=== PATIENT | female | born 1960 | race Caucasian/White ===

== ENCOUNTER → 2021-03-28 09:36 | Outpatient (BNVA) | payer OTHER, SELFPAY | PROVIDERS: PCP Internal Medicine; Visit Provider Hospitalist ==

== ENCOUNTER 2021-05-03 08:56 | Outpatient (REF) | payer OTHER, SELFPAY ==
--- NOTE | 2021-05-03 11:36 | PFT_ITS ---
FLOWS: FEV1 93% of predicted at 3.13 L. FVC 91% of predicted at 3.95 L. FEV1 to FVC ratio of 0.79. No bronchodilator response except in small to medium airways. LUNG VOLUMES: Total lung capacity 99% of predicted at 6.19 L. Residual volume 91% of predicted at 2.19 L. Slow vital capacity 103% of predicted at 4 L. Expiratory reserve volume 104% of predicted at 1.24 L. Diffusion capacity is mildly decreased. IMPRESSION: No obstructive or restrictive ventilatory defect. No bronchodilator response except in small to medium airways. Isolated defect in diffusion capacity suggests underlying pulmonary vascular or parenchymal disease. Clinical correlation is advised. John Doan MD AP/MODL / [id number]
== END 2021-05-03 08:57 | disposition home or self-care (01) ==
LOC: HO.RESP 08:56
PROVIDERS: Visit Provider Hospitalist
DX: R05.3 Chronic cough (principal)
CPT/HCPCS: 94060; 94727; 94729

== ENCOUNTER → 2021-05-07 08:48 | Outpatient (BNVA) | payer OTHER, SELFPAY | PROVIDERS: PCP Internal Medicine; Visit Provider Hospitalist | DX: J45.909 Unspecified asthma, uncomplicated (principal); K21.9 Gastro-esophageal reflux disease without esophagitis; I27.20 Pulmonary hypertension, unspecified; Z23 Encounter for immunization | CPT/HCPCS: 90471; 90686 ==

== ENCOUNTER → 2021-07-10 09:15 | Outpatient (REF) | payer OTHER, SELFPAY ==
--- NOTE | 2021-07-10 09:18 | CA_ITS ---
Transthoracic Echocardiogram Patient (Last, First, Middle): Lisa Simmons Alexandra Gender: Female Date of : 1960 Age: 60 Procedure Date: 07/10/2021 Procedure Type: Transthoracic Echocardiogram Location: OP Height: 182.88 cm Weight: 78.47 kg BSA: 2.00 m2 Heart Rate: bpm BP: 110 / 80 mmHg Furnace Process Supervisor: Referring MD: Ramana Ambriz MD Drilling Manager: Jourdan Austin MD Symptoms: I27.20 - Pulmonary hypertension, unspecified Study Quality: Fair ECG Rhythm: Sinus Conclusions: - 1. Normal LV systolic function with grade 1 diastolic dysfunction 2. Normal cardiac valvular Doppler 3. Normal RV systolic pressure 4. No gross pericardial effusion Findings Left Ventricle Normal left ventricular size, thickness, and systolic function. The visually estimated ejection fraction is between 55-60%. Spectral Doppler is indicative of an impaired relaxation filling pattern. E/E prime ratio is <8, consistent with normal filling pressures. Evidence suggests grade I (mild) diastolic dysfunction. Right Ventricle Normal right ventricular cavity size and systolic function. Atria Both atria are normal in size. There is no evidence of interatrial shunt. Aortic Valve Normal aortic valve structure and function. There is no aortic valve stenosis. There is no aortic valve regurgitation. Mitral Valve Normal mitral valve structure and function. There is trace mitral valve regurgitation. There is no mitral valve stenosis. Pulmonic Valve The pulmonic valve was not well visualized. Tricuspid Valve Likely normal tricuspid valve structure and function. There is trace tricuspid valve regurgitation. The right ventricular systolic pressure is normal. The right ventricular systolic pressure is 17 mmHg. Normal right atrial pressure. There is no evidence of pulmonary hypertension. Great Vessels All visible segments of the aorta are normal in size. The pulmonary artery was not well visualized. Venous The inferior vena cava is normal in size and collapses greater than 50% with inspiration. Pericardium/Pleural There is no evidence of pericardial effusion. Prior Study Comparison No prior study available for comparison. Measurements 2D Linear Measurements IVSd: 0.89 0.6-0.9/0.6-1.0 cm LVIDd: 4.63 3.9-5.3/4.2-5.9 cm LVIDd Index: 2.32 2.4-3.2/2.2-3.1 cm/m2 LVIDs: 3.02 2.0-3.6 cm LVPWd: 0.90 0.7-1.1 cm Ao Root: 3.60 2.1-3.5 cm LA Diam: 2.30 2.7-3.8/3.0-4.0 cm LAIDs Index: 1.15 1.5-2.3 cm/m2 LV Mass: 172.74 67-162/88-224 g LV Mass Index: 86.37 43-95/49-115 g/m2 LVOT Diam: 2.40 3.0+(-)1.3 cm 2D Systolic Function EF 4C: 54.30 >55% EF 2C: 55.30 >55% EF BiP: 55.00 >55% Mitral Valve MV Pk E: 0.41 MV PK A: 0.52 MV Decel Time: 298.00 E/A: 0.80 E'Lateral: 4.35 E'Medial: 5.44 E/E' Med: 7.60 E/E' Lat: 9.40 PHT: 87.00 MVA PHT: 2.53 Decel Christian: 1.38 Aortic Valve AoV Pk Enrique: 1.09 AoV Mn Enrique: 0.71 AoV VTI: 0.24 AoV Pk Grad: 5.00 Aov Mn Grad: 2.00 YASSINE Cont.VTI: 3.44 LVOT LVOT Pk Enrique: 0.82 LVOT Mn Enrique: 0.52 LVOT VTI: 0.18 LVOT Pk Grad: 3.00 LVOT Mn Grad: 1.00 LVOT Diam: 2.40 LVOT Area: 4.52 Diastolic Function MV Pk E: 0.41 MV Pk A: 0.52 E/A: 0.80 E'Medial: 5.44 E/E' Med: 7.60 E' Laterial: 4.35 E/E' Lat: 9.40 Tricuspid Valve TR Pk Enrique: 1.88 TR Pk Grad: 14.00 RA Press: 3.00 RVSP: 17.00 Great Vessels Aorta Ao Root-2D: 3.60 2.0-3.7 cm Ao Asc: 3.70 2.1-3.4 cm Pulmonary Valve PV Pk Enrique: 0.71 Peak PV Grad: 2.00 Updated in Other Vendor System with Status of Final Jourdan Austin MD electronically signed on 07/10/2021 4:06:59 PM with status of Final
== END ==
LOC: HO.CARD 09:15
PROVIDERS: PCP Internal Medicine; Visit Provider Hospitalist
DX: I27.20 Pulmonary hypertension, unspecified (principal)
CPT/HCPCS: 93306

== ENCOUNTER 2021-08-03 09:24 | Outpatient (REF) | payer OTHER, SELFPAY ==
[2021-08-03 11:01] LABS: MANUAL DIFF FLAG NO
[2021-08-03 11:15] LABS: Basophils Percent Auto 0.9 % (0-2); Eosinophils Absolute Auto 0.1 X10*3/uL (0.0-0.4); Eosinophils Percent Auto 1.6 % (0-4); Hematocrit 40.6 % (37.0-47.0); Hemoglobin 12.8 g/dl (12.0-16.0); Imm Gran Abs Auto 0.01 X10*3/uL (0.00-0.03); Imm Gran Pct Auto 0.2 % (0.0-0.4); Lymphocytes Absolute Auto 1.3 X10*3/uL (1.2-4.9); Lymphocytes Percent Auto 29.7 % (20-40); Mean Corpuscular HGB Conc 31.5 g/dl (31.0-35.0); Mean Corpuscular Volume 91.9 fL (80.0-98.0); Mean Platelet Volume 11.4 fL (9.4-12.3); Monocytes Absolute Auto 0.3 X10*3/uL (0.1-1.2); Neutrophils Absolute Auto 2.8 x10*3/uL (2.0-8.3); Neutrophils Percent Auto 61.6 % (45-73); Platelet Count 182 X10*3/uL (160-400); Red Blood Count 4.42 X10*6/uL (4.20-5.50); Red Cell Distribution Width 12.9 % (11.0-16.0); White Blood Count 4.5 X10*3/uL (4.8-10.8)
[2021-08-03 11:53] LABS: Erythrocyte Sedimentation Rate 13 MM/HR (0-20)
[2021-08-04 16:16] LABS: SARS-COV-2 IgG Spike, Semi-Qnt 60.77 index (<1.00)
[2021-08-06 19:07] LABS: Immunoglobulin E 8 kU/L (<OR=114)
== END 2021-08-03 09:25 | disposition home or self-care (01) ==
LOC: HO.LAB 09:24
PROVIDERS: PCP Internal Medicine; Visit Provider Hospitalist
DX: I27.20 Pulmonary hypertension, unspecified (principal); J45.909 Unspecified asthma, uncomplicated; Q79.60 Ehlers-Danlos syndrome, unspecified; J32.0 Chronic maxillary sinusitis; R05.3 Chronic cough; R94.2 Abnormal results of pulmonary function studies; I51.89 Other ill-defined heart diseases; Z20.822 Contact with and (suspected) exposure to COVID-19
CPT/HCPCS: 36415; 82785; 85025; 85652; 86003; 86769

== ENCOUNTER → 2021-09-26 10:19 | Outpatient (BNVA) | payer OTHER, SELFPAY | PROVIDERS: PCP Internal Medicine; Visit Provider Hospitalist | DX: J45.909 Unspecified asthma, uncomplicated (principal) ==

== ENCOUNTER → 2022-01-07 14:26 | Outpatient (REF) | payer OTHER, SELFPAY ==
--- NOTE | ~2022-01-07 | CT_ITS ---
EXAMINATION: CT CHEST WITHOUT CONTRAST CLINICAL INFORMATION: Abnormal pulmonary function test result COMPARISON: None TECHNIQUE: Multidetector volumetric CT imaging of the chest was done. Axial MIP volume rendering provided. Sagittal and coronal reformatted images were obtained. This CT examination was performed using dose optimization techniques as appropriate, variously including the following: *Automated exposure control *Adjustment of mA and/or kV according to patient size (this includes techniques or standardized protocols for targeted exams where dose is matched to indication/reason for exam; i.e. extremities or head) *Use of iterative reconstruction technique DLP: 236 mGy-cm FINDINGS: LUNGS: There is a 3 mm peripheral or subpleural right upper lobe nodule axial image 148 series 7. There is a 4 mm peripheral or subpleural right upper lobe nodule axial image 226 series 7. There may be small calcified nodule left pleural fissure mip reconstructed image 76 and in the right lower lobe mip reconstructed image 97 series 11. There is a 2 cm peripheral or subpleural cyst in the right middle lobe. No evidence of interstitial lung disease, emphysema or bronchiectasis. No endobronchial or endotracheal lesion. MEDIASTINUM: There is a small pericardial effusion. The heart size is normal.. The ascending thoracic aorta is upper normal in size. The aortic arch and descending thoracic aorta are normal in caliber. There is mild coronary artery and thoracic aorta is calcification. There are no enlarged hilar or mediastinal lymph nodes. The visualized thyroid gland is normal. PLEURA: There is no pleural effusion. No pleural mass or thickening. AXILLA: No lymphadenopathy. No chest wall mass. UPPER ABDOMEN: Probable small posterior gastric diverticulum. Multiple low-attenuation liver lesions not compatible with cysts. Largest measures 2 cm. OSSEOUS STRUCTURES: Degenerative changes of the spine surgical changes to the right shoulder. CT/CT chest wo con IMPRESSION: Small pulmonary nodules. According to the UPDATED 2017 Fleischner Society recommendations, the advised follow-up imaging for less than 6 mm solid nodule: Low risk, no chest CT follow-up and high risk, optional chest CT follow-up in one year. Small pericardial effusion. Multiple liver lesions not compatible with cysts. Follow-up liver imaging recommended. Fleischner guidelines were followed. Findings will be communicated by the [facility] work flow binder coverstitch.
== END ==
LOC: HO.SL 14:26
PROVIDERS: PCP Internal Medicine; Visit Provider Hospitalist
DX: G47.33 Obstructive sleep apnea (adult) (pediatric) (principal); R94.2 Abnormal results of pulmonary function studies; R09.89 Other specified symptoms and signs involving the circulatory and respiratory systems; R06.00 Dyspnea, unspecified
CPT/HCPCS: 71250; 95806

== ENCOUNTER → 2022-06-14 09:18 | Outpatient (BNVA) | payer OTHER, SELFPAY | PROVIDERS: PCP Internal Medicine; Visit Provider Hospitalist | DX: Z13.89 Encounter for screening for other disorder (principal) ==

== ENCOUNTER → 2022-09-05 14:01 | Outpatient (BNVA) | payer OTHER, SELFPAY | PROVIDERS: PCP Internal Medicine; Visit Provider Hospitalist | DX: Z13.89 Encounter for screening for other disorder (principal) ==

== ENCOUNTER 2023-02-11 12:50 | Outpatient (REF) | payer OTHER, SELFPAY ==
--- NOTE | ~2023-02-11 | CT_ITS ---
EXAMINATION: CT CHEST WITHOUT CONTRAST CLINICAL INFORMATION: Pulmonary nodules COMPARISON: 01/07/2022 renal TECHNIQUE: Multidetector volumetric CT imaging of the chest was done. Axial MIP volume rendering provided. Sagittal and coronal reformatted images were obtained. This CT examination was performed using dose optimization techniques as appropriate, variously including the following: *Automated exposure control *Adjustment of mA and/or kV according to patient size (this includes techniques or standardized protocols for targeted exams where dose is matched to indication/reason for exam; i.e. extremities or head) *Use of iterative reconstruction technique DLP: 142 mGy-cm FINDINGS: WASTE RECYCLER: Right humeral head bone anchor. Hyperinflated but clear lungs. No consolidations. LUNGS: Trachea and bronchi are patent. No consolidations. Scattered tiny calcifications. NODULES: RUL: No change 3 mm subpleural, 9:150, no change 3 mm, 9:201 MEDIASTINUM: Nonenlarged heterogeneous thyroid. No pathologic lymphadenopathy. Heart size within normal limits. Small pericardial effusion. Nonaneurysmal aorta with atherosclerotic calcifications. Nonenlarged pulmonary arteries. CORONARY ARTERY CALCIFICATION: Mild. PLEURA: There is no pleural effusion. No pleural mass or thickening. AXILLA: No lymphadenopathy. UPPER ABDOMEN: Unremarkable. OSSEOUS STRUCTURES: No suspicious osseous lesions. Right humeral head bone anchors. CT/CT chest wo IV con IMPRESSION: Stable pulmonary nodules at 1 year follow-up, none larger than 3 mm. No further follow-up recommended. Fleischner guidelines were followed.
== END 2023-02-11 12:51 | disposition home or self-care (01) ==
LOC: HO.CT 12:50
PROVIDERS: PCP Internal Medicine; Visit Provider Hospitalist
DX: R91.8 Other nonspecific abnormal finding of lung field (principal)
CPT/HCPCS: 71250

== ENCOUNTER 2023-03-21 09:49 | Outpatient (AMB) | payer OTHER, SELFPAY ==
[2023-03-21 09:52] VITALS: BP 102/70; PULSE 84; O2SAT 99
--- NOTE | 2023-03-21 09:52 | A.OFFVIS_ITS ---
Intake Vital Signs 03/21/23 09:52 Height 5 ft 11 in BMI Reason not done Patient refused/unable BP 102/70 Blood Pressure Location Lt brachial Position Sitting Pulse 84 Pulse Source Pulse Oximeter Pulse Oximetry (%) 99 Oxygen Delivery Method Room Air Intake Visit Reasons: Cough Intake Note: pt is here for follow up and states she is extremely stressed out and having breathing difficulty this week. Contact Center Team Lead Required: No Allergies ciprofloxacin [From Cipro] Allergy (Severe, Verified 03/21/23 09:56) Anaphylaxis morphine Allergy (Severe, Verified 03/21/23 09:56) dizziness HPI HPI Comments History of Present Illness Details The patient is a 62-year-old woman with a known history of chronic cough. The patient has been evaluated by multiple practices for this chronic cough. Part of the workup included a methacholine challenge that demonstrated that she did have hyperreactive airways per report she was placed on asthma therapy without any significant improvement her. Subsequently after that she was diagnosed with Elisa Danlos Syndrome (EDS). she has significant GI issues significant reflux disease she follows closely with Gastroenterology. Sometimes a chronic cough can be severe with significant coughing spells resulting in rib fractures and also near syncope. The patient was provided with cough syrup with codeine that appears to be helpful for her control her cough. Her cough potentially has multiple triggers for 1 is when she breathes in. She also has known allergies including mold in addition to rec we had among other environmental allergens. She does follow closely with an surgical nurse practitioner for this. She has been on allergy medicine. She is currently not on any allergy shots. She was getting allergy shots prior to the pandemic and stopped during the pandemic and has not gone back to them. She is also concerned because she is in a heart is and is exposed to significant amount media. 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 I was able to review with her CT scan that she had of the chest from 2018 that demonstrated no evidence of any underlying interstitial lung disease to suggest pneumoconiosis. A at this point the patient is looking for to having a GI workup for her significant reflux disease. She understands the EDS ultimately results in significant risk for hiatal hernia as an reflux disease and potentially this could be contributing to to some degree to her underlying pulmonary symptoms. 01/16/2022 the patient is here for a pulm onary follow-up visit. Overall she is feeling about the same. She states that she has not been able to go to speech pathology because they had to reschedule. but, she will follow up. She continues to have daytime drowsiness. She does have episodes of choking up at nighttime. We did review home sleep study. He required more than 500 minutes. Her AHI was 3 therefore, the patient does not have any pathologic sleep apnea. She did have most of the apneic episodes when she was laying on her belly and also laying on her back. We did talk about positional therapy. The patient may also consider a oral mandibular device. She is concerned about the TMJ issue and she would like to hold off at this time. In addition to that we did review her CT scan of the chest. Patient does not have any evidence of any pneumonitis or any evidence of any pneumoconiosis specially silicosis with her exposure to glass art. No evidence of any calcifications of the lymph nodes either which can also be seen with silicosis. The patient does have some calcifications of the coronary arteries however. This is considered to be mild. She also has a very small pericardial effusion that she states that she has had in the past. 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 In addition to that it was noted that on limited upper abdominal cuts that she had multiple lesions on her liver that did not appear to be consistent with cyst. She does states that she has a history of hemangiomas of the liver. She did see a GI doctor in the past for. She needs to go back in readdress that issue. The patient does have small subcentimeter pulmonary nodules that will need follow-up in a year's time. 06/14/2022 the patient is here for a pulm onary follow-up visit. The patient had COVID back in April. She did end up taking Paxil a bit. She did tolerate the therapy. After she did have increased reactive airways with increased chest tightness and wheezing. She has been using his Xopenex inhaler more often with good response. But she is that he has been more of an issue. She has felt some chest tightness and some heaviness in the chest. She is reassured her oxygen levels are within normal limits. I 1 point she almost went to the ER because of the chest tightness. She did call a friend that advised her just to check her oxygen and then to just use her inhaler at that time. She also complains of some chest discomfort. It is reproducible in appears to be consistent with cost ochondritis. There is no need for an x-ray at this time. The patient now that she has more confidence with the fact that she tolerated COVID she has been trying to leave the house more often. She is very depressed just been quarantine at home for some many years. Now she feels comfortable leaving the house without a mask. I did reassure her that that is okay but just to use her judgment and specially in place that a crowded with poor ventilation that she should take additional precautions. We did review her last CT scan of the chest was back in December 2020 with multiple small 2-4 mm pulmonary nodules. She should be getting a CT scan a year after that that should be either late summer or early fall. The 09/05/2022 the patient is here for pulmonary follow-up visit. The patient overall is doing well. She appears to be more comfortable. She is still having the chest tightness sensation. Unfortunately, she did not want to use the Advair because she was short of the healthcare. Clinically the patient is doing well. Respiratory status seems to be better. Although I did explain to her that if she wants to try to improve the chest tightness and station she should at least try small dose of the Advair at least 1 puff daily. She can rinse. I did reassure her that the small amount of steroid was not affect her. Also, she can increase her antihistamine to twice a day at least for the month. She is also concerned about potential cognitive defects from the histamine therapy. I do believe that 1st generation antihistamines are more problematic with that. I do believe that is okay for her to double up on the Zyrtec just for a months that she would not result in any significant abnormalities. The patient does have an surgical nurse practitioner. However, due to the pandemic she will have to restart all her allergy shots since she has been off them for some time. 03/21/2023 the patient is here for a pul monary follow-up visit. Overall the patient began doing fairly well from a respiratory status. She has been feeling a lot more stress. She is concerned about the health of her dog. She has been using her inhalers with good effect. She also did undergo a CT scan of the c hest. We did personally viewed together. The pulmonary nodules have not changed which is reassuring. No additional CT scans for now. Six we did talk about a vaccine for the patient does need to get a flu shot. The patient also will consider the RSV vaccine in the future. She is up-to-date with the pneumonia vaccine. She does mention that when she was 30 she did developed varicella as [place] adult and she did have respiratory issues suggesting of a varicella pneumonia. She does have some calcifications within the lung parenchyma mentioned on the report likely related to the history of the viral pneumonia. [facility] Medical History (Updated 03/24/23 @ 07:59 by Ramana Ambriz MD) [id number] syndrome Liver lesion Coronary artery calcification Atelectasis Pericardial effusion Pulmonary nodules Diastolic dysfunction Abnormal PFTs (pulmonary function tests) Chronic cough Seasonal allergies Asthma EDS (Elisa-Danlos syndrome) Social History Patient Tobacco Use Status: Never used Tobacco Review of Systems Const Reports daytime sleepiness, Reports difficulty sleeping, Reports headache(s) and Denies night sweats ENT Denies change in voice, Reports vertigo, Reports dizziness, Reports headache(s), Reports hearing loss, Denies lip swelling, Denies mouth pain, Reports nasal congestion, Reports nasal discharge, Reports disequilibrium, Reports post nasal drip, Reports tinnitus and Denies tongue swelling Card Reports chest pain, Reports syncope, Reports lightheadedness and Reports dyspnea on exertion Resp Denies change in phlegm color, Denies chest congestion, Reports cough, Denies excessive phlegm production, Denies pain on inspiration, Denies pain with cough, Reports dyspnea on exertion, Denies stridor and Reports wheezing GI Reports dyspepsia and Reports heartburn Musc Reports arthralgias, Reports joint swelling and Reports limited range of motion Neuro Denies Neuro-related abnormal movements, Reports vertigo, Reports dizziness, Reports syncope, Reports headache(s) and Reports disequilibrium Psych Denies no additional complaints, Reports anxiety, Denies panic attacks, Denies homicidal ideation and Denies suicidal ideation Kaz/Lymph Denies easy bleeding and Denies lymphadenopathy Aller/Immun Denies lip swelling, Denies tongue swelling and Reports wheezing Physical Exam Vital Signs: Last Vital Signs Pulse 84 03/21/23 09:52 BP 102/70 03/21/23 09:52 Pulse Ox 99 03/21/23 09:52 Oxygen Delivery Method Room Air 03/21/23 09:52 Const General: in distress moderate and anxious HEENT Ears: TM's normal bilaterally and external ear abnormal Neck Neck: Yes normal visual inspection, Yes full ROM and Yes no lymphadenopathy Chest Chest palpation & inspection: normal inspection of the chest Resp Auscultation: clear to auscultation bilaterally, no crackles, no rales, no rh onchi and no wheezes Cardio Rate: regular rate Rhythm: regular rhythm Heart sounds: S1 normal heart sound present and S2 normal heart sound present GI Palpation (GI): Soft to palpation and nontender Auscultation: normal bowel sounds Skin General skin exam: rashes and/or lesions noted Psych Affect: Anxious affect present Results Reviewed Results Reviewed: [address] [address] [address] Scan Report Signed Patient: Lisa Simmons MR#: [id number] : 1960 Acct:[id number] Age/Sex: 62 / F ADM Date: 02/11/23 Loc: HO.CT Attending Dr: Ramana Ambriz MD Ordering Physician: Ramana Ambriz MD Date of Service: 02/11/23 Procedure(s): CT chest wo IV con Accession Number(s): [id number] cc: Sunshine Vanegas; Ramana Ambriz MD~ EXAMINATION: CT CHEST WITHOUT CONTRAST CLINICAL INFORMATION: Pulmonary nodules COMPARISON: 01/07/2022 renal TECHNIQUE: Multidetector volumetric CT imaging of the chest was done. Axial MIP volume rendering provided. Sagittal and coronal reformatted images were obtained. This CT examination was performed using dose optimization techniques as appropriate, variously including the following: *Automated exposure control *Adjustment of mA and/or kV according to patient size (this includes techniques or standardized protocols for targeted exams where dose is matched to indication/reason for exam; i.e. extremities or head) *Use of iterative reconstruction technique DLP: 142 mGy-cm FINDINGS: STREAMING MEDIA SPECIALIST: Right humeral head bone anchor. Hyperinflated but clear lungs. No consolidations. LUNGS: Trachea and bronchi are patent. No consolidations. Scattered tiny calcifications. NODULES: RUL: No change 3 mm subpleural, 9:150, no change 3 mm, 9:201 MEDIASTINUM: Nonenlarged heterogeneous thyroid. No pathologic lymphadenopathy. Heart size within normal limits. Small pericardial effusion. Nonaneurysmal aorta with atherosclerotic calcifications. Nonenlarged pulmonary arteries. CORONARY ARTERY CALCIFICATION: Mild. PLEURA: There is no pleural effusion. No pleural mass or thickening. AXILLA: No lymphadenopathy. UPPER ABDOMEN: Unremarkable. OSSEOUS STRUCTURES: No suspicious osseous lesions. Right humeral head bone anchors. CT/CT chest wo IV con IMPRESSION: Stable pulmonary nodules at 1 year follow-up, none larger than 3 mm. No further follow-up recommended. Fleischner guidelines were followed. Dictated By: Xin Mcqueen MD Signed By: <Electronically signed by Xin Mcqueen MD in OV> 02/18/23 1117 DD/ 1415 TD/TT: Checker In: Assessment & Plan Assessment & Plan (1) Asthma: Code(s): J45.909 - Unspecified asthma, uncomplicated Qualifiers: Asthma complication type: uncomplicated Asthma persistence: persistent Asthma severity: moderate Qualified Code(s): J45.40 - Moderate persistent asthma, uncomplicated (2) Seasonal allergies: Code(s): J30.2 - Other seasonal allergic rhinitis (3) Chronic cough: Code(s): R05.3 - Chronic cough (4) Vocal cord dysfunction: Code(s): J38.3 - Other diseases of vocal cords (5) Dyspnea: Code(s): R06.00 - Dyspnea, unspecified Qualifiers: Dyspnea type: dyspnea on exertion Qualified Code(s): R06.09 - Other forms of dyspnea (6) Pulmonary nodules: Comment: stable nodules, no further f/u warranted Code(s): R91.8 - Other nonspecific abnormal finding of lung field (7) Atelectasis: Code(s): J98.11 - Atelectasis (8) EDS (Elisa-Danlos syndrome): Code(s): Q79.60 - Elisa-Danlos syndrome, unspecified Plan - speech therapy to address her vocal cord dysfunction in view of her EDS - Advair HFA 115/21 1 puff daily first - Continue Xopex HFA as needed. - Continue gabapentin to 600 mg p.o. q.h.s. - CT chest in 01/2023 stable, no f/u at this time - F/U 6-8 months Coding Level of Care Code Est Pt Level 4 (38680) Diagnoses Moderate persistent asthma without complication J45.40 Asthma complication type: uncomplicated Asthma persistence: persistent Asthma severity: moderate Seasonal allergies J30.2 Chronic cough R05.3 Vocal cord dysfunction J38.3 Dyspnea on exertion R06.09 Dyspnea type: dyspnea on exertion Pulmonary nodules R91.8 Atelectasis J98.11 EDS (Elisa-Danlos syndrome) Q79.60 Time Spent (min) 18
== END 2023-03-21 10:26 | disposition home or self-care (01) ==
PROVIDERS: PCP Internal Medicine; Visit Provider Hospitalist
DX: J45.40 Moderate persistent asthma, uncomplicated (principal); J30.2 Other seasonal allergic rhinitis; R05.3 Chronic cough; J38.3 Other diseases of vocal cords; R06.09 Other forms of dyspnea; R91.8 Other nonspecific abnormal finding of lung field; J98.11 Atelectasis; Q79.60 Ehlers-Danlos syndrome, unspecified
CPT/HCPCS: 99214

== ENCOUNTER → 2023-03-21 09:49 | Outpatient (BNVA) | payer OTHER, SELFPAY | PROVIDERS: PCP Internal Medicine; Visit Provider Hospitalist ==

== ENCOUNTER 2023-07-24 12:56 | Outpatient (AMB) | payer OTHER, SELFPAY ==
[2023-07-24 13:08] VITALS: BP 118/70; PULSE 59; O2SAT 100; BMI 24.3
--- NOTE | 2023-07-24 13:08 | MHC.OFFVIS ---
Intake Vital Signs 07/24/23 13:08 Height 5 ft 11 in Weight 174 lb BMI 24.3 BP 118/70 Blood Pressure Location Lt brachial Position Sitting Pulse 59 Pulse Source Pulse Oximeter Pulse Oximetry (%) 100 Oxygen Delivery Method Room Air Intake Visit Reasons: Cough Allergies ciprofloxacin [From Cipro] Allergy (Severe, Verified 07/24/23 13:10) Anaphylaxis morphine Allergy (Severe, Verified 07/24/23 13:10) dizziness HPI HPI Comments History of Present Illness Details The patient is a 62-year-old woman with a known history of chronic cough. The patient has been evaluated by multiple practices for this chronic cough. Part of the workup included a methacholine challenge that demonstrated that she did have hyperreactive airways per report she was placed on asthma therapy without any significant improvement her. Subsequently after that she was diagnosed with Elisa Danlos Syndrome (EDS). she has significant GI issues significant reflux disease she follows closely with Gastroenterology. Sometimes a chronic cough can be severe with significant coughing spells resulting in rib fractures and also near syncope. The patient was provided with cough syrup with codeine that appears to be helpful for her control her cough. Her cough potentially has multiple triggers for 1 is when she breathes in. She also has known allergies including mold in addition to rec we had among other environmental allergens. She does follow closely with an peanut blancher for this. She has been on allergy medicine. She is currently not on any allergy shots. She was getting allergy shots prior to the pandemic and stopped during the pandemic and has not gone back to them. She is also concerned because she is in a heart is and is exposed to significant amount media. 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 I was able to review with her CT scan that she had of the chest from 2018 that demonstrated no evidence of any underlying interstitial lung disease to suggest pneumoconiosis. A at this point the patient is looking for to having a GI workup for her significant reflux disease. She understands the EDS ultimately results in significant risk for hiatal hernia as an reflux disease and potentially this could be contributing to to some degree to her underlying pulmonary symptoms. 01/16/2022 the patient is here for a pulmonary follow-up visit. Overall she is feeling about the same. She states that she has not been able to go to speech pathology because they had to reschedule. but, she will follow up. She continues to have daytime drowsiness. She does have episodes of choking up at nighttime. We did review home sleep study. He required more than 500 minutes. Her AHI was 3 therefore, the patient does not have any pathologic sleep apnea. She did have most of the apneic episodes when she was laying on her belly and also laying on her back. We did talk about positional therapy. The patient may also consider a oral mandibular device. She is concerned about the TMJ issue and she would like to hold off at this time. In addition to that we did review her CT scan of the chest. Patient does not have any evidence of any pneumonitis or any evidence of any pneumoconiosis specially silicosis with her exposure to glass art. No evidence of any calcifications of the lymph nodes either which can also be seen with silicosis. The patient does have some calcifications of the coronary arteries however. This is considered to be mild. She also has a very small pericardial effusion that she states that she has had in the past. 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 In addition to that it was noted that on limited upper abdominal cuts that she had multiple lesions on her liver that did not appear to be consistent with cyst. She does states that she has a history of hemangiomas of the liver. She did see a GI doctor in the past for. She needs to go back in readdress that issue. The patient does have small subcentimeter pulmonary nodules that will need follow-up in a year's time. 06/14/2022 the patient is here for a pulmonary follow-up visit. The patient had COVID back in April. She did end up taking Paxil a bit. She did tolerate the therapy. After she did have increased reactive airways with increased chest tightness and wheezing. She has been using his Xopenex inhaler more often with good response. But she is that he has been more of an issue. She has felt some chest tightness and some heaviness in the chest. She is reassured her oxygen levels are within normal limits. I 1 point she almost went to the ER because of the chest tightness. She did call a friend that advised her just to check her oxygen and then to just use her inhaler at that time. She also complains of some chest discomfort. It is reproducible in appears to be consistent with costochondritis. There is no need for an x-ray at this time. The patient now that she has more confidence with the fact that she tolerated COVID she has been trying to leave the house more often. She is very depressed just been quarantine at home for some many years. Now she feels comfortable leaving the house without a mask. I did reassure her that that is okay but just to use her judgment and specially in place that a crowded with poor ventilation that she should take additional precautions. We did review her last CT scan of the chest was back in December 2020 with multiple small 2-4 mm pulmonary nodules. She should be getting a CT scan a year after that that should be either late summer or early fall. The 09/05/2022 the patient is here for pulmonary follow-up visit. The patient overall is doing well. She appears to be more comfortable. She is still having the chest tightness sensation. Unfortunately, she did not want to use the Advair because she was short of the healthcare. Clinically the patient is doing well. Respiratory status seems to be better. Although I did explain to her that if she wants to try to improve the chest tightness and station she should at least try small dose of the Advair at least 1 puff daily. She can rinse. I did reassure her that the small amount of steroid was not affect her. Also, she can increase her antihistamine to twice a day at least for the month. She is also concerned about potential cognitive defects from the histamine therapy. I do believe that 1st generation antihistamines are more problematic with that. I do believe that is okay for her to double up on the Zyrtec just for a months that she would not result in any significant abnormalities. The patient does have an peanut blancher. However, due to the pandemic she will have to restart all her allergy shots since she has been off them for some time. 03/21/2023 the patient is here for a pulmonary follow-up visit. Overall the patient began doing fairly well from a respiratory status. She has been feeling a lot more stress. She is concerned about the health of her dog. She has been using her inhalers with good effect. She also did undergo a CT scan of the chest. We did personally viewed together. The pulmonary nodules have not changed which is reassuring. No additional CT scans for now. Six we did talk about a vaccine for the patient does need to get a flu shot. The patient also will consider the RSV vaccine in the future. She is up-to-date with the pneumonia vaccine. She does mention that when she was 30 she did developed varicella as [place] adult and she did have respiratory issues suggesting of a varicella pneumonia. She does have some calcifications within the lung parenchyma mentioned on the report likely related to the history of the viral pneumonia. 07/24/2023 the patient is here for a pulmonary follow-up visit. The patient overall has been doing better. She does complaint of some chest tightness and some difficulty with her singing voice. [id number] severity. She had stopped taking the Advair. I did explain to her the Advair be important specially going to her allergy season. She will go ahead and start the Advair this time. She also has a rescue inhaler that She does not typically use. She had been working with speech pathology. She states that while undergoing the evaluation she did not completed for particular reason the clear about. Therefore I will make another referral for her to go back to speech therapy for her vocal cord dysfunction. 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 Liver lesion Coronary artery calcification Atelectasis Pericardial effusion Pulmonary nodules Diastolic dysfunction Abnormal PFTs (pulmonary function tests) Chronic cough Seasonal allergies Asthma EDS (Elisa-Danlos syndrome) Social History Patient Tobacco Use Status: Never used Tobacco Review of Systems Const Reports daytime sleepiness, Reports difficulty sleeping, Reports headache(s) and Denies night sweats ENT Denies change in voice, Reports vertigo, Reports dizziness, Reports headache(s), Reports hearing loss, Denies lip swelling, Denies mouth pain, Reports nasal congestion, Reports nasal discharge, Reports disequilibrium, Reports post nasal drip, Reports tinnitus and Denies tongue swelling Card Reports chest pain, Reports syncope, Reports lightheadedness and Reports dyspnea on exertion Resp Denies change in phlegm color, Denies chest congestion, Reports cough, Denies excessive phlegm production, Denies pain on inspiration, Denies pain with cough, Reports dyspnea on exertion, Denies stridor and Reports wheezing GI Reports dyspepsia and Reports heartburn Musc Reports arthralgias, Reports joint swelling and Reports limited range of motion Neuro Denies Neuro-related abnormal movements, Reports vertigo, Reports dizziness, Reports syncope, Reports headache(s) and Reports disequilibrium Psych Denies no additional complaints, Reports anxiety, Denies panic attacks, Denies homicidal ideation and Denies suicidal ideation Kaz/Lymph Denies easy bleeding and Denies lymphadenopathy Aller/Immun Denies lip swelling, Denies tongue swelling and Reports wheezing Physical Exam Vital Signs: Last Vital Signs Pulse 59 07/24/23 13:08 BP 118/70 07/24/23 13:08 Pulse Ox 100 07/24/23 13:08 Oxygen Delivery Method Room Air 07/24/23 13:08 BMI result Body Mass Index 24.3 Const General: in distress moderate and anxious HEENT Ears: TM's normal bilaterally and external ear abnormal Neck Neck: Yes normal visual inspection, Yes full ROM and Yes no lymphadenopathy Chest Chest palpation & inspection: normal inspection of the chest Resp Effort & Inspection: prolonged expiratory phase Auscultation: clear to auscultation bilaterally, no crackles, no rales, no rhonchi and no wheezes Cardio Rate: regular rate Rhythm: regular rhythm Heart sounds: S1 normal heart sound present and S2 normal heart sound present GI Palpation (GI): Soft to palpation and nontender Auscultation: normal bowel sounds Skin General skin exam: rashes and/or lesions noted Psych Affect: Anxious affect present Office Procedures Flu Questionnaire Does the patient have a severe egg allergy?: No Does the patient have severe life threatening allergies?: No Does the patient have a fever or illness today?: No Has the patient ever had Guillain-[place] Syndrome?: No Has the patient ever had any past reaction to a flu shot?: No Immunizations flu vacc [id number] 6mos up(PF) 60 mcg(15 mcgx4)/0.5 mL IM syringe Performing Provider: Ramana Ambriz MD Performing Location: [facility] Administered by: Tamika Camarena LPN on 07/24/23 13:38 Dose Route Admin Location Dispensed Lot Number Expiration Date NDC Lab Support Technician 0.5 mL IM Left Deltoid 0.5 mL [id number] 11/23/23 78232-863-03 [employer] VIS Given Date VIS Provided VIS Publication Date 07/24/23 Single Vaccine 20 Eligibility Eligibility Date Funding Source Not [facility] Eligible 07/24/23 Private Assessment & Plan Assessment & Plan (1) Asthma: Code(s): J45.909 - Unspecified asthma, uncomplicated Qualifiers: Asthma complication type: uncomplicated Asthma persistence: persistent Asthma severity: moderate Qualified Code(s): J45.40 - Moderate persistent asthma, uncomplicated (2) Seasonal allergies: Code(s): J30.2 - Other seasonal allergic rhinitis (3) Chronic cough: Code(s): R05.3 - Chronic cough (4) Vocal cord dysfunction: Code(s): J38.3 - Other diseases of vocal cords (5) Dyspnea: Code(s): R06.00 - Dyspnea, unspecified Qualifiers: Dyspnea type: dyspnea on exertion Qualified Code(s): R06.09 - Other forms of dyspnea (6) Pulmonary nodules: Comment: stable nodules, no further f/u warranted Code(s): R91.8 - Other nonspecific abnormal finding of lung field (7) Atelectasis: Code(s): J98.11 - Atelectasis (8) EDS (Elisa-Danlos syndrome): Code(s): Q79.60 - Elisa-Danlos syndrome, unspecified Plan - speech therapy to address her vocal cord dysfunction in view of her EDS - Advair HFA 115/21 1 puff BID, then increase to 2 puff BID if no better - Continue Xopex HFA as needed. - Continue gabapentin to 600 mg p.o. q.h.s. - F/U 6-8 months Orders: Orders Influenza [id number] Immunization Today J45.909 - Unspecified asthma, uncomplicated Referrals Speech and Hearing Referral J38.3 - Other diseases of vocal cords, Q79.60 - Elisa-Danlos syndrome, unspecified Medications: New fluticasone propion-salmeterol 115-21 mcg/actuation (Advair HFA) 2 puffs inhalation Q12H 30 days 12 grams 11RF Coding Level of Care Code Est Pt Level 4 (68700) Diagnoses Moderate persistent asthma without complication J45.40 Asthma complication type: uncomplicated Asthma persistence: persistent Asthma severity: moderate Seasonal allergies J30.2 Chronic cough R05.3 Vocal cord dysfunction J38.3 Dyspnea on exertion R06.09 Dyspnea type: dyspnea on exertion Pulmonary nodules R91.8 Atelectasis J98.11 EDS (Elisa-Danlos syndrome) Q79.60 Time Spent (min) 17
== END 2023-07-24 13:42 | disposition home or self-care (01) ==
PROVIDERS: PCP Student in an Organized Health Care Education/Training Program; Visit Provider Hospitalist
DX: J45.40 Moderate persistent asthma, uncomplicated (principal); J30.2 Other seasonal allergic rhinitis; R05.3 Chronic cough; J38.3 Other diseases of vocal cords; R06.09 Other forms of dyspnea; R91.8 Other nonspecific abnormal finding of lung field; J98.11 Atelectasis; Q79.60 Ehlers-Danlos syndrome, unspecified
CPT/HCPCS: 99214

== ENCOUNTER → 2023-07-24 12:56 | Outpatient (BNVA) | payer OTHER, SELFPAY | PROVIDERS: PCP Internal Medicine; Visit Provider Hospitalist | DX: J45.40 Moderate persistent asthma, uncomplicated (principal); J30.2 Other seasonal allergic rhinitis; R05.3 Chronic cough; J38.3 Other diseases of vocal cords; R06.09 Other forms of dyspnea; R91.8 Other nonspecific abnormal finding of lung field; J98.11 Atelectasis; Q79.60 Ehlers-Danlos syndrome, unspecified; Z23 Encounter for immunization | CPT/HCPCS: 90471; 90686 ==

== ENCOUNTER 2023-12-22 13:10 | Outpatient (AMB) | payer OTHER, SELFPAY ==
[2023-12-22 13:16] VITALS: PULSE 69; O2SAT 99; BMI 23.0
--- NOTE | 2023-12-22 13:16 | A.OFFVIS_ITS ---
Vital Signs 12/22/23 13:16 Height 5 ft 11 in Weight 165 lb BMI 23.0 Pulse 69 Pulse Source Pulse Oximeter Pulse Oximetry (%) 99 Oxygen Delivery Method Room Air Intake Visit Reasons: Cough Marbleizer Required: No Allergies ciprofloxacin [From Cipro] Allergy (Severe, Verified 12/22/23 13:18) Anaphylaxis morphine Allergy (Severe, Verified 12/22/23 13:18) dizziness HPI Comments Details: The patient is a 63-year-old woman with a known history of chronic cough. The patient has been evaluated by multiple practices for this chronic cough. Part of the workup included a methacholine challenge that demonstrated that she did have hyperreactive airways per report she was placed on asthma therapy without any significant improvement her. Subsequently after that she was diagnosed with Elisa Danlos Syndrome (EDS). she has significant GI issues significant reflux disease she follows closely with Gastroenterology. Sometimes a chronic cough can be severe with significant coughing spells resulting in rib fractures and also near syncope. The patient was provided with cough syrup with codeine that appears to be helpful for her control her cough. Her cough potentially has mul tiple triggers for 1 is when she breathes in. She also has known allergies including mold in addition to rec we had among other environmental allergens. She does follow closely with an orchard worker for this. She has been on allergy medicine. She is currently not on any allergy shots. She was getting allergy shots prior to the pandemic and stopped during the pandemic and has not gone back to them. She is also concerned because she is in a heart is and is exposed to significant amount media. 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 I was able to review with her CT scan that she had of the chest from 2018 that demonstrated no evidence of any underlying interstitial lung disease to suggest pneumoconiosis. A at this point the patient is looking for to having a GI workup for her significant reflux disease. She understands the EDS ultimately results in significant risk for hiatal hernia as an reflux disease and potentially this could be contributing to to some degree to her underlying pulmonary symptoms. 01/16/2022 the patient is here for a pulmonary follow-up visit. Overall she is feeling about the same. She states that she has not been able to go to speech pathology because they had to reschedule. but, she will follow up. She continues to have daytime drowsiness. She does have episodes of choking up at nighttime. We did review home sleep study. He required more than 500 minutes. Her AHI was 3 therefore, the patient does not have any pathologic sleep apnea. She did have most of the apneic episodes when she was laying on her belly and also laying on her back. We did talk about positional therapy. The patient may also consider a oral mandibular device. She is concerned about the TMJ issue and she would like to hold off at this time. In addition to that we did review her CT scan of the chest. Patient does not have any evidence of any pneumonitis or any evidence of any pneumoconiosis specially silicosis with her exposure to glass art. No evidence of any calcifications of the lymph nodes either which can also be seen with silicosis. The patient does have some calcifications of the coronary arteries however. This is considered to be mild. She also has a very small pericardial effusion that she states that she has had in the past. 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 In addition to that it was noted that on limited upper abdominal cuts that she had multiple lesions on her liver that did not appear to be consistent with cyst. She does states that she has a history of hemangiomas of the liver. She did see a GI doctor in the past for. She needs to go back in readdress that issue. The patient does have small subcentimeter pulmonary nodules that will need follow-up in a year's time. 06/14/2022 the patient is here for a pulmonary follow-up visit. The patient had COVID back in April. She did end up taking Paxil a bit. She did tolerate the therapy. After she did have increased reactive airways with increased chest tightness and wheezing. She has been using his Xopenex inhaler more often with good response. But she is that he has been more of an issue. She has felt some chest tightness and some heaviness in the chest. She is reassured her oxygen levels are within normal limits. I 1 point she almost went to the ER because of the chest tightness. She did call a friend that advised her just to check her oxygen and then to just use her inhaler at that time. She also complains of some chest discomfort. It is reproducible in appears to be consistent with costochondritis. There is no need for an x-ray at this time. The patient now that she has more confidence with the fact that she tolerated COVID she has been trying to leave the house more often. She is very depressed just been quarantine at home for some many years. Now she feels comfortable leaving the house without a mask. I did reassure her that that is okay but just to use her judgment and specially in place that a crowded with poor ventilation that she should take additional precautions. We did review her last CT scan of the chest was back in December 2020 with multiple small 2-4 mm pulmonary nodules. She should be getting a CT scan a year after that that should be either late summer or early fall. The 09/05/2022 the patient is here for pulmonary follow-up visit. The patient overall is doing well. She appears to be more comfortable. She is still having the chest tightness sensation. Unfortunately, she did not want to use the Advair because she was short of the healthcare. Clinically the patient is doing well. Respiratory status seems to be better. Although I did explain to her that if she wants to try to improve the chest tightness and station she should at least try small dose of the Advair at least 1 puff daily. She can rinse. I did reassure her that the small amount of steroid was not affect her. Also, she can increase her antihistamine to twice a day at least for the month. She is also concerned about potential cognitive defects from the histamine therapy. I do believe that 1st generation antihistamines are more problematic with that. I do believe that is okay for her to double up on the Zyrtec just for a months that she would not result in any significant abnormalities. The patient does have an orchard worker. However, due to the pandemic she will have to restart all her allergy shots since she has been off them for some time. 03/21/2023 the patient is here for a pulmonary follow-up visit. Overall the patient began doing fairly well from a respiratory status. She has been feeling a lot more stress. She is concerned about the health of her dog. She has been using her inhalers with good effect. She also did undergo a CT scan of the chest. We did personally viewed together. The pulmonary nodules have not changed which is reassuring. No additional CT scans for now. Six we did talk about a vaccine for the patient does need to get a flu shot. The patient also will consider the RSV vaccine in the future. She is up-to-date with the pneumonia vaccine. She does mention that when she was 30 she did developed varicella as Magalys adult and she did have respiratory issues suggesting of a varicella pneumonia. She does have some calcifications within the lung parenchyma mentioned on the report likely related to the history of the viral pneumonia. 07/24/2023 the patient is here for a pulmonary follow-up visit. The patient overall has been doing better. She does complaint of some chest tightness and some difficulty with her singing voice. [id number] severity. She had stopped taking the Advair. I did explain to her the Advair be important specially going to her allergy season. She will go ahead and start the Advair this time. She also has a rescue inhaler that She does not typically use. She had been working with speech pathology. She states that while undergoing the evaluation she did not completed for particular reason the clear about. Therefore I will make another referral for her to go back to speech therapy for her vocal cord dysfunction. 12/22/2023 the patient is here for a pulmonary follow-up visit. She has been having hard time with her breathing. Been the case for the last several days. She was exposed to cleaning agents. She is not sure that has something to do with it. she did have her adverse switched over to Symbicort because of insurance preference. However, not sure if she is going to do well on it because I do believe that the formoterol component will be difficult for her to tolerate. Is an unfortunate situation where her medications have to be adjusted specially when she is off sensitive to medication changes. She does have significant wheezing on examination. I did provide her with Xopenex nebulizer treatment in the office with some improvement in the cough and chest tightness. But, she still has significant tremulousness after the Xopenex even. Therefore she knows she can do less of the vial treatment if necessary. Heart rate silva went up to about 100 which is reassuring. The patient will start a prednisone course and will start her Xopenex nebs. In view that will hold off on starting the Symbicort specially with the tremulousness. Will go ahead and have her do a nursing visit in order for her to try the Symbicort in the office. If the patient has any difficulties with it will request a PA to go back on the Advair HFA. [facility] Medical History (Updated 03/24/23 @ 07:59 by Ramana Ambriz MD) [id number] syndrome Liver lesion Coronary artery calcification Atelectasis Pericardial effusion Pulmonary nodules Diastolic dysfunction Abnormal PFTs (pulmonary function tests) Chronic cough Seasonal allergies Asthma EDS (Elisa-Danlos syndrome) Social History Patient Tobacco Use Status: Never used Tobacco Review of Systems Const Reports daytime sleepiness, Reports difficulty sleeping, Reports headache(s) and Denies night sweats ENT Denies change in voice, Reports vertigo, Reports dizziness, Reports headache(s), Reports hearing loss, Denies lip swelling, Denies mouth pain, Reports nasal con gestion, Reports nasal discharge, Reports disequilibrium, Reports post nasal drip, Reports tinnitus and Denies tongue swelling Card Reports chest pain, Reports syncope, Reports lightheadedness and Reports dyspnea on exertion Resp Denies change in phlegm color, Denies chest congestion, Reports cough, Denies excessive phlegm production, Denies pain on inspiration, Denies pain with cough, Reports dyspnea on exertion, Denies stridor and Reports wheezing GI Reports dyspepsia and Reports heartburn Musc Reports arthralgias, Reports joint swelling and Reports limited range of motion Neuro Denies Neuro-related abnormal movements, Reports vertigo, Reports dizziness, Reports syncope, Reports headache(s) and Reports disequilibrium Psych Denies no additional complaints, Reports anxiety, Denies panic attacks, Denies homicidal ideation and Denies suicidal ideation Kaz/Lymph Denies easy bleeding and Denies lymphadenopathy Aller/Immun Denies lip swelling, Denies tongue swelling and Reports wheezing Physical Exam Vital Signs: Last Vital Signs Pulse 69 12/22/23 13:16 Pulse Ox 99 12/22/23 13:16 Oxygen Delivery Method Room Air 12/22/23 13:16 BMI result Body Mass Index 23.0 Const General: in distress moderate and anxious HEENT Ears: TM's normal bilaterally and external ear abnormal Neck Neck: Yes normal visual inspection, Yes full ROM and Yes no lymphadenopathy Chest Chest palpation & inspection: normal inspection of the chest Resp Effort & Inspection: prolonged expiratory phase Auscultation: clear to auscultation bilaterally, no crackles, no rales, no rhonchi and wheezes Cardio Rate: regular rate Rhythm: regular rhythm Heart sounds: S1 normal heart sound present and S2 normal heart sound present GI Palpation (GI): Soft to palpation and nontender Auscultation: normal bowel sounds Skin General skin exam: rashes and/or lesions noted Psych Affect: Anxious affect present Office Procedures Nebulizer Treatment Nebulizer Treatment [id number]/[id number] RX initial, or Nebulizer Subsequent Treatment Office Meds levalbuterol HCl 1.25 mg/3 mL solution for nebulization Performing Provider: Ramana Ambriz MD Performing Location: [facility] [place] Pulmonology Services Administered by: Tamika Camarena LPN on 12/22/23 13:56 Dose Route Admin Location Dispensed Lot Number Expiration Date NDC Bun Panner 1.25 mg inhalation 3 mL [id number] 10/23/24 72200-399-04 [employer] Assessment & Plan Assessment & Plan (1) Asthma: Code(s): J45.909 - Unspecified asthma, uncomplicated Category: Medical Qualifiers: Asthma complication type: uncomplicated Asthma persistence: persistent Asthma severity: moderate Qualified Code(s): J45.40 - Moderate persistent asthma, uncomplicated (2) Seasonal allergies: Code(s): J30.2 - Other seasonal allergic rhinitis Category: Medical (3) Chronic cough: Code(s): R05.3 - Chronic cough Category: Medical (4) Vocal cord dysfunction: Code(s): J38.3 - Other diseases of vocal cords Category: Medical (5) Dyspnea: Code(s): R06.00 - Dyspnea, unspecified Category: Medical Qualifiers: Dyspnea type: dyspnea on exertion Qualified Code(s): R06.09 - Other forms of dyspnea (6) Pulmonary nodules: Comment: stable nodules, no further f/u warranted Code(s): R91.8 - Other nonspecific abnormal finding of lung field Category: Medical (7) Atelectasis: Code(s): J98.11 - Atelectasis Category: Medical (8) EDS (Elisa-Danlos syndrome): Code(s): Q79.60 - Elisa-Danlos syndrome, unspecified Category: Medical Plan - start Prednisone taper -Provide nebulizer for Xopenex speech therapy to address her vocal cord dysfunction in view of her EDS - Advair HFA 115/21 1 puff BID stopped due to insurance. Symbicort provided, start 1 puff [id number] set up nursing visit to try the medicine in the office 1st - Continue Xopex HFA as needed. - Continue gabapentin to 600 mg p.o. q.h.s. - F/U 2-3 months Orders: Orders AMB Nebulizer Treatment Today J45.40 - Moderate persistent asthma, uncomplicated Medications: New prednisone PO daily; Take 2 tabs daily x 5 days, then 1 tablet daily x 5 days 15 tabs 0RF 10 days levalbuterol HCl 1.25 mg (3 mL) inhalation BID 180 mL 5RF 30 days J44.9 - Chronic obstructive pulmonary disease, unspecified Coding Level of Care Code Est Pt Level 4 (33675) Complex EM visit Add On G2211 Diagnoses Moderate persistent asthma without complication J45.40 Asthma complication type: uncomplicated Asthma persistence: persistent Asthma severity: moderate Seasonal allergies J30.2 Chronic cough R05.3 Vocal cord dysfunction J38.3 Dyspnea on exertion R06.09 Dyspnea type: dyspnea on exertion Pulmonary nodules R91.8 Atelectasis J98.11 EDS (Elisa-Danlos syndrome) Q79.60 CPT Codes Nebulizer Treatment - Nebulizer Treatment, initial or subsequent: 20356- Nebulizer/MDI RX initial, or Nebulizer Subsequent Treatment ([id number]) Time Spent (min) 18
== END 2023-12-22 14:03 | disposition home or self-care (01) ==
PROVIDERS: PCP Student in an Organized Health Care Education/Training Program; Visit Provider Hospitalist
DX: J45.40 Moderate persistent asthma, uncomplicated (principal); J30.2 Other seasonal allergic rhinitis; R05.3 Chronic cough; J38.3 Other diseases of vocal cords; R06.09 Other forms of dyspnea; R91.8 Other nonspecific abnormal finding of lung field; J98.11 Atelectasis; Q79.60 Ehlers-Danlos syndrome, unspecified
CPT/HCPCS: 99214; G2211

== ENCOUNTER → 2023-12-22 13:10 | Outpatient (BNVA) | payer OTHER, SELFPAY | PROVIDERS: PCP Student in an Organized Health Care Education/Training Program; Visit Provider Hospitalist | DX: J45.40 Moderate persistent asthma, uncomplicated (principal); J30.2 Other seasonal allergic rhinitis; R05.3 Chronic cough; J38.3 Other diseases of vocal cords; R06.09 Other forms of dyspnea; R91.8 Other nonspecific abnormal finding of lung field; J98.11 Atelectasis; Q79.60 Ehlers-Danlos syndrome, unspecified | CPT/HCPCS: 94640 ==

== ENCOUNTER 2023-12-29 13:27 | Outpatient (AMB) | payer OTHER, SELFPAY ==
[2023-12-29 14:11] VITALS: BP 150/78; PULSE 98; O2SAT 99
--- NOTE | 2023-12-29 14:11 | MHC.OFFVIS ---
Vital Signs 12/29/23 14:11 12/29/23 14:12 BP 150/78 H 132/78 Blood Pressure Location Rt brachial Rt brachial Position Sitting Sitting Pulse 98 84 Pulse Source Pulse Oximeter Pulse Oximeter Pulse Oximetry (%) 99 97 Oxygen Delivery Method Room Air Room Air Intake Visit Reasons: Inhaler Teaching Allergies ciprofloxacin [From Cipro] Allergy (Severe, Verified 12/29/23 14:13) Anaphylaxis morphine Allergy (Severe, Verified 12/29/23 14:13) dizziness Medication List - Last Reconciled 12/29/23 by Tamika Camarena LPN Advair HFA 115-21 mcg/actuation (fluticasone propion-salmeterol) 2 puffs inhalation Q12H 30 days NS alprazolam 0.5 mg PO TID PRN kawjzfu-hdfmfzfjmwphi-lqhbxvjt 250-250-65 mg (Excedrin Extra Strength) 1 tab PO Q4-6H PRN budesonide-formoterol 80-4.5 mcg/actuation (Symbicort) 2 puffs inhalation Q12H 60 days cetirizine (Zyrtec) 10 mg PO BID 30 days codeine-guaifenesin 10-100 mg/5 mL 5 mL PO Q6H PRN 10 days ergocalciferol (vitamin D2) 50 mcg PO DAILY PRN eszopiclone 3 mg PO BEDTIME gabapentin 300 mg PO QID levalbuterol HCl 1.25 mg (3 mL) inhalation BID 30 days mecobalamin (vitamin B12) mcg PO meloxicam 15 mg PO DAILY PRN montelukast 10 mg PO DAILY multivitamin 1 tab PO DAILY PRN ondansetron HCl (Zofran) 4 mg PO Q6H PRN prednisone PO daily; Take 2 tabs daily x 5 days, then 1 tablet daily x 5 days 10 days tizanidine 4 mg PO BEDTIME PRN Xopenex HFA 45 mcg/actuation (levalbuterol tartrate) 2 puffs inhalation Q6H PRN NS HPI Comments Details: Niesha was in today for an inhaler teach/reassurance. She was educated on proper inhaler with spacer device technique. She self administered 1 puff of Symbicort 80 mcg via spacer, she rinsed her mouth and throat after use. Niesha tolerated it well with no signs or symptoms of a reaction. Vital signs were obtained 10 min post inhalation and were stable. Niesha said she feels confident in using the Symbicort and left. [facility] Medical History (Updated 03/24/23 @ 07:59 by Ramana Ambriz MD) Rttm-[id number] syndrome Liver lesion Coronary artery calcification Atelectasis Pericardial effusion Pulmonary nodules Diastolic dysfunction Abnormal PFTs (pulmonary function tests) Chronic cough Seasonal allergies Asthma EDS (Elisa-Danlos syndrome) Social History (Reviewed 03/21/23 @ 09:59 by Roxana [place] [facility]) Patient Tobacco Use Status: Never used Tobacco Physical Exam Vital Signs: Last Vital Signs Pulse 84 12/29/23 14:12 BP 132/78 12/29/23 14:12 Pulse Ox 97 12/29/23 14:12 Oxygen Delivery Method Room Air 12/29/23 14:12 Assessment & Plan Assessment & Plan (1) Asthma: Code(s): J45.909 - Unspecified asthma, uncomplicated Category: Medical Qualifiers: Asthma complication type: uncomplicated Asthma persistence: persistent Asthma severity: moderate Qualified Code(s): J45.40 - Moderate persistent asthma, uncomplicated Plan continue symbicort with spacer BID Coding Level of Care Code Established Pt Est Pt Level 1 (98967) Patient Type Established Diagnoses Moderate persistent asthma without complication J45.40 Asthma complication type: uncomplicated Asthma persistence: persistent Asthma severity: moderate Comment NURSE VISIT ONLY
[2023-12-29 14:12] VITALS: BP 132/78; PULSE 84; O2SAT 97
== END 2023-12-29 14:39 | disposition home or self-care (01) ==
PROVIDERS: PCP Student in an Organized Health Care Education/Training Program; Visit Provider Hospitalist
DX: J45.40 Moderate persistent asthma, uncomplicated (principal)

== ENCOUNTER → 2023-12-29 13:27 | Outpatient (BNVA) | payer OTHER, SELFPAY | PROVIDERS: PCP Student in an Organized Health Care Education/Training Program; Visit Provider Hospitalist | DX: J45.40 Moderate persistent asthma, uncomplicated (principal) | CPT/HCPCS: 99211 ==

== ENCOUNTER 2024-01-29 12:58 | Outpatient (AMB) | payer OTHER, SELFPAY ==
[2024-01-29 13:04] VITALS: BP 120/70; PULSE 61; O2SAT 98; BMI 23.7
--- NOTE | 2024-01-29 13:04 | MHC.OFFVIS ---
Vital Signs 01/29/24 13:04 Height 5 ft 11 in Weight 170 lb BMI 23.7 BP 120/70 Blood Pressure Location Lt brachial Position Sitting Pulse 61 Pulse Source Pulse Oximeter Pulse Oximetry (%) 98 Oxygen Delivery Method Room Air Intake Visit Reasons: Cough Rda Required: No Allergies ciprofloxacin [From Cipro] Allergy (Severe, Verified 01/29/24 13:06) Anaphylaxis morphine Allergy (Severe, Verified 01/29/24 13:06) dizziness HPI Comments Details: The patient is a 63-year-old woman with a known history of chronic cough. The patient has been evaluated by multiple practices for this chronic cough. Part of the workup included a methacholine challenge that demonstrated that she did have hyperreactive airways per report she was placed on asthma therapy without any significant improvement her. Subsequently after that she was diagnosed with Elisa Danlos Syndrome (EDS). she has significant GI issues significant reflux disease she follows closely with Gastroenterology. Sometimes a chronic cough can be severe with significant coughing spells resulting in rib fractures and also near syncope. The patient was provided with cough syrup with codeine that appears to be helpful for her control her cough. Her cough potentially has multiple triggers for 1 is when she breathes in. She also has known allergies including mold in addition to rec we had among other environmental allergens. She does follow closely with an accountant machine processing for this. She has been on allergy medicine. She is currently not on any allergy shots. She was getting allergy shots prior to the pandemic and stopped during the pandemic and has not gone back to them. She is also concerned because she is in a heart is and is exposed to significant amount media. 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 I was able to review with her CT scan that she had of the chest from 2018 that demonstrated no evidence of any underlying interstitial lung disease to suggest pneumoconiosis. A at this point the patient is looking for to having a GI workup for her significant reflux disease. She understands the EDS ultimately results in significant risk for hiatal hernia as an reflux disease and potentially this could be contributing to to some degree to her underlying pulmonary symptoms. 01/16/2022 the patient is here for a pulmonary follow-up visit. Overall she is feeling about the same. She states that she has not been able to go to speech pathology because they had to reschedule. but, she will follow up. She continues to have daytime drowsiness. She does have episodes of choking up at nighttime. We did review home sleep study. He required more than 500 minutes. Her AHI was 3 therefore, the patient does not have any pathologic sleep apnea. She did have most of the apneic episodes when she was laying on her belly and also laying on her back. We did talk about positional therapy. The patient may also consider a oral mandibular device. She is concerned about the TMJ issue and she would like to hold off at this time. In addition to that we did review her CT scan of the chest. Patient does not have any evidence of any pneumonitis or any evidence of any pneumoconiosis specially silicosis with her exposure to glass art. No evidence of any calcifications of the lymph nodes either which can also be seen with silicosis. The patient does have some calcifications of the coronary arteries however. This is considered to be mild. She also has a very small pericardial effusion that she states that she has had in the past. 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 In addition to that it was noted that on limited upper abdominal cuts that she had multiple lesions on her liver that did not appear to be consistent with cyst. She does states that she has a history of hemangiomas of the liver. She did see a GI doctor in the past for. She needs to go back in readdress that issue. The patient does have small subcentimeter pulmonary nodules that will need follow-up in a year's time. 06/14/2022 the patient is here for a pulmonary follow-up visit. The patient had COVID back in April. She did end up taking Paxil a bit. She did tolerate the therapy. After she did have increased reactive airways with increased chest tightness and wheezing. She has been using his Xopenex inhaler more often with good response. But she is that he has been more of an issue. She has felt some chest tightness and some heaviness in the chest. She is reassured her oxygen levels are within normal limits. I 1 point she almost went to the ER because of the chest tightness. She did call a friend that advised her just to check her oxygen and then to just use her inhaler at that time. She also complains of some chest discomfort. It is reproducible in appears to be consistent with costochondritis. There is no need for an x-ray at this time. The patient now that she has more confidence with the fact that she tolerated COVID she has been trying to leave the house more often. She is very depressed just been quarantine at home for some many years. Now she feels comfortable leaving the house without a mask. I did reassure her that that is okay but just to use her judgment and specially in place that a crowded with poor ventilation that she should take additional precautions. We did review her last CT scan of the chest was back in December 2020 with multiple small 2-4 mm pulmonary nodules. She should be getting a CT scan a year after that that should be either late summer or early fall. The 09/05/2022 the patient is here for pulmonary follow-up visit. The patient overall is doing well. She appears to be more comfortable. She is still having the chest tightness sensation. Unfortunately, she did not want to use the Advair because she was short of the healthcare. Clinically the patient is doing well. Respiratory status seems to be better. Although I did explain to her that if she wants to try to improve the chest tightness and station she should at least try small dose of the Advair at least 1 puff daily. She can rinse. I did reassure her that the small amount of steroid was not affect her. Also, she can increase her antihistamine to twice a day at least for the month. She is also concerned about potential cognitive defects from the histamine therapy. I do believe that 1st generation antihistamines are more problematic with that. I do believe that is okay for her to double up on the Zyrtec just for a months that she would not result in any significant abnormalities. The patient does have an accountant machine processing. However, due to the pandemic she will have to restart all her allergy shots since she has been off them for some time. 03/21/2023 the patient is here for a pulmonary follow-up visit. Overall the patient began doing fairly well from a respiratory status. She has been feeling a lot more stress. She is concerned about the health of her dog. She has been using her inhalers with good effect. She also did undergo a CT scan of the chest. We did personally viewed together. The pulmonary nodules have not changed which is reassuring. No additional CT scans for now. Six we did talk about a vaccine for the patient does need to get a flu shot. The patient also will consider the RSV vaccine in the future. She is up-to-date with the pneumonia vaccine. She does mention that when she was 30 she did developed varicella as [place] adult and she did have respiratory issues suggesting of a varicella pneumonia. She does have some calcifications within the lung parenchyma mentioned on the report likely related to the history of the viral pneumonia. 07/24/2023 the patient is here for a pulmonary follow-up visit. The patient overall has been doing better. She does complaint of some chest tightness and some difficulty with her singing voice. [id number] severity. She had stopped taking the Advair. I did explain to her the Advair be important specially going to her allergy season. She will go ahead and start the Advair this time. She also has a rescue inhaler that She does not typically use. She had been working with speech pathology. She states that while undergoing the evaluation she did not completed for particular reason the clear about. Therefore I will make another referral for her to go back to speech therapy for her vocal cord dysfunction. 12/22/2023 the patient is here for a pulmonary follow-up visit. She has been having hard time with her breathing. Been the case for the last several days. She was exposed to cleaning agents. She is not sure that has something to do with it. she did have her adverse switched over to Symbicort because of insurance preference. However, not sure if she is going to do well on it because I do believe that the formoterol component will be difficult for her to tolerate. Is an unfortunate situation where her medications have to be adjusted specially when she is off sensitive to medication changes. She does have significant wheezing on examination. I did provide her with Xopenex nebulizer treatment in the office with some improvement in the cough and chest tightness. But, she still has significant tremulousness after the Xopenex even. Therefore she knows she can do less of the vial treatment if necessary. Heart rate silva went up to about 100 which is reassuring. The patient will start a prednisone course and will start her Xopenex nebs. In view that will hold off on starting the Symbicort specially with the tremulousness. Will go ahead and have her do a nursing visit in order for her to try the Symbicort in the office. If the patient has any difficulties with it will request a PA to go back on the Advair HFA. 01/29/2024 The patient is here for a pulmonary follow up visit. The patient is doing well overall respiratory status. She did start Symbicort. She tried in the office and she did tolerated. No significant tremulousness from it. She still has a cough at times. Some intermittent. We did to try to use the peak flow in order to try a delineated her symptoms are respiratory or non respiratory specially with her laryngeal issue. She did have evaluation with speech therapy. I am hopeful that she continues receiving speech therapy at this time. The patient is also having issues with her knees. She is going to need surgery. Therefore, she will continue with current respiratory therapy and she will follow-up after her knee surgery. The patient also has underlying pulmonary nodules. Her last CT scan was back in 02/12/2023 demonstrating subcentimeter pulmonary nodules unchanged from a year past. Will plan to repeat the CT scan sometime in the fall 2023 to make sure we follow up the nodules were couple years. If they do not show any significant changes then no additional serial imaging warranted. 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 lesion Coronary artery calcification Atelectasis Pericardial effusion Pulmonary nodules Diastolic dysfunction Abnormal PFTs (pulmonary function tests) Chronic cough Seasonal allergies Asthma EDS (Elisa-Danlos syndrome) Social History Patient Tobacco Use Status: Never used Tobacco Review of Systems Const Reports daytime sleepiness, Reports difficulty sleeping and Denies night sweats ENT Denies change in voice, Reports vertigo, Reports dizziness, Reports hearing loss, Denies lip swelling, Denies mouth pain, Reports nasal congestion, Reports nasal discharge, Reports disequilibrium, Reports post nasal drip, Reports tinnitus and Denies tongue swelling Card Reports chest pain, Reports syncope, Reports lightheadedness and Reports dyspnea on exertion Resp Denies change in phlegm color, Denies chest congestion, Reports cough, Denies excessive phlegm production, Denies pain on inspiration, Denies pain with cough, Reports dyspnea on exertion, Denies stridor and Reports wheezing GI Reports dyspepsia and Reports heartburn Musc Reports arthralgias, Reports joint swelling and Reports limited range of motion Neuro Denies Neuro-related abnormal movements, Reports vertigo, Reports dizziness, Reports syncope and Reports disequilibrium Psych Denies no additional complaints, Reports anxiety, Denies panic attacks, Denies homicidal ideation and Denies suicidal ideation Kaz/Lymph Denies easy bleeding and Denies lymphadenopathy Aller/Immun Denies lip swelling, Denies tongue swelling and Reports wheezing Physical Exam Vital Signs: Last Vital Signs Pulse 61 01/29/24 13:04 BP 120/70 01/29/24 13:04 Pulse Ox 98 01/29/24 13:04 Oxygen Delivery Method Room Air 01/29/24 13:04 BMI result Body Mass Index 23.7 Const General: in distress moderate and anxious HEENT Ears: TM's normal bilaterally and external ear abnormal Neck Neck: Yes normal visual inspection, Yes full ROM and Yes no lymphadenopathy Chest Chest palpation & inspection: normal inspection of the chest Resp Effort & Inspection: prolonged expiratory phase Auscultation: clear to auscultation bilaterally, no crackles, no rales, no rhonchi and wheezes Cardio Rate: regular rate Rhythm: regular rhythm Heart sounds: S1 normal heart sound present and S2 normal heart sound present GI Palpation (GI): Soft to palpation and nontender Auscultation: normal bowel sounds Skin General skin exam: rashes and/or lesions noted Psych Affect: Anxious affect present Assessment & Plan Assessment & Plan (1) Asthma: Code(s): J45.909 - Unspecified asthma, uncomplicated Category: Medical Qualifiers: Asthma complication type: uncomplicated Asthma persistence: persistent Asthma severity: moderate Qualified Code(s): J45.40 - Moderate persistent asthma, uncomplicated (2) Seasonal allergies: Code(s): J30.2 - Other seasonal allergic rhinitis Category: Medical (3) Chronic cough: Code(s): R05.3 - Chronic cough Category: Medical (4) Vocal cord dysfunction: Code(s): J38.3 - Other diseases of vocal cords Category: Medical (5) Dyspnea: Code(s): R06.00 - Dyspnea, unspecified Category: Medical Qualifiers: Dyspnea type: dyspnea on exertion Qualified Code(s): R06.09 - Other forms of dyspnea (6) Pulmonary nodules: Code(s): R91.8 - Other nonspecific abnormal finding of lung field Category: Medical (7) Atelectasis: Code(s): J98.11 - Atelectasis Category: Medical (8) EDS (Elisa-Danlos syndrome): Code(s): Q79.60 - Elisa-Danlos syndrome, unspecified Category: Medical Plan speech therapy to address her vocal cord dysfunction in view of her EDS Symbicort provided, start 1 puff q12 *ok to use as needed) Continue Xopex HFA as needed. Continue gabapentin to 600 mg p.o. q.h.s. peak flow teaching CT chest F/U 2-3 months Orders: Orders CT chest wo IV con 3 Months R91.8 - Other nonspecific abnormal finding of lung field Medications: Discontinued prednisone Discontinued Reason: None PO daily; Take 2 tabs daily x 5 days, then 1 tablet daily x 5 days 10 days 15 tabs 0RF Coding Level of Care Code Est Pt Level 4 (47395) Complex EM visit Add On G2211 Diagnoses Moderate persistent asthma without complication J45.40 Asthma complication type: uncomplicated Asthma persistence: persistent Asthma severity: moderate Seasonal allergies J30.2 Chronic cough R05.3 Vocal cord dysfunction J38.3 Dyspnea on exertion R06.09 Dyspnea type: dyspnea on exertion Pulmonary nodules R91.8 Atelectasis J98.11 EDS (Elisa-Danlos syndrome) Q79.60 Time Spent (min) 18
== END 2024-01-29 13:43 | disposition home or self-care (01) ==
PROVIDERS: PCP Student in an Organized Health Care Education/Training Program; Visit Provider Hospitalist
DX: J45.40 Moderate persistent asthma, uncomplicated (principal); J30.2 Other seasonal allergic rhinitis; R05.3 Chronic cough; J38.3 Other diseases of vocal cords; R06.09 Other forms of dyspnea; R91.8 Other nonspecific abnormal finding of lung field; J98.11 Atelectasis; Q79.60 Ehlers-Danlos syndrome, unspecified
CPT/HCPCS: 99214; G2211

== ENCOUNTER → 2024-01-29 12:58 | Outpatient (BNVA) | payer OTHER, SELFPAY | PROVIDERS: PCP Student in an Organized Health Care Education/Training Program; Visit Provider Hospitalist | DX: Q79.60 Ehlers-Danlos syndrome, unspecified (principal); J38.3 Other diseases of vocal cords ==

== ENCOUNTER 2024-04-30 12:40 | Outpatient (REF) | payer OTHER, SELFPAY ==
--- NOTE | ~2024-04-30 | CT_ITS ---
EXAMINATION: CT CHEST WITHOUT CONTRAST CLINICAL INFORMATION: Pulmonary nodules. COMPARISON: Prior chest CT examinations, most recently 02/11/2023. TECHNIQUE: Multidetector volumetric CT imaging of the chest was done. Axial MIP volume rendering provided. Sagittal and coronal reformatted images were obtained. This CT examination was performed using dose optimization techniques as appropriate, variously including the following: *Automated exposure control *Adjustment of mA and/or kV according to patient size (this includes techniques or standardized protocols for targeted exams where dose is matched to indication/reason for exam; i.e. 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 LUNGS: Within the posterior right apex (5:161), a 4 mm noncalcified subpleural nodule is seen. Within the right upper lobe laterally (5:229), a 4 mm noncalcified subpleural nodule is seen. At the lateral left apex (5:124), a 3 mm noncalcified nodule is seen. There are a few further bilateral scattered 1-2 mm calcified and noncalcified lung nodules. No mass, infiltrate or groundglass opacity is seen. There is mild biapical pleural and parenchymal scarring. There is mild focal linear scar/subsegmental atelectasis at the medial right base, without associated focal airway obstruction. There is mild dependent hypoaeration at the posterior right base. No generalized small airway thickening is seen. The central airways appear patent. MEDIASTINUM: A 1.2 cm mid right thyroid lobe nodule is seen. No sizable mediastinal or hilar lymphadenopathy is seen. There is no thoracic aortic aneurysm. There are mild atherosclerotic calcifications of the great vessel origins and thoracic aortic arch. CORONARY ARTERY CALCIFICATION: None visualized on this study. There is a tiny pericardial effusion. PLEURA: There is no pleural effusion. No pleural mass or thickening. AXILLA: No lymphadenopathy. UPPER ABDOMEN: The gallbladder is surgically absent. Again, there are low-attenuation right hepatic lobe cysts, which require no imaging follow-up. The adrenal glands are unremarkable. There is accessory splenic tissue. OSSEOUS STRUCTURES: There is multi-level mid thoracic spondylosis. Orthopedic anchors are applied to the right humeral head. No acute or aggressive osseous finding is noted. CT/CT chest wo IV con IMPRESSION: 1. There are bilateral pulmonary nodules, the largest noncalcified nodule situated within the right lung, measuring 4 mm. According to the UPDATED 2017 Fleischner Society recommendations, the advised follow-up imaging for solid nodules < 6 mm is: LOW RISK PATIENT: No routine follow-up. HIGH RISK PATIENT: Optional CT at 12 months. 2. No pulmonary mass, infiltrate or groundglass opacity is seen. 3. There is no thoracic lymphadenopathy or pleural effusion. 4. No acute or aggressive osseous finding is noted. Fleischner guidelines were followed. Electronically signed by: Dax Millan MD 06/23/2024 05:44 PM [facility]A
--- OUTSIDE RECORDS SUMMARY | 2024-05-05 08:27 | XMS_ITS ---
Author Name [facility] Organization Unknown Results Test Name/Text Value Interpretation Date Range Source DIFFERENTIAL TYPE AUTOMATED Normal [id number] [facility] NEUTROPHILS NFR BLD AUTO 57.3% Normal [id number] 44 - 74 [facility] BASOPHILS NFR BLD AUTO 1.3% Normal [id number] 0 - 2 [facility] MONOCYTES NFR BLD AUTO 7.6% Normal [id number] 2 - 12 [facility] HCT VFR BLD AUTO 39.2% Normal [id number] 37 - 47 [facility] MONOCYTES NO. BLD AUTO 0.3K/uL Normal [id number] 0 - 0.8 [facility] RDW RBC AUTO RTO 13.5% Normal [id number] 12.1 - 16. 2 [facility] PLATELET NO. BLD AUTO 150K/uL Normal [id number] 150 - 450 [facility] EOSINOPHIL NO. BLD AUTO 0K/uL Normal [id number] 0 - 0.5 [facility] RBC NO. BLD AUTO 4.35M/uL Normal [id number] 4.2 - 5.4 [facility] MCH RBC QN AUTO 30.2pg Normal [id number] 25 - 33 [facility] MCHC RBC AUTO MCNC 33.5g/dL Normal [id number] 32 - 36 [facility] HGB BLD MCNC 13.1g/dL Normal [id number] 12.5 - 16 [facility] BASOPHILS IN BLOOD BY AUTOMATED COUNT 0.1K/uL Normal [id number] 0 - 0.2 [facility] WBC NO. BLD AUTO 4.2K/uL Normal [id number] 4 - 10.5 [facility] EOSINOPHIL NFR BLD AUTO 0.8% Normal [id number] 0 - 6 [facility] LYMPHOCYTES NFR BLD AUTO 33% Normal [id number] 20 - 48 [facility] MCV RBC AUTO 90.3fL Normal [id number] 78 - 100 [facility] NEUTROPHILS NO. BLD AUTO 2.4K/uL Normal [id number] 1. 8 - 7.8 [facility] LYMPHOCYTES NO. BLD AUTO 1.4K/uL Normal [id number] 1 - 3.2 [facility] PMV BLD AUTO 10.3fL Normal [id number] 7.4 - 11.4 [facility] PREALB SERPL NEPH MCNC 19.7mg/dL Normal [id number] 17 - 34 [facility] CREAT SERPL MCNC 0.7mg/dL Normal [id number] 0.5 - 1 [facility] BILIRUB SERPL MCNC 0.8mg/dL Normal [id number] 0.3 - 1 [facility] AST SERPL CCNC 16U/L Normal [id number] 5 - 40 [facility] Glomerular filtration rate/1.73 sq M. predicted 97 Normal [id number] 60 - [facility] HCO3 SER SCNC 26mmol/L Normal [id number] 24 - 32 [facility] POTASSIUM SERPL SCNC 3.9mmol/L Normal [id number] 3.5 - 5.1 [facility] ANION GAP SERPL SCNC 9mmol/L Normal [id number] 5 - 14 [facility] PROT SERPL MCNC 6.8g/dL Normal [id number] 6.4 - 8.5 [facility] CALCIUM SERPL MCNC 9.7mg/dL Normal [id number] 8.4 - 10 .2 [facility] ALP SERPL-CCNC 88U/L Normal [id number] 34 - 104 [facility] SODIUM SERPL SCNC 140mmol/L Normal [id number] 135 - 145 [facility] GLUCOSE P FAST SERPL MCNC 77mg/dL Normal [id number] 0 - 99 [facility] ALBUMIN SERPL BCG MCNC 4.5g/dL Normal [id number] 3.5 - 5 [facility] CHLORIDE SERPL SCNC 105mmol/L Normal [id number] 98 - 10 7 [facility] ALT SERPL CCNC 9U/L Normal [id number] 7 - 52 [facility] BUN SERPL [facility] 12mg/dL Normal [id number] 7 - 17 [facility] History of Medication Use Medication Directions Dispensed Refills Start Date End Date Status montelukast 10 mg tablet Take 1 tablet every day by oral route. 05/25/99 active gabapentin 300 mg capsule Take 1 capsule 4 times a day by oral route. 05/25/99 active Zyrtec 10 mg capsule Take by oral route. 05/25/99 active meloxicam 15 mg tablet Take 1 tablet as needed by oral route. 05/25/99 active eszopiclone 5mg QD 05/25/99 active Xopenex HFA 45 mcg/actuation aerosol inhaler Inhale 2 puffs every 6 hours by inhalation route. 05/25/99 active alprazolam 1 mg disintegrating tablet Take 1 tablet every day by oral route. 05/25/99 active tizanidine 4 mg tablet Take 1 tablet as needed by oral route. 05/25/99 active aspirin EC tablet 81 mg 81 mg, Oral, 2 times daily after meals, First dose on Radha 02/19/24 at 1800, For 28 daysIs this a new medication order or a home medication: Home Medication 4 active albuterol inhaler 1 puff 1 puff, Inhalation, Every 4 hours PRN, wheezing, Starting on Radha 02/19/24 at 1114Is this patient positive for the Covid-19 virus or a Person Under Investigation (PUI)? Other (explain in comments) 4 active methocarbamol (ROBAXIN) tablet 750 mg 750 mg, Oral, Every 6 hours PRN, muscle spasms, Starting on Radha 02/19/24 at 1114, PACU/Floor 4 active bisacodyl (DULCOLAX) suppository 10 mg 10 mg, Rectal, Daily as needed, constipation, Starting on Radha 02/19/24 at 1114Hold for patients with history of IBS, IBO, Ileostomy. 4 active ondansetron (Zofran) 4 MG tablet Take 1 tablet (4 mg total) by mouth daily as needed. 4 active zolpidem (AMBIEN) tablet 2.5 mg 2.5 mg, Oral, Every Night at Bedtime PRN, sleep, Starting on Radha 02/19/24 at 1114 4 active oxyCODONE (ROXICODONE) 5 MG immediate release tablet 5 mg 5 mg, Oral, Every 4 hours PRN, mild pain (1-3), Starting on Radha 02/19/24 at 1114, PACU/FloorIf pain not improved after reassessment at 60 minutes after 1st dose, may repeat dose X1 as needed. 4 active ALPRAZolam (XANAX) tablet 1 mg 1 mg, Oral, Every Night at Bedtime, First dose on Radha 02/19/24 at 2200 4 active calcium carbonate (TUMS) chewable tablet 500 mg 500 mg, Chew, Every 4 hours PRN, indigestion, heartburn, Starting on Radha 02/19/24 at 1114 4 active HYDROmorphone (DILAUDID) injection 0.5 mg 0.5 mg, Intravenous, Every 4 hours PRN, severe pain (7-10), Starting on Radha 02/19/24 at 1114, PACU/FloorAdminister IV push over 2-3 minutes. 4 active benzocaine-menthol (CEPACOL) lozenge 1 lozenge 1 lozenge, Oral, Every 2 hours PRN, sore throat, Starting on Fri02/19/24 at 1114 4 active gabapentin (NEURONTIN) capsule 300 mg 300 mg, Oral, 3 times daily, First dose on Radha 02/19/24 at 1600 4 active ondansetron (ZOFRAN) injection 4 mg 4 mg, Intravenous, Every 6 hours PRN, nausea, vomiting, Starting on Radha 02/19/24 at 1114, PACU/FloorTo be given first. 4 active oxyCODONE (ROXICODONE) 5 MG immediate release tablet 10 mg 10 mg, Oral, Every 4 hours PRN, moderate pain (4-6), Starting on Radha 02/19/24 at 1114, PACU/Floor 4 active pantoprazole (Protonix) 40 MG tablet Take 1 tablet (40 mg total) by mouth daily. 4 active alum & mag hydroxide-simethicon e suspension 30 mL 30 mL, Oral, Every 6 hours PRN, indigestion, Starting on Radha 02/19/24 at 1114 4 active magnesium hydroxide (MILK OF MAGNESIA) 400 MG/5ML suspension 30 mL 30 mL, Oral, Daily as needed, constipation, Starting on Radha 02/19/24 at 1114Hold for patients with history of IBS, IBO, Ileostomy. 4 active senna-docusate (PERICOLACE) 8.6-50 MG Take 1 tablet by mouth 2 (two) times a day. 4 active ceFAZolin (ANCEF) injection 2 g 2 g, Intravenous, Every 8 hours, First dose on Radha 02/19/24 at 1600, For 1 dose, PACU/FloorGive 8 hours after the intra-op cefazolin dose.??For Adults, if ordered IV then reconstitute each 1GM vial with 10mL sterile water or normal saline and administer IV Push over 3-5 minutes. 4 completed dexamethasone (DECADRON) tablet 8 mg 8 mg, Oral, Once, On Fri02/20/24 at 0800, For 1 dosePOD #1 in the morning.??Hold for patients with the following procedures: I&D w/ or w/o poly exchange, resection arthroplasty, removal of prosthesis 4 completed metoclopramide (REGLAN) injection 10 mg 10 mg, Intravenous, Every 6 hours PRN, nausea, vomiting, Starting on Radha 02/19/24 at 1114, PACU/FloorTo be given if zofran is ineffective. 4 active lactated ringers infusion 100 mL/hr, Intravenous, Continuous, Starting on Radha 02/19/24 at 1115, PACU/Floor 4 active tranexamic Acid 1,000 mg in sodium chloride 0.9% (NS) 100 mL IVPB-MBP 1,000 mg, Intravenous, Administer over 20 Minutes, Once, On Radha 02/19/24 at 0915, For 1 dose, PACU/Phase 1Administer within 30 minutes arrival to PACU??for OR 4 completed ALPRAZolam (XANAX) tablet 0.5 mg 0.5 mg, Oral, Daily with lunch, First dose on Radha 02/19/24 at 1200 4 active tranexamic acid (LYSTEDA) 650 MG tablet Take 3 tablets (1,950 mg total) by mouth daily. 4 active orphenadrine (NORFLEX) injection 30 mg 30 mg, Intravenous, Once as needed, muscle spasms, for musculoskeletal pain, to achieve pain scale less than or equal to 4, Starting on Radha 02/19/24 at 0909, For 1 dose, PACU/Phase 1 4 completed budesonide (PULMICORT) nebulizer solution 1 mg [Order 1 Start] Name: budesonide (PULMICORT) nebulizer solution 1 mg Signed Summary: 1 mg, Nebulization, Daily, First dose on Radha 02/19/24 at 1800Rinse mouth with water after use to reduce aftertaste and incidence of candidiasis. Do not swallow.?Therapeu tic substitution for DULERA is budesonide neb 4 active meloxicam (MOBIC) 15 MG tablet Take 1 tablet (15 mg total) by mouth daily as needed. 4 active Cyanocobalamin [address] 2,500 mcg under the tongue daily. 4 active ORAL ELECTROLYTES PO Take 1 Package by mouth daily as needed. 4 active Cholecalciferol 250 MCG (51736 UT) TABS Take 2,000 Units by mouth daily as needed. 4 active Xopenex HFA 45 MCG/ACT inhaler Inhale 2 puffs into the lungs every 6 (six) hours as needed. 4 active tiZANidine (ZANAFLEX) 4 MG tablet Take 1 tablet (4 mg total) by mouth every 6 (six) hours as needed. 4 active ALPRAZolam (XANAX) 1 MG tablet Take 0.5-1 tablets (0.5-1 mg total) by mouth 2 (two) times a day. Total 1.5 .5 at lunch 1 mg at QHS 4 active meclizine (ANTIVERT) 25 MG tablet Take 1 tablet (25 mg total) by mouth daily as needed. 4 active eszopiclone (LUNESTA) 3 MG TABS tablet Take 1 tablet (3 mg total) by mouth every evening. 4 active montelukast (SINGULAIR) 10 MG tablet Take 1 tablet (10 mg total) by mouth every evening. 4 active acetaminophen (TYLENOL EXTRA STRENGTH) 500 MG tablet Take 2 tablets (1,000 mg total) by mouth every 6 (six) hours as needed. 4 active gabapentin (NEURONTIN) 300 MG capsule Take 1-2 capsules (300-600 mg total) by mouth 3 (three) times a day. 300 mg lunch and dinner and 600 mg at HS 4 active Acetaminophen-Caffei ne (Excedrin Tension Headache) 500-65 MG TABS Take 2 tablets by mouth daily as needed. 4 active MAGNESIUM MALATE PO Take 250 mg by mouth daily as needed. 4 active CAFFEINE PO Take 60 mg by mouth daily. 4 active Cetirizine HCl 10 MG CAPS Take 1 capsule (10 mg total) by mouth every evening. 4 active budesonide-formotero l (SYMBICORT) 80-4.5 MCG/ACT inhaler Inhale 2 puffs into the lungs 2 (two) times a day as needed. 4 active acetaminophen (TYLENOL EXTRA STRENGTH) 500 MG tablet Take 2 tablets (1,000 mg total) by mouth every 6 (six) hours as needed. 4 active meclizine (ANTIVERT) 25 MG tablet Take 1 tablet (25 mg total) by mouth daily as needed. 4 active meloxicam (MOBIC) 15 MG tablet Take 1 tablet (15 mg total) by mouth daily as needed. 4 active tiZANidine (ZANAFLEX) 4 MG tablet Take 1 tablet (4 mg total) by mouth every 6 (six) hours as needed. 4 active Cetirizine HCl 10 MG CAPS Take 1 capsule (10 mg total) by mouth every evening. 4 active Cyanocobalamin [address] 2,500 mcg under the tongue daily. 4 active budesonide-formotero l (SYMBICORT) 80-4.5 MCG/ACT inhaler Inhale 2 puffs into the lungs 2 (two) times a day as needed. 4 active gabapentin (NEURONTIN) 300 MG capsule Take 1-2 capsules (300-600 mg total) by mouth 3 (three) times a day. 300 mg lunch and dinner and 600 mg at HS 4 active ALPRAZolam (XANAX) 1 MG tablet Take 0.5-1 tablets (0.5-1 mg total) by mouth 2 (two) times a day. Total 1.5 .5 at lunch 1 mg at QHS 4 active MAGNESIUM MALATE PO Take 250 mg by mouth daily as needed. 4 active montelukast (SINGULAIR) 10 MG tablet Take 1 tablet (10 mg total) by mouth every evening. 4 active ORAL ELECTROLYTES PO Take 1 Package by mouth daily as needed. 4 active Cholecalciferol 250 MCG (89768 UT) TABS Take 2,000 Units by mouth daily as needed. 4 active Acetaminophen-Caffei ne (Excedrin Tension Headache) 500-65 MG TABS Take 2 tablets by mouth. 4 active Xopenex HFA 45 MCG/ACT inhaler Inhale 2 puffs into the lungs every 6 (six) hours as needed. 4 active CAFFEINE PO Take 60 mg by mouth daily. 4 active eszopiclone (LUNESTA) 3 MG TABS tablet Take 1 tablet (3 mg total) by mouth every evening. 4 active Allergies Allergen Reaction Severity Comment Documented Date Source Statu s HOUSE DUST ENS_AONECT MOLD ENS_AONECT Problems Problem Status Onset Date Problem Type Date of Resolution Source Anemia active EncounterDiagnosisAct [facility] Inadequate oral intake active EncounterDiagnosisAct [facility] GERD (gastroesophageal reflux disease) active ProblemAct [facility] Elisa-Danlos syndrome active ProblemAct [facility] Hyperlipidemia, unspecified hyperlipidemia type active EncounterDiagnosisAct [facility] Primary osteoarthritis of left knee active EncounterDiagnosisAct [facility] At risk for impaired communication active ProblemAct [facility] Moderate persistent asthma, unspecified whether complicated active EncounterDiagnosisAct [facility] PTSD (post-traumatic stress disorder) active EncounterDiagnosisAct [facility] Autistic disorder active ProblemAct [facility] Anxiety and depression active EncounterDiagnosisAct [facility] Asthma active ProblemAct [facility] Osteoarthritis of left knee joint active 2024-01-22 ProblemAct [facility] Surgical follow-up active 2024-04-13 ProblemAct [facility] Arthritis of knee active 2024-01-22 ProblemAct [facility]
--- OUTSIDE RECORDS SUMMARY | 2024-05-05 08:27 | XMS_ITS | Data Portability ---
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 Plan of Treatment Reminders Order Date Submit Date Provider Last Modified By Organization Details Last Modified Time Details Appointments Establish ed 30 2023 08:00A M CLAUDIA Man MD Not available Not available Not available Lab None recorded. Referral speech therapy referral - having trouble projectin g voice. please perform voice therapy. 2023 024 REN[facility], [address] [place] [address], [place], [address], 02/03/2024 12:09:31 Procedures None recorded. Surgeries None recorded. Imaging None recorded. Medication Orders omeprazol e 20 mg capsule,d elayed release 2023 024 [id number], [address] [place], [address], 01/30/2024 14:46:56 Patient TargetsNo targets recorded. Patient InstructionsNo instructions recorded. Reason for Referral having trouble projecting vo ice. please perform voice therapy. Referring Physician: Claudia Schaefer, Otolaryngology, Encounter Date: 01/30/2024 Results Created Date Observation Date Name Description Value Unit Range Abnormal Flag Note LastModifiedBy Organization Detail LastModifiedTime 01/15/20 24 08/29/2021 imagi ng/di agnos tic resul t No observ ation record ed. [email or web address] Not Available 15:37:09 01/15/20 24 01/22/2021 imagi ng/di agnos tic resul t No observ ation record ed. [email or web address] Not Available 15:37:21 01/15/20 24 01/22/2021 imagi ng/di agnos tic resul t No observ ation record ed. [email or web address] Not Available 15:37:24 Result Notes None recorded. Problems Name Problem SNOMED Code Status Onset Date Resolution Date Notes Provider Name and Address Organization Details Recorded Time Neck pain 10118471 Active 2020 Cervicalg ia; Note: Date Diagnosed : 01/19/2021 9:51 AM (M54.2) Not Available [facility] 4 02:42:26 Sensorine ural hearing loss of bilateral ears 817421393 Active 2021 Sensorine ural hearing loss, bilateral ; Note: Date Diagnosed : 08/29/2021 1:56 PM (H90.3) Not Available [facility] 4 02:42:25 Bilateral tinnitus 48348794342 02 Active 2020 Tinnitus, bilateral ; Note: Date Diagnosed : 01/19/2021 9:54 AM (H93.13) Not Available [facility] 4 02:42:24 Allergic rhinitis 84660115 Active 2021 Other allergic rhinitis; Note: Date Diagnosed : 08/29/2021 2:00 PM (J30.89) Not Available [facility] 4 02:42:17 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 Other diseases of vocal cords; Note: Changed from J38 to J38.3 ( 10:47 AM) , Date Diagnosed : 01/19/2021 9:54 AM (J38) Not Available [facility] 4 02:42:23 Dysphonia 96476021 Active 2023 CLAUDIA SCHAEFER MD [address] [place] [address], [facility] [place], [phone] , [facility] - [facility] 4 14:27:32 Otalgia of left ear 5985169918 Active 2023 CLAUDIA SCHAEFER MD [address] [facility],[place] [address], [place], [address] , [facility] - [facility] 14:27:43 Gastroeso phageal reflux disease without esophagit is 067217317 Active 2023 CLAUDIA SCHAEFER MD [address] [facility],[place] [address], [place], [address] , [facility] - [facility] [place] 14:42:40 Dysphagia 14210558 Active 2023 CLAUDIA SCHAEFER MD [address] [facility],[place] [address], [place], [address] , [facility] - [facility] 14:46:04 Problem Notes None recorded. Procedures Surgical History Date Name Laterality Status Provider Name and Address Organization Details Recorded Time 01/30/2024 FFL_RE completed CLAUDIA SCHAEFER MD [address] [facility],[place] [address], [place], [address], [facility] 01/30/2024 14:42:07 Imaging Results Imaging Date Name Status LastModified by Organiz ation Details LastModified Time 08/29/2021 imaging/diag nostic result completed Information not available 01/15/2024 15:37:09 01/22/2021 imaging/diag nostic result completed Information not available 01/15/2024 15:37:21 01/22/2021 imaging/diag nostic result completed Information not available 01/15/2024 15:37:24 Procedure Notes None recorded. Medical Equipment None Reported. Allergies Allergen ID Allergen Name Allergen Category Reaction Reaction Severity Criticality Documentation Date Start Date Code Code System Note Provider Name and Address Organization Details Recorded Time 643796 morphine hydrochlo ride Not available other Not available Not available 10/07/2023 60150 1 RxNorm React ion: other react ion, Unkno wn; Not Available [facility] 01:17:45 Medications Name Sig Start Date Stop Date Status Note LastModified by Organization Details LastModified Time alprazolam 1 mg tablet 2020 active Medication ID: [id number] David nd Name: alprazolam Send Method: E-Prescrib ed Subs Allowed: subs OK Special Instructio n: TAKE 1 TABLET BY MOUTH EVERY DAY NEEDED Med icationGen ericName: alprazolam Not Available Not Available Not Available benzonatat e 200 mg capsule active Medication ID: [id number] David nd Name: benzonatat e Send Method: E-Prescrib ed Subs Allowed: subs OK Special Instructio n: TAKE 1 CAPSULE BY MOUTH TWICE DAILY X30 DAYS NEEDED FOR COUGH Medi cationGene ricName: benzonatat e Not Available Not Available Not Available valacyclov ir 1 gram tablet 2020 active Medication ID: [id number] David nd Name: valacyclov ir Send Method: E-Prescrib ed Subs Allowed: subs OK Special Instructio n: TAKE 2 TABLETS BY MOUTH EVERY 12 HOURS NEEDED FOR 2 DOSES FOR COLD SORE. Medi cationGene ricName: valacyclov ir Not Available Not Available Not Available meloxicam 15 mg tablet 2020 active Medication ID: [id number] David nd Name: meloxicam Send Method: E-Prescrib ed Subs Allowed: subs OK Special Instructio n: TAKE 1 TABLET BY MOUTH EVERY DAY WITH FOOD Medic ationGener icName: meloxicam Not Available Not Available Not Available ondansetro n HCl 4 mg tablet 2020 active Medication ID: [id number] David nd Name: ondansetro n HCl Send Method: E-Prescrib ed Subs Allowed: subs OK Special Instructio n: TAKE 2 TABLETS BY MOUTH 3 TIMES A DAY NEEDED FOR 5 DAYS. Medi cationGene ricName: ondansetro n HCl Not Available Not Available Not Available sulfametho xazole 800 mg-trimeth oprim 160 mg tablet 2020 active Medication ID: [id number] David nd Name: sulfametho xazole-tri methoprim Send Method: E-Prescrib ed Subs Allowed: subs OK Special Instructio n: TAKE 1 TABLET BY MOUTH EVERY 12 HOURS FOR 7 DAYS Medic ationGener icName: sulfametho xazole-tri methoprim Not Available Not Available Not Available meloxicam 7.5 mg tablet 2020 active Medication ID: [id number] David nd Name: meloxicam Send Method: E-Prescrib ed Subs Allowed: subs OK Special Instructio n: TAKE ONE TABLET BY MOUTH DAILY WITH FOOD Medic ationGener icName: meloxicam Not Available Not Available Not Available meclizine 25 mg tablet active Medication ID: [id number] David nd Name: meclizine Send Method: E-Prescrib ed Subs Allowed: subs OK Special Instructio n: TAKE 1 TABLET NEEDED BY ORAL ROUTE DIRECTED M edicationG enericName : meclizine Not Available Not Available Not Available cephalexin 500 mg capsule 2020 active Medication ID: [id number] David nd Name: cephalexin Send Method: E-Prescrib ed Subs Allowed: subs OK Special Instructio n: TAKE 1 CAPSULE BY MOUTH EVERY 8 HOURS FOR 2 DAYS Medic ationGener icName: cephalexin Not Available Not Available Not Available triamcinol one acetonide 0.1 % topical ointment 2020 active Medication ID: [id number] David nd Name: triamcinol one acetonide Send Method: E-Prescrib ed Subs Allowed: subs OK Special Instructio n: APPLY TO AFFECTED AREA ON THE LEFT FOREARM TWICE DAILY. Med icationGen ericName: triamcinol one acetonide Not Available Not Available Not Available gabapentin 300 mg capsule 2020 active Medication ID: [id number] David nd Name: gabapentin Send Method: E-Prescrib ed Subs Allowed: subs OK Special Instructio n: TAKE 1 CAPSULE BY MOUTH THREE TIMES A DAY Medica tionGeneri cName: gabapentin Not Available Not Available Not Available omeprazole 20 mg capsule,de layed release Take 1 capsule every day by oral route before meal(s). 2023 active Not Available Not Available Not Avai lable montelukas t 10 mg tablet 2020 active Medication ID: [id number] David nd Name: montelukas t Send Method: E-Prescrib ed Subs Allowed: subs OK Special Instructio n: TAKE 1 TABLET BY MOUTH EVERY DAY DIRECTED M edicationG enericName : montelukas t Not Available Not Available Not Available mupirocin 2 % topical ointment 2020 active Medication ID: [id number] David nd Name: mupirocin Send Method: E-Prescrib ed Subs Allowed: subs OK Special Instructio n: APPLY A SMALL AMOUNT TO THE AFFECTED AREA TOPICALLY 3 TIMES PER DAY X 7 DAYS Medic ationGener icName: mupirocin Not Available Not Available Not Available eszopiclon e 3 mg tablet 2020 active Medication ID: [id number] David baker Name: eszopiclon e Send Method: E-Prescrib ed Subs Allowed: subs OK Special Instructio n: TAKE 1 TABLET BY MOUTH EVERYDAY AT BEDTIME Me dicationGe nericName: eszopiclon e Not Available Not Available Not Available tizanidine 4 mg capsule 2020 active Medication ID: [id number] David nd Name: tizanidine Send Method: E-Prescrib ed Subs Allowed: subs OK Special Instructio n: TAKE 1 CAPSULE BY MOUTH EVERY DAY NEEDED Med icationGen ericName: tizanidine Not Available Not Available Not Available Atrovent HFA 17 mcg/actuat ion aerosol inhaler 2020 active Medication ID: [id number] David nd Name: Atrovent HFA Send Method: E-Prescrib ed Subs Allowed: subs OK Special Instructio n: INHALE 2 PUFFS BY MOUTH EVERY 6 HOURS NEEDED FOR SHORTNESS OF BREATH Med icationGen ericName: Atrovent HFA Not Available Not Available Not Available olopatadin e 0.2 % eye drops 2020 active Medication ID: [id number] David nd Name: olopatadin e Send Method: E-Prescrib ed Subs Allowed: subs OK Special Instructio n: INSTILL 1 DROP INTO BOTH EYES EVERY DAY NEEDED Med icationGen ericName: olopatadin e Not Available Not Available Not Available OxyContin 10 mg tablet,cru sh resistant, extended release 2020 active Medication ID: [id number] David nd Name: OxyContin Send Method: E-Prescrib ed Subs Allowed: subs OK Special Instructio n: TAKE 1 TABLET BY MOUTH EVERY 12 HOURS Medi cationGene ricName: OxyContin Not Available Not Available Not Available Vitals Date Recorded Body height Body mass index (BMI) Body weight Provider Name and Address Organization Details Last Updated DateTime 01/30/2024 180.34 cm 23.7 kg/m2 85462.7 g Le [place] - [facility] 01/30/2024 14:06:15 Social History None recorded. Functional Status None recorded. Mental Status None recorded. Family History Nothing Reported. Medical History No medical history recorded. Gynecological HistoryNo gynecological history recorded. Obstetrics History GPAL:G 0 P 0 0 0 0 Past Encounters Encounter ID Performer Location Encounter Start Date Encounter Closed Date Diagnosis/Indication Diagnosis SNOMED-CT Code Diagnosis ICD10 Code [id number] CLAUDIA SCHAEFER MD [facility] [address] [address] 01/30/2024 13:47:09 01/30/2024 14:49:46 Dysphonia 85877186 R49.9 Otalgia of left ear 1010 745899 H92.02 Gastroesop hageal reflux disease without esophagitis 579482556 K21.9 Dysphagia 92156648 R13.1 0 Health Concerns Section Related Observation LastModified by Organization Detai ls LastModified Time None Recorded Concern Status LastModified by Organization Details LastModified Time None Recorded Advance Directives Directive None Recorded Payers Encounter Date Sequence Insurance Name Policy Number Policy Harrington Covered Member ID Harrington Member ID Guarantor Name 01/30/2024 1 [employer] (POS) [id number] Kimo Babin Simmons [id number] LisaJm Simmons Notes Date Note Type Note Provider Name and Address Organization Details Recorded Time 01/30/2024 text/html A few months ago she had an MRI of her neck. She wore ear plugs during the MRI. She felt the the ear plugs were put in too far into the ear canal and she has had some fullness in the left ear since. She reports some vocal cord dysfunction. She sees Dr. Ambriz in pulmonary for asthma. She has chronic cough. She saw a speech pathologist. She sings and speaks publicly. She has noted trouble projecting her voice. She reports a low level soreness in her throat all the time. She drinks a significant amount of water. She has episodic GERD. Prior endoscopy did not suggest GERD. She has never smoked. She also reports a tightness in her throat. CLAUDIA SCHAEFER MD [address] [place] [address], [phone], [facility] - [facility] 01/30/2024 14:46:58 OBGyn Episode No OBEpisode recorded.
== END 2024-04-30 12:41 | disposition home or self-care (01) ==
LOC: HO.CT 12:40
PROVIDERS: PCP Student in an Organized Health Care Education/Training Program; Visit Provider Hospitalist
DX: R91.8 Other nonspecific abnormal finding of lung field (principal)
CPT/HCPCS: 71250

== ENCOUNTER 2024-05-04 11:04 | Outpatient (AMB) | payer OTHER, SELFPAY ==
[2024-05-04 11:08] VITALS: BP 136/68; PULSE 80; O2SAT 100
--- NOTE | 2024-05-04 11:08 | A.OFFVIS_ITS ---
Vital Signs 05/04/24 11:08 Weight 173 lb BP 136/68 Blood Pressure Location Lt brachial Position Sitting Pulse 80 Pulse Source Pulse Oximeter Pulse Oximetry (%) 100 Oxygen Delivery Method Room Air Intake Visit Reasons: Cough Allergies ciprofloxacin [From Cipro] Allergy (Severe, Verified 05/04/24 11:13) Anaphylaxis morphine Allergy (Severe, Verified 05/04/24 11:13) dizziness pyridostigmine Adverse Reaction (Intermediate, Verified 05/04/24 11:13) loss of bladder control Medication List - Last Reconciled 05/04/24 by Tamika Camarena LPN alprazolam 0.5 mg PO TID PRN goxwdtu-syfkyhpdoppun-pxbarpxr 250-250-65 mg (Excedrin Extra Strength) 1 tab PO Q4-6H PRN budesonide-formoterol 80-4.5 mcg/actuation (Symbicort) 2 puffs inhalation Q12H 60 days cetirizine (Zyrtec) 10 mg PO BID 30 days codeine-guaifenesin 10-100 mg/5 mL 5 mL PO Q6H PRN 10 days ergocalciferol (vitamin D2) 50 mcg PO DAILY PRN eszopiclone 3 mg PO BEDTIME gabapentin 300 mg PO QID levalbuterol HCl 1.25 mg (3 mL) inhalation BID 30 days mecobalamin (vitamin B12) mcg PO meloxicam 15 mg PO DAILY PRN montelukast 10 mg PO DAILY 90 days multivitamin 1 tab PO DAILY PRN ondansetron HCl (Zofran) 4 mg PO Q6H PRN tizanidine 4 mg PO BEDTIME PRN Xopenex HFA 45 mcg/actuation (levalbuterol tartrate) 2 puffs inhalation Q6H PRN NS HPI Comments Details: The patient is a 63-year-old woman with a known history of chronic cough. The patient has been evaluated by multiple practices for this chronic cough. Part of the workup included a methacholine challenge that demonstrated that she did have hyperreactive airways per report she was placed on asthma therapy without any significant improvement her. Subsequently after that she was diagnosed with Elisa Danlos Syndrome (EDS). she has significant GI issues significant reflux disease she follows closely with Gastroenterology. Sometimes a chronic cough can be severe with significant coughing spells resulting in rib fractures and also near syncope. The patient was provided with cough syrup with codeine that appears to be helpful for her control her cough. Her cough potentially has multiple triggers for 1 is when she breathes in. She also has known allergies including mold in addition to rec we had among other environmental allergens. She does follow closely with an property insurance inspector for this. She has been on allergy med icine. She is currently not on any allergy shots. She was getting allergy shots prior to the pandemic and stopped during the pandemic and has not gone back to them. She is also concerned because she is in a heart is and is exposed to significant amount media. 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 I was able to review with her CT scan that she had of the chest from 2018 that demonstrated no evidence of any underlying interstitial lung disease to suggest pneumoconiosis. A at this point the patient is looking for to having a GI workup for her significant reflux disease. She understands the EDS ultimately results in significant risk for hiatal hernia as an reflux disease and potentially this could be contributing to to some degree to her underlying pulmonary symptoms. 01/16/2022 the patient is here for a pulmonary follow-up visit. Overall she is feeling about the same. She states that she has not been able to go to speech pathology because they had to reschedule. but, she will follow up. She continues to have daytime drowsiness. She does have episodes of choking up at nighttime. We did review home sleep study. He required more than 500 minutes. Her AHI was 3 therefore, the patient does not have any pathologic sleep apnea. She did have most of the apneic episodes when she was laying on her belly and also laying on her back. We did talk about positional therapy. The patient may also consider a oral mandibular device. She is concerned about the TMJ issue and she would like to hold off at this time. In addition to that we did review her CT scan of the chest. Patient does not have any evidence of any pneumonitis or any evidence of any pneumoconiosis specially silicosis with her exposure to glass art. No evidence of any calcifications of the lymph nodes either which can also be seen with silicosis. The patient does have some calcifications of the coronary arteries however. This is considered to be mild. She also has a very small pericardial effusion that she states that she has had in the past. 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 In addition to that it was noted that on limited upper abdominal cuts that she had multiple lesions on her liver that did not appear to be consistent with cyst. She does states that she has a history of hemangiomas of the liver. She did see a GI doctor in the past for. She needs to go back in readdress that issue. The patient does have small subcentimeter pulmonary nodules that will need follow-up in a year's time. 06/14/2022 the patient is here for a pulmonary follow-up visit. The patient had COVID back in April. She did end up taking Paxil a bit. She did tolerate the therapy. After she did have increased reactive airways with increased chest tightness and wheezing. She has been using his Xopenex inhaler more often with good response. But she is that he has been more of an issue. She has felt some chest tightness and some heaviness in the chest. She is reassured her oxygen levels are within normal limits. I 1 point she almost went to the ER because of the chest tightness. She did call a friend that advised her just to check her oxygen and then to just use her inhaler at that time. She also complains of some chest discomfort. It is reproducible in appears to be consistent with costochondritis. There is no need for an x-ray at this time. The patient now that she has more confidence with the fact that she tolerated COVID she has been trying to leave the house more often. She is very depressed just been quarantine at home for some many years. Now she feels comfortable leaving the house without a mask. I did reassure her that that is okay but just to use her judgment and specially in place that a crowded with poor ventilation that she should take additional precautions. We did review her last CT scan of the chest was back in December 2020 with multiple small 2-4 mm pulmonary nodules. She should be getting a CT scan a year after that that should be either late summer or early fall. The 09/05/2022 the patient is here for pulmonary follow-up visit. The patient overall is doing well. She appears to be more comfortable. She is still having the chest tightness sensation. Unfortunately, she did not want to use the Advair because she was short of the healthcare. Clinically the patient is doing well. Respiratory status seems to be better. Although I did explain to her that if she wants to try to improve the chest tightness and station she should at least try small dose of the Advair at least 1 puff daily. She can rinse. I did reassure her that the small amount of steroid was not affect her. Also, she can increase her antihistamine to twice a day at least for the month. She is also concerned about potential cognitive defects from the histamine therapy. I do believe that 1st generation antihistamines are more problematic with that. I do believe that is okay for her to double up on the Zyrtec just for a months that she would not result in any significant abnormalities. 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 However, due to the pandemic she will have to restart all her allergy shots since she has been off them for some time. 03/21/2023 the patient is here for a pulmonary follow-up visit. Overall the patient began doing fairly well from a respiratory status. She has been feeling a lot more stress. She is concerned about the health of her dog. She has been using her inhalers with good effect. She also did undergo a CT scan of the chest. We did personally viewed together. The pulmonary nodules have not changed which is reassuring. No additional CT scans for now. Six we did talk about a vaccine for the patient does need to get a flu shot. The patient also will consider the RSV vaccine in the future. She is up-to-date with the pneumonia vaccine. She does mention that when she was 30 she did developed varicella as Campus adult and she did have respiratory issues suggesting of a varicella pneumonia. She does have some calcifications within the lung parenchyma mentioned on the report likely related to the history of the viral pneumonia. 07/24/2023 the patient is here for a pulmonary follow-up visit. The patient overall has been doing better. She does complaint of some chest tightness and some difficulty with her singing voice. kqtb-de-uztqckxr severity. She had stopped taking the Advair. I did explain to her the Advair be important specially going to her allergy season. She will go ahead and start the Advair this time. She also has a rescue inhaler that She does not typically use. She had been working with speech pathology. She states that while undergoing the evaluation she did not completed for particular reason the clear about. Therefore I will make another referral for her to go back to speech therapy for her vocal cord dysfunction. 12/22/2023 the patient is here for a pulmonary follow-up visit. She has been having hard time with her breathing. Been the case for the last several days. She was exposed to cleaning agents. She is not sure that has something to do with it. she did have her adverse switched over to Symbicort because of insurance preference. However, not sure if she is going to do well on it because I do believe that the formoterol component will be difficult for her to tolerate. Is an unfortunate situation where her medications have to be adjusted specially when she is off sensitive to medication changes. She does have significant wheezing on examination. I did provide her with Xopenex nebulizer treatment in the office with some improvement in the cough and chest tightness. But, she still has significant tremulousness after the Xopenex even. Therefore she knows she can do less of the vial treatment if necessary. Heart rate silva went up to about 100 which is reassuring. The patient will start a prednisone course and will start her Xopenex nebs. In view that will hold off on starting the Symbicort specially with the tremulousness. Will go ahead and have her do a nursing visit in order for her to try the Symbicort in the office. If the patient has any difficulties with it will request a PA to go back on the Advair HFA. 01/29/2024 The patient is here for a pulmonary follow up visit. The patient is doing well overall respiratory status. She did start Symbicort. She tried in the office and she did tolerated. No significant tremulousness from it. She still has a cough at times. Some intermittent. We did to try to use the peak flow in order to try a delineated her symptoms are respiratory or non respirato ry specially with her laryngeal issue. She did have evaluation with speech therapy. I am hopeful that she continues receiving speech therapy at this time. The patient is also having issues with her knees. She is going to need surgery. Therefore, she will continue with current respiratory therapy and she will follow-up after her knee surgery. The patient also has underlying pulmonary nodules. Her last CT scan was back in 02/12/2023 demonstrating subcentimeter pulmonary nodules unchanged from a year past. Will plan to repeat the CT scan sometime in the fall 2023 to make sure we follow up the nodules were couple years. If they do not show any significant changes then no additional serial imaging warranted. 05/04/2024 the patient is here for a pulmonary follow-up visit. Overall the p atient has been doing well. She continues to have dyspnea on exertion though. Sometimes she has a hard time holding her breath as she works on her breathing technique. She is wondering if this has anything to do with the diffusion impairment. Her PFTs from previous demonstrated a moderate degree of pulmonary diffusion impairment of unclear etiology. She had a CT scan of the chest recently which I reviewed. Pulmonary nodules are stable. She has not minimal atelectasis and scarring in the left and right base but none not to warrant the degree of diffusion impairment. The patient also had an echocardiogram demonstrating normal RV function and pressures. And she also had a panel of blood work including hemoglobin demonstrating no evidence of any anemia. Therefore no clear explanation for the diffusing impairment except for the possibility of post COVID syndrome. COVID-19 has been shown to decrease the diffusion on a microscopic level. Therefore, will have her repeat the pulmonary function studies and see about getting her to pulmonary rehabilitation at this time specially since she has not recovered after having her knee surgery. The patient may also benefit from a cardiopulmonary exercise tolerance does if no clear explanation for the diffusion impairment occurs and if she does not get any significant relief from pulmonary rehabilitation. Exercise-induced pulmonary hypertension still differential. [facility] Medical History (Updated 02/01/24 @ 20:08 by Ramana Ambriz MD) [id number] syndrome Liver lesion Coronary artery calcification Atelectasis Pericardial effusion Pulmonary nodules Diastolic dysfunction Abnormal PFTs (pulmonary function tests) Chronic cough Seasonal allergies Asthma EDS (Elisa-Danlos syndrome) Social History Patient Tobacco Use Status: Never used Tobacco Review of Systems Const Reports daytime sleepiness, Reports difficulty sleeping and Denies night sweats ENT Denies change in voice, Reports vertigo, Reports dizziness, Reports hearing loss, Denies lip swelling, Denies mouth pain, Reports nasal congestion, Reports nasal discharge, Reports disequilibrium, Reports post nasal drip, Reports tinnitus and Denies tongue swelling Card Reports chest pain, Reports syncope, Reports lightheadedness and Reports dyspnea on exertion Resp Denies change in phlegm color, Denies chest congestion, Reports cough, Denies excessive phlegm production, Denies pain on inspiration, Denies pain with cough, Reports dyspnea on exertion, Denies stridor and Reports wheezing GI Reports dyspepsia and Reports heartburn Musc Reports arthralgias, Reports joint swelling and Reports limited range of motion Neuro Denies Neuro-related abnormal movements, Reports vertigo, Reports dizziness, Reports syncope and Reports disequilibrium Psych Denies no additional complaints, Reports anxiety, Denies panic attacks, Denies homicidal ideation and Denies suicidal ideation Kaz/Lymph Denies easy bleeding and Denies lymphadenopathy Aller/Immun Denies lip swelling, Denies tongue swelling and Reports wheezing Physical Exam Vital Signs: Last Vital Signs Pulse 80 05/04/24 11:08 BP 136/68 05/04/24 11:08 Pulse Ox 100 05/04/24 11:08 Oxygen Delivery Method Room Air 05/04/24 11:08 Const General: in distress moderate and anxious HEENT Ears: TM's normal bilaterally and external ear abnormal Neck Neck: Yes normal visual inspection, Yes full ROM and Yes no lymphadenopathy Chest Chest palpation & inspection: normal inspection of the chest Resp Effort & Inspection: normal respiratory effort Auscultation: clear to auscultation bilaterally, no crackles, no rales, no rhonchi and wheezes Cardio Rate: regular rate Rhythm: regular rhythm Heart sounds: S1 normal heart sound present and S2 normal heart sound present GI Palpation (GI): Soft to palpation and nontender Auscultation: normal bowel sounds Skin General skin exam: rashes and/or lesions noted Psych Affect: Anxious affect present Office Procedures Flu Questionnaire Does the patient have a severe egg allergy?: No Does the patient have severe life threatening allergies?: No Does the patient have a fever or illness today?: No Has the patient ever had Guillain-[place] Syndrome?: No Has the patient ever had any past reaction to a flu shot?: No Immunizations Fluarix Triv [id number] (PF) 45 mcg (15 mcg x 3)/0.5 mL IM syringe Performing Provider: Ramana Ambriz MD Performing Location: [facility] [place] Administered by: Tamika Camarena LPN on 05/04/24 11:58 Dose Route Admin Location Dispensed Lot Number Expiration Date [facility] [employer] 0.5 mL IM Left Deltoid 0.5 mL [id number] 11/22/25 09141-702-34 [employer] VIS Given Date VIS Provided VIS Publication Date 05/04/24 Single Vaccine 20 Eligibility Eligibility Date Funding Source Not [facility] Eligible 05/04/24 Private Administration Comments: Assessment & Plan Assessment & Plan (1) Asthma: Code(s): J45.909 - Unspecified asthma, uncomplicated Category: Medical Qualifiers: Asthma complication type: uncomplicated Asthma persistence: persistent Asthma severity: moderate Qualified Code(s): J45.40 - Moderate persistent asthma, uncomplicated (2) Seasonal allergies: Code(s): J30.2 - Other seasonal allergic rhinitis Category: Medical (3) Chronic cough: Code(s): R05.3 - Chronic cough Category: Medical (4) Vocal cord dysfunction: Code(s): J38.3 - Other diseases of vocal cords Category: Medical (5) Dyspnea: Code(s): R06.00 - Dyspnea, unspecified Category: Medical Qualifiers: Dyspnea type: dyspnea on exertion Qualified Code(s): R06.09 - Other forms of dyspnea (6) Pulmonary nodules: Code(s): R91.8 - Other nonspecific abnormal finding of lung field Category: Medical (7) Atelectasis: Code(s): J98.11 - Atelectasis Category: Medical (8) EDS (Elisa-Danlos syndrome): Code(s): Q79.60 - Elisa-Danlos syndrome, unspecified Category: Medical (9) 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 Continue gabapentin to 600 mg p.o. q.h.s. PFTs start Pulmonary rehab F/U 2-3 months Orders: Orders PFT pulmonary function test Today U09.9 - Post COVID-19 condition, unspecified, Z01.811 - Encounter for preprocedural respiratory examination Influenza [id number] Immunization Today J45.40 - Moderate persistent asthma, uncomplicated Pulmonary Rehab Today U09.9 - Post COVID-19 condition, unspecified Coding Level of Care Code Est Pt Level 4 (07991) Complex EM visit Add On G2211 Diagnoses Moderate persistent asthma without complication J45.40 Asthma complication type: uncomplicated Asthma persistence: persistent Asthma severity: moderate Seasonal allergies J30.2 Chronic cough R05.3 Vocal cord dysfunction J38.3 Dyspnea on exertion R06.09 Dyspnea type: dyspnea on exertion Pulmonary nodules R91.8 Atelectasis J98.11 EDS (Elisa-Danlos syndrome) Q79.60 Qela-FRUOA-[id number] syndrome U09.9 Time Spent (min) 20
== END 2024-05-04 11:57 | disposition home or self-care (01) ==
PROVIDERS: PCP Student in an Organized Health Care Education/Training Program; Visit Provider Hospitalist
DX: J45.40 Moderate persistent asthma, uncomplicated (principal); J30.2 Other seasonal allergic rhinitis; R05.3 Chronic cough; J38.3 Other diseases of vocal cords; R06.09 Other forms of dyspnea; R91.8 Other nonspecific abnormal finding of lung field; J98.11 Atelectasis; Q79.60 Ehlers-Danlos syndrome, unspecified; U09.9 Post COVID-19 condition, unspecified
CPT/HCPCS: 99214; G2211

== ENCOUNTER → 2024-05-04 11:04 | Outpatient (BNVA) | payer OTHER, SELFPAY | PROVIDERS: PCP Student in an Organized Health Care Education/Training Program; Visit Provider Hospitalist | DX: J45.40 Moderate persistent asthma, uncomplicated (principal); J98.11 Atelectasis; J38.3 Other diseases of vocal cords; J30.2 Other seasonal allergic rhinitis; R05.3 Chronic cough; Q79.60 Ehlers-Danlos syndrome, unspecified; R06.09 Other forms of dyspnea; R91.8 Other nonspecific abnormal finding of lung field; U09.9 Post COVID-19 condition, unspecified; Z23 Encounter for immunization | CPT/HCPCS: 90471; 90656 ==

== ENCOUNTER 2024-07-27 10:56 | Outpatient (REF) | payer SELFPAY ==
--- NOTE | 2024-07-27 11:07 | PFT_ITS ---
Indication: Asthma Spirometry [FEV1 to FVC 70% pre bronchodilators in 75% post bronchodilators; FEV1 3.12 L; FVC 4.18 L. No significant response to bronchodilators noted.] Lung Volumes [Total capacity 102% predicted] Diffusion Capacity [DLCO 93% predicted] Comparisons [None] Interpretation [There appears to be a reversible obstructive ventilatory defect consistent with diagnosis of asthma. No significant response to bronchodilators noted. Lung volumes are normal. Diffusing capacity also within normal limits. Clinical correlation warranted.] MTDD
[2024-07-27 11:44] VITALS: PULSE 74
--- OUTSIDE RECORDS SUMMARY | 2024-07-27 13:35 | XMS_ITS | Patient Health Record ---
Author Organization [facility] Address [address] [place] [address] Care Team Providers Care Pesticide Control Inspector Name Role Phone SUDHA FULTON Primary Care Provider Simran Reaves Unavailable [phone] Allergies Allergen (clinical drug ingredient) Drug/Non Drug Allergy documented on EMR Reaction Allergy Type Onset Date Status Medicinal quinolone and acting as antibacterial agent (FN) Fluoroquinolones (uncoded) Contraindicated Allergy Active E-MYCIN Nausea/Vomiting/ Penny rrhea Drug Allergy Active ciprofloxacin Cipro Unknown Drug Allergy Active morphine Morphine Trouble Breathing Drug Allergy Active Results Component Value Reference Range Notes Urinalysis Reviewed date:01/05/2024 12:02:41 PM Interpretation: Performing Lab: Notes/Report: NITRITE Neg PH 5.0 PROTEIN Trace S.G 1.020 WBC Small GLUCOSE Neg KETONES Neg UROBILINOGEN Neg BILIRUBIN Trace BLOOD Trace Urinalysis, Complete-[id number] Reviewed date:01/07/2024 08:03:22 AM Interpretation: Performing Lab:[facility], [address] [place] [address], [place], Phone - [phone], Director - Akbar Notes/Report: Specific Marshall 1.020 1.005-1.030 pH 5.5 5.0-7.5 Urine-Color Yellow Yellow Appearance Clear Clear WBC Esterase Negative Negative Protein Negative Negative/Trace Glucose Negative Negative Ketones Trace Negative Occult Blood Negative Negative Bilirubin Negative Negative Urobilinogen,Semi-Qn 0.2 0.2-1.0 mg/dL Nitrite, Urine Negative Negative Microscopic Examination Micr oscopic follows if indicated. Microscopic Examination See below: Micr oscopic was indicated and was performed. WBC None seen 0 - 5 /hpf RBC None seen 0 - 2 /hpf Epithelial Cells (non renal) 0-10 0 - 10 /hpf Casts None seen None seen /lpf Bacteria None seen None seen/Few Urine Culture, Routine-[id number] Reviewed date:01/07/2024 08:02:58 AM Interpretation: Performing Lab:[facility] [place], [address] [facility], Phone - [phone], Director - Akbar Notes/Report: Urine Culture, Routine Final report Result 1 No growth [id number] IGP No Culture 30 Plus Reviewed date:01/09/2024 08:30:10 AM Interpretation: Performing Lab:[facility] [place], [address], [address], [place], Phone - [phone], [facility] Notes/Report: Clinical Information:Vaginal/Cervical, LMP: Men o [id number] Dates / Results....12/02/18 NIL, Neg HPV Other..............Post Menopausal No. of containers..01 ThinPrep Vial DIAGNOSIS: NEGATIVE FOR INTRAEPITHELIAL LESION OR MALIGNANCY. CELLULAR CHANGES ASSOCIATED WITH ATROPHY ARE PRESENT. Specimen adequacy: Satisfactory for evaluation. Endocervical component may not be distinguished in cases of atrophy. Clinician provided ICD10: Z0 1.419 Performed by: Nico laguerre, [employer] (ASCP) . . Note: The Pap smear is a screening test designed to aid in the detection of premalignant and malignant conditions of the uterine cervix. It is not a diagnostic procedure and should not be used as the sole means of detecting cervical cancer. Both false-positive and false-negative reports do occur. . Test Methodology: This liquid based ThinPrep(R) pap test was screened with the use of an image guided system. HPV Aptima Negative Negative This nucleic acid amplification test detects fourteen high-risk HPV types (16,18,31,33,35,39,45,51,52,56 ,58,59,66,68) without differentiation. HPV Genotype Reflex Criteria not met, HPV Genotype not performed. PDF Report Reviewed date:01/07/2024 08:02:47 AM Interpretation: Performing Lab:[facility] [place], [address] [facility], Phone - [phone], Director - Akbar Notes/Report: PDF Report Reviewed date:01/09/2024 08:31:05 AM Interpretation: Performing Lab:[facility] [place], [address], [address], [place], Phone - [phone], Director - [facility] Notes/Report: Clinical Information:Vaginal/Cervical, LMP: Men o [id number] Dates / Results....12/02/18 NIL, Neg HPV Other..............Post Menopausal No. of containers..01 ThinPrep Vial Reason For Referral No Information Medications Medication SIG (Take, Route, Frequency, Duration) Notes Start Date End Date Status valACYclovir HCl 1 GM TAKE 1 TABLET BY M OUTH TWICE A DAY Oral for 30 Days Active tiZANidine HCl 4 MG TAKE 1 TABLET BY SAMANTHA TH EVERY 6 HOURS NEEDED MUSCLE SPASMS Oral for 7 Days Active Gabapentin 300 MG TAKE 1 CAPSULE BY MO UTH 4 TIMES A DAY Oral for 30 Days Active Meloxicam 15 MG TAKE 1 TABLET BY SAMANTHA TH EVERY DAY Oral for 30 Days Activ e Eszopiclone 3 MG TAKE 1 TABLET BY SAMANTHA TH DAILY Oral for 30 Days Active ALPRAZolam 1 MG TAKE 1 AND 1/2 TABLE TS (1.5 MG TOTAL) BY MOUTH DAILY. TAKE 1/2 TAB AT LUNCH AND 1 TAB AT BEDTIME Oral for 30 Days Active Montelukast Sodium 10 MG 1 tablet in the evening Orally Once a day Active Xopenex Active Acyclovir 5 % APPLY TOPICALLY 1 APPLICATION 5 TIMES DAILY FOR 4 DAYS External for 6 Days Active Social History Tobacco Use: Social History Observation Description Date Details (start date - stop date) Never Smoker NA - NA Sexual History Question Answer Notes Had sex in the past 12 months (vaginal, oral, or anal)? Yes with Men only Prevention strategies discussed: Other AUDIT-C (Standard) Question Answer Notes Did you have a drink containing alcohol in the p ast year? No Points 0 Interpretation Negative Tobacco Control (Standard) Question Answer Notes Tobacco use: Nonsmoker Section Notes: MARITAL STATUS: CHILDREN: 4 Children LIVES WITH: spouse OCCUPATION: employed full-time NUTRITION: average diet EXERCISE: regular walking SEXUAL ACTIVITY: monogamous relationship. CONTRACEPTION: intrauterine device .CE: Smoking: Never a smoker .CE: ALCOHOL: none TEXT MESSAGING WHILE DRIVING: no SUNSCREEN: yes ILLICIT DRUGS: no SEATBEALT: yes Problems Problem Type SNOMED Code ICD Code Onset Dates Problem Status W/U Status Risk Notes Problem Postmenopausal atrophic vaginitis (19096102) Postmenopausal atrophic vaginitis (N95.2) Active confirmed Problem Incomplete uterovaginal prolapse (451693819) Incomplete uterovaginal prolapse (N81.2) Active confirmed Problem Herniation of rectum into vagina (149890422) Rectocele (N81.6) Active confirmed Problem Postmenopausal bleeding (19161276) Postmenopausal bleeding (N95.0) Active confirmed Problem Urinary incontinence (497893403) Unspecified urinary incontinence (R32) Active confirmed Problem Disorder of breast (03399782) Disorder of breast, unspecified (N64.9) Active confirmed Problem Cystocele (940342033) Cystocele, unspecified (N81.10) Active confirmed Problem Irregular menstruation (56791448) Irregular menstruation, unspecified (N92.6) Active confirmed Problem Unspecified menopausal and perimenopausal disorder (N95.9) Active confirmed Problem 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1) Active confirmed Diag Problem Asthma (disorder) (111707664) Asthma, unspecified, unspecified status (493.90) Active confirmed Major Problem Menopausal symptom (65758119) Symptomatic menopausal or female climacteric states (627.2) Active confirmed Major Problem Osteoarthritis (719582258) Osteoarthrosis, unspecified whether generalized or localized, unspecified site (715.90) Active confirmed Major Problem Muscle pain (76136621) Unspecified myalgia and myositis (729.1) Active confirmed Major Problem Gynecological examination normal (172793719768792) Routine gynecological examination (V72.31) Active confirmed Major Problem Screening for malignant neoplasm of colon (002971893) Special screening for malignant neoplasms, colon (V76.51) Active confirmed Major Vital Signs Temperature 98.1 degrees Fahrenheit 01/05/2024 Blood pressure diastolic 78 mm Hg 01/05/2024 Height 71.5 in 01/05/2024 Blood pressure systolic 112 mm Hg 01/05/2024 Weight 168 lbs 01/05/2024 BMI 23.1 kg/m2 01/05/2024 Encounters Encounter Location Date Provider Diagnosis [facility] [address] [place] [address] 01/05/2024 Simran Barfield Encounter for gynecological examination (general) (routine) without abnormal findings Z01.419 ; Encounter for screening mammogram for malignant neoplasm of breast Z12.31 ; Incomplete uterovaginal prolapse N81.2 ; Cystocele, unspecified N81.10 ; Rectocele N81.6 ; Unspecified urinary incontinence R32 ; Postmenopausal atrophic vaginitis N95.2 ; Family history of malignant neoplasm of breast Z80.3 and Dense breasts, unspecified R92.30 Assessments Encounter Date Diagnosis (ICD Code) Assessment Notes Treatment Notes Treatment Clinical Notes Section Notes 01/05/2024 Encounter for gynecological examination (general) (routine) without abnormal findings (ICD-10 - Z01.419) PAP TEST WITH HPV TYPING WAS OBTAINED. 01/05/2024 Encounter for screening mammogram for malignant neoplasm of breast (ICD-10 - Z12.31) REGULAR MAMMOGRAMS AND SBE'S WERE RECOMMENDED. 01/05/2024 Incomplete uterovaginal prolapse (ICD-10 - N81.2) DISCUSSED FINDINGS, SECOND DEGREE UTERINE PROLAPSE WITH CYSTORECTOCELE AND IMPLICATIONS OF THIS DIAGNOSES. BOOKLET ON PELVIC SUPPORT PROBLEMS WAS GIVEN AND DISCUSSED. PAT WAS REFERRED TO DR TAMAYO FOR FURTHER EVALUATION AND MX. 01/05/2024 Cystocele, unspecified (ICD-10 - N81.10) 01/05/2024 Rectocele (ICD-10 - N81.6) 01/05/2024 Unspecified urinary incontinence (ICD-10 - R32) DISCUSSED URINARY INCONTINENCE AND NEED FOR REFERRAL TO UROLOGIST OR UROGYNECOLOGIST. PAT WILL BE REFERRED TO DR TAMAYO, A UROGYNECOLOGIST WHO SHOULD BE ABLE TO HELP REDUCE HER INCONTINENCE. 01/05/2024 Postmenopausal atrophic vaginitis (ICD-10 - N95.2) DISCUSSED FINDINGS, DX AND TX OPTIONS. PAT IS ASYMPTOMATIC. 01/05/2024 Family history of malignant neoplasm of breast (ICD-10 - Z80.3) DISCUSSED STRONG FAMILY HX OF BREAST CA. CONSIDER GENETIC COUNSELLING AND TESTING. 01/05/2024 Dense breasts, unspecified (ICD-10 - R92.30) DISCUSSED DENSE BREASTS ON MAMMOGRAM AND ITS IMPLICATIONS. 3D MAMMOGRAMS WERE RECOMMENDED. QUESTIONNAIRE TO ASSESS BREAST CA RISK WAS GIVEN. IF RISK IS 20% OR MORE, SHE WILL NEED EITHER AN MRI OR SCREENING BREAST US 6 MONTHS AFTER HER MAMMOGRAMS. Plan Of Treatment Pending Test Test Name Order Date MAMMOGRAM, SCREENING 01/05/2024 Urinalysis 06/17/2017 Mammogram (Bilateral), Diagnostic comput er aided 04/03/2017 COMPLETE URINALYSIS 02/12/2017 SURGICAL PATHOLOGY 01/08/2018 THIN PREP,HPV,JASON IF HPV+ (>29YR)(DIAG) 12/02/2018 URINE CULTURE 02/12/2017 URINE CULTURE 02/14/2016 MM Digital Mammo Screening 02/14/2016 MM Digital Mammo Screening 06/11/2016 MM Digital Mammo Screening 06/17/2017 MM Digital Mammo Screening 01/05/2024 MM Digital Mammo Screening 12/02/2018 COMPLETE URINALYSIS 02/14/2016 Next Appt Details Provider Name:Simran Tom duncandawsontana, 01/05/2025 11:00:00 AM, [address], [address], [place], [address], Insurance Providers Payer Name Payer Address Payer Phone Subscriber Number Group Number Insured Name Patient Relationship to Insured Coverage Start Date Coverage End Date R [address] [address] [place], [place] [id number] [phone] ARASH RODRIGUEZ Spouse - patient is the spouse of the insured 3 Medical (General) History Medical History History ICD Code Cystocele, unspecified N81.10 Rectocele N81.6 Incomplete uterovaginal prolapse N81.2 Unspecified osteoarthritis, unspecified site M19.90 Other asthma J45.998 Myalgia M79.1 Menopausal and female climacteric states N95.1 Elisa-Danlos syndrome Q79.6 Postmenopausal bleeding N95.0 Leiomyoma of uterus, unspecified D25.9 Nipple discharge N64.52 Mammographic heterogeneous density, bila teral breasts R92.333 Surgical History Surgery Date(Month/Year) Nasal Septum Surgery Rt Knee Surgery Lt Knee Surgery Rt Shoulder Surgery Colonoscopy Broken Ankle - Rt 02/2016 Lt Rotator cuff Surgery 02/2017 Endometrial Biopsy 12/30/17 Left Knee Arthroscopy 03/2023 Cholecystectomy 07/2023 Hospitalization History Reason Date(Month/Year) Surgery Hx 4 Vaginal Deliveries
--- OUTSIDE RECORDS SUMMARY | 2024-07-27 13:35 | XMS_ITS | Data Portability ---
Author Organization [place] - [facility], Allergy Address [address] [place] [phone] Care Team Providers Care Transplanter Orchid Name Role Phone SUDHA STUBBS Primary Care Provider [phone] Assessment No assessment recorded. Plan of Treatment Reminders Order Date Submit Date Provider Last Modified By Organization Details Last Modified Time Details Appointments FOLLOW UP 2024 08:00A M CLAUDIA Man MD Not available Not available Not available Lab None recorded. Referral speech therapy referral - having trouble projectin g voice. please perform voice therapy. 2023 024 RENATE Evans [facility], [address] [place] [address], [place], [address], 02/03/2024 12:09:31 Procedures None recorded. Surgeries None recorded. Imaging None recorded. Medication Orders omeprazol e 20 mg capsule,d elayed release [address] [facility]armacy #[id number], [address] [place], [address], 05/21/2024 09:27:29 omeprazol e 20 mg capsule,d elayed release [address] [facility]/Pharmacy #[id number], [address] [place], [address], 01/30/2024 14:46:56 Patient TargetsNo targets recorded. Patient [...] ation record ed. [email or web address] Not Available 15:37:24 05/25/20 audio gram No observ ation record ed. BARCODE Not Available 2023 08:53:06 Result Notes None recorded. Problems Name Problem SNOMED Code Status Onset Date Resolution Date Notes Provider Name and Address Organization Details Recorded Time Neck pain 58668286 Active 2020 Cervicalg ia; Note: Date Diagnosed : 01/19/2021 9:51 AM (M54.2) Not Available [facility] 4 02:42:26 Sensorine ural hearing loss of bilateral ears 945134624 Active 2021 Sensorine ural hearing loss, bilateral ; Note: Date Diagnosed : 08/29/2021 1:56 PM (H90.3) Not Available [facility] 4 02:42:25 Bilateral tinnitus 05637576469 02 Active 2020 Tinnitus, bilateral ; Note: Date Diagnosed : 01/19/2021 9:54 AM (H93.13) Not Available [facility] 4 02:42:24 Allergic rhinitis 08342905 Active 2021 Other allergic rhinitis; Note: Date Diagnosed : 08/29/2021 2:00 PM (J30.89) Not Available [facility] 4 02:42:17 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 2020 Other diseases of vocal cords; Note: Changed from J38 to J38.3 ( 1 10:47 AM) , Date Diagnosed : 01/19/2021 9:54 AM (J38) Not Available [facility] 4 02:42:23 Dysphonia 87781228 Active 2023 CLAUDIA SCHAEFER MD [address] [facility],[place] [address], [facility] [place], [address] , [place] - [facility] 4 14:27:32 Otalgia of left ear 2873009579 Active 2023 CLAUDIA SCHAEFER MD [address] [place] [address],[place] [address], [facility] [place], [address] , [facility] 4 14:27:43 Gastroeso phageal reflux disease without esophagit is 936800351 Active 2023 CLAUDIA SCHAEFER MD [address] [place] [address],[place] [address], [facility] [place], [address] , [place] - [facility] 14:42:40 Dysphagia 48867286 Active 2023 CLAUDIA SCHAEFER MD [address] [place] [address],[place] [address], [facility] [place], [address] , [place] - [facility] 14:46:04 Dizziness and giddiness 638127210 Active 2023 CLAUDIA SCHAEFER MD [address] [place] [address],[place] [address], [facility] [place], [address] , [facility] 09:27:01 Problem Notes None recorded. Procedures Surgical History Date Name Laterality Status Provider Name and Address Organization Details Recorded Time 05/21/2024 FFL_RE completed CLAUDIA SCHAEFER MD [address] [facility],[place] [address], [place], [address], [place] - [facility] 05/21/2024 08:28:21 05/21/2024 Air & Speech Audio with Tymps ([id number], [address] & [address]295) completed Gerri JAIMES [address] [facility] [address], [place], [address], [place] - [facility] 05/21/2024 09:03:12 01/30/2024 FFL_RE completed CLAUDIA SCHAEFER MD [address] [place] [address], [place], [address], [facility] 01/30/2024 14:42:07 Imaging Results Imaging Date Name Status LastModified by Organiz ation Details LastModified Time 08/29/2021 imaging/diagno stic result completed Information not available 01/15/2024 15:37:09 01/22/2021 imaging/diagno stic result completed Information not available 01/15/2024 15:37:21 01/22/2021 imaging/diagno stic result completed Information not available 01/15/2024 15:37:24 05/25/2024 audiogram completed BARCODE Information no t available 05/25/2024 08:53:06 Procedure Notes None recorded. Medical Equipment None Reported. Allergies Allergen ID Allergen Name Allergen Category Reaction Reaction Severity Criticality Documentation Date Start Date Code Code System Note Provider Name and Address Organization Details Recorded Time [id number] morphine hydrochlo ride Not available other Not available Not available 10/07/2023 53736 1 RxNorm React ion: other react ion, Unkno wn; Not Available [facility] 01:17[facility] Medications Name Sig Start Date Stop Date Status Note LastModified by Organization Details LastModified Time alprazola m 1 mg tablet 5 mg at Noon 1.0mg at night 2020 active Medicati on ID: [id number] B rand Name: alprazol am Send Method: E-Prescr ibed Sub s Allowed: subs OK Speci al Instruct ion: TAKE 1 TABLET BY MOUTH EVERY DAY NEEDED M edicatio nGeneric Name: alprazol am Not Available Not Available Not Available benzonata te 200 mg capsule active Medicati on ID: [id number] B rand Name: benzonat ate Send Method: E-Prescr ibed Sub s Allowed: subs OK Speci al Instruct ion: TAKE 1 CAPSULE BY MOUTH TWICE DAILY X30 DAYS NEEDED FOR COUGH Me dication GenericN shahana: benzonat ate Not Available Not Available Not Available valacyclo vir 1 gram tablet 2020 active Medicati on ID: [id number] B rand Name: valacycl ovir Sen d Method: E-Prescr ibed Sub s Allowed: subs OK Speci al Instruct ion: TAKE 2 TABLETS BY MOUTH EVERY 12 HOURS NEEDED FOR 2 DOSES FOR COLD SORE. Me dication GenericN shahana: valacycl ovir Not Available Not Available Not Available meloxicam 15 mg tablet 2020 active Medicati on ID: [id number] B rand Name: meloxica m Send Method: E-Prescr ibed Sub s Allowed: subs OK Speci al Instruct ion: TAKE 1 TABLET BY MOUTH EVERY DAY WITH FOOD Med icationG enericNa me: meloxica m Not Available Not Available Not Available ondansetr on HCl 4 mg tablet 2020 active Medicati on ID: [id number] B rand Name: ondanset sanam HCl Send Method: E-Prescr ibed Sub s Allowed: subs OK Speci al Instruct ion: TAKE 2 TABLETS BY MOUTH 3 TIMES A DAY NEEDED FOR 5 DAYS. Me dication GenericN shahana: ondanset snaam HCl Not Available Not Available Not Available sulfameth oxazole 800 mg-trimet hoprim 160 mg tablet 05/21 completed Medicati on ID: [id number] B rand Name: sulfamet hoxazole -trimeth oprim Se nd Method: E-Prescr ibed Sub s Allowed: subs OK Speci al Instruct ion: TAKE 1 TABLET BY MOUTH EVERY 12 HOURS FOR 7 DAYS Med icationG enericNa me: sulfamet hoxazole -trimeth oprim Not Available Not Available Not Available meloxicam 7.5 mg tablet 05/21 completed Medicati on ID: [id number] B rand Name: meloxica m Send Method: E-Prescr ibed Sub s Allowed: subs OK Speci al Instruct ion: TAKE ONE TABLET BY MOUTH DAILY WITH FOOD Med icationG enericNa me: meloxica m Not Available Not Available Not Available meclizine 25 mg tablet active Medicati on ID: 470278 B rand Name: meclizin e Send Method: E-Prescr ibed Sub s Allowed: subs OK Speci al Instruct ion: TAKE 1 TABLET NEEDED BY ORAL ROUTE DIRECTED Medicat ionGener icName: meclizin e Not Available Not Available Not Available cephalexi n 500 mg capsule 05/21 completed Medicati on ID: [id number] B rand Name: cephalex in Send Method: E-Prescr ibed Sub s Allowed: subs OK Speci al Instruct ion: TAKE 1 CAPSULE BY MOUTH EVERY 8 HOURS FOR 2 DAYS Med icationG enericNa me: cephalex in Not Available Not Available Not Available triamcino lone acetonide 0.1 % topical ointment 05/21 completed Medicati on ID: 580297 B rand Name: triamcin olone acetonid e Send Method: E-Prescr ibed Sub s Allowed: subs OK Speci al Instruct ion: APPLY TO AFFECTED AREA ON THE LEFT FOREARM TWICE DAILY. Lois Shaw Name: triamcin olone acetonid e Not Available Not Available Not Available gabapenti n 300 mg capsule 2020 active Medicati on ID: [id number] B rand Name: gabapent in Send Method: E-Prescr ibed Sub s Allowed: subs OK Speci al Instruct ion: TAKE 1 CAPSULE BY MOUTH THREE TIMES A DAY Medi cationGe nericNam e: gabapent in Not Available Not Available Not Available omeprazol e 20 mg capsule,d elayed release Take 1 capsule every day by oral route before meal(s). 2023 active Not Available Not Available Not Avai lable monteluka st 10 mg tablet 2020 active Medicati on ID: [id number] B rand Name: monteluk ast Send Method: E-Prescr ibed Sub s Allowed: subs OK Speci al Instruct ion: TAKE 1 TABLET BY MOUTH EVERY DAY DIRECTED Medicat ionGener icName: monteluk ast Not Available Not Available Not Available mupirocin 2 % topical ointment 2020 active Medicati on ID: [id number] B rand Name: mupiroci n Send Method: E-Prescr ibed Sub s Allowed: subs OK Speci al Instruct ion: APPLY A SMALL AMOUNT TO THE AFFECTED AREA TOPICALL Y 3 TIMES PER DAY X 7 DAYS Med icationG enericNa me: mupiroci n Not Available Not Available Not Available eszopiclo ne 3 mg tablet 2020 active Medicati on ID: 942770 B rand Name: eszopicl one Send Method: E-Prescr ibed Sub s Allowed: subs OK Speci al Instruct ion: TAKE 1 TABLET BY MOUTH EVERYDAY AT BEDTIME Medicati onGeneri cName: eszopicl one Not Available Not Available Not Available tizanidin e 4 mg capsule 2020 active Medicati on ID: 172096 B rand Name: tizanidi ne Send Method: E-Prescr ibed Sub s Allowed: subs OK Speci al Instruct ion: TAKE 1 CAPSULE BY MOUTH EVERY DAY NEEDED M edicatio nGeneric Name: tizanidi ne Not Available Not Available Not Available Atrovent HFA 17 mcg/actua tion aerosol inhaler 2020 active Medicati on ID: 164968 B rand Name: Atrovent HFA Send Method: E-Prescr ibed Sub s Allowed: subs OK Speci al Instruct ion: INHALE 2 PUFFS BY MOUTH EVERY 6 HOURS NEEDED FOR SHORTNES S OF BREATH M edicatio nGeneric Name: Atrovent HFA Not Available Not Available Not Available olopatadi ne 0.2 % eye drops 05/21 completed Medicati on ID: [id number] B rand Name: olopatad ine Send Method: E-Prescr ibed Sub s Allowed: subs OK Speci al Instruct ion: INSTILL 1 DROP INTO BOTH EYES EVERY DAY NEEDED M edicatio nGeneric Name: olopatad ine Not Available Not Available Not Available OxyContin 10 mg tablet,cr ush resistant ,extended release 05/21 completed Medicati on ID: [id number] B rand Name: OxyConti n Send Method: E-Prescr ibed Sub s Allowed: subs OK Speci al Instruct ion: TAKE 1 TABLET BY MOUTH EVERY 12 HOURS Me dication GenericN shahana: OxyConti n Not Available Not Available Not Available Vitals Date Recorded Body height Body mass index (BMI) Body weight Provider Name and Address Organization Details Last Updated DateTime 01/30/2024 180.34 cm 23.7 kg/m2 50536.7 g Le [place] - [facility] 01/30/2024 14:06:15 Date Recorded Body height Body mass index (BMI) Body weight Provider Name and Address Organization Details Last Updated DateTime 05/21/2024 180.34 cm 23.7 kg/m2 44962.7 g Bea [place] - [facility] 05/21/2024 08:03:18 Social History None recorded. Functional Status None recorded. Mental Status None recorded. Family History Nothing Reported. Medical History No medical history recorded. Gynecological HistoryNo gynecological history recorded. Obstetrics History GPAL:G 0 P 0 0 0 0 Past Encounters Encounter ID Performer Location Encounter Start Date Encounter Closed Date Diagnosis/Indication Diagnosis SNOMED-CT Code Diagnosis ICD10 Code Diagnosis Note [id number] CLAUDIA SCHAEFER MD [facility] on [address] [place] [phone] 01/30/2024 13:47:09 01/30/2024 14:49:46 Dysphonia 29022858 R49.9 No obvious vocal cord lesions on laryngosco py. I recommend voice therapy. 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 May be related. Will assess improvemen t with voice therapy. Otalgia of left ear 1010 112880 H92.02 Exam was normal. Gave reassuranc e. Gastroesop hageal reflux disease without esophagitis 998777688 K21.9 Exam was benign. Laryngosco py showed cobbleston ing. I feel the symptoms are likely due to extra esophageal reflux disease. We will begin a six-week trial of omeprazole which was sent to their pharmacy. We will plan a follow up in 3-4 months to reassess. Dysphagia 66818726 R13.1 0 if doesn't improve on omeprazole will consider a swallow study [id number] CLAUDIA SCHAEFER MD [facility] on [address] [place] [phone] 05/21/2024 08:00:29 05/21/2024 09:29:24 Otalgia of left ear 1007098870 H92.02 likely ETD. Audio today reassuring . Gastroesop hageal reflux disease without esophagitis 385173926 K21.9 stressed importance of 6 week trial. sent new RX. will see if some of throat symptoms improve. Sensorineu ral hearing loss of bilateral ears 432866027 H90.3 Audiologic al evaluation results:Ri ght ear:{{Norm al Normal through 2 kHz Mild M oderate* M oderately- severe Sev ere Profou nd}} {{hearing hearing. s loping to a mild slopi ng to a moderate s loping to moderately severe slo ping to severe slo ping to profound f lat high frequency* low frequency mid frequency cookie bite irving curve}} {{with sen sorineural hearing loss with* cond uctive hearing loss with mixed hearing loss with}} {{excellen t* good fa ir poor no measurable }} word recognitio n.Left ear:{{Norm al Normal through 2 kHz Mild M oderate* M oderately- severe Sev ere Profou nd}} {{hearing hearing. s loping to a mild slopi ng to a moderate s loping to moderately severe slo ping to severe slo ping to profound f lat high frequency* low frequency mid frequency cookie bite irving curve}} {{with sen sorineural hearing loss with* cond uctive hearing loss with mixed hearing loss with}} {{excellen t* good fa ir poor no measurable }} word recognitio n. Tympanomet ry:Right Ear:{{Type A* Type As Type Ad Type C Type C, shallow & rounded Ty pe B Type B with large volume Cou ld not maintain a hermetic seal}}Left Ear:{{Type A* Type As Type Ad Type C Type C, shallow & rounded Ty pe B Type B with large volume Cou ld not maintain a hermetic seal}} Likely has ETD. Discussed auto insufflati on. Gave reassuranc e audio and ear exam don't suggest and pressure problem or damage to the ear. Dizziness and giddiness 280531989 R42 not otologic. recommend neurology fu which she has planned. castro padron negative Health Concerns Section Related Observation LastModified by Organization Buster gupta LastModified Time None Recorded Concern Status LastModified by Organization Details LastModified Time None Recorded Advance Directives Directive None Recorded Payers Encounter Date Sequence Insurance Name Policy Number Policy Harrington Covered Member ID Harrington Member ID Guarantor Name 01/30/2024 1 [employer] (POS) [id number] Kimo Simmons [id number] Celeste Simmons 05/21/2024 1 [employer] (POS) [id number] Kimo Simmons [id number] Celeste Simmons Notes Date Note Type Note Provider [...] tightness in her throat. CLAUDIA SCHAEFER MD [address] [place] [address], [phone], [facility] 01/30/2024 14:46:58 05/21/2024 text/html After wearing ea r plugs with an MRI she has had problems with her left ear where the hearing is intermittently muffled. Notes dizziness without room spinning most of the time. Has fallen twice. 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 She reports some vocal cord dysfunction. She sees Dr. Ambriz in pulmonary for asthma. She has chronic cough. She was told she has microaspiration. She saw a speech pathologist. She sings and speaks publicly. She has noted trouble projecting her voice. She reports a low level soreness in her throat all the time. She drinks a significant amount of water. She has episodic GERD. Prior endoscopy did not suggest GERD. She has never smoked. She also reports a tightness in her throat. Only took omeprazole for less than 2 weeks then stopped. CLAUDIA SCHAEFER MD [address] [place] [address],[address], [phone], [facility] 05/21/2024 09:27:29 OBGyn Episode No OBEpisode recorded.
--- OUTSIDE RECORDS SUMMARY | 2024-07-27 13:35 | XMS_ITS ---
Author Organization [facility] Address [address] [place] [address] Care Team Providers Care Crib Attendant Name Role Phone SUDHA FULTON Primary Care Provider Simran Reaves Unavailable [phone] Allergies Allergen (clinical drug ingredient) Drug/Non Drug [...] UROBILINOGEN Neg BILIRUBIN Trace BLOOD Trace Urinalysis, Complete-[id number] Reviewed date:01/07/2024 08:03:22 AM Interpretation: Performing Lab:[facility], [address] [place] [address], Phone - [phone], Director - Akbar Notes/Report: Specific [place] 1.020 1.005-1.030 pH 5.5 5.0-7.5 Urine-Color Yellow [...] Bacteria None seen None seen/Few Urine Culture, Routine-[id number] Reviewed date:01/07/2024 08:02:58 AM Interpretation: Performing Lab:[facility] [place], [address], [place], Phone - [phone], Director - Akbar Notes/Report: Urine Culture, Routine Final report Result 1 No growth [id number] IGP No Culture 30 Plus Reviewed date:01/09/2024 08:30:10 AM Interpretation: Performing Lab:[facility] [place], [address], [address], [place], Phone - [phone], Director - [facility] Notes/Report: Clinical Information:Vaginal/Cervical, LMP: Men o [id number] Dates / Results....12/02/18 NIL, Neg HPV Other..............Post Menopausal No. of containers..01 ThinPrep Vial DIAGNOSIS: NEGATIVE FOR INTRAEPITHELIAL LESION OR MALIGNANCY. CELLULAR CHANGES ASSOCIATED WITH ATROPHY ARE PRESENT. Specimen adequacy: Satisfactory for evaluation. Endocervical component may not be distinguished in cases of atrophy. Clinician provided ICD10: Z0 1.419 Performed by: Nico laguerre, Material Control Clerk ([facility]) . . 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, Annual SOCIAL SERVICE TECHNICIAN Physical 60-85+ Medications Medication SIG (Take, Route, Frequency, Duration) Notes Start Date End Date Status Xopenex Active Acyclovir 5 % APPLY TOPICALLY 1 APPLICATION 5 TIMES DAILY FOR 4 DAYS External for 6 Days Active valACYclovir HCl 1 GM TAKE 1 TABLET BY M OUT TWICE A DAY Oral for 30 Days Active tiZANidine HCl 4 MG TAKE 1 TABLET BY SAMANTHA TH EVERY 6 HOURS NEEDED MUSCLE SPASMS Oral for 7 Days Active Gabapentin 300 MG TAKE 1 CAPSULE BY MO [facility] 4 TIMES A DAY Oral for 30 Days Active Meloxicam 15 MG TAKE 1 TABLET BY SAMANTHA TH EVERY DAY Oral for 30 Days Activ e ALPRAZolam 1 MG TAKE 1 AND 1/2 TABLE TS (1.5 MG TOTAL) BY MOUTH DAILY. TAKE 1/2 TAB AT LUNCH AND 1 TAB AT BEDTIME Oral for 30 Days Active Eszopiclone 3 MG TAKE 1 TABLET BY SAMANTHA TH DAILY Oral for 30 Days Active Montelukast Sodium 10 MG 1 tablet in the evening Orally Once a day Active Social History Tobacco Use: Social History [...] Answer Notes Tobacco use: Nonsmoker Section Notes: Problems Problem Type SNOMED Code ICD Code Onset Dates Problem Status W/U Status Risk Notes Problem Incomplete uterovaginal prolapse (456552979) Incomplete uterovaginal prolapse (N81.2) Active confirmed Problem Cystocele (325513345) Cystocele, unspecified (N81.10) Active confirmed Problem Herniation of rectum into vagina (801003822) Rectocele (N81.6) Active confirmed Problem Postmenopausal atrophic vaginitis (77759727) Postmenopausal atrophic vaginitis (N95.2) Active confirmed Problem Urinary incontinence (423347810) Unspecified urinary incontinence (R32) Active confirmed Vital Signs Temperature 98.1 degrees Fahrenheit 01/05/20 24 Blood pressure systolic 112 mm Hg 01/05/20 24 Blood pressure diastolic 78 mm Hg 024 Height 71.5 in 01/05/2024 Weight 168 lbs 01/05/2024 BMI 23.1 kg/m2 01/05/2024 Encounters Encounter Location Date Provider Diagnosis Total [address] [place] [address] 01/05/2024 Simran Barfield Encounter for gynecological examination [...] MONTHS AFTER HER MAMMOGRAMS. Plan Of Treatment Treatment Notes Assessment Notes Encounter for gynecological examination (general) (routine) without abnormal findings PAP TEST WITH HPV TYPING WAS OBTAINED. Encounter for screening mamm ogram for malignant neoplasm of breast REGULAR MAMMOGRAMS AND SBE'S WERE RECOMMENDED. Incomplete uterovaginal prolapse DISCUSSED FINDINGS, SECOND DEGREE UTERINE PROLAPSE WITH CYSTORECTOCELE AND IMPLICATIONS OF THIS DIAGNOSES. BOOKLET ON PELVIC SUPPORT PROBLEMS WAS GIVEN AND DISCUSSED. PAT WAS REFERRED TO DR TAMAYO FOR FURTHER EVALUATION AND MX. Unspecified urinary incontinence DISCUSSED URINARY INCONTINENCE AND NEED FOR REFERRAL TO UROLOGIST OR UROGYNECOLOGIST. PAT WILL BE REFERRED TO DR TAMAYO, A UROGYNECOLOGIST WHO SHOULD BE ABLE TO HELP REDUCE HER INCONTINENCE. Postmenopausal atrophic vaginitis DISCUSSED FINDINGS, DX AND TX OPTIONS. PAT IS ASYMPTOMATIC. Family history of malignant neoplasm of breast DISCUSSED STRONG FAMILY HX OF BREAST CA. CONSIDER GENETIC COUNSELLING AND TESTING. Dense breasts, unspecified DISCUSSED DENSE BREASTS ON MAMMOGRAM AND ITS IMPLICATIONS. 3D MAMMOGRAMS WERE RECOMMENDED. QUESTIONNAIRE TO ASSESS BREAST CA RISK WAS GIVEN. IF RISK IS 20% OR MORE, SHE WILL NEED EITHER AN MRI OR SCREENING BREAST US 6 MONTHS AFTER HER MAMMOGRAMS. Pending Test Test Name Order Date MAMMOGRAM, SCREENING 01/05/2024 MM Digital Mammo Screening 01/05/2024 Next Appt Details Follow Up: 1 Year, Reason: Provider Name:Simran griffith, 01/05/2025 11:00:00 AM, [address] [place] [address], [address], [place], [address], Progress Notes * Celeste RODRIGUEZRADOB: (63 yo F)Acc No.[id number]:01/05/2024 PROGRESS NOTES Patient:?Celeste RODRIGUEZ RA Appointment Provider:?Simran griffith M.D. :1960???Age:63 Y???Sex:Female D ate:01/05/2024 Address:[address] [place], [place] [phone] Subjective: * Chief Complaints: * ???Annual SOCIAL SERVICE TECHNICIAN PhysicalAnnual SOCIAL SERVICE TECHNICIAN Physical 60-85+ * HPI: ???New/Follow-up Patient Consult:? JOSE WAS LAST HER IN 2018.? SHE IS KNOWN TO HAVE CLAUDETTE DANLOS SYNDROME.? SUDHA CHAVARRIA IS HER NEW PCP AND SHE IS VERY HAPPY WITH HER.?? SHE ENTERED MENOPAUSE IN 2017.? SHE IS AND DENIES DYSPAREUNIA. SHE C/O LOSING URINE WHEN SHE COUGHS OR LAUGHS AND OFTEN JUST FINDS HERSELF WET AND UNABLE TO STOP FLOW OR URINE.? SHE ALSO HAS DIFFICULTY EMPTYING RECTAL AREA.? SHE HAS TO PUSH THIS ARE WITH HER FINGERS TO GET STOOL OUT. HER LAST MAMMOGRAM DONE IN MAR 2017 SHOWED DENSE BREASTS.? WE WILL RECALCULATE HER BREAST CA RISK.? HER MOTHER AND SISTER HAD BREAST CA AND HER BROTHER HAD COLON CA.?? HER LAST PAP TEST IN 2018 WAS NEGATIVE AND HPV NEGATIVE. HER LAST BMD IN 2016 WAS NORMAL. SHE HAD COLONOSCOPIES DONE IN 2016 AND 2022.? POLYPS WERE NOTED. ???Annual:? Patient presents for annual exam, ages 60-85, postmenopausal. ?General Health Maintenance:?Current breast complaints:?no breast pain, mass, discharge, or skin changes ?Urinary problems:?patient reports no urinary health problems or bowel health problems ?Calcium intake:?takes adequate calcium via diet and supplementation ?Significant SOCIAL SERVICE TECHNICIAN problems:?no significant public relations manager symptoms or problems * ROS:?general:?no?chest pain.?no?palpitations.?no?headache.?no?cough.?no?shortness of breath.?no?fever.?no?unexplained weight loss.?no?nausea/vomiting.?no?change in bowel movements.?no blood in stool.?no?genitourinary complaints.?no?skin complaints.? * Medical History:? * Human Intelligence History:?/ Para?5/4.?Sexual activity?currently sexually active.?Last Pap Smear:?12/02/18 NIL, NEG HPV, 04/2014, ASCUS, NEG HRHPV.?Mammogram:?04/14/2017 50-75% density Bilateral Mammo & U/S normal, 11/2010.?LMP and menses?Martha.? Control:?vasectomy.?Colonoscopy?yes 2016 q 5 years, 2011.?Bone Density:?04/08/2017.? * OB History:?Total pregnancies?5.?Total living children?4.?NVD?4.? * Surgical History:?Nasal Sept um Surgery Rt Knee Surgery Lt Knee Surgery Rt Shoulder Surgery Colonoscopy Broken Ankle - Rt 02/2016Lt Rotator cuff Surgery 02/2017Endometrial Biopsy 12/30/17Left Knee Arthroscopy 3Cholecystectomy 07/2023 * Hospitalization/Major Diagno stic Procedure:?4 Vaginal Deliveries Surgery Hx * Family History:?Mother: dece ased, Passed at 73 Breast Cancer, Pancreatic Cancer, Heart Disease.?Father: , Passed at age 72, Coronary Artery Disease.? Brother: age 60 Colon cancer, Heart Disease Brother: age 53 Coronary Artery Disease, Heart Attack Sister: 69 Breast cancer, (post-menopausal), Heart Attack. * Social History:?Tobacco Use:?Tobacco Control (Standard)?Tobacco use:?Nonsmoker ???Sexual History:?Sexual History?Had sex in the past 12 months (vaginal, oral, or anal)??Yes ?with?Men only ?Prevention strategies discussed:?Other ?Details of Sexual History?Are you sexually active??Yes ???Drugs/Alcohol:?Drugs?Have you used drugs other than those for medical reasons in the past 12 months??No ???Miscellaneous:?Children: yes, 4. ?Exercise: yes, walking, hiking, swimming. ?Home smoke detector use: yes. ?Living with: spouse. ?Marital status: . ?Natural support system: yes. 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 ?Sexually active: yes, monogamous relationship. ???Drug/Alcohol:?AUDIT-C (Standard)?Did you have a drink containing alcohol in the past year??No ?Points?0 ?Interpretation?Negative * Medications:?TakingMonteluka st Sodium 10 MG Tablet 1 tablet in the evening Orally Once a day Eszopiclone 3 MG Tablet TAKE 1 TABLET BY MOUTH DAILY Oral ALPRAZolam 1 MG Tablet TAKE 1 AND 1/2 TABLETS (1.5 MG TOTAL) BY MOUTH DAILY. TAKE 1/2 TAB AT LUNCH AND 1 TAB AT BEDTIME Oral Gabapentin 300 MG Capsule TAKE 1 CAPSULE BY MOUTH 4 TIMES A DAY Oral Meloxicam 15 MG Tablet TAKE 1 TABLET BY MOUTH EVERY DAY Oral valACYclovir HCl 1 GM Tablet TAKE 1 TABLET BY MOUTH TWICE A DAY Oral tiZANidine HCl 4 MG Tablet TAKE 1 TABLET BY MOUTH EVERY 6 HOURS NEEDED MUSCLE SPASMS Oral Acyclovir 5 % Ointment APPLY TOPICALLY 1 APPLICATION 5 TIMES DAILY FOR 4 DAYS External Xopenex Taking Montelukast Sodium 10 MG Tablet 1 tablet in the evening Orally Once a day Taking Eszopiclone 3 MG Tablet TAKE 1 TABLET BY MOUTH DAILY Oral Taking ALPRAZolam 1 MG Tablet TAKE 1 AND 1/2 TABLETS (1.5 MG TOTAL) BY MOUTH DAILY. TAKE 1/2 TAB AT LUNCH AND 1 TAB AT BEDTIME Oral Taking Gabapentin 300 MG Capsule TAKE 1 CAPSULE BY MOUTH 4 TIMES A DAY Oral Taking Meloxicam 15 MG Tablet TAKE 1 TABLET BY MOUTH EVERY DAY Oral Taking valACYclovir HCl 1 GM Tablet TAKE 1 TABLET BY MOUTH TWICE A DAY Oral Taking tiZANidine HCl 4 MG Tablet TAKE 1 TABLET BY MOUTH EVERY 6 HOURS NEEDED MUSCLE SPASMS Oral Taking Acyclovir 5 % Ointment APPLY TOPICALLY 1 APPLICATION 5 TIMES DAILY FOR 4 DAYS External Taking Xopenex DiscontinuedExcedrin Migraine miSOPROStol 200 MCG Tablet 2 Orally night before procedure Ibuprofen 800 MG Tablet 1 tablet Orally Three times a day Medication List reviewed and reconciled with the patientDiscontinued Excedrin Migraine Discontinued miSOPROStol 200 MCG Tablet 2 Orally night before procedure Discontinued Ibuprofen 800 MG Tablet 1 tablet Orally Three times a day Medication List reviewed and reconciled with the patient * Allergies:?E-MYCIN: Nausea/V omiting/Diarrhea - AllergyCipro: ContraindicationMorphine: Trouble Breathing - AllergyFluoroquinolones: Contraindicated - Contraindicationno[Allergies Verified] Objective: * Vitals:?Ht: 71.5 in, Wt:168l bs, BMI:23.1Index, BP:112/78mm Hg, Temp:98.1F. * Examination: ???General Exam: ?CONSTITUTIONAL:?General Appearance:?alert, in no acute distress, normal, well nourished ?NECK/THYROID:?Inspection/Palpation:?normal ?Thyroid:?normal size and shape ?RESPIRATORY:?Auscultation: clear to auscultation bilaterally, Respiratory Effort: normal.?CARDIOVASCULAR:?Auscultation: regular rate and rhythm.?BREAST, Right:?Inspection/Palpation:?no discharge, no masses present, no nipple retraction, no skin changes, no skin dimpling, no tenderness, no lymphadenopathy, no axillary mass, no axillary tenderness ?BREAST, Left:?Inspection/Palpation:?no discharge, no masses present, no nipple retraction, no skin changes, no skin dimpling, no tenderness, no lymphadenopathy, no axillary mass, no axillary tenderness ?GASTROINTESTINAL:?Abdomen:?no masses, nontender, nondistended ?Liver and Spleen:?normal ?Hernias:?no hernias present, no inguinal adenopathy ?MUSCULOSKELETAL:?Inspection/Palpation:?no clubbing, cyanosis, or edema ?SKIN:?Skin:?normal ?NEURO/PSYCH:?Orientation:?time , place, person ?Mood/Affect:?normal?Genitourinary: ?EXTERNAL GENITALIA:?External Genitalia:?normal, no lesions ?VAGINA:?Vagina:?atrophic vaginal tissue, cystocele present (1st degree), rectocele present (2nd degree) ?BLADDER:?Bladder:?no mass, nontender ?URETHRA:?Urethra:?no erythema or lesions present ?CERVIX:?Cervix:?no lesions, nontender cervix is at the introital opening ?UTERUS:?Uterus:?nontender, normal contour, normal mobility, normal size ?ADNEXA:?Adnexa:?no masses, no tenderness ?ANUS AND PERINEUM:?Anus/Perineum:?visually normal??? Assessment: * Assessment: 1.?Encounter for gynecologic al examination (general) (routine) without abnormal findings - Z01.419???2.?Encounter for screening mammogram for malignant neoplasm of breast - Z12.31???3.?Incomplete uterovaginal prolapse - N81.2???4.?Cystocele, unspecified - N81.10???5.?Rectocele - N81.6???6.?Unspecified urinary incontinence - R32???7.?Postmenopausal atrophic vaginitis - N95.2???8.?Family history of malignant neoplasm of breast - Z80.3???9.?Dense breasts, unspecified - R92.30??? Plan: * Treatment: Notes: PAP TEST WITH HPV TYPING WAS OBTAINED.??2.?Encounter for screening mammogram for malignant neoplasm of breast?Imaging: MM Digital Mammo Screening Notes: REGULAR MAMMOGRAMS AND SBE'S WERE RECOMMENDED.??3.?Incomplete uterovaginal prolapse? Notes: DISCUSSED FINDINGS, SECOND DEGREE UTERINE PROLAPSE WITH CYSTORECTOCELE AND IMPLICATIONS OF THIS DIAGNOSES. BOOKLET ON PELVIC SUPPORT PROBLEMS WAS GIVEN AND DISCUSSED. PAT WAS REFERRED TO DR TAMAYO FOR FURTHER EVALUATION AND MX.??4.?Unspecified urinary incontinence? Notes: DISCUSSED URINARY INCONTINENCE AND NEED FOR REFERRAL TO UROLOGIST OR UROGYNECOLOGIST. PAT WILL BE REFERRED TO DR TAMAYO, A UROGYNECOLOGIST WHO SHOULD BE ABLE TO HELP REDUCE HER INCONTINENCE.??5.?Postmenopausal atrophic vaginitis? Notes: DISCUSSED FINDINGS, DX AND TX OPTIONS. PAT IS ASYMPTOMATIC.??6.?Family history of malignant neoplasm of breast? Notes: DISCUSSED STRONG FAMILY HX OF BREAST CA. CONSIDER GENETIC COUNSELLING AND TESTING.??7.?Dense breasts, unspecified? Notes: DISCUSSED DENSE BREASTS ON MAMMOGRAM AND ITS IMPLICATIONS. 3D MAMMOGRAMS WERE RECOMMENDED. QUESTIONNAIRE TO ASSESS BREAST CA RISK WAS GIVEN. IF RISK IS 20% OR MORE, SHE WILL NEED EITHER AN MRI OR SCREENING BREAST US 6 MONTHS AFTER HER MAMMOGRAMS. ?? * Imaging:? * ?Imaging: MAMMOGRAM, SCR EENING * Labs:? * ?Lab: Urinalysis ([facility] tion Date & Time - 01/05/2024) ? Value Reference Range ?NITRITE Neg * ?PH 5.0 * ?PROTEIN Trace * ?S.G 1.020 * ?WBC Small * ?GLUCOSE Neg * ?KETONES Neg * ?UROBILINOGEN Neg * ?BILIRUBIN Trace * ?BLOOD Trace * DCECY Oneal 01/05/2024 10:59:59 AM EDT > U/A and Urine C/S Sent ?Lab: Urinalysis, Complete-[id number]?Lab: Urine Culture, Routine-[id number] * Procedure Codes:? * Preventive Medicine:? ??YOUR PREVENTIVE WELLNESS PLAN:?Osteoporosis prevention?Calcium, D, strength training.?Breast Cancer Screening (Mammogram):?annually.?Cervical Cancer Screening (Pap Smear):?q 3 years with HPV screen.?Colorectal Cancer Screening:?q 10 years.? * Follow Up:?1 Year * Images: Billing Information: * Visit Code:? [id number] Preventive Care Est Pt. Age 65 and over. * Procedure Codes:? * Sign off status: Completed Addendum: * ? true * Appointment Provider:?Simran Barfield M.D. Date:?01/05/2024 Generated for Julian kumar/Miriam/eTransmitting on:?07/27/2024 01:35 PM EST History and Physical Notes * HPI (History of Present Illness) Category Sub-Category Detail Notes Category Not es New/Follow-up Patient Consult JOSE WAS LAST HER IN 2018. SHE IS KNOWN TO HAVE CLAUDETTE DANLOS SYNDROME. SUDHA CHAVARRIA IS HER NEW PCP AND SHE IS VERY HAPPY WITH HER. SHE ENTERED MENOPAUSE IN 2016. SHE IS AND DENIES DYSPAREUNIA. SHE C/O LOSING URINE WHEN SHE COUGHS OR LAUGHS AND OFTEN JUST FINDS HERSELF WET AND UNABLE TO STOP FLOW OR URINE. SHE ALSO HAS DIFFICULTY EMPTYING RECTAL AREA. SHE HAS TO PUSH THIS ARE WITH HER FINGERS TO GET STOOL OUT. HER LAST MAMMOGRAM DONE IN MAR 2017 SHOWED DENSE BREASTS. WE WILL RECALCULATE HER BREAST CA RISK. HER MOTHER AND SISTER HAD BREAST CA AND HER BROTHER HAD COLON CA. HER LAST PAP TEST IN 2018 WAS NEGATIVE AND HPV NEGATIVE. HER LAST BMD IN 2016 WAS NORMAL. SHE HAD COLONOSCOPIES DONE IN 2016 AND 2022. POLYPS WERE NOTED. Annual General Health Maintenance: Current breast complaints:: no breast pain, mass, discharge, or skin changes Urinary problems:: patient r eports no urinary health problems or bowel health problems Calcium intake:: takes adequ ate calcium via diet and supplementation Significant SOCIAL SERVICE TECHNICIAN problems:: n o significant public relations manager symptoms or problems Examination Category Sub-Category Detail Notes Category Not es General Exam CONSTITUTIONAL: General Appearan ce:: alert, in no acute distress, normal, well nourished NECK/THYROID: Thyroid:: normal size and shape Inspection/Palpation:: normal RESPIRATORY: Auscultation: clear to auscultation bilaterally, Respiratory Effort: normal CARDIOVASCULAR: Auscultation: regula r rate and rhythm GASTROINTESTINAL: Abdomen:: no masses, nontender , nondistended Liver and Spleen:: normal Hernias:: no hernias present, no inguina l adenopathy MUSCULOSKELETAL: Inspection/Palpation:: no clubb ing, cyanosis, or edema SKIN: Skin:: normal NEURO/PSYCH: Mood/Affect:: normal Orientation:: time , place, person BREAST, Right: Inspection/Palpation :: no discharge, no masses present, no nipple retraction, no skin changes, no skin dimpling, no tenderness, no lymphadenopathy, no axillary mass, no axillary tenderness BREAST, Left: Inspection/Palpation :: no discharge, no masses present, no nipple retraction, no skin changes, no skin dimpling, no tenderness, no lymphadenopathy, no axillary mass, no axillary tenderness Genitourinary EXTERNAL GENITALIA: External Genitalia:: nor mal, no lesions VAGINA: Vagina:: atrophic va ginal tissue, cystocele present (1st degree), rectocele present (2nd degree) BLADDER: Bladder:: no mass, nontender URETHRA: Urethra:: no erythem a or lesions present CERVIX: Cervix:: no lesions, nontender c ervix is at the introital opening UTERUS: Uterus:: nontender, normal contour, normal mobility, normal size ADNEXA: Adnexa:: no masses, no tendernes s ANUS AND PERINEUM: Anus/Perineum:: visually norm al
--- OUTSIDE RECORDS SUMMARY | 2024-07-27 13:35 | XMS_ITS | Clinical Summary ---
Author Organization [facility] Address [address] [place] [address] Care Team Providers Care Engineering Supervisor Name Role Phone Unavailable Primary Care Provider Unavailabl e Allergies Active Allergy Reactions Criticality Noted Date Comments Ciprofloxacin High 11/20/2021 ELISA-DANLOS syndrome can not take one of the side effects is ligament rupture Dust 11/20/2021 Maple Flavoring Agent (Non-Screening) 12/02/2023 Maple trees Molds & Smuts 11/20/2021 Morphine Shortness Of Breath High 11/09/2013 Other reaction(s): Dizziness Other 12/22/2023 Quinolone Antibiotics Quinolones 02/04/2024 Medications Medication Sig Dispensed Refills Start Date End Date Status montelukast (SINGULAIR) 10 MG tablet Take 1 tablet (10 mg total) by mouth every evening. 0 Active Cetirizine HCl 10 MG CAPS Take 1 capsule (10 mg total) by mouth every evening. 0 Active ALPRAZolam (XANAX) 1 MG tablet Take 0.5-1 tablets (0.5-1 mg total) by mouth 2 (two) times a day. Total 1.5 .5 at lunch 1 mg at QHS 0 12/25/2023 Active gabapentin (NEURONTIN) 300 MG capsule Take 1-2 capsules (300-600 mg total) by mouth 3 (three) times a day. 300 mg lunch and dinner and 600 mg at HS 0 Active Cyanocobalamin [address] 2,500 mcg under the tongue daily. 0 Active tiZANidine (ZANAFLEX) 4 MG tablet Take 1 tablet (4 mg total) by mouth every 6 (six) hours as needed. 0 12/24/2023 Active Xopenex HFA 45 MCG/ACT inhaler Inhale 2 puffs into the lungs every 6 (six) hours as needed. 0 01/16/2024 Active acetaminophen (TYLENOL EXTRA STRENGTH) 500 MG tablet Take 2 tablets (1,000 mg total) by mouth every 6 (six) hours as needed. 0 Active Acetaminophen-Caffei ne (Excedrin Tension Headache) 500-65 MG TABS Take 2 tablets by mouth daily as needed. 0 Active CAFFEINE PO Take 60 mg by mouth daily. 0 Active meclizine (ANTIVERT) 25 MG tablet Take 1 tablet (25 mg total) by mouth daily as needed. 0 04/08/2023 Active Cholecalciferol 250 MCG (20511 UT) TABS Take 2,000 Units by mouth daily as needed. 0 Active ORAL ELECTROLYTES PO Take 1 Package by mouth daily as needed. 0 Active MAGNESIUM MALATE PO Take 250 mg by mouth daily as needed. 0 05/16/2023 Active budesonide-formotero l (SYMBICORT) 80-4.5 MCG/ACT inhaler Inhale 2 puffs into the lungs 2 (two) times a day as needed. 0 Active meloxicam (MOBIC) 15 MG tablet Take 1 tablet (15 mg total) by mouth daily as needed. 30 tablet 0 02/20/2024 Active aspirin EC 81 MG EC tablet Take 1 tablet (81 mg total) by mouth 2 (two) times a day after meals. 80 tablet 0 02/20/2024 Active oxyCODONE (ROXICODONE) 5 MG immediate release tablet Take 1 tablet (5 mg total) by mouth every 4 (four) hours as needed. 40 tablet 0 02/20/2024 Active senna-docusate (PERICOLACE) 8.6-50 MG Take 1 tablet by mouth 2 (two) times a day. 14 tablet 0 02/20/2024 Active tranexamic acid (LYSTEDA) 650 MG tablet Take 3 tablets (1,950 mg total) by mouth daily. 6 tablet 0 02/21/2024 Active ondansetron (Zofran) 4 MG tablet Take 1 tablet (4 mg total) by mouth daily as needed. 10 tablet 0 02/20/2024 02/19/2025 Active pantoprazole (Protonix) 40 MG tablet Take 1 tablet (40 mg total) by mouth daily. 40 tablet 0 02/20/2024 02/19/2025 Active Active Problems Problem Noted Date Diagnosed Date Elisa-Danlos syndrome GERD (gastroesophageal reflux disease) Asthma Autistic disorder Overview: has just been diagnosised At risk for impaired communication Overview: with recent autistic diagnosis may need help with communication, may need things repeted at times she is unable to process the informtion tht is given to her. During high stress she is unable to speak at times. Family History Medical History Relation Name Comments Cancer Brother 1 Todd colon Heart attack Brother 1 Todd Heart attack Brother 2 cassidy Alcohol abuse Brother 3 Maxim Heart attack Brother 3 Maxim Emphysema Father Heart attack Father Heart failure Father Pancreatic cancer Maternal Cousin Breast cancer Mother Heart attack Mother Heart disease Mother Pancreatic cancer Mother Breast cancer Sister 1 Margarita Heart attack Sister 1 Margarita Rheum arthritis Sister 1 Margarita Diabetes Sister 2 Norma Endometriosis Sister 2 Norma Other Sister 2 Norma bone issues adebayo t they were crumbling many surgeries and severly disabled Relation Name Status Comments Brother 1 Todd (Age 60) Brother 2 cassidy Alive Brother 3 Maxim Alive Father (Age 73) heart pierre ck Maternal Cousin (Age 57) Mother (Age 74) Sister 1 Margarita Sister 2 Norma Alive Social History Tobacco Use Types Packs/Day Years Used Date Smoking Tobacco: Never Passive Smoke Exposure: Past Smokeless Tobacco: Never Passive Exposure Comments:up to age 18 Alcohol Use Standard Drinks/Week Comments Not Currently 0 (1 standard drink = 0.6 oz pur e alcohol) Sex and Gender Information Value Date Recorded Sex Assigned at Female 02/16/2024 10:54 AM EDT Gender Identity Not on file Sexual Orientation Not on file Job Start Date Occupation Industry Not on file Not on file Not on file Last Filed Vital Signs Vital Sign Reading Time Taken Comments Blood Pressure 122/62 02/20/2024 8:28 AM EDT Pulse 70 02/20/2024 8:28 AM EDT Temperature 36.2 ??C (97.2 ??F) 02/20/2024 8:28 AM ED T Respiratory Rate 16 02/20/2024 8:28 AM EDT Oxygen Saturation 98% 02/20/2024 8:28 AM EDT Inhaled Oxygen Concentration - - Weight 77.1 kg (170 lb) 02/19/2024 6:11 AM EDT Height 180.3 cm (5' 11 ) 02/19/2024 6:11 AM EDT Body Mass Index 23.71 02/19/2024 6:11 AM EDT Plan of Treatment Health Maintenance Due Date Last Done Comments COVID-19 Vaccine (#1) 05/08/1961 Depression Screening 1972 BMI Counseling 1978 Preventative Health Evaluation 1978 DTap / Tdap / Td (1 - Tdap) 11/07/1979 Cervical Cancer Screening (P ap Smear) 1981 Colon Cancer Screening (Colonoscopy) 2005 Breast Cancer Screening (Mammogram) 2010 Shingrix-Zoster Vaccine (1 of 2) 2010 RSV Adult > 60+ Yrs or Pregn ant (1 - Risk 60-74 years 1-dose series) 2020 Influenza Vaccine (#1) 2024 Pneumococcal Vaccine Completed 12/25/2023 Hepatitis C Screening Completed 12/30/2023 Hepatitis B Vaccines Aged Out No long er eligible based on patient's age to complete this topic RSV Ped < 20 months Aged Out No longe r eligible based on patient's age to complete this topic Medical Devices Implanted Type Area Mill Hand Plate Mill Device Identifier Shelf Expiration Date Model / Serial / Lot Cement Bone Surg Simplex Radiopq Stry-How [id number] [id number] - [id number] Implanted:Qty: 1 on 02/19/2024 by Jason Jurado MD at [facility] [place] [facility] Left: Knee [employer] [id number] 08/23/2025 6191-1-010 / / [id number] Cement Bone Surg Simplex Radiopq Stry-How [id number] 092 - [id number] Implanted:Qty: 1 on 02/19/2024 by Jason Jurado MD at [facility] [place] [facility] Left: Knee [employer] [id number] 08/23/2025 6191-1-010 / / [id number] Plug Bone Med Stry-How [id number] 872 - [id number] Implanted:Qty: 1 on 02/19/2024 by Jason Jurado MD at [facility] [place] [facility] Left: Knee [employer] [id number] 11/28/2028 6215-5-011 / / [id number] Knee Pat Asymmetric X3 A34s37hb Stry-How 8991-[id number]-809-E-[id number] 14817 - [id number] Implanted:Qty: 1 on 02/19/2024 by Jason Jurado MD at [facility] [place] [facility] Left: Knee [employer] [id number] 04/05/2028 5551-G-320 -E / / [id number] Knee Fem Triathlon Cr 5-Lt Stry-How 2445-[id number]-[id number] 196 - [id number] Implanted:Qty: 1 on 02/19/2024 by Jason Jurado MD at [facility] [place] [facility] Left: Knee [employer] [id number] 06/24/2027 5515-F-501 / / [id number] Knee Tib Insrt Ps-X3 5j6k10pm Stry-How 5500-P-[id number] 751 - [id number] Implanted:Qty: 1 on 02/19/2024 by Jason Jurado MD at [facility] [place] [facility] Left: Knee [employer] [id number] 08/09/2025 5532-G-513 / / [id number] Knee Insrt Tib Baseplate Sz 5 Stry-How 6173-[id number] 480 - [id number] Implanted:Qty: 1 on 02/19/2024 by Jason Jurado MD at [facility] [place] [facility] Left: Knee [employer] [id number] 02/26/2028 5521-B-500 / / [id number] Knee Stem Cmnt Triathlon 12x50 Stry-How 2259-K-[id number] 907 - [id number] Implanted:Qty: 1 on 02/19/2024 by Jason Jurado MD at [facility] [place] [facility] Left: Knee [employer] [id number] 11/09/2028 5560-S-112 / / [id number] Explanted Type Area Mill Hand Plate Mill Device Identifier Shelf Expiration Date Model / Serial / Lot Left Knee Acl Screw Explanted:Qty: 1 on 02/19/2024 by Jason Jurado MD at [facility] [place] [facility] Left: Knee Advance Directives For more information, please contact: [phone] Latest Code Status on File Code Status Date Activated Date Inactivated Comments Full Code 02/19/2024 7:37 AM 02/20/2024 9:38 PM This code status was ascertained in the following way: discussion with patient . Code Status History Code Status Date Activated Date Inactivated Comments Full Code 02/19/2024 5:39 AM 02/19/2024 7:37 AM This code status was ascertained in the following way: discussion with patient .
--- OUTSIDE RECORDS SUMMARY | 2024-07-27 13:35 | XMS_ITS | Data Portability ---
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 Patient comes in complaining of left knee pain. She has been dealing with the left knee pain for many years. She has a history of a left ACL reconstruction over 20 years ago. She has undergone multiple arthroscopy surgeries the most recent 1 was in March 2023 which only brought temporary relief. She has a diagnosis of Elisa-Danlos syndrome. She reports some imbalance issues. This patient is experiencing left knee pain for a period lasting greater than the last three months, which is severe (VAS score greater than or equal to 6 on a 0-10 scale) in intensity and the restriction of function (appropriate for a patient of this age) are intolerable. The pain substantially limits activities of daily living. In particular, walking tolerance and ability to stair climb is reduced. Conservative management such as non-steroidal anti-inflammatory medications available by prescription, physician directed therapy, ice and/or heat and activity modification have been minimally effective or deemed insufficient by the patient for a period lasting greater than 3-6 months in duration. Assistive devices and external support were not deemed by the patient to be helpful in improving their function. The patient is unable to tolerate further conservative measures, including physical therapy, due to the severity of arthritis and level of pain. Review of systems is negative for rapidly progressive neurological disorder, chest pain, shortness of breath, fevers, chills, or any signs of active or persistent local or systemic infection. Physical Exam : Patient is well nourished, well-developed, in no acute distress, with appropriate mood and affect. The patient is oriented to time, place, and person. Respirations are even and unlabored. Gait evaluation does reveal a limp. There is no inguinal adenopathy. Examination of the contralateral knee shows normal range of motion, strength, no tenderness, and intact skin. The affected limb is well-perfused, without skin lesions, shows a grossly normal motor and sensory examination. Left knee motion is significantly reduced and does cause significant pain. The knee moves from {{}} degrees. The knee is stable within that [id number] to AP and ML stress. The alignment of the knee is 5-130. Muscle strength is normal. Pedal pulses are palpable. Hip examination, including flexion and internal rotation, was negative in that groin pain was not produced. Assessment/Plan : The patient is an appropriate candidate for consideration of left total knee replacement. An extensive discussion was conducted of the natural history of the disease and the variety of surgical and non-surgical treatment options available to the patient. A risk/benefit analysis was discussed with the patient reviewing the advantages and disadvantages of surgical intervention at this time. A full explanation was given of the nature and the purpose of the procedure and anesthesia, its benefits, possible alternative methods of diagnosis of treatment, the risks involved, the possibility of complications, the foreseeable consequences of the procedure and the possible results of the non-treatment. No guarantee or assurance was made as to the results that may be obtained. Specifically, the risks were identified to include, but are not limited, to the following: Infection, phlebitis, pulmonary embolism, , paralysis, dislocation, pain, stiffness, instability, limp, weakness, breakage, leg-length inequality, uncontrolled bleeding, nerve injury, blood vessel injury, pressure sores, anesthetic risks, delayed healing of wound and bone, and wear and loosening. Additional risks of robotic knee replacement were discussed (if used) including but not limited to pin site infection, draining, longer incision, longer OR time, and fracture near the pin sites. Further discussion was undertaken with the patient about the details of surgical preparation, treatment and postoperative rehabilitation including medical clearance, autotransfusion, the hospital course and the postoperative rehabilitation involved. As a part of routine preoperative counseling, if the patient is a smoker, the patient recognizes the increased risk of complications in patients who utilize tobacco products. The patient has also been counseled regarding the elevated risk of surgical complications in patients with an elevated BMI. The patient demonstrates understanding of the increased risk in such patients. The patient was encouraged to participate in physical activity and diet modification under the direction of their primary care physician. We will plan on proceeding with left total knee arthroplasty using the Finley total knee replacement system. However, it is possible during the preoperative planning process or due to intraoperative findings that a different implant system may be utilized in order to optimize the patient's outcome. We had a discussion regarding implant and bearing options. We had a detailed discussion of the advantages and limitations of the specific implant designs, materials and bearing surfaces. All questions were answered to the patient's satisfaction, and the patient was asked to call the office with any further concerns. All in all, I feel that this patient is a good candidate for surgical reconstruction.? An in-depth discussion of the risks and benefits of surgery as noted above were had with patient, including any reasonable alternatives and the risks and benefits of the alternatives. The patient was given time to understand and ask questions, and the surgical consent was signed and dated today. If surgery is >1 month from today, this discussion will be repeated on the day of surgery, prior to anesthesia administration. The patient is also aware that questions can be asked at any time before the surgical date to me or my team. We did have discussion that I do not expect this to solve all her issues such as the feelings of imbalance and her pain in other areas. The goal of knee replacement is get rid of arthritis and address the pain in the left knee. She is in understanding of this. We also discussed surgical options given her Elisa-Danlos syndrome. I do not think we will need to go to constrained components, but there is a chance of her having instability issues and stretching out over time. We will have to weigh the risks of constrained components with the risk of her tissue stretching. Likely primary components will be sufficient, but I will test this intraoperatively, constrained can be considered. Plan for left total knee replacement, robotic assisted, at [facility] [place] [facility]. Not available 01/22/2024 12:56:47 02/12/2024 02/12/2024 Patient opted fo r a telephone visit because it is clinically appropriate for the information reviewed and meets the patient's technological ability and equipment access. I confirmed patient identity verbally and they were advised about video/telephone delivery of care, HIPAA privacy and risk of communicating over appropriate video capable devices. The use of audio-only or video telecommunication technology is consistent with state and federal requirements. Patient stated understanding of the limitation of the treatment provided via audio/video and consents to this visit today. Patient stated they are comfortable that they are in a quiet and private location to speak freely about their health. The patient understands that today's visit will be submitted to the patient's insurance and may incur a co-pay or deductible. Patient is scheduled for left total knee arthroplasty at [facility]. They have significant joint pain, dysfunction and disability that impact many of their activities of daily living. They have failed to respond to alternate, conservative treatment measures. Physical Exam: Patient is located at their home. The patient's calculated BMI is 23.5. Patient is awake, alert and oriented to person, place and time. They are interacting appropriately with this examiner. They are asking and answering questions appropriately. Speech is clear and intelligible. The patient's communication skills do not indicate any significant neurologic dysfunction. After careful review of patient history and their individual risk factors for infection, they will not require additional antibiotic coverage after surgery. It has been determined that ASA is the appropriate medication for the prevention of DVT/PE. The patient wishes to be admitted to the hospital overnight. All questions were answered to the patients' satisfaction. More than twenty total minutes have been spent on this patient encounter plus a review of relevant imaging tests, medical history, medication lists, and medical clearance documents. This patient was seen and evaluated by Hitesh Arboleda MS, PA-C in indirect conjunction with [facility]/supervi sing provider Jason Jurado MD. He agrees with history, physical examination, tests/diagnostic imaging, and treatment plan. Not available 02/12/2024 13:21:50 03/02/2024 03/02/2024 HPI : Patient is doing well at 2 week follow up status post left total knee arthroplasty. They deny fever, chest pain and shortness of breath. They are compliant with anticoagulation protocol. She has been doing home physical therapy regularly and has plans to switch over to outpatient PT by Friday of next week. She is compliant with aspirin for DVT prophylaxis. She expresses to me a wide range of concerns related to prior issues of sepsis and slow wound healing. She is having minimal pain. Physical Exam : Patient is well nourished, well- developed, in no acute distress, with appropriate mood and affect. The patient demonstrates good knee strength. The incision is clean and dry with no sign of infection. Negative calf tenderness and Leonardo's sign. Range of motion is from 0-50 degrees. She states that she has achieved is much as 65 degrees of flexion with physical therapy. She is physically tremulous with worry. Assessment/Plan : The patient is doing well status post knee arthroplasty. Continue 28 day course of anticoagulation therapy. The patient will do physical therapy and return for follow-up in 1 month for re-evaluation; sooner with any problems. The majority of my time are spent with her offering reassurance and motivation. I explained that she needs to make additional progress with range of motion. We have talked about the potential role for manipulation understand anesthesia if she fails to achieve adequate range of motion. This patient was seen and evaluated by Hitesh Arboleda MS, PA-C in indirect conjunction with documenting/supervi sing provider Jason Jurado MD. He agrees with history, physical examination, tests/diagnostic imaging, and treatment plan. Not available 03/02/2024 15:53:18 04/13/2024 04/13/2024 HPI : Patient is here for a 6 week follow-up from a left total knee replacement. She is recovering well. She is walking without assistive device. She has been increasing her range of motion. The pain is significantly improving. She has been doing physical therapy. She is now happy with her progress so far. Physical Exam : Patient is well nourished, well- developed, in no acute distress, with appropriate mood and affect. The patient is AAOx3. The patient demonstrates good knee motion and strength. The incision is well healed. Range of motion of her left knee today is 0 to 115 degrees. The knee is stable to varus and valgus stress. Assessment/Plan : The patient is functioning well 6 weeks from total knee arthroplasty. Continue physical therapy as needed. Return for follow-up in 2 months with x-rays at that time. Not available 04/13/2024 14:21:28 06/25/2024 06/25/2024 HPI : Patient is here for about 4-month follow-up from left total knee replacement. At her 6-week visit she was doing really well. She states about 1 month ago she had some increased symptoms. She was doing a lot. Over the last 10 days, the symptoms have worsened. She has sharp pains both medially and laterally. She does not report any instability. She has gone back to physical therapy. Physical Exam : Patient is well nourished, well-developed, in no acute distress, with appropriate mood and affect. The patient is oriented to time, place, and person. Respirations are even and unlabored. There is no inguinal adenopathy. Examination of the contralateral knee shows normal range of motion, strength, no tenderness, and intact skin. The affected limb is well-perfused, with well healed skin incision. The patient demonstrates good knee motion, stability, and strength. The knee moves from 0-120 degrees. The alignment of the knee is neutral. Muscle strength is normal. Pedal pulses are palpable. Hip examination, including flexion and internal rotation, was negative in that groin pain was not produced. Assessment/Plan : Patient is having some increased pain about 4 months from left total knee replacement. I do not see any signs of infection. Exam, imaging, and history do not show any signs of implant related issues including loosening, malposition, instability, periprosthetic fracture, or infection. This seems to be soft tissue related. I am recommending a course of meloxicam and rest from strengthening exercises. I expect the symptoms to improve. She will follow-up with me in 6 weeks to ensure improvement in her symptoms. Not available 06/25/2024 08:44:35 Plan of Treatment Reminders Order Date Submit Date Provider Last Modified By Organization Details Last Modified Time Details Appointments FOLLOW UP 2024 03:00P Lois Jurado MD Not available Not available Not available Lab None recorded. Referral None recorded. Procedures None recorded. Surgeries total knee arthropla sty (SURG) 2023 024 [facility] [place] [address] [place] [address] [place], [address], 02/20/2024 09:13:06 Imaging XR, knee, 3 view 2024 025 [facility], [address], [address], [place], [address], 06/25/2024 11:10:51 XR, knee, 4 or more view 2023 024 [facility], [address], [address], [place], [address], 01/22/2024 13:55:00 Medication Orders None recorded. Patient TargetsNo targets recorded. Patient Instructions Encounter Date Encounter Id Patient Instructions Last Modified By Organization Details Last Modified Time 01/22/2024 [id number] AP, lateral, Dennis, and patellar view radiographs of the left knee taken today demonstrate left knee degenerative joint disease with joint space narrowing, osteophyte formation, and subchondral sclerosis. There is zgjj-zk-ykwq articulation in the medial compartment. There is evidence of prior ACL reconstruction with button and bone screw. Not available 01/22/2024 12:54:32 06/25/2024 [id number] AP, lateral, and patellar radiographs of the left knee taken today demonstrate satisfactory position and alignment of components following left total knee replacement. There is a 50 mm cemented stem in the tibia. There is a small amount of bone cement laterally next to the lateral tibial plateau. Not available 06/25/2024 08:45:12 Reason for Referral None Reported. Results Created Date Observation Date Name Description Value Unit Range Abnormal Flag Note LastModifiedBy Organization Detail LastModifiedTime 01/30/20 24 01/30/2024 CT, knee, w/o contr ast No observ ation record ed. [email or web address] ([facility]) [address], [place], [address], 02/02/2024 08:17:02 Result Notes None recorded. Problems Name Problem SNOMED Code Status Onset Date Resolution Date Notes Provider Name and Address Organization Details Recorded Time Osteoarthri tis of left knee joint 4302874767263 09 Active 2023 Jason Jurado MD [address], [place], [address], [place] [facility], P 4 10:25:51 Arthritis of knee 211448171 Active 2023 Jason Jurado MD [address], [place], [address], [place] [facility], P 4 10:25:56 Surgical follow-up 277119868 Active 2023 Jason Jurado MD [address], [place], [address], [place] [facility], P 14:21:50 Problem Notes None recorded. Procedures Surgical History Date Name Laterality Status Provider Name and Address Organization Details Recorded Time 024 TOTAL KNEE ARTHROPLASTY (SURG) completed Jeannette Gonzales [place] [facility], P 02/20/2024 09:13:31 Knee Surgery completed Azra Holderes [place] [facility], P 01/22/2024 09:35:37 repair of musculotendinous cuff of shoulder completed Azra Catron [place] [facility], [facility] 01/22/2024 09:35:53 ankle reconstruction completed [facility] [place] [facility] 01/22/2024 09:36:20 Imaging Results Imaging Date Name Status LastModified by Organiz ation Details LastModified Time 01/30/2024 CT, knee, w/o contrast completed [facility] ([facility]) [address] [facility], [place], [address], 02/02/2024 08:17:02 Procedure Notes None recorded. Medical Equipment None Reported. Allergies Allergen ID Allergen Name Allergen Category Reaction Reaction Severity Criticality Documentation Date Start Date Code Code System Note Provider Name and Address Organization Details Recorded Time 53372 mold extract environme nt Not available Not available Not available 01/22/2024 12029 8 RxNorm Azra Danielson null, [place] - [facility], P 09:32:09 38170 morphine medicatio n Not available Not available Not available 01/22/2024 7052 RxNorm Azra cain, [place] - [facility], P 09:32:28 98271 house dust allergeni c extract environme nt,medica tion Not available Not available Not available 01/22/2024 16006 9 RxNorm Azra cain, [place] [facility], P 09:32:36 Medications Name Sig Start Date Stop Date Status Note LastModified by Organization Details LastModified Time tizanidine 4 mg tablet Take 1 tablet as needed by oral route. active Not Available Not Available Not Available meloxicam 15 mg tablet Take 1 tablet as needed by oral route. active Not Available Not Available Not Available gabapentin 300 mg capsule Take 1 capsule 4 times a day by oral route. active Not Available Not Available No t Available montelukast 10 mg tablet Take 1 tablet every day by oral route. active Not Available Not Available No t Available alprazolam 1 mg disintegrati ng tablet Take 1 tablet every day by oral route. active Not Available Not Available No t Available eszopiclone 5mg QD active Not Available Not A vailable Not Available Xopenex HFA 45 mcg/actuatio n aerosol inhaler Inhale 2 puffs every 6 hours by inhalation route. active Not Available Not Available No t Available Zyrtec 10 mg capsule Take by oral route. active Not Available Not Available Not Available Vitals Date Recorded Body height Body mass index (BMI) Body weight Provider Name and Address Organization Details Last Updated DateTime 01/22/2024 180.34 cm 23.7 kg/m2 77024.[address] [place] [facility] 01/22/2024 09:32:59 Date Recorded Body height Body mass index (BMI) Body weight Provider Name and Address Organization Details Last Updated DateTime 01/22/2024 180.34 cm 23.8 kg/m2 75016.[address] [place] [facility] 01/22/2024 09:49:58 Date Recorded Body height Provider Name an d Address Organization Details Last Updated DateTime 04/13/2024 [address] [place] [facility] 04/13/2024 13:58:51 Date Recorded Body height Body mass index (BMI) Body weight Provider Name and Address Organization Details Last Updated DateTime 06/25/2024 180.34 cm 23.8 kg/m2 16517.3 g Jenni Ramesh [facility] 06/25/2024 08:23:37 Social History Question Answer Notes LastModified by Organizat ion Details LastModified Time Tobacco Smoking Status Never Smoker Azra Danielson [place], [place] - [facility], 01/22/2024 09:33:20 What Is Your Level Of Alcohol Consumption? None Information not available 01/22/2024 Do You Use Any Illicit Or Recreational Drugs? No Information not available 01/22/2024 Do You Or Have You Ever Used Any Other Forms Of Tobacco Or Nicotine? No Information not available 01/22/2024 Sex: Unknown Functional Status None recorded. Mental Status None recorded. Family History Relationship Description Onset Age of this Age Resolved Age Notes LastModified by Organization Details LastModified Time Mother Arthritis Not available 01/22/2024 09:33:59 Mother History of cancer of unknown primary site Not available 09:34:09 Mother Heart disease Not available 2023 09:34:30 Mother Hypercholest erolemia Not available 2023 09:34:39 Mother Scoliosis deformity of spine Not available 2023 09:35:20 Sister Arthritis Not available 01/22/2024 09:33:59 Sister History of cancer of unknown primary site Not available 09:34:09 Sister Heart disease Not available 2023 09:34:30 Sister Hypertensive disorder Not available 2023 09:34:51 Sister Scoliosis deformity of spine Not available 2023 09:35:20 Brother History of cancer of unknown primary site Not available 09:34:09 Brother Diabetes mellitus Not available 2023 09:34:15 Brother Heart disease Not available 2023 09:34:30 Brother Hypertensive disorder Not available 2023 09:34:51 Father Heart disease Not available 2023 09:34:30 Father Hypertensive disorder Not available 2023 09:34:51 Notes:rheumatologic disorder - mother and sister Medical History Condition Response Osteopenia Y Asthma Y Gynecological HistoryNo gynecological history recorded. Obstetrics History GPAL:G 0 P 0 0 0 0 Past Encounters Encounter ID Performer Location Encounter Start Date Encounter Closed Date Diagnosis/Indication Diagnosis SNOMED-CT Code Diagnosis ICD10 Code Diagnosis Note [id number] MD JOE Lopez [address] [address] 01/22/2024 08:47:32 01/22/2024 10:37:09 Pain of left knee joint 3085076266 51670 M25.562 Osteoarthr itis of left knee joint 9539432294 53688 M17.12 Arthritis of knee 951360 002 M13.869 [id number] MD JOE Lopez [place] [address] 02/12/2024 08:50:21 02/12/2024 14:19:07 Osteoarthritis of left knee joint 1155511425 67225 M17.12 [id number] [place] [id number] 03/02/2024 14:59:38 03/02/2024 16:17:59 Osteoarthritis of left knee joint 2576981921 76861 M17.12 [id number] [place] [id number] 04/13/2024 13:54:57 04/13/2024 14:26:28 Surgical follow-up 563491922 Z47.1 Z96.652 [id number] [place] [id number] 06/25/2024 08:17:52 06/25/2024 08:45:35 Surgical follow-up 947596997 Z47.1 Z96.652 Health Concerns Section Related Observation LastModified by Organization Detai ls LastModified Time None Recorded Concern Status LastModified by Organization Details LastModified Time None Recorded Advance Directives Directive None Recorded Payers Encounter Date Sequence Insurance Name Policy Number Policy Harrington Covered Member ID Harrington Member ID Guarantor Name 01/22/2024 1 [facility] [id number] Kimo Simmons [id number] Celeste Simmons 02/12/2024 1 [facility] [id number] Kimo Simmons [id number] Celeste Simmons 03/02/2024 1 [facility] [id number] Kimo Simmons [id number] Celeste Simmons 04/13/2024 1 [facility] [id number] Kimo Simmons [id number] Celeste Simmons 06/25/2024 1 [facility] [id number] Kimo Simmons [id number] Celeste Simmons OBGyn Episode No OBEpisode recorded.
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
--- OUTSIDE RECORDS SUMMARY | 2024-07-27 13:36 | XMS_ITS | Data Portability ---
Author Organization [facility], Main Office Address [address] [place] [address] Care Team Providers Care Scallop Shucker Name Role Phone NEL MURRELL [employer] Instructor [facility] Biomedical Engineering Technician [phone] LAUREN RUIZ Orthopedic Surgeon [phone] PAMELA LUKE Referring Provider [phone] DELORIS MATIAS Automatic Line Set Up Mechanic GAVIN GALAN Plastic/Reconstructive Surgeon CHARMAINE CAMPBELL Neurologist [phone] [facility] Vascular Surgeon REGINA AMBRIZ Automatic Line Set Up Mechanic TANIKA GARCIA Primary Care Provider TRAVIS SOUZA Psych Np Assessment Encounter Date Assessment Date Assessment LastModified by Organization Details LastModified Time 05/22/2023 05/22/2023 Discussed with patient the signs/symptom s warranted for a return to office visit and/or an ER visit. Patient understood and agreed with the plan. Not available 05/22/2023 15:22:21 08/08/2023 08/08/2023 Discussed with patient the signs/symptom s warranted for a return to office visit and/or an ER visit. Patient understood and agreed with the plan. Not available 08/08/2023 09:22:42 Plan of Treatment Reminders Order Date Submit Date Provider Last Modified By Organization Details Last Modified Time Details Appointments None record ed. Lab pro BNP (pro B-type natriu retic peptid e), serum or plasma 2023 024 [facility] (Centralized Electronic Ordering - All Locations), Patient Can Go To The Location Of Their Choice, [id number] 4 08:06:54 CBC w/ auto diff 2023 024 [facility] (Centralized Electronic Ordering - All Locations), Patient Can Go To The Location Of Their Choice, [id number] 4 08:06:53 CBC w/ auto diff 2023 024 [email or web address] [facility] (Centralized Electronic Ordering - All Locations), Patient Can Go To The Location Of Their Choice, [id number] 5 08:54:28 lipase , serum or plasma 2023 [facility], [address], [address], [place], [address], 4 18:48:55 amylas e, serum or plasma 2023 024 [facility], [address], [address], [place], [address], 4 18:48:52 hepati c functi on panel, serum 2023 024 [facility], [address], [address], [place], [address], 4 18:48:53 unlist ed lab - urinal ysis w/refl ex cultur e 2023 024 [facility], [address], [address], [place], [address], 4 16:04:25 cytolo gy, non-gy necolo gical, unspec ified specim en - urine 2023 024 [facility], [address], [address], [place], [address], 4 15:57:58 CBC w/ auto diff 2023 024 [place] [facility], [address] [facility], [address], [place], [address], 4 10:30:12 BMP, serum or plasma 2023 024 [place] [facility], [address], [address], [place], [address], 4 10:29:08 Referral sleep medici ne referr al - snorin g 2023 024 [email or web address], [address] [place], [address], 4 08:55:02 psychi atrist referr al - not a formal diagno sis, needs testin g 2023 024 [email or web address] Not available 13:56:32 Procedures None record ed. Surgeries None record ed. Imaging electr ocardi ogram 2023 024 [email or web address] In-Office Order, Internal Use Only DO Not Attach Compendium DO Not Attach Compendium, Do Not Delete/merge, [id number] 11:35:04 XR, chest, 2 view - cough x1 month. 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 note of any indica tion of bacter ial origin hx of jesse -danlo s syndro me 2022 023 [email or web address] [facility], [address] [place], [address], 4 11:57:05 Medication Orders benzon atate 200 mg capsul e 2023 024 [place] [id number], [address] [facility], [place], [address], 4 11:31:49 hydroc ortiso ne 2.5 % topica l cream with perine al applic ator 2023 024 [id number], [address] [place], [address], 09:35:42 benzon atate 100 mg capsul e 2022 023 [email or web address] [id number], [address] [place], [address], 09:35:39 Patient TargetsNo targets recorded. Patient Instructions Encounter Date Encounter Id Patient Instructions Last Modified By Organization Details Last Modified Time 05/22/2023 [id number] cough: care instructions Not available 05/22/2023 15:27:58 07/31/2023 [id number] abdominal pain: care instructions Not available 07/31/2023 09:45:25 medical record request* [email or web address] Not available 07/31/2023 15:25:47 insomnia: care instructions Not available 07/31/2023 09:45:25 blood in the urine: care instructions Not available 07/31/2023 09:45:25 08/04/2023 [id number] At today's hospital follow up visit, all current and discharge medications (OTC, herbal therapies, supplements) reviewed and reconciled with patient and or caregiver, including potential side effects, drug interactions, instructions, and the consequences of not taking medication. Reviewed potential barriers to medication adherence, such as side effects from medication or cost of medication. [email or web address] Not available 08/04/2023 10:06:39 08/08/2023 [id number] hemorrhoids: care instructions Not available 08/08/2023 09:35:40 [facility], all current and discharge medications (OTC, herbal therapies, supplements) reviewed and reconciled with patient and or caregiver, including potential side effects, drug interactions, instructions, and the consequences of not taking medication. Reviewed potential barriers to medication adherence, such as side effects from medication or cost of medication. [email or web address] Not available 08/08/2023 09:07:47 12/20/2023 [id number] cough: care instructions [email or web address] Not available 12/20/2023 11:31:47 shortness of breath: care instructions [email or web address] Not available 12/20/2023 11:06:48 Reason for Referral Psychiatrist Referral for Au tism spectrum disorder not a formal diagnosis, needs testing Referring Physician: Tanika Garcia, Family Medicine, Encounter Date: 07/31/2023 Sleep Medicine Referral for Sleep apnea snoring Referring Physician: Kayla Castorena, [facility], Encounter Date: 08/08/2023 Results Created Date Observation Date Name Description Value Unit Range Abnormal Flag Note LastModifiedBy Organization Detail LastModifiedTime 07/31/1907/31/2023 BASIC METAB OLIC PANEL results Dupli jeana Order Not Available [facility] (Centralized Electronic Ordering - All Locations) Patient Can Go To The Location Of Their Choice, 07/31/2023 10:29:08 07/31/19 24 07/31/2023 COMPL ETE CBC WITH DIFF results Dupli jeana Order Not Available [facility] (Centralized Electronic Ordering - All Locations) Patient Can Go To The Location Of Their Choice, 07/31/2023 10:30:12 07/31/19 24 07/31/2023 VITAM IN B12 vitamin B12 508 pg/mL (232-1 245) Not Available [facility] (Centralized Electronic Ordering - All Locations) Patient Can Go To The Location Of Their Choice, 07/31/2023 15:39:12 07/31/19 24 07/31/2023 TSH WITH REFLE X TO FT4 TSH 1.06 uIU/m L (0.4-4 .2) Not Available [facility] (Centralized Electronic Ordering - All Locations) Patient Can Go To The Location Of Their Choice, 07/31/2023 15:39:13 07/31/19 24 07/31/2023 COMPR EHENS KATIE METAB OLIC PANL glucose 96 mg/dL (70-99 ) Not Available [facility] (Centralized Electronic Ordering - All Locations) Patient Can Go To The Location Of Their Choice, 07/31/2023 15:39:51 07/31/19 24 07/31/2023 COMPR EHENS KATIE METAB OLIC PANL BUN 10 mg/dL (8-23) Not Available [facility] (Centralized Electronic Ordering - All Locations) Patient Can Go To The Location Of Their Choice, 07/31/2023 15:39:51 07/31/1907/31/2023 COMPR EHENS KATIE METAB OLIC PANL creatinine 0.7 mg/dL (0.5-1 .0) Not Available [facility] (Centralized Electronic Ordering - All Locations) Patient Can Go To The Location Of Their Choice, 07/31/2023 15:39:51 07/31/19 24 07/31/2023 COMPR EHENS KATIE METAB OLIC PANL sodium 142 mmol/ L (133-1 45) Not Available [facility] (Centralized Electronic Ordering - All Locations) Patient Can Go To The Location Of Their Choice, 07/31/2023 15:39:51 07/31/1907/31/2023 COMPR EHENS KATIE METAB OLIC PANL potassium 4.8 mmol/ L (3.6-5 .2) Not Available [facility] (Centralized Electronic Ordering - All Locations) Patient Can Go To The Location Of Their Choice, 07/31/2023 15:39:51 07/31/1907/31/2023 COMPR EHENS KATIE METAB OLIC PANL chloride 102 mmol/ L (98-10 7) Not Available [facility] (Centralized Electronic Ordering - All Locations) Patient Can Go To The Location Of Their Choice, 07/31/2023 15:39:51 07/31/1907/31/2023 COMPR EHENS KATIE METAB OLIC PANL bicarbonate 23 mmol/ L (22-29 ) Not Available [facility] (Centralized Electronic Ordering - All Locations) Patient Can Go To The Location Of Their Choice, 07/31/2023 15:39:51 07/31/1907/31/2023 COMPR EHENS KATIE METAB OLIC PANL anion gap 17 (4-17) Not Available [facility] (Centralized Electronic Ordering - All Locations) Patient Can Go To The Location Of Their Choice, 07/31/2023 15:39:51 07/31/19 24 07/31/2023 COMPR EHENS KATIE METAB OLIC PANL albumin 4.9 gm/dL (3.4-4 .8) high Not Available [facility] (Centralized Electronic Ordering - All Locations) Patient Can Go To The Location Of Their Choice, 07/31/2023 15:39:51 07/31/1907/31/2023 COMPR EHENS KATIE METAB OLIC PANL calcium 9.8 mg/dL (8.6-1 0.5) Not Available [facility] (Centralized Electronic Ordering - All Locations) Patient Can Go To The Location Of Their Choice, 07/31/2023 15:39:51 07/31/1907/31/2023 COMPR EHENS KATIE METAB OLIC PANL bilirubin,to lux 0.5 mg/dL (0-1.2 ) Not Available [facility] (Centralized Electronic Ordering - All Locations) Patient Can Go To The Location Of Their Choice, 07/31/2023 15:39:51 07/31/1907/31/2023 COMPR EHENS KATIE METAB OLIC PANL total protein 7.3 gm/dL (6.2-8 .2) Not Available [facility] (Centralized Electronic Ordering - All Locations) Patient Can Go To The Location Of Their Choice, 07/31/2023 15:39:51 07/31/1907/31/2023 COMPR EHENS KATIE METAB OLIC PANL Ag ratio 2.0 Not Available [facility] (Centralized Electronic Ordering - All Locations) Patient Can Go To The Location Of Their Choice, 07/31/2023 15:39:51 07/31/1907/31/2023 COMPR EHENS KATIE METAB OLIC PANL AST 18 U/L (0-32) Not Available [facility] (Centralized Electronic Ordering - All Locations) Patient Can Go To The Location Of Their Choice, 07/31/2023 15:39:51 07/31/1907/31/2023 COMPR EHENS KATIE METAB OLIC PANL alk phos 105 U/L (35-10 4) high Not Available [facility] (Centralized Electronic Ordering - All Locations) Patient Can Go To The Location Of Their Choice, 07/31/2023 15:39:51 07/31/19 24 07/31/2023 COMPR EHENS KATIE METAB OLIC PANL ALT 13 U/L (0-33) Not Available [facility] (Centralized Electronic Ordering - All Locations) Patient Can Go To The Location Of Their Choice, 07/31/2023 15:39:51 07/31/1907/31/2023 COMPR EHENS KATIE METAB OLIC PANL estimated GFR creatinine 96 mL/mi n/1.7 3_M2 Creat inine based estim ated glome rular filtr ation (eGFR ) in adult s is calcu lated using the Natio nal Kidne y Found ation recom jolanta d 2020 CKD-E PI equat ion. Estim ates GFR from serum creat inine , age and sex. Not Available [facility] (Centralized Electronic Ordering - All Locations) Patient Can Go To The Location Of Their Choice, 07/31/2023 15:39:51 07/31/1907/31/2023 C-REGINALD CTIVE PROTE IN C-reactive protein <0.3 mg/dL (0-0.5 ) Not Available [facility] (Centralized Electronic Ordering - All Locations) Patient Can Go To The Location Of Their Choice, 07/31/2023 15:39:52 07/31/1907/31/2023 RHEUM ATOID FACTO R rheumatoid factor <10.0 IU/mL (<14) Not Available [facility] ([facility] Order[facility] - All Locations) Patient Can Go To The Location Of Their Choice, 07/31/2023 15:39:53 07/31/1907/31/2023 COMPL ETE CBC WITH DIFF WBC 4.4 K/mm3 (4.0-1 1.0) Not Available [facility] (Centralized Electronic Ordering - All Locations) Patient Can Go To The Location Of Their Choice, 07/31/2023 15:50:29 07/31/1907/31/2023 COMPL ETE CBC WITH DIFF RBC 4.41 M/mm3 (4.20- 5.40) Not Available [facility] (Centralized Electronic Ordering - All Locations) Patient Can Go To The Location Of Their Choice, 07/31/2023 15:50:29 07/31/1907/31/2023 COMPL ETE CBC WITH DIFF HGB 12.8 gm/dL (11.7- 15.5) Not Available [facility] (Centralized Electronic Ordering - All Locations) Patient Can Go To The Location Of Their Choice, 07/31/2023 15:50:29 07/31/1907/31/2023 COMPL ETE CBC WITH DIFF HCT 40.6 % (35.7- 45.8) Not Available [facility] (Centralized Electronic Ordering - All Locations) Patient Can Go To The Location Of Their Choice, 07/31/2023 15:50:29 07/31/1907/31/2023 COMPL ETE CBC WITH DIFF MCV 92.1 fL (80.0- 100.0) Not Available [facility] (Centralized Electronic Ordering - All Locations) Patient Can Go To The Location Of Their Choice, 07/31/2023 15:50:29 07/31/1907/31/2023 COMPL ETE CBC WITH DIFF MCH 29.0 pg (27.0- 34.0) Not Available [facility] (Centralized Electronic Ordering - All Locations) Patient Can Go To The Location Of Their Choice, 07/31/2023 15:50:29 07/31/1907/31/2023 COMPL ETE CBC WITH DIFF MCHC 31.5 g/dL (33.0- 37.0) low Not Available [facility] (Centralized Electronic Ordering - All Locations) Patient Can Go To The Location Of Their Choice, 07/31/2023 15:50:29 07/31/1907/31/2023 COMPL ETE CBC WITH DIFF plt 200 K/mm3 (150-4 60) Not Available [facility] (Centralized Electronic Ordering - All Locations) Patient Can Go To The Location Of Their Choice, 07/31/2023 15:50:29 07/31/1907/31/2023 COMPL ETE CBC WITH DIFF RDW-SD 42.7 fL (<47.0 ) Not Available [facility] (Centralized Electronic Ordering - All Locations) Patient Can Go To The Location Of Their Choice, 07/31/2023 15:50:29 07/31/1907/31/2023 COMPL ETE CBC WITH DIFF MPV 12.0 fL (9.4-1 2.4) Not Available [facility] (Centralized Electronic Ordering - All Locations) Patient Can Go To The Location Of Their Choice, 07/31/2023 15:50:29 07/31/1907/31/2023 COMPL ETE CBC WITH DIFF automated NRBC 0.0 #/100 _WBC' s Not Available [facility] (Centralized Electronic Ordering - All Locations) Patient Can Go To The Location Of Their Choice, 07/31/2023 15:50:29 07/31/1907/31/2023 COMPL ETE CBC WITH DIFF abs. NRBC 0.0 K/mm3 Not Available [facility] (Centralized Electronic Ordering - All Locations) Patient Can Go To The Location Of Their Choice, 07/31/2023 15:50:29 07/31/1907/31/2023 COMPL ETE CBC WITH DIFF neut # 2.5 K/mm3 (1.3-7 .0) Not Available [facility] (Centralized Electronic Ordering - All Locations) Patient Can Go To The Location Of Their Choice, 07/31/2023 15:50:29 07/31/1907/31/2023 COMPL ETE CBC WITH DIFF lymph # 1.6 K/mm3 (0.8-3 .1) Not Available [facility] (Centralized Electronic Ordering - All Locations) Patient Can Go To The Location Of Their Choice, 07/31/2023 15:50:29 07/31/1907/31/2023 COMPL ETE CBC WITH DIFF mono# 0.2 K/mm3 (0.4-0 .9) low Not Available [facility] (Centralized Electronic Ordering - All Locations) Patient Can Go To The Location Of Their Choice, 07/31/2023 15:50:29 07/31/1907/31/2023 COMPL ETE CBC WITH DIFF eo # 0.1 K/mm3 (0.0-0 .4) Not Available [facility] (Centralized Electronic Ordering - All Locations) Patient Can Go To The Location Of Their Choice, 07/31/2023 15:50:29 07/31/1907/31/2023 COMPL ETE CBC WITH DIFF baso # 0.0 K/mm3 (0.0-0 .1) Not Available [facility] (Centralized Electronic Ordering - All Locations) Patient Can Go To The Location Of Their Choice, 07/31/2023 15:50:29 07/31/1907/31/2023 COMPL ETE CBC WITH DIFF abs. imm gran 0.0 K/mm3 Not Available [facility] ([facility] Order[facility] - All Locations) Patient Can Go To The Location Of Their Choice, 07/31/2023 15:50:29 07/31/19 24 07/31/2023 COMPL ETE CBC WITH DIFF neut 56.5 % (44-76 ) Not Available [facility] (Centralized Electronic Ordering - All Locations) Patient Can Go To The Location Of Their Choice, 07/31/2023 15:50:29 07/31/19 24 07/31/2023 COMPL ETE CBC WITH DIFF lymph 35.6 % (15-43 ) Not Available [facility] (Centralized Electronic Ordering - All Locations) Patient Can Go To The Location Of Their Choice, 07/31/2023 15:50:29 07/31/1907/31/2023 COMPL ETE CBC WITH DIFF monocyte 5.4 % (4.5-1 0.5) Not Available [facility] ([facility]ized Electronic Ordering - All Locations) Patient Can Go To The Location Of Their Choice, 07/31/2023 15:50:29 07/31/1907/31/2023 COMPL ETE CBC WITH DIFF eo 1.4 % (0-6) Not Available [facility] (Centralized Electronic Ordering - All Locations) Patient Can Go To The Location Of Their Choice, 07/31/2023 15:50:29 07/31/1907/31/2023 COMPL ETE CBC WITH DIFF baso 0.9 % (0-2) Not Available [facility] (Centralized Electronic Ordering - All Locations) Patient Can Go To The Location Of Their Choice, 07/31/2023 15:50:29 07/31/1907/31/2023 COMPL ETE CBC WITH DIFF imm gran 0.2 % Not Available [facility] (Centralized Electronic Ordering - All Locations) Patient Can Go To The Location Of Their Choice, 07/31/2023 15:50:29 07/31/1907/31/2023 UA W/REF KIMBERLY CULTU RE appear/color LIGHT YELLO W CLEAR Not Available [facility] (Centralized Electronic Ordering - All Locations) Patient Can Go To The Location Of Their Choice, 07/31/2023 16:04:25 07/31/19 24 07/31/2023 UA W/REF KIMBERLY CULTU RE sp. gravity 1.012 (1.002 -1.030 ) Not Available [facility] (Centralized Electronic Ordering - All Locations) Patient Can Go To The Location Of Their Choice, 07/31/2023 16:04:25 07/31/19 24 07/31/2023 UA W/REF KIMBERLY CULTU RE urine pH 6.0 (5.0-8 .0) Not Available [facility] ([facility]ized Electronic Ordering - All Locations) Patient Can Go To The Location Of Their Choice, 07/31/2023 16:04:25 07/31/19 24 07/31/2023 UA W/REF KIMBERLY CULTU RE urine albumin NEGATI VE (neg) Not Available [facility] ([facility]ized [facility] Ordering - All Locations) Patient Can Go To The Location Of Their Choice, 07/31/2023 16:04:25 07/31/19 24 07/31/2023 UA W/REF KIMBERLY CULTU RE urine glucose NEGATI VE (neg) Not Available [facility] ([facility]ized Electronic Ordering - All Locations) Patient Can Go To The Location Of Their Choice, 07/31/2023 16:04:25 07/31/19 24 07/31/2023 UA W/REF KIMBERLY CULTU RE urine ketones NEGATI VE (neg) Not Available [facility] ([facility]ized [facility] Ordering - All Locations) Patient Can Go To The Location Of Their Choice, 07/31/2023 16:04:25 07/31/19 24 07/31/2023 UA W/REF KIMBERLY CULTU RE urine bilirubin NEGATI VE (neg) Not Available [facility] ([facility]ized Electronic Ordering - All Locations) Patient Can Go To The Location Of Their Choice, 07/31/2023 16:04:25 07/31/19 24 07/31/2023 UA W/REF KIMBERLY CULTU RE urine hemoglobin NEGATI VE (neg) Not Available [facility] ([facility]ized [facility] Ordering - All Locations) Patient Can Go To The Location Of Their Choice, 07/31/2023 16:04:25 07/31/19 24 07/31/2023 UA W/REF KIMBERLY CULTU RE urine nitrite NEGATI VE (neg) Not Available [facility] ([facility]ized [facility] Ordering - All Locations) Patient Can Go To The Location Of Their Choice, 07/31/2023 16:04:25 07/31/19 24 07/31/2023 UA W/REF KIMBERLY CULTU RE urine leukocyte TRACE (neg) abnormal Not Available [facility] - All Locations) Patient Can Go To The Location Of Their Choice, 07/31/2023 16:04:25 07/31/19 24 07/31/2023 UA W/REF KIMBERLY CULTU RE urobilinogen NORMAL mg/dL (norm) Not Available [facility]) Patient Can Go To The Location Of Their Choice, 07/31/2023 16:04:25 07/31/19 24 07/31/2023 UA W/REF KIMBERLY CULTU RE urine WBCs 2 /hpf (0-5) Not Available [facility] ([facility]ized [facility] Ordering - All Locations) Patient Can Go To The Location Of Their Choice, 07/31/2023 16:04:25 07/31/19 24 07/31/2023 UA W/REF KIMBERLY CULTU RE urine RBCs 1 /hpf (0-3) Not Available [facility] ([facility]ized Electronic Ordering - All Locations) Patient Can Go To The Location Of Their Choice, 07/31/2023 16:04:25 07/31/19 24 07/31/2023 UA W/REF KIMBERLY CULTU RE mucus SLIGHT /lpf Not Available [facility] (Centralized Electronic Ordering - All Locations) Patient Can Go To The Location Of Their Choice, 07/31/2023 16:04:25 07/31/19 24 07/31/2023 UA W/REF KIMBERLY CULTU RE squamous epith 2 /hpf (0-8) Not Available [facility] ([facility] Order[facility] - All Locations) Patient Can Go To The Location Of Their Choice, 07/31/2023 16:04:25 07/31/19 24 07/31/2023 UA W/REF KIMBERLY CULTU RE clarity CLEAR (clear ) Not Available [facility] ([facility]ized [facility] Ordering - All Locations) Patient Can Go To The Location Of Their Choice, 07/31/2023 16:04:25 07/31/19 24 07/31/2023 UA W/REF KIMBERLY CULTU RE culture indication CULTUR E INDICA DELORES Not Available [facility] ([facility]ized Electronic Ordering - All Locations) Patient Can Go To The Location Of Their Choice, 07/31/2023 16:04:25 07/31/19 24 07/31/2023 SEDIM ENTAT ION RATE, AUTOM ATED sedimentatio n rate,automat ed 5 mm/HR (0-20) Not Available [facility] ([facility] Order[facility] - All Locations) Patient Can Go To The Location Of Their Choice, 07/31/2023 16:06:02 07/31/19 24 07/31/2023 HEMOG LOBIN A1C hemoglobin A1C 5.7 % (4.0-5 .6) high MONIT ORING : In known diabe tic patie nts, hemog lobin A1c targe ts shoul d be discu ssed with healt h care provi genna. DIAGN OSTIC USE: The Ameri can Diabe jud Assoc iatio n (ADA) and the World Healt h Organ izati on (WHO) recom mend the use of HbA1c to diagn ose diabe jud using a thres hold of 6.5%. Patie nts who have an HbA1c betwe en 5.7% and 6.4% are consi dered at incre ased risk for devel oping diabe jud in the futur e. CAUTI ON: False ly low HbA1c resul ts may be obser charmaine in patie nts with hemol ytic anemi a, homoz ygous forms of abnor mal hemog lobin (e.g. SS, CC, SC), pregn emeterio, recen t blood loss or hemog lobin F great er than 7%. Fruct osami ne may be used as an alter jacob test in these cases . REFER ENCE: ADA: Stand ards of Medic al Care in Diabe jud 2019, The Journ al of Clini mili and Appli ed Resea rch and Educa tion Volum e 43, Suppl ement 1 Not Available [facility] (Centralized Electronic Ordering - All Locations) Patient Can Go To The Location Of Their Choice, 07/31/2023 16:18:05 07/31/19 24 07/31/2023 AMYLA SE amylase 43 U/L (28-10 0) Not Available [facility] (Centralized Electronic Ordering - All Locations) Patient Can Go To The Location Of Their Choice, 07/31/2023 18:48:52 07/31/1907/31/2023 HEPAT IC FUNCT ION PANEL bilirubin,to lux 0.5 mg/dL (0-1.2 ) Not Available [facility] (Centralized Electronic Ordering - All Locations) Patient Can Go To The Location Of Their Choice, 07/31/2023 18:48:53 07/31/1907/31/2023 HEPAT IC FUNCT ION PANEL bilirubin, direct <0.2 mg/dL (0-0.3 ) Not Available [facility] ([facility]ized Electronic Ordering - All Locations) Patient Can Go To The Location Of Their Choice, 07/31/2023 18:48:53 07/31/1907/31/2023 HEPAT IC FUNCT ION PANEL indirect bilirubin mg/dL (0.0-0 .7) Direc t bilir ubin is less than the measu reabl e limit . There fore, indir ect bilir ubin canno t be calcu lated . Not Available [facility] (Centralized Electronic Ordering - All Locations) Patient Can Go To The Location Of Their Choice, 07/31/2023 18:48:53 07/31/1907/31/2023 HEPAT IC FUNCT ION PANEL albumin 4.9 gm/dL (3.4-4 .8) high Not Available [facility] (Centralized Electronic Ordering - All Locations) Patient Can Go To The Location Of Their Choice, 07/31/2023 18:48:53 07/31/1907/31/2023 HEPAT IC FUNCT ION PANEL AST 19 U/L (0-32) Not Available [facility] (Centralized Electronic Ordering - All Locations) Patient Can Go To The Location Of Their Choice, 07/31/2023 18:48:53 07/31/1907/31/2023 HEPAT IC FUNCT ION PANEL ALT 12 U/L (0-33) Not Available [facility] (Centralized Electronic Ordering - All Locations) Patient Can Go To The Location Of Their Choice, 07/31/2023 18:48:53 07/31/1907/31/2023 HEPAT IC FUNCT ION PANEL alk phos 107 U/L (35-10 4) high Not Available [facility] (Centralized Electronic Ordering - All Locations) Patient Can Go To The Location Of Their Choice, 07/31/2023 18:48:53 07/31/19 24 07/31/2023 HEPAT IC FUNCT ION PANEL total protein 7.2 gm/dL (6.2-8 .2) Not Available [facility] (Centralized Electronic Ordering - All Locations) Patient Can Go To The Location Of Their Choice, 07/31/2023 18:48:53 07/31/19 24 07/31/2023 LIPAS E lipase 28 U/L (13-60 ) Not Available [facility] ([facility]ized Electronic Ordering - All Locations) Patient Can Go To The Location Of Their Choice, 07/31/2023 18:48:54 07/31/1907/31/2023 URINE CULTU RE specimen description URINE Not Available [facility] ([facility] Loc[facility]) Patient Can Go To The Location Of Their Choice, 08/01/2023 13:16:27 07/31/1907/31/2023 URINE CULTU RE special requests NONE Reflex ed from [id number] Not Available [facility] (Centralized Electronic Ordering - All Locations) Patient Can Go To The Location Of Their Choice, 08/01/2023 13:16:27 07/31/1908/01/2023 URINE CULTU RE culture NO GROWTH Not Available [facility] (Centralized Electronic Ordering - All Locations) Patient Can Go To The Location Of Their Choice, 08/01/2023 13:16:27 07/31/1908/01/2023 URINE CULTU RE report status FINAL 2023 Not Available [facility] (Centralized Electronic Ordering - All Locations) Patient Can Go To The Location Of Their Choice, 08/01/2023 13:16:27 07/31/1908/04/2023 ANTI- NUCLE AR ANTIB JAJA SCREE N anti-nuclear antibody screen NEGATI VE (NOTE ) Negat katie <1:80 Borde rline 1:80 Posit katie >1:80 ICAP nomen clatu re: AC-0 For more infor matio n about Hep-2 cell patte rns use ANApa ttern s.org , the offic ial websi te for the Inter natio nal Conse nsus on Antin uclea r Antib jaja (DASHAWN) Camite rns (ICAP ). [facility], [address] [place] [address] Not Available [facility] (Centralized Electronic Ordering - All Locations) Patient Can Go To The Location Of Their Choice, [id number] 08/04/2023 16:10:20 07/31/19 24 07/31/2023 [facility] CYTOL OGY results Patie nt Name: Lisa MUÑOZ Patie nt : 1960 (Age: 62) Lab Acces charline #: [id number] Colle ction Date: Acces charline Date: Sign Out Date: 2023 Tissu e Sourc e: 1: URINE , UNSPE CIFIE D: Final Diagn osis: URINE , UNSPE CIFIE D: NEGAT KATIE FOR HIGH- GRADE UROTH ELIAL CARCI NOMA. The speci men proce ssing and scree paige perfo rmed at [facility] , [address], [place] (CLIA #[id number]). Its perfo rmanc e mary cteri stics deter mined by [facility]. Clini mili Histo ry: Date of Last Menst rual Perio d: not avail able Menst rual Histo ry: not avail able Contr acept katie Histo ry: not avail able Ancil ioana Testi ng: not avail able Clini mili Histo ry (othe r): R31.9 Gross Descr iptio n: Recei charmaine 50cc of yello w fluid 1 ThinP rep cellu lar enhan cemen t techn ique Prima ry Patho logis t: Elicia ortiz M.D. Phone #: [phone], On-Ca ll Patho logis t: [id number] Not Available [facility] (Centralized Electronic Ordering - All Locations) Patient Can Go To The Location Of Their Choice, [id number] 08/06/2023 15:57:58 12/20/19 24 12/21/2023 CBC WITH DIFFE RENTI AL/PL ATELE T WBC 4.5 x10e3 /uL 3.4-10 .8 normal Not Available [facility] ([facility]) [address], [place], [address], 12/21/2023 08:06:53 12/20/19 24 12/21/2023 CBC WITH DIFFE RENTI AL/PL ATELE T RBC 4.48 x10e6 /uL 3.77-5 .28 normal Not Available [facility] ([facility]) [address], [place], [address], 12/21/2023 08:06:53 12/20/19 24 12/21/2023 CBC WITH DIFFE RENTI AL/PL ATELE T hemoglobin 13.1 g/dL 11.1-1 5.9 normal Not Available [facility] ([facility]) [address], [place], [address], 12/21/2023 08:06:53 12/20/19 24 12/21/2023 CBC WITH DIFFE RENTI AL/PL ATELE T hematocrit 41.1 % 34.0-4 6.6 normal Not Available [facility] ([facility]) [address], [place], [address], 12/21/2023 08:06:53 12/20/19 24 12/21/2023 CBC WITH DIFFE RENTI AL/PL ATELE T MCV 92 fL 79-97 normal Not Available [facility] ([facility]) [address], [place], [address], 12/21/2023 08:06:53 12/20/19 24 12/21/2023 CBC WITH DIFFE RENTI AL/PL ATELE T MCH 29.2 pg 26.6-3 3.0 normal Not Available [facility] ([facility]) [address] [place], [address], 12/21/2023 08:06:53 07/27/20 24 12/21/2023 CBC WITH DIFFE RENTI AL/PL ATELE T MCHC 31.9 g/dL 31.5-3 5.7 normal Not Available [facility] ([facility]) [address], [place], [address], 12/21/2023 08:06:53 12/20/19 24 12/21/2023 CBC WITH DIFFE RENTI AL/PL ATELE T RDW 12.6 % 11.7-1 5.4 Not Available [facility] ([facility]) [address], [place], [address], 12/21/2023 08:06:53 12/20/19 24 12/21/2023 CBC WITH DIFFE RENTI AL/PL ATELE T platelets 171 x10e3 /uL 150-45 0 normal Not Available [facility] ([facility]) [address], [place], [address], 12/21/2023 08:06:53 12/20/19 24 12/21/2023 CBC WITH DIFFE RENTI AL/PL ATELE T neutrophils 58 % not estab. normal Not Available [facility] ([facility]) [address], [place], [address], 12/21/2023 08:06:53 12/20/19 24 12/21/2023 CBC WITH DIFFE RENTI AL/PL ATELE T lymphs 33 % not estab. normal Not Available [facility] ([facility]) [address], [place], [address], 12/21/2023 08:06:53 12/20/19 24 12/21/2023 CBC WITH DIFFE RENTI AL/PL ATELE T monocytes 7 % not estab. normal Not Available [facility] ([facility]) [address], [place], [address], 12/21/2023 08:06:53 12/20/19 24 12/21/2023 CBC WITH DIFFE RENTI AL/PL ATELE T eos 1 % not estab. normal Not Available [facility] ([facility]) [address] [place], [address], 12/21/2023 08:06:53 12/20/19 24 12/21/2023 CBC WITH DIFFE RENTI AL/PL ATELE T basos 1 % not estab. normal Not Available [facility] ([facility]) [address], [place], [address], 12/21/2023 08:06:53 12/20/19 24 12/21/2023 CBC WITH DIFFE RENTI AL/PL ATELE T immature cells DATA MANAGER Not Available [facility] ([facility]) [address] [place], [address], 12/21/2023 08:06:53 12/20/19 24 12/21/2023 CBC WITH DIFFE RENTI AL/PL ATELE T neutrophils (absolute) 2.6 x10e3 /uL 1.4-7. 0 normal Not Available [facility] ([facility]) [address] [place], [address], 12/21/2023 08:06:53 12/20/19 24 12/21/2023 CBC WITH DIFFE RENTI AL/PL ATELE T lymphs (absolute) 1.5 x10e3 /uL 0.7-3. 1 normal Not Available [facility] ([facility]) [address] [place], [address], 12/21/2023 08:06:53 12/20/19 24 12/21/2023 CBC WITH DIFFE RENTI AL/PL ATELE T monocytes(ab solute) 0.3 x10e3 /uL 0.1-0. 9 normal Not Available [facility] ([facility]) [address] [place], [address], 12/21/2023 08:06:53 12/20/19 24 12/21/2023 CBC WITH DIFFE RENTI AL/PL ATELE T eos (absolute) 0.0 x10e3 /uL 0.0-0. 4 normal Not Available [facility] ([facility]) [address], [place], [address], 12/21/2023 08:06:53 12/20/19 24 12/21/2023 CBC WITH DIFFE RENTI AL/PL ATELE T baso (absolute) 0.0 x10e3 /uL 0.0-0. 2 normal Not Available [facility] ([facility]) [address], [place], [address], 12/21/2023 08:06:53 12/20/19 24 12/21/2023 CBC WITH DIFFE RENTI AL/PL ATELE T immature granulocytes 0 % not estab. Not Available [facility] ([facility]) [address], [place], [address], 12/21/2023 08:06:53 12/20/19 24 12/21/2023 CBC WITH DIFFE RENTI AL/PL ATELE T immature grans (abs) 0.0 x10e3 /uL 0.0-0. 1 Not Available [facility] ([facility]) [address], [place], [address], 12/21/2023 08:06:53 12/20/1912/21/2023 CBC WITH DIFFE RENTI AL/PL ATELE T NRBC DATA MANAGER Not Available [facility] ([facility]) [address], [place], [address], 12/21/2023 08:06:53 12/20/19 24 12/21/2023 CBC WITH DIFFE RENTI AL/PL ATELE T hematology comments: DATA MANAGER Not Available [facility] ([facility]) [address], [place], [address], 12/21/2023 08:06:53 12/20/19 24 12/21/2023 NT-SD OBNP nt-probnp 127 pg/mL 0-287 The follo wing cut-p oints have been sugge sted for the use of proBN P for the diagn ostic evalu ation of heart failu re (HF) in patie nts with acute dyspn ea: Modal ity Age Optim al Cut (year s) Point ----- ----- ----- ----- ----- ----- ----- ----- ----- ----- ---- Diagn osis (rule in HF) <50 450 pg/mL 50 - 75 900 pg/mL >75 1800 pg/mL Exclu charline (rule out HF) Age indep enden t 300 pg/mL Not Available [facility] ([facility]) [address], [place], [address], 12/21/2023 08:06:54 12/20/19 24 12/23/2023 elect rocar diogr am No observ ation record ed. acenner[facility] In-Office Order Internal Use Only DO Not Attach Compendium DO Not Attach Compendium, Do Not Delete/merge, [id number] 12/23/2023 08:35:58 12/20/19 elect rocar diogr am No observ ation record ed. acennerazzo In-Office Order Internal Use Only DO Not Attach Compendium DO Not Attach Compendium, Do Not Delete/merge, [id number] 12/20/2023 11:43:49 06/23/19 25 04/30/2024 CT, chest , w/o contr ast No observ ation record ed. [facility] (Medical Records) [address], [place], [address], 06/23/2024 18:55:23 Result Notes None recorded. Problems Name Problem SNOMED Code Status Onset Date Resolution Date Notes Provider Name and Address Organization Details Recorded Time Patient status finding [id number] Completed 201308/23/2015 RECORDED 11/10/19 14 11:22AM BY PATRICIA ROUSE, OFFICE VISIT Sunshine cain [facility] 6 13:46:45 Asthma [id number] Completed 201305/10/2021 Sunshine araya null, [facility] 1 13:17:34 Acute asthma 984337028 Completed 201112/07/2013 RECORDED 03/13/20 12 9:02AM BY BA FIGUEROAATI ON/ADDEN DUM Sunshine araya null, [facility] 6 13:46:44 Screenin g for malignan t neoplasm of breast Completed 201112/07/2013 RECORDED 03/13/20 12 9:02AM BY BA FIGUEROAATI ON/ADDEN DUM Sunshine araya null, [facility] 6 13:46:45 Chest pain [id number] Completed 201112/07/2013 IMPRESSI ON: HX OF WORKUP YEARS AGO, PT TO GET ME RECORDS, NOW WITH NONSPECI FIC SHARP SHORT LIVED CHEST PAIN AT REST [facility]; RECORDED 03/13/20 12 9:01AM BY MARTY FIGUEROA ON/ADDEN DUM Sunshine araya null, [facility] 6 13:46:44 Herpes simplex [id number] Completed 201308/23/2015 IMPRESSI ON: PT REQUESTE D DENAVIR; RECORDED 11/10/19 14 11:18AM BY PATRICIA ROUSE, OFFICE VISIT Sunshine araya null, [facility] 6 13:46:45 Screenin g for malignan t neoplasm of colon Completed 201112/07/2013 RECORDED 03/13/20 12 9:01AM BY MARTY FIGUEROA ON/ADDEN DUM Sunshine araya null, [facility] 6 13:46:45 Cough [id number] Completed 201112/07/2013 IMPRESSI ON: FOLLOWED BY DR MACHADO; RECORDED 03/13/20 12 9:01AM BY MARTY FIGUEROA ON/ADDEN DUM Sunshine Glading-D quiana null, [facility] 6 13:46:44 Depressi ve disorder [id number] Completed 201212/07/2013 IMPRESSI ON: LOW MOOD DIRECTLY RELATED TO PHYSICAL DISCOMFO RT AND LIMITATI ONS, LONG TALK ABOUTY EAN PORRAS, MEDS, DOES NOT WANT TO START MED,W ILL CONSIDER EAN PORRAS, HAS SUPPORT AT HOME WITH ; RECORDED 05/20/20 13 12:38PM BY LEIA CUNNINGHAM MA, ANNOTATI ON/ADDEN DUM Sunshine Kelley-D quiana cain, [facility] 6 13:46:44 Dysphagi a [id number] Completed 201112/07/2013 IMPRESSI ON: SEE ABOVE, WILL RESCHECU LE WITH GI, PT KNOWS IT IS VERY IMPORTAN T TO KEEP APPT AND SHE STATES SHE WILL; RECORDED 03/13/20 12 9:01AM BY MARTY FIGUEROA ON/ADDEN DUM Sunshine Kelley-D carlanjessica null, [facility] 6 13:46:44 Respirat ory finding [id number] Completed 201112/07/2013 IMPRESSI ON: MUCH BETTER ON SINGULAR I CONTINUE ; RECORDED 03/13/20 12 9:01AM BY MARTY FIGUEROA ON/ADDEN DUM Sunshine Kelley-D carlanjessica null, [facility] 6 13:46:45 Family history of breast cancer 705455494 Completed 201112/07/2013 IMPRESSI ON: PT WAS TOLD NOT A CANDIDAT E FOR GENETIC TESTING; RECORDED 03/13/20 12 9:01AM BY MARTY FIGUEROA ON/ADDEN DUM Sunshine Glading-D carlanzo null, [facility] 6 13:46:45 Malaise and fatigue 857138747 Completed 201308/23/2015 IMPRESSI ON: PT INTEREST ED IN THYROID TESTING, ; RECORDED 11/10/19 14 11:18AM BY PATRICIA ROUSE, OFFICE VISIT Sunshine cain [facility] 6 13:46:45 Fibromyo sitis [id number] Completed 201308/15/2022 CAROLINA Wolfe, [facility] 3 08:26:05 Adult health examinat ion Completed 201212/07/2013 IMPRESSI ON: PT WILL CALL TO SET HER PAP AND 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, 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; RECORDED 05/20/20 13 12:38PM BY LEIA CUNNINGHAM MA, ANNOTATI ON/ADDEN DUM CAROLINA Wolfe, [facility] 7 13:16:20 Pure hypercho lesterol emia [id number] Completed 201212/07/2013 RESOLVED DATE: 05/20/20 13; IMPRESSI ON: PT DOES NTO WANT TO TAKE MEDS FOR HIGH CHOLESTE ROL WHICH IS VERY HIGH, SHE UNDERSTA NDS THE RISK OF HEART DISEAE, TRIES TO WATCH DIET.; RECORDED 05/20/20 13 12:38PM BY LEIA CUNNINGHAM MA, ANNOTATI ON/ADD Sunshine cain [facility] 6 13:46:44 Insomnia 574392415 Completed 201308/15/2022 Sunshine cain, [facility] 3 16:34:27 Insomnia 521926517 Completed 201112/07/2013 IMPRESSI ON: LONG TALK, LONGSTAN KANDI AND THIS IS THE ONLY MED THAT HAS HELPED, IMPROVED QUALITY OF LIFE. CONTINUE , OK TO TAKE EACH NIGHT; RECORDED 03/13/20 12 9:01AM BY MARTY FIGUEROA ON/ADD Sunshine cain [facility] 3 16:34:27 Knee pain Completed 201212/07/2013 IMPRESSI ON: MULTIPLE SCOPES, VERY FRUSTRAT ED SHE CANNOT GET MORE COMFORTA BLE, KNEE PAIN AND SWELLING MAKE EXERCISE VERY UNCOMFOR TABLE, WILL OCNSIDER YOGA AND WEIGHT TRAINING ; RECORDED 05/20/20 13 12:38PM BY LEIA CUNNINGHAM MA, ANNOTATI ON/ADDEN DUM Sunshine cain [facility] 6 13:46:44 Laborato ry procedur e performe d [id number] Completed 201212/07/2013 RECORDED 12/29/19 13 1:44PM BY MARTY WOLFE ON/ADDEN DUM Sunshine cain [facility] 6 13:46:45 Pain in limb 04356730 Completed 201112/07/2013 IMPRESSI ON: MOST LIKELY FROM WALKING WITH LIMP FORM RIGHT ACL TEAR; RECORDED 03/13/20 12 9:01AM BY MARTY FIGUEROA ON/ADDEN DUM Sunshine cain [facility] 6 13:46:44 Low back pain 098930939 Completed 201310/15/2017 Sunshine cain [facility] 8 09:20:00 Cramp in limb 084623864 Completed 201112/07/2013 IMPRESSI ON: CHECK LYTES MAKE SURE NOT CAUSING PROBLEM; RECORDED 03/13/20 12 9:01AM BY MARTY FIGUEROA ON/ADDEN DUM Sunshine cain [facility] 6 13:46:44 Administ ration of bacteria l and viral vaccine Completed 201012/07/2013 RECORDED 10/20/19 11 2:23PM BY TEREZA DAMIAN, ISIDROIC AL SUMMARY Sunshine cain [facility] 6 13:46:45 Immuniza tion refused Completed 201212/07/2013 RECORDED 12/29/19 13 1:43PM BY MARTY WOLFE ON/ADDEN DUM Sunshine Glading-D ilorenzo null, [facility] 6 13:46:45 Eruption [id number] Completed 201212/07/2013 IMPRESSI ON: SEEMS LIKE A REACTION TO A NEW FACIAL PRODUCT, WILL TRY MOISTURI ZER DR HANEY. NO ROLE FOR SYSTEMIC SYMPOTMS .; RECORDED 12/29/19 13 1:43PM BY MARTY WOLFE ON/ADDEN DUM Sunshine Glading-D ilorenzo null, [facility] 6 13:46:44 Influenz a vaccine needed [id number] 06 Completed 201112/07/2013 RECORDED 03/13/20 12 9:11AM BY BETZY KNOX I, OFFICE VISIT Sunshinebruna Tobiasding-D ilorenzo null, [facility] 6 13:46:45 Shoulder joint pain 314853480 Completed 201112/07/2013 IMPRESSI ON: LIMITED MOTION AND IN ALOT OF APIN, PT TO SET UP APPT; RECORDED 03/13/20 12 9:01AM BY MARTY FIGUEROA ON/ADDEN DUM Sunshine Glading-D ilorenzo null, [facility] 6 13:46:44 Acute upper respirat ory infectio n [id number] Completed 201112/07/2013 IMPRESSI ON: VIRAL INFECTIO N TRIGGERI NG HER ASTHMA; RECORDED 03/13/20 12 9:01AM BY MARTY FIGUEROA ON/ADDEN DUM Sunshine Glading-D ilorenzo null, [facility] 6 13:46:44 Urinary incontin ence 405052225 Completed 201112/07/2013 RECORDED 03/13/20 12 9:02AM BY BA FIGUEROAATI ON/ADDEN DUM Sunshine Glading-D ilorenzo null, [facility] 6 13:46:45 Vitamin D deficien cy 75523648 Completed 201308/23/2015 IMPRESSI ON: PT IS INTEREST ED IN A LEVEL, WILL CHECK; RECORDED 11/10/19 14 11:18AM BY PATRICIA ROUSE, OFFICE VISIT Sunshine araya null, [facility] 6 13:46:45 Acute asthma [id number] Completed 201112/30/2013 RECORDED 03/13/20 12 9:02AM BY BA FIGUEROAATI ON/ADDEN DUM Sunshine Glading-D ilorenzo null, [facility] 6 13:46:44 Screenin g for malignan t neoplasm of breast Completed 201112/30/2013 RECORDED 03/13/20 12 9:02AM BY BA FIGUEROAATI ON/ADDEN DUM Sunshine Glading-D ilorenzo null, [facility] 6 13:46:45 Chest pain 80705522 Completed 201112/30/2013 IMPRESSI ON: HX OF WORKUP YEARS AGO, PT TO GET ME RECORDS, NOW WITH NONSPECI FIC SHARP SHORT LIVED CHEST PAIN AT REST RAR[facility]; RECORDED 03/13/20 12 9:01AM BY MARTY FIGUEROA ON/ADDEN DUM Sunshine Glading-D ilorenzo null, [facility] 6 13:46:44 Screenin g for malignan t neoplasm of colon Completed 201112/30/2013 RECORDED 03/13/20 12 9:01AM BY BA FIGUEROAATI ON/ADDEN DUM Sunshine Glading-D ilorenzo null, [facility] 6 13:46:45 Cough [id number] Completed 201112/30/2013 IMPRESSI ON: FOLLOWED BY DR MACHADO; RECORDED 03/13/20 12 9:01AM BY BA FIGUEROAATI ON/ADDEN DUM Sunshine Glading-D ilorenzo null, [facility] 6 13:46:44 Depressi ve disorder [id number] Completed 201212/30/2013 IMPRESSI ON: LOW MOOD DIRECTLY RELATED TO PHYSICAL DISCOMFO RT AND LIMITATI ONS, LONG TALK ABOUTY EAN PORRAS, MEDS, DOES NOT WANT TO START MED,W ILL CONSIDER COUNSELDulce PORRAS, HAS SUPPORT AT HOME WITH ; RECORDED 05/20/20 13 12:38PM BY LEIA CUNNINGHAM MA, MARTY ON/ADDEN DUM Sunshine cain, [facility] 6 13:46:44 Dysphagi a [id number] Completed 201112/30/2013 IMPRESSI ON: SEE ABOVE, WILL RESCHECU LE WITH GI, PT KNOWS IT IS VERY IMPORTAN T TO KEEP APPT AND SHE STATES SHE WILL; RECORDED 03/13/20 12 9:01AM BY MARTY FIGUEROA ON/ADDEN DUM Sunshine cain, [facility] 6 13:46:44 Respirat ory finding [id number] Completed 201112/30/2013 IMPRESSI ON: MUCH BETTER ON SINGULAR I CONTINUE ; RECORDED 03/13/20 12 9:01AM BY MARTY FIGUEROA ON/ADDEN DUM Sunshine cain, [facility] 6 13:46:45 Family history of breast cancer [id number] Completed 201112/30/2013 IMPRESSI ON: PT WAS TOLD NOT A CANDIDAT E FOR GENETIC TESTING; RECORDED 03/13/20 12 9:01AM BY MARTY FIGUEROA ON/ADDEN DUM Sunshine cain, [facility] 6 13:46:45 Adult health examinat ion Completed 201212/30/2013 IMPRESSI ON: PT WILL CALL TO SET HER PAP AND 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, 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; RECORDED 05/20/20 13 12:38PM BY LEIA CUNNINGHAM MA, MARTY ON/ADDEN DUM Patricia Rouse MA null, [facility] 7 13:16:20 Pure hypercho lesterol emia [id number] Completed 201212/30/2013 RESOLVED DATE: 05/20/20 13; IMPRESSI ON: PT DOES NTO WANT TO TAKE MEDS FOR HIGH CHOLESTE ROL WHICH IS VERY HIGH, SHE UNDERSTA NDS THE RISK OF HEART DISEAE, TRIES TO WATCH DIET.; RECORDED 05/20/20 13 12:38PM BY LEIA CUNNINGHAM MA, MARTY ON/ADDEN DUM Sunshine Glading-D quiana cain, [facility] 6 13:46:44 Knee pain Completed 201212/30/2013 IMPRESSI ON: MULTIPLE SCOPES, VERY FRUSTRAT ED SHE CANNOT GET MORE COMFORTA BLE, KNEE PAIN AND SWELLING MAKE EXERCISE VERY UNCOMFOR TABLE, WILL OCNSIDER YOGA AND WEIGHT TRAINING ; RECORDED 05/20/20 13 12:38PM BY LEIA CUNNINGHAM MA, MARTY ON/ADDEN DUM Sunshine Michelineding-D quiana cain, [facility] 6 13:46:44 Laborato ry procedur e performe d [id number] Completed 201212/30/2013 RECORDED 12/29/19 13 1:44PM BY MARTY WOLFE ON/ADDEN DUM Sunshine Kelley-D quiana cain [facility] 6 13:46:45 Pain in limb 73260695 Completed 201112/30/2013 IMPRESSI ON: MOST LIKELY FROM WALKING WITH LIMP FORM RIGHT ACL TEAR; RECORDED 03/13/20 12 9:01AM BY MARTY FIGUEROA ON/ADDEN DUM Sunshine Michelineding-D quiana cain, [facility] 6 13:46:44 Cramp in limb 695791446 Completed 201112/30/2013 IMPRESSI ON: CHECK LYTES MAKE SURE NOT CAUSING PROBLEM; RECORDED 03/13/20 12 9:01AM BY MARTY FIGUEROA ON/ADDEN DUM Sunshine Glading-D quiana cain [facility] 6 13:46:44 Administ ration of bacteria l and viral vaccine Completed 201012/30/2013 RECORDED 10/20/19 11 2:23PM BY TEREZA DAMIAN, HISTORIC AL SUMMARY Sunshine cain, [facility] 6 13:46:45 Immuniza tion refused Completed 201212/30/2013 RECORDED 12/29/19 13 1:43PM BY MARTY WOLFE ON/ADDEN DUM Sunshine cain, [facility] 6 13:46:45 Eruption [id number] Completed 201212/30/2013 IMPRESSI ON: SEEMS LIKE A REACTION TO A NEW FACIAL PRODUCT, WILL TRY MOISTURI ZER DR HANEY. NO ROLE FOR SYSTEMIC SYMPOTMS .; RECORDED 12/29/19 13 1:43PM BY MARTY WOLFE ON/ADDEN DUM Sunshine araya [facility], [facility] 6 13:46:44 Influenz a vaccine needed [id number] 06 Completed 201112/30/2013 RECORDED 03/13/20 12 9:11AM BY BETZY KNOX I, [facility] Shoulder joint pain [id number] Completed 201112/30/2013 IMPRESSI ON: LIMITED MOTION AND IN ALOT OF APIN, PT TO SET UP APPT; RECORDED 03/13/20 12 9:01AM BY MARTY FIGUEROA ON/ADDEN DUM Sunshine Benson-Han cain, [facility] 6 13:46:44 Acute upper respirat ory infectio n [id number] Completed 201112/30/2013 IMPRESSI ON: VIRAL INFECTIO N TRIGGERI NG HER ASTHMA; RECORDED 03/13/20 12 9:01AM BY MARTY FIGUEROA ON/ADDEN DUM Sunshine Glading-D ilorenzo null, [facility] 6 13:46:44 Urinary incontin ence 965350854 Completed 201112/30/2013 RECORDED 03/13/20 12 9:02AM BY BETZY KNOX I ANNOTATI ON/ADDEN DUM Sunshine Glading-D ilorenzo null, [facility] 6 13:46:45 Acute asthma 653480230 Completed 201112/31/2013 RECORDED 03/13/20 12 9:02AM BY BETZY KNOX I ANNOTATI ON/ADDEN DUM Sunshine Glading-D ilorenzo null, [facility] 6 13:46:44 Screenin g for malignan t neoplasm of breast Completed 201112/31/2013 RECORDED 03/13/20 12 9:02AM BY BETZY KNOX I ANNOTATI ON/ADDEN DUM Sunshine Glading-D ilorenzo null, [facility] 6 13:46:45 Chest pain [id number] Completed 201112/31/2013 IMPRESSI ON: HX OF WORKUP YEARS AGO, PT TO GET ME RECORDS, NOW WITH NONSPECI FIC SHARP SHORT LIVED CHEST PAIN AT REST RARELY; RECORDED 03/13/20 12 9:01AM BY BA FIGUEROAATI ON/ADDEN DUM Sunshine Glading-D ilorenzo null, [facility] 6 13:46:44 Screenin g for malignan t neoplasm of colon Completed 201112/31/2013 RECORDED 03/13/20 12 9:01AM BY BETZY KNOX I ANNOTATI ON/ADDEN DUM Sunshine Glading-D ilorenzo null, [facility] 6 13:46:45 Cough [id number] Completed 201112/31/2013 IMPRESSI ON: FOLLOWED BY DR MACHADO; RECORDED 03/13/20 12 9:01AM BY BETZY KNOX I ANNOTATI ON/ADDEN DUM Sunshine Glading-D ilorenzo null, [facility] 6 13:46:44 Depressi ve disorder [id number] Completed 201212/31/2013 IMPRESSI ON: LOW MOOD DIRECTLY RELATED TO PHYSICAL DISCOMFO RT AND LIMITATI ONS, LONG TALK ABOUTY EAN PORRAS, MEDS, DOES NOT WANT TO START MED,W ILL CONSIDER COUNSELDulce PORRAS, HAS SUPPORT AT HOME WITH ; RECORDED 05/20/20 13 12:38PM BY LEIA CUNNINGHAM MA, ANNOTATI ON/ADDEN DUM Sunshine cain, [facility] 6 13:46:44 Dysphagi a [id number] Completed 201112/31/2013 IMPRESSI ON: SEE ABOVE, WILL RESCHECU LE WITH GI, PT KNOWS IT IS VERY IMPORTAN T TO KEEP APPT AND SHE STATES SHE WILL; RECORDED 03/13/20 12 9:01AM BY MARTY FIGUEROA ON/ADDEN DUM Sunshine cain [facility] 6 13:46:45 Respirat ory finding [id number] Completed 201112/31/2013 IMPRESSI ON: MUCH BETTER ON SINGULAR I CONTINUE ; RECORDED 03/13/20 12 9:01AM BY MARTY FIGUEROA ON/ADDEN DUM Sunshine cain [facility] 6 13:46:45 Family history of breast cancer [id number] Completed 201112/31/2013 IMPRESSI ON: PT WAS TOLD NOT A CANDIDAT E FOR GENETIC TESTING; RECORDED 03/13/20 12 9:01AM BY MARTY FIGUEROA ON/CHANDLER DUM Sunshine cain [facility] 6 13:46:45 Adult health examinat ion Completed 201212/31/2013 IMPRESSI ON: PT WILL CALL TO SET HER PAP AND 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, 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; RECORDED 05/20/20 13 12:38PM BY LEIA CUNNINGHAM MA, ANNOTATI ON/ADDEN DUM Patricia Rouse MA null, [facility] 7 13:16:20 Pure hypercho lesterol emia [id number] Completed 201212/31/2013 RESOLVED DATE: 05/20/20 13; IMPRESSI ON: PT DOES NTO WANT TO TAKE MEDS FOR HIGH CHOLESTE ROL WHICH IS VERY HIGH, SHE UNDERSTA NDS THE RISK OF HEART DISEAE, TRIES TO WATCH DIET.; RECORDED 05/20/20 13 12:38PM BY LEIA CUNNINGHAM MA, MARTY ON/ADDEN DUM Sunshine Glading-D quiana null, [facility] 6 13:46:44 Knee pain Completed 201212/31/2013 IMPRESSI ON: MULTIPLE SCOPES, VERY FRUSTRAT ED SHE CANNOT GET MORE COMFORTA BLE, KNEE PAIN AND SWELLING MAKE EXERCISE VERY UNCOMFOR TABLE, WILL [facility] TRA[facility]ING ; RECORDED 05/20/20 13 12:38PM BY LEIA CUNNINGHAM MA, MARTY ON/ADDEN DUM Sunshine Tobiasding-D quiana cain, [facility] 6 13:46:44 Laborato ry procedur e performe d [id number] Completed 201212/31/2013 RECORDED 12/29/19 13 1:44PM BY MARTY WOLFE ON/ADD DUM Sunshine Glading-D quiana cain, [facility] 6 13:46:45 Pain in limb [id number] Completed 201112/31/2013 IMPRESSI ON: MOST LIKELY FROM WALKING WITH LIMP FORM RIGHT ACL TEAR; RECORDED 03/13/20 12 9:01AM BY MARTY FIGUEROA ON/ADDEN DUM Sunshine Glading-D quiana cain, [facility] 6 13:46:44 Cramp in limb [id number] Completed 201112/31/2013 IMPRESSI ON: CHECK LYTES MAKE SURE NOT CAUSING PROBLEM; RECORDED 03/13/20 12 9:01AM BY MARTY FIGUEROA ON/ADDEN DUM Sunshine Benson-D ilorenzo payton, [facility] 6 13:46:44 Administ ration of bacteria l and viral vaccine Completed 201012/31/2013 RECORDED 10/20/19 11 2:23PM BY TEREZA DAMIAN, HISTORIC AL SUMMARY [facility] 13:46[facility]45 Immuniza tion refused Completed 201212/31/2013 RECORDED 12/29/19 13 1:43PM BY MARTY WOLFE ON/ADDEN DUM Sunshine [facility] 6 13:46:45 Eruption [id number] Completed 201212/31/2013 IMPRESSI ON: SEEMS LIKE A REACTION TO A NEW FACIAL PRODUCT, WILL TRY MOISTURI ZER DR HANEY. NO ROLE FOR SYSTEMIC SYMPOTMS .; RECORDED 12/29/19 13 1:43PM BY MARTY WOLFE ON/ADDEN DUM Sunshine Tobiaskandi-D monikaorenjessica cain, [facility] 6 13:46:44 Influenz a vaccine needed [id number] Completed 201112/31/2013 RECORDED 03/13/20 12 9:11AM BY BETZY KNOX I, OFFICE VISIT [facility] 13:46:45 Shoulder joint pain [id number] Completed 201112/31/2013 IMPRESSI ON: LIMITED MOTION AND IN ALOT OF APIN, PT TO SET UP APPT; RECORDED 03/13/20 12 9:01AM BY MARTY FIGUEROA ON/ADDEN DUM Sunshine Michelineding-D ilorenzo payton, [facility] 6 13:46:44 Acute upper respirat ory infectio n [id number] Completed 201112/31/2013 IMPRESSI ON: VIRAL INFECTIO N TRIGGERI NG HER ASTHMA; RECORDED 03/13/20 12 9:01AM BY BETZY KNOX I, ANNOTATI ON/ADDEN DUM Sunshine Benson-D ilorenjessica null, [facility] 6 13:46:44 Urinary incontin ence [id number] Completed 201112/31/2013 RECORDED 03/13/20 12 9:02AM BY BETZY KNOX I, ANNOTATI ON/ADDEN DUM Sunshine Benson-D ilorenzo null, [facility] 6 13:46:45 Joint pain 05325505 Completed 08/23/2015 Sunshine Benson-D ilorenzo null, [facility] 6 13:46:45 Nausea 325126124 Completed 08/23/2015 Sunshine Benson-D ilorenzo null, [facility] 6 13:46:45 Muscle pain 39466687 Completed 08/23/2015 Sunshine Benson-D ilorenzo null, [facility] 6 13:46:45 Herpes labialis 4955432 Completed 08/15/2022 ACROLINA Wolfe, [facility] 3 08:26:05 Palpitat ions 89369593 Completed 04/21/2017 Cherie Martin MA null, [facility] 7 10:36:34 Chest pain 01913581 Completed 08/23/2015 Sunshine Benson-D ilorenzo null, [facility] 6 13:46:45 Hyperlip idemia 76636523 Completed 12/18/2018 Sunshine Benson-D ilorenzo null, [facility] 9 13:30:38 Dyspnea 332532303 Completed 08/23/2015 Sunshine Benson-D ilorenjessica null, [facility] 6 13:46:45 Adult health examinat ion Completed 10/25/2016 CAROLINA Wolfe, [facility] 7 13:16:20 Pain in thumb 496586215 Completed 04/21/2017 Cherie Martin MA null, [facility] 7 10:36:30 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/2022 Sunshine Justyna araya null, [facility] 3 16:34:23 Moderate persiste nt asthma 198203729 Completed 202008/15/2022 Patricia Rouse MA null, [facility] 3 08:26:05 Chronic cough 49415938 Completed 202008/15/2022 CAROLINA Wolfe, [facility] 3 08:26:05 Anxiety 87870070 Completed 202108/15/2022 CAROLINA Wolfe, [facility] 3 08:26:05 Posttrau matic stress disorder 27381418 Completed 202108/15/2022 Patricia Rouse MA null, [facility] 3 08:26:05 Panic attack 330918221 Completed 202108/15/2022 CAROLINA Wolfe, [facility] 3 08:26:05 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 Procedures Surgical History Date Name Laterality Status Provider Name and Address Organization Details Recorded Time 08/18 Cholecystectomy completed Bel Maldonado [facility] 4 09:57:41 02/04 Colonoscopy completed Bel Maldonado [facility] 3 10:54:22 02/04 esophagogastroduodenosco py completed Bel Maldonado [facility] 3 10:54:01 10/14 Suture/Staple removal completed Selene Dent [facility] 9 07:34:31 05/26 Date of Last Pap Smear completed Patricia Byrne ace, MA [facility] 9 13:10:33 05/08 Date of Last Colonoscopy completed Jess Dee [facility] 7 16:03:55 05/08 Egd diagnostic brush wash completed Neetu Damian [facility] 7 16:04:55 04/14 Most Recent Mammogram completed Neetu Damian [facility] 8 09:54:15 04/14 Mammogram screening completed Neetu Damian [facility] 8 09:53:51 04/14 Ultrasound breast limited completed Neetu Damian [facility] 8 09:54:07 03/04 Uma arthrs srg capsulorraphy completed Deloris triplett MA [facility] 7 10:20:54 08/07 Ankle arthroscopy/surgery completed Deloris tripltet MA [facility] 7 10:28:18 11/10 Knee arthroscopy/surgery completed Deloris triplett MA [facility] 7 10:29:21 01/08 completed Lyndsay Fontanez [facility] 4 10:05:57 12/04 completed Lyndsay Fontanez [facility] 4 10:05:57 Arthroscopic Surgery completed Lilian boston [facility] 1 13:05:45 Knee Surgery completed Lilian Chisholm [facility] 1 13:05:45 Dxa bone density epi vrt fx completed Radha Hill MA [facility] 8 08:56:36 Orthopedic Surgery completed Patricia man MA [facility] 1 13:12:52 Imaging Results Imaging Date Name Status LastModified by Organization Details LastModified Time 12/23/2023 electrocardiogram completed [email or web address] In-Off ice Order Internal Use Only DO Not Attach Compendium DO Not Attach Compendium, Do Not Delete/merge, [id number] 12/23/2023 08:35:58 12/20/2023 electrocardiogram completed [email or web address] In-Off ice Order Internal Use Only DO Not Attach Compendium DO Not Attach Compendium, Do Not Delete/merge, [id number] 12/20/2023 11:43:49 04/30/2024 CT, chest, w/o contrast completed [facility] (Medical Records) [address] [place] [address], [address], 06/23/2024 18:55:23 Procedure Notes None recorded. Medical Equipment None Reported. Allergies Allergen ID Allergen Name Allergen Category Reaction Reaction Severity Criticality Documentation Date Start Date Code Code System Note Provider Name and Address Organization Details Recorded Time 55185 zolpidem medicatio n dizziness Not available Not available 02/17/2015 61836 RxNorm heada sharyn CAROLINA Delvalle [facility] 8 08:53:13 58150 gabapenti n medicatio n other severe Not available 10/25/2016 43479 RxNorm Suici nuris Ideat ion CAROLINA Wolfe [facility] 9 08:58:21 3490 morphine sulfate medicatio n dizziness Not available Not available 12/07/20132013 28293 RxNorm Deloris CAROLINA Platt, [facility] 5 14:09:25 77820 Cipro medicatio n Not available Not available Not available 12/26/2021 30312 3 RxNorm Not aller gy; contr aindi cated due to elher s danstone s CAROLINA Higgins, [facility] 2 12:56:03 06174 morphine medicatio n dizziness dyspnea severe severe Not available 08/15/20222013 7052 RxNorm CAROLINA Wolfe, [facility] 3 08:25:32 07847 ciproflox acin medicatio n Not available Not available Not available 08/15/20222021 2551 RxNorm CAROLINA Wolfe, [facility] 3 08:25:32 85974 mold extract medicatio n Not available Not available Not available 08/15/20222021 98524 8 RxNorm CAROLINA Wolfe, [facility] 3 08:25:32 Medications Name Sig Start Date Stop Date Status Note LastModified by Organization Details LastModified Time Prescript ion - Prior Authoriza tion Request 12/03 completed Not Available Not Available Not Available prednison e 10 mg tablet TAKE 6 TABLETS BY MOUTH IN THE MORNING, THEN DECREASE BY 1 TABLET DAILY FOR A TOTAL OF 6 DAYS 05/01 completed Not Available Not Available Not Available gabapenti n 600 mg tablet TAKE 1 TABLET BY MOUTH AT BEDTIME. MAY TAKE WITH 300 MG AT NOON 05/01 completed Not Available Not Available Not Available doxycycli ne hyclate 100 mg capsule TAKE 1 CAPSULE BY MOUTH TWICE A DAY WITH A FULL GLASS OF WATER AND NON-DAIR Y FOOD 05/22 completed Not Available Not Available Not Available atorvasta tin 20 mg tablet Take 1 tablet every day by oral route for 30 days. 2015 active Not Available Not Available Not Avai lable cyanocoba catherine (vit B-12) 2,500 mcg sublingua l tablet Place 2500 ugs by sublingu al route. active sublingu al once weekly Not Available Not Available Not Available nabumeton e 750 mg tablet Take 1 tablet twice a day by oral route. 01/[address] Gaviria Not Available Not Available Not Available tizanidin e 2 mg tablet TAKE 1 TABLET BY MOUTH EVERY 6 HOURS NEEDED FOR MUSCLE SPASMS 12/03 completed Not Available Not Available Not Available cetirizin e 10 mg tablet DAILY active RECORDED 11/10/19 14 11:18AM BY PATRICIA ROUSE, OFFICE VISIT; Not Available Not Available Not Available ibuprofen 800 mg tablet one po q 8hrs prn pain 12/03 completed Not Available Not Available Not Available alprazola m 1 mg tablet TAKE 1 AND 1/2 TABLETS (1.5 MG TOTAL) BY MOUTH DAILY. TAKE 1/2 TAB AT LUNCH AND 1 TAB AT BEDTIME active no more refills Not Available Not Available Not Available tizanidin e 4 mg tablet TAKE 1 TABLET BY MOUTH EVERY 6 HOURS NEEDED MUSCLE SPASMS active Not Available Not Available No t Available benzonata te 200 mg capsule TAKE 1 CAPSULE 3 TIMES A DAY BY ORAL ROUTE FOR 10 DAYS, FOR COUGH. active Not Available Not Available No t Available valacyclo vir 1 gram tablet TAKE 1 TABLET BY MOUTH TWICE A DAY active Not Available Not Available No t Available Patanol 0.1 % eye drops INSTILL 1 DROP INTO AFFECTED EYE(S) BY OPHTHALM IC ROUTE 2 TIMES PER DAY AT AN INTERVAL OF 6 TO 8 HOURS 01/28 completed Not Available Not Available Not Available prochlorp erazine maleate 5 mg tablet Take 1 tablet every 8 hours by oral route as needed. 12/19 completed Not Available Not Available Not Available ondansetr on HCl 8 mg tablet TAKE 1 TABLET BY MOUTH EVERY 8 HOURS NEEDED FOR NAUSEA/V OMITING active Not Available Not Available No t Available meloxicam 15 mg tablet TAKE 1 TABLET BY MOUTH EVERY DAY active no more refills Not Available Not Available Not Available ondansetr on HCl 4 mg tablet Take 4 mg every 8 hours by oral route. 05/22 completed Taking 4-8 mg prn Not Available Not Available Not Available prednison e 20 mg tablet TAKE 2 TABLETS BY MOUTH EVERY DAY FOR 5 DAYS THEN 1 TABLET DAILY X 5 DAYS active Not Available Not Available No t Available Proctocor t 1 % topical cream APPLY A THIN LAYER TO THE AFFECTED AREA(S) BY TOPICAL ROUTE 2 TIMES PER DAY 06/05 completed Not Available Not Available Not Available Excedrin Migraine 250 mg-250 mg-65 mg tablet 2 po prn 07/30 completed uses 1-2 times per week Not Available Not Available Not Available Zithromax Z-Americo 250 mg tablet TAKE 2 TABLETS (500 MG) BY ORAL ROUTE ONCE DAILY FOR 1 DAY THEN 1 TABLET (250 MG) BY ORAL ROUTE ONCE DAILY FOR 4 DAYS 10/15 completed Not Available Not Available Not Available sulfameth oxazole 800 mg-trimet hoprim 160 mg tablet TAKE 1 TABLET BY MOUTH EVERY 12 HOURS FOR 7 DAYS 05/01 completed Not Available Not Available Not Available acetamino phen 500 mg tablet Take 2 tablets every 6 hours by oral route as needed. active Not Available Not Available No t Available meloxicam 7.5 mg tablet Take 1 tablet every day by oral route for 30 days. 06/07 completed Not Available Not Available Not Available hydrocort isone 2.5 % topical cream with perineal applicato r APPLY SPARINGL Y TO AFFECTED AREA 2 TO 4 TIMES A DAY active Not Available Not Available No t Available alprazola m 0.5 mg tablet Take 1 tablet as needed by oral route at bedtime for 30 days. 04/13 completed Not Available Not Available Not Available propranol ol 40 mg tablet 06/05 completed Not Available Not Available Not Available Denavir 1 % topical cream APPLY TO THE AFFECTED AREA(S) BY TOPICAL ROUTE EVERY 2 HOURS DURING WAKING HOURS FOR 4 DAYS 12/03 completed Not Available Not Available Not Available meclizine 25 mg tablet TAKE 1 TABLET TWICE A DAY NEEDED BY ORAL ROUTE active Not Available Not Available No t Available benzonata te 100 mg capsule TAKE 1 CAPSULE BY MOUTH 3 TIMES A DAY BY MOUTH FOR 21 DAYS 07/30 completed Not Available Not Available Not Available cephalexi n 500 mg capsule TAKE 1 CAPSULE BY MOUTH EVERY 8 HOURS FOR 2 DAYS 05/01 completed Not Available Not Available Not Available erythromy alessia 5 mg/gram (0.5 %) eye ointment 12/18 completed Not Available Not Available Not Available acyclovir 5 % topical ointment APPLY TOPICALL Y 1 APPLICAT ION 5 TIMES DAILY FOR 4 DAYS active Not Available Not Available No t Available triamcino lone acetonide 0.1 % topical ointment APPLY TO AFFECTED AREA ON THE LEFT FOREARM TWICE DAILY. 05/01 completed Not Available Not Available Not Available pyridosti gmine bromide 60 mg tablet TAKE 1/2 TABLET (30 MG TOTAL) BY MOUTH 3 TIMES A DAY 12/19 completed Not Available Not Available Not Available hyoscyami ne 0.125 mg sublingua l tablet 06/05 completed Not Available Not Available Not Available gabapenti n 300 mg capsule TAKE 1 CAPSULE BY MOUTH 4 TIMES A DAY active Not Available Not Available No t Available omeprazol e 20 mg capsule,d elayed release TAKE 1 CAPSULE BY MOUTH EVERY DAY 03/14 completed Not Available Not Available Not Available monteluka st 10 mg tablet TAKE 1 TABLET BY MOUTH EVERY DAY DIRECTED active Not Available Not Available No t Available codeine 10 mg-guaife nesin 100 mg/5 mL oral liquid TAKE 10 ML BY MOUTH 4 TIMES A DAY 07/30 completed Not Available Not Available Not Available mupirocin 2 % topical ointment APPLY TO AFFECTED AREA TWICE A DAY UNTIL HEALED 05/22 completed Not Available Not Available Not Available zolpidem 5 mg tablet TAKE 1 TABLET BY MOUTH EVERYDAY AT BEDTIME 12/03 completed Not Available Not Available Not Available norethind oleg acetate 5 mg tablet Take 1 tablet every day by oral route for 30 days. 06/05 completed Not Available Not Available Not Available gabapenti n 100 mg capsule Take 2 capsules every day by oral route as directed for 30 days. 10/25 completed Not Available Not Available Not Available metoprolo l succinate ER 25 mg tablet,ex tended release 24 hr 09/11 completed Not Available Not Available Not Available levalbute rol 1.25 mg/3 mL solution for nebulizat ion INHALE 1 VIAL VIA NEBULIZE R TWO TIMES A DAY FOR 30 DAYS active Not Available Not Available No t Available zolpidem 10 mg tablet Take 1 tablet as needed by oral route at bedtime for 30 days. 2014 active Not Available Not Available Not Avai lable Percocet 5 mg-325 mg tablet TAKE 1 TO 2 TABLETS EVERY 6 HOURS NEEDED 05/22 completed Not Available Not Available Not Available hydromorp georgi 4 mg tablet Take 0.5 tablets every 6 hours by oral route as needed. 12/19 completed Not Available Not Available Not Available ondansetr on 4 mg disintegr ating tablet PLACE 1 TABLET EVERY 8 HOURS BY TRANSLIN GUAL ROUTE DIRECTED FOR 10 DAYS. 05/22 completed Not Available Not Available Not Available naproxen 500 mg tablet TAKE 1 TABLET BY MOUTH TWICE A DAY WITH FOOD 05/22 completed Not Available Not Available Not Available metoclopr amide 10 mg tablet TAKE 1 TABLET BY MOUTH 4 TIMES A DAY FOR 7 DAYS 08/15 completed Not Available Not Available Not Available nabumeton e 500 mg tablet PRN FOR BACK SPASMS active RECORDED 11/10/19 14 11:18AM BY PATRICIA ROUSE, OFFICE VISIT; Not Available Not Available Not Available neomycin 3.5 mg/g-poly myxin B 10,000 unit/g-de xameth 0.1 % eye oint apply prn 12/18 completed Not Available Not Available Not Available azithromy alessia 500 mg tablet TAKE 1 TABLET BY MOUTH EVERY DAY FOR 5 DAYS 05/22 completed Not Available Not Available Not Available ezetimibe 10 mg tablet TAKE 1 TABLET BY MOUTH EVERY DAY active 08/08/23 ON HOLD Not Available Not Available Not Available Vitamin D3 25 mcg (1,000 unit) capsule Take 1 capsule every day by oral route. 10/15 completed Not Available Not Available Not Available Multivita min 50 Plus tablet Take 1 tablet every day by oral route. active Not Available Not Available No t Available Readi-Cat 2 2.1 % (w/v), 2.0 % (w/w) oral suspensio n Take 450 mL twice a day by oral route as directed for 1 day. 02/06 completed Not Available Not Available Not Available eszopiclo ne 3 mg tablet TAKE 1 TABLET BY MOUTH DAILY active no more refills Not Available Not Available Not Available Lunesta 2 mg tablet Take 1 tablet every day by oral route as needed for 7 days. 06/05 completed Pt quite upset that she received generic instead of brand name. Requests 30 day supply to [facility] and a 90 day to mail order. Not Available Not Available Not Available tizanidin e 4 mg capsule TAKE 1 CAPSULE BY MOUTH EVERY DAY NEEDED active Not Available Not Available No t Available Atrovent HFA 17 mcg/actua tion aerosol inhaler INHALE 2 PUFFS BY MOUTH EVERY 6 HOURS NEEDED FOR SHORTNES S OF BREATH 10/12 completed Not Available Not Available Not Available pregabali n 25 mg capsule BID 06/11 completed RECORDED 06/11/19 13 10:49AM BY PATRICIA ROUSE, OFFICE VISIT; Not Available Not Available Not Available Daily Multi Vitamin/M inerals QD active RECORDED 05/20/20 13 12:38PM BY LEIA CUNNINGHAM MA, OFFICE VISIT; Not Available Not Available Not Available vitamin V46-avvok acid 1 TABLET TWICE A WEEK active Not Available Not Available No t Available Excedrin Tension Headache 500 mg-65 mg tablet Take 2 tablets as needed by oral route. active Not Available Not Available No t Available ProAir HFA 90 mcg/actua tion aerosol inhaler Inhale 2 puffs every 4 hours by inhalati on route. 01/28 completed Not Available Not Available Not Available Advair HFA 115 mcg-21 mcg/actua tion aerosol inhaler INHALE 2 PUFFS EVERY 12 HOURS FOR 30 DAYS 12/19 completed 05/22/23 ON HOLD Not Available Not Available Not Available Xopenex HFA 45 mcg/actua tion aerosol inhaler INHALE 2 PUFF INHALED EVERY 6 HOURS NEEDED FOR FOR WHEEZING active Not Available Not Available No t Available [id number] 100 gram-sod sulf 7.5 gram-NaCl -KCl-asco rbate-C oral pwdr pack PLEASE SEE ATTACHED FOR DETAILED DIRECTIO NS 05/22 completed Not Available Not Available Not Available Excedrin Extra Strength 2 po prn 09/27 completed uses 1-2 times a week Not Available Not Available Not Available budesonid e-formote rol HFA 80 mcg-4.5 mcg/actua tion aerosol inhaler INHALE 2 PUFFS EVERY 12 HOURS active Not Available Not Available No t Available oxycodone 10 mg tablet TAKE 1 TABLET BY MOUTH EVERY 6 HOURS NEEDED FOR PAIN 12/19 completed Not Available Not Available Not Available cholecalc iferol (vitamin D3) 50 mcg (2,000 unit) capsule TAKE 1 CAPSULE BY MOUTH EVERY DAY 12/03 completed Not Available Not Available Not Available Vitamin D 2,000 unit capsule Take 1 capsule every day by oral route. 09/27 completed Not Available Not Available Not Available Zyrtec 10 mg capsule Take 1 capsule every day by oral route. active Taking twice daily per pulmonol ogist Not Available Not Available Not Available quercetin dihydrate (bulk) Take 1 tablet po daily 10/15 completed Not Available Not Available Not Available Multi Vitamin 1 tablet daily by mouth 10/15 completed Not Available Not Available Not Available Calcium Magnesium 500 mg calcium-2 50 mg tablet Take 1 tablet every day by oral route. 10/15 completed Not Available Not Available Not Available cholecalc iferol (vitamin D3) 250 mcg (10,000 unit) tablet Take 2000 units by oral route. 09/27 completed Not Available Not Available Not Available OxyContin 10 mg tablet,cr ush resistant ,extended release TAKE 1 TABLET BY MOUTH UP TO TWICE A DAY, MAY FILL FEWER 12/19 completed Not Available Not Available Not Available Fish Oil 1,000 mg (120 mg-180 mg) capsule Take 1 capsule every day by oral route. 04/14 completed Not Available Not Available Not Available Readi-Cat 2 2 % (w/v) oral suspensio n 02/06 completed Not Available Not Available Not Available magnesium 240 mg (as magnesium oxide) oral powder packet Take 1 packet as needed by oral route. active Not Available Not Available No t Available Vitals Date Recorded Body height Body mass index (BMI) Body weight Heart rate Oxygen saturation Oxygen saturation in Arterial blood by Pulse oximetry Body temperature Systolic blood pressure Diastolic blood pressure Provider Name and Address Organization Details Last Updated DateTime 3 175.26 cm 25.8 kg/m2 52103.6 6 g 75 /min 98 % 98 % 98.7 [degF] 152 mm[Hg] 86 mm[Hg] Antonieta Ramsey [facility] 3 15:13:41 Date Recorded Body height Body mass index (BMI) Body weight Oxygen saturation Oxygen saturation in Arterial blood by Pulse oximetry Heart rate Body temperature Systolic blood pressure Diastolic blood pressure Provider Name and Address Organization Details Last Updated DateTime 4 175.26 cm 25.6 kg/m2 36150.2 8 g 99 % 99 % 77 /min 97.7 [degF] 123 mm[Hg] 66 mm[Hg] Patricia Rouse MA [facility] 4 09:34:16 Date Recorded Body height Body mass index (BMI) Body weight Heart rate Oxygen saturation Oxygen saturation in Arterial blood by Pulse oximetry Body temperature Systolic blood pressure Diastolic blood pressure Provider Name and Address Organization Details Last Updated DateTime 4 175.26 cm 25.4 kg/m2 64811.8 9 g 71 /min 98 % 98 % 98 [degF] 116 mm[Hg] 74 mm[Hg] Antonieta Avelar MA [facility] 4 09:16:08 Date Recorded Body height Body mass index (BMI) Body weight Heart rate Oxygen saturation Oxygen saturation in Arterial blood by Pulse oximetry Body temperature Systolic blood pressure Diastolic blood pressure Provider Name and Address Organization Details Last Updated DateTime 4 175.26 cm 24.5 kg/m2 34239.3 3 g 77 /min 98 % 98 % 97.7 [degF] 94 mm[Hg] 57 mm[Hg] Jourdan brown MA [facility] 4 10:38:14 Social History Question Answer Notes LastModified by Organizat ion Details LastModified Time Tobacco Smoking Status [facility] 11:36:20 Do You Have An Advance Directive? Yes HCP: Son (Edu Simmons) [email or web address] Information not available 03/14/2022 What Is Your Level Of Alcohol Consumption? None [email or web address] Information not available 02/28/2021 Is Blood Transfusion Acceptable In An Emergency? Yes Information not available 08/23/2015 What Is Your Level Of Caffeine Consumption? Moderate 2 Cups A Day Information not available 08/23/2015 How Much Tobacco Do You Chew? None Information not available 07/19/2015 Are You Currently Employed? No [email or web address] Information not available 02/28/2021 What Type Of Diet Are You Following? VEGAN [email or web address] Information not available 12/22/2017 Which Illicit Or Recreational Drugs Have You Used? None Information not available 03/27/2017 Do You Or Have You Ever Used E-cigarettes Or Vape? 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 No [email or web address] Information not available 03/14/2022 Live Alone Or With Others? With Others (Kimo) [email or web address] Information not available 03/14/2022 Do You Take Precautions To Prevent Distracted Driving? Yes Information not available 03/27/2017 How Often Do You Need To Have Someone Help You When You Read Instructions, Pamphlets, Or Other Written Material From Your Doctor Or Pharmacy? Never Information not available 03/27/2017 Have You Served In The ? No Information not available 03/27/2017 Have You Or Anyone In Your Household Had Any Of The Following Symptoms In The Last 14 Days: Sore Throat, Cough, Chills, Body Aches For Unknown Reasons, Shortness Of Breath For Unknown Reasons, Loss Of Smell, Loss Of Taste, Fever At Or Greater Than 100 Degrees Fahrenheit? No Information not available 05/01/2020 Are You Or Anyone In Your Household A Health Care Provider Or Emergency Responder? No Information not available 05/01/2020 To The Best Of Your Knowledge Have You Been In Close Proximity To Any Individual Who Tested Positive For COVID-19? No Information not available 05/01/2020 Have You Recently Traveled To A COVID-19 High Risk Area Or Gathering In The Last 10 Days? No [email or web address] Information not available 06/07/2020 What Was The Date Of Your Most Recent Tobacco Screening? 03/14/2022 [email or web address] Information not available 03/14/2022 How Many Children Do You Have? 4 [email or web address] Information not available 02/17/2014 Do You Use Protection During Sex? No Information not available 03/27/2017 Do You Use Your Seat Belt Or Car Seat Routinely? Yes [email or web address] Information not available 02/28/2021 Seat Belts Used Routinely Yes [email or web address] Information not available 03/14/2022 Are You Sexually Active? Yes Information not available 03/27/2017 Smoke Alarm In Home Yes [email or web address] Information not available 03/14/2022 Do You Have Smoke And Carbon Monoxide Detectors In Your Home? Yes [email or web address] Information not available 02/28/2021 At What Age Did You Start Smoking Tobacco? 0 Information not available 07/19/2015 Are You Passively Exposed To Smoke? No Information not available 07/19/2015 Do You Or Have You Ever Used Smokeless Tobacco? Never Used Smokeless Tobacco Information not available 06/07/2020 How Much Tobacco Do You Smoke? No Information not available 07/19/2015 General Stress Level Medium Information not available 03/14/2022 Do You Use Sunscreen Routinely? No [email or web address] Information not available 02/28/2021 How Many Years Have You Smoked Tobacco? 0 Information not available 07/19/2015 Sex: Unknown Functional Status Question Answer Note LastModified by Organizat ion Details LastModified Time Are you able to walk? YESWOREST [email or web address] Information not available 03/14/2022 Are you able to care for yourself? Yes [email or web address] Information not available 02/17/2014 What is your exercise level? Occasional [email or web address] Information not available 02/28/2021 Mental Status None recorded. Family History Relationship Description Onset Age of this Age Resolved Age Notes LastModified by Organization Details LastModified Time Mother Heart disease [email or web address] Not available 2015 13:26:36 Mother Malignant tumor of breast [email or web address] Not available 2015 13:26:36 Mother Depressive disorder [email or web address] Not available 2015 13:26:36 Mother Arthritis [email or web address] Not availa ble 02/28/2021 13:12:33 Mother Obesity [email or web address]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 12:52:17 05/10/2021 13:31:43 Chronic cough 29675878 R05.[address] Ambriz, he ordered echo due to reduced diffusion capacity to look for pulmonary htn, and pt has asthma Moderate p ersistent asthma 491794041 J45.40 on inhalers and followed by Dr Ambriz 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 continue med for insomnia Anxiety 06560110 F41.9 refill uses as needed Near syncope 877141139 R 55 pt iwll see cardiology , getting echo ordered by Dr Ambriz Spasm 81187075 R25.2 [id number] Sunshine perez [facility] [address] [facility] [place] [address] 06/29/2021 11:53:53 06/29/2021 16:03:31 Cough 78082913 R05.3 improving, combinatio n of mild exposure in asthma pt and esophageal issue, will see GI Lip swelling 914556675 K 13.0 blue area on lower lip, whens he bends over she notes it gets full and painful, when stands back up she notes it goes back to normal size, pt with [facility] and sees vascular, she will set up an appt Jesse-Jax los syndrome 856950025 Q82.8 pt is experienci ng multiple symptoms that she feels is related to dysautonom ia, is hoping to see Dr Kyle Sánchez in [place], I told pt they wanted me to order testing to autonomic dysregulat ion, I do not feel comfortabl e to knowledgab le and asked our insurance sales assistant Mary Abreu to call and ask if they can take it form here Moderate p ersistent asthma 076249970 J45.40 on inhalers and followed by Dr Ambriz [id number] Sunshine perez Main Office [address] [facility] [place] [address] 08/10/2021 11:27:41 08/10/2021 12:07:07 Recurrent oral herpes simplex infection 195333467 B00.2 instructed pt to only take one day (2 doses) of this if feeling a cold sore coming on Vertigo 725360387 R42 asked for refill, advised to use sparingly and discuss with ENT Jesse-Jax los syndrome 471988713 Q82.8 pt is experienci ng multiple symptoms that she feels is related to dysautonom ia, is hoping to see Dr Kyle Sánchez in [place], has autonomic testing for January but no visit with Dr Sánchez yet, I advised she call and ask for the appt even if before the testing. 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 pt is applying for a psychiatri c service dog which I fully endorse, letter written Posttrauma tic stress disorder 75749071 F43.10 pt to get a psychiatri c service animal. Panic attack 891538047 F 41.0 use benzo as needed 696057 Laxmi Oseguera PA-C [facility] [address] [address] 12/03/2021 08:55:50 12/03/2021 12:17:38 Exposure to SARS-CoV-2 672607458 Z20.822 Pt. is recommende d to have COVID PCR test today and as soon as tested positive , receive monoclonal ab treatment through Dr Ambriz, [place] [facility]. Jesse-Jax los syndrome 456369240 Q82.8 Moderate p ersistent asthma 108337491 J45.40 763245 Sunshine [facility]rez [facility] [address] [facility] [address] [place] [address] 12/26/2021 08:26:41 12/27/2021 08:16:36 Decrease in appetite 53795320 R63.0 losing weight, has seen GI and has nausea. will do a trial of prilosec and contact her GI again Jesse-Jxa los syndrome 042269331 Q82.8 plan is to see neurologis t in [place] at some point Herpes labialis 7413287 B00.1 refill med Unintentio nal weight loss 281837925 R63.4 down 5lbs in 4 weeks and pt with a very poor appetitie, nausea, family hx of mom and cousin with pancreatic cancer. 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7 anxiety is very flared making symptoms worse Moderate p ersistent asthma 772675566 J45.40 on inhalers and followed by Dr Pb pappas Insomnia 263759213 G47.0 0 chronic, continue meds, she sleeps 3-4 hours some nights. continue med for insomnia Anxiety 41544061 F41.9 pt is very anxious, she uses alprazolam half in am and then one for evening to help transition into sleep, she is in search of a psychiatri st but has not cricket ble to find anyone on her plan. [id number] TANIKA GARCIA MD Main Office [address] [facility] [address] [place] [address] 08/15/2022 08:12:22 08/15/2022 08:56:09 Neuropathy 037994742 G62.9 - pt has been having bilateral hand pain and tingling (also occurs in feet however worse in the hands)- based on patient physical exam and history believe symptoms are most likely somatic however before making that diagnosis will ensure there no other underlying etiology> pt holding back during physical exam when weakness was tested- blood work-up ordered- if work-up negative will order an EMG- is EMG is negative no further work-up most likely somatic at that time Pain of bi lateral hands 3479766398 6504310 M79.641 - ordered x-ray of the hands to ensure no underlying anomaly [id number] Sunshine perez Main Office [address] [facility] [address] [facility] [place] [address] 09/27/2022 15:58:34 09/27/2022 16:53:51 Jesse-Danlos syndrome 435828143 Q82.8 sees neurologalysha rahman in [place] at some point we discussed her talking to her neurologis t in [place] to get a provider to help with Jesse Danlos in [place], pt with a lot of musculoske letal complaints , fatigue, trying to work through cause andr elationshi p to Jesse Danlos Insomnia 335660215 G47.0 0 chronic, continue meds, she sleeps 3-4 hours some nights. continue med for insomnia Hypercholesterolemia 136 71548 E78.2 on meds by cardiology Disorder o f autonomic nervous system 29976443 G90.9 pt is followed by neurology for dysautonom ia Screening for malignant neoplasm of breast 341698194 Z12.39 pt to arrange Fatigue 93775562 R53.83 pt to esablish with a provider in [place] to help sort through symptoms. [id number] Aleyda Plata Main Office [address] [place] [address] 01/31/2023 08:55:20 01/31/2023 09:32:27 Jesse-Danlos syndrome 408647707 Q82.8 - pt follows with neurologalysha rahman in [place]- pt looking for a specific physical therapist to meet her current concerns Insomnia 639380322 G47.0 0 chronic, continue meds, she sleeps 3-4 hours some nights. continue med for insomnia Disorder o f autonomic nervous system 47983104 G90.9 - pt is followed by neurology for dysautonom ia Nausea 095001323 R11.0 - worsened by most recent fall when patient hit her head Anxiety 90285777 F41.9 - refilled Accidental fall 58025103 2 W19.XXXA - occurred on 01/29/23- pt went to ED but left before being evaluated- hit her head, no LOC- pt is at her baseline -> at baseline has nausea and headaches which are not worse than previous- physical therapy recommende d in order to prevent fall, pt wants to go a specific therapist that she will find- no need to CT head at this time as physical exam was reassuring and pt no longer having any symptoms Headache 07263426 R51.9 [id number] TANIKA GARCIA MD Main Office [address] [facility] [address] [facility] [place] [address] 05/22/2023 14:32:51 05/22/2023 15:42:26 Cough 55682365 R05.9 x1 month of a persistent cough-has taken tylenol and dayquil/ny quil with no relief-gua ifenesin codeine provides relief-was seen at 2 weeks ago, negative chest xray, pt completed a course of antibiotic s with no relief-den ies of any fever, chills, sob, chest pain, n/v/d, sinus pressure, or sore throat-PE was unremarkab le-likely postviral cough, lungs were CTAB. WIll provide benzonatat e prn-discus sed conservati ve measuremen ts [id number] TANIKA GARCIA MD Main Office [address] [facility] [address] [facility] [place] [address] 07/31/2023 09:20:14 07/31/2023 10:12:19 Blood in urine 60139969 R31.9 - ordered repeat UA and cytology> please note order for cytology was given to patient- ordered CBC to check on anemia and BMP to check on renal function- after cytology is reported will send patient for an ultrasound of bladder and kidney depending on results Jesse-Jax los syndrome 307197873 Q82.8 - pt follows with regina rahman in [place]- pt looking for a specific physical therapist to meet her current concerns Insomnia 205355251 G47.0 0 chronic, continue meds, she sleeps 3-4 hours some nights. continue med for insomnia Disorder o f autonomic nervous system 77347053 G90.9 - pt is followed by neurology for dysautonom ia Abdominal pain 33633122 R10.9 - pt has been having right sided abdominal pain which is currently being managed by GI> pt will have surgery for gall-bladd er removal in August- pt also having left sided abdominal pain and pt is concerned for pancreatit is> ordered lipase and amylase- ordered hepatic function panel- will defer imaging at this time as patient recently had imaging studies with GI, will request results Autism spe ctrum disorder 39939767 F84.9 - on patient request, believes she has autism, never diagnosed [id number] MARYJANE NUNEZ Main Office [address] [place] [address] 08/04/2023 07:47:12 08/07/2023 13:46:05 [id number] Aleyda Plata Main Office [address] [place] [address] 08/08/2023 09:03:27 08/08/2023 09:40:09 Transition of care 1141211895 105 Z75.8 reviewed hospital documentat ion Sleep apnea 70670196 G47 .30 -was evaluated by sleep medicine in 2018 and advised to f/u on an prn basis-pt experienci ng difficulty with sleep maintenanc eper pt request will refer to sleep medicine Hemorrhoids 96155122 K64 .9 recent episodes of bright red blood on toilet paper- pt felt a bump around her anus-will provide hydorcorti sone topical cream and discussed conservati ve measuremen ts such as avoiding straining, minimize time spent sitting on toilet, diet adjustment s etc Right uppe r quadrant pain 669605856 R10.11 was evaluated at [facility] for RUQ pain; was advised to have elective cholecyste ctomy and f/u with outpatient -continues to have RUQ pain, less in severity-i s scheduled to have elective cholecyste ctomy on 09/01-on PE; tenderness to RUQ, no guarding, mass, or rebound tenderness appreciate d [id number] Zachariah Del Real MD Main Office [address] [place] [address] 12/20/2023 10:23:01 12/20/2023 11:35:03 Dyspnea 860966371 R06.00 This may be multifacto rial and related to her asthma, allergies and orthostati c hypotensio n. Cough 43019034 R05.9 She has an appointmen t with Dr Ambriz in a couple of days. She will continue with current mgmt. No further w/u needed. This is a long standing problem w/no etiology found to ate. Health Concerns Section Related Observation LastModified by Organization Detai ls LastModified Time None Recorded Concern Status LastModified by Organization Details LastModified Time None Recorded Advance Directives Directive Y: HCP: son (Edu Simmons) Payers Encounter Date Sequence Insurance Name Policy Number Policy [place] Covered Member ID [place] Member ID Guarantor Name 05/22/2023 1 [employer] [id number] [facility] [id number] Kimo Simmons 07/31/2023 1 [employer] [id number] Kimo Simmons [id number] Kimo Simmons 08/04/2023 1 [employer] [id number] Kimo Simmons [id number] Kimo Simmons 08/08/2023 1 [employer] [id number] Kimo Simmons [id number] Kimo Simmons 12/20/2023 1 [employer] [id number] Kimo Simmons [id number] Kimo Arreolaters Notes Date Note Type Note Provider Name and Address Organization Details Recorded Time 05/22/2023 text/html Lisa Scherer is a 62 yr old F who presents for a persistent cough x1 month. Was seen at 1-2 weeks ago, had a negative chest xray and was given a course of antibiotics which she completed. Has no change in her cough. Tried dayquil/nyquil, pseudoephed- with no relief. Notes guaifenesin codeine is the only medication that relieves cough. Denies of any fever, nasal congestion, sinus pressure, chest pain, or SOB. TANIKA GARCIA MD [address] [address], [place], [address], [facility] 06/07/2023 17:28:16 07/31/2023 text/html Abdominal PainRe ported bypatient.Location:[facility]Q Quality:dull Severity:mild Duration:intermittent Onset/Timing:wax/wane Modifying Factors:nothing gives relief; nothing makes it worse Associated Symptoms:no fever; no chills; no heartburn; no shortness of breath;blood in the urine Other:denies possible Lisa Simmons is a 62 year old F who presented to the clinic for follow-up. Patient today complains of abdominal pain. Patient has been having worsening right sided abdominal pain for several months. She has been following GI who has scheduled patient for a gall-bladder removal in August. Due to the pain patient has been having a reduced PO intake as her pain is severe. In addition to the right abdominal pain, pt is also having dull left sided abdominal pain. Please note that UA done rheumatology showed hematuria. Gynecologic HistoryPatient's last menstrual period was at age 59No spottingSexually active: noContraception: menopauseDenies cysts, stds, fibroids, abnormal pap smear Obstetric HistoryGravida: 0Para: 0AB: 0Complications: TANIKA GARCIA MD [address], [address], [facility] 07/31/2023 12:38:43 08/04/2023 text/html Hospitalization Contact RecordReported bypatient.Follow UpHospital: [facility]; admit date: (Please enter in format 'MM/DD/YYYY') (08/02/2023); date of discharge: (Please enter in format 'MM/DD/YYYY') (08/03/2023); date of contact: (Please enter in format 'MM/DD/YYYY') (08/04/2023)Notes:[facility] care covered inpatient stay? noTOC with in 48 working hours? yes HCP on file? noMOLST on file? noDischarge Summary available? yesPt presented to [facility] ED with c/o abdominal pain. RUQ abdominal pain, nausea, hx biliary dyskinesia. Pt has been having chronic pain but yesterday had acute flare up. CTA chest and abdomen along with RUQ US showed liver angiomas but no acute finding. Lipase, AST, ALT, lactate and UA w/o any acute finding. Troponin no acute. Her sx have improved. She was seen by surgery in the ED and recommended no surgical intervention for now but to f/u with her own surgeon or elective cholecystectomy. Upon pt request, I again spoke to surgical attending who suggested pt to f/u with her surgeon as no urgent indication for surgery. Lengthy discussion w/pt again- pt is feeling better, alert, tolerating diet. Pt decided to go home if she is not going to have inpt surgery. Pt being d/c on Dilaudid prn severe pain, compazine for nausea. Advised to maintain adequate hydration, f/u with own surgeon. MEDS RECONCILED MARYJANE NUNEZ [address] [facility] [address], [place], [address], [facility] 08/07/2023 13:46:04 08/08/2023 text/html Hospitalization Contact Record For follow up, patient reports hospital: [facility], admit date: (please enter in format 'mm/dd/yyyy') (08/02/2023), date of discharge: (08/03/2023), and date of contact: (08/04/2023). Medicare covered inpatient stay? noTOC with in 48 working hours? yesHCP on file? noMOLST on file? noDischarge Summary available? yes Pt presented to [facility] ED with c/o abdominal pain. RUQ abdominal pain, nausea, hx biliary dyskinesia. Pt has been having chronic pain but yesterday had acute flare up. CTA chest and abdomen along with RUQ US showed liver angiomas but no acute finding. Lipase, AST, ALT, lactate and UA w/o any acute finding. Troponin no acute. Her sx have improved. She was seen by surgery in the ED and recommended no surgical intervention for now but to f/u with her own surgeon or elective cholecystectomy. Upon pt request, I again spoke to surgical attending who suggested pt to f/u with her surgeon as no urgent indication for surgery. Lengthy discussion w/pt again- pt is feeling better, alert, tolerating diet. Pt decided to go home if she is not going to have inpt surgery. Pt being d/c on Dilaudid prn severe pain, compazine for nausea. Advised to maintain adequate hydration, f/u with own surgeon. MEDS RECONCILED Reports that she is scheduled to a cholecystectomy on 09/01, notes that her RUQ pain is still present but severity has lessened since discharge. Denies of any n/v/d, chest pain, sob, dizziness, or changes in bowel habits. Reports that Aleyda Boni cain [facility] 08/13/2023 12:22:08 12/20/2023 text/html Having SOB which has been getting worse over the past few weeks. Also having a dry cough. Using xopenex which has not been helping. Negative for COVID this am. 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 In addition, she has orthostatic hypotension and is not on meds for this. She is followed by both cardiology and pulmonology and has an appointment with her booth manager, Dr Ambriz on Friday (2 days from now). She denies f/c. Zachariah Del Real MD [address] [address], [place], [address], [facility] 12/21/2023 13:07:39 OBGyn Episode No OBEpisode recorded.
== END 2024-07-27 10:57 | disposition home or self-care (01) ==
LOC: HO.RESP 10:56
PROVIDERS: PCP Student in an Organized Health Care Education/Training Program; Visit Provider Hospitalist
DX: Z01.811 Encounter for preprocedural respiratory examination (principal); U09.9 Post COVID-19 condition, unspecified
CPT/HCPCS: 94010; 94640; 94727; 94729

== ENCOUNTER → 2024-07-27 11:07 | Outpatient (BNV) | payer SELFPAY | PROVIDERS: PCP Student in an Organized Health Care Education/Training Program; Visit Provider Hospitalist | DX: U09.9 Post COVID-19 condition, unspecified (principal); J45.909 Unspecified asthma, uncomplicated | CPT/HCPCS: 94060; 94727; 94729 ==

== ENCOUNTER 2024-08-30 10:34 | Outpatient (REF) | payer OTHER, SELFPAY ==
--- OUTSIDE RECORDS SUMMARY | 2024-08-30 12:32 | XMS_ITS | Clinical Summary ---
Author Organization [facility] Address [address] [place] [address] Care Team Providers Care Senior Payroll Administrator Name Role Phone Unavailable Primary Care Provider [...] needed. 0 04/08/2023 Active Cholecalciferol 250 MCG (64583 UT) TABS Take 2,000 Units by mouth [...] this topic Medical Devices Implanted Type Area Rubber Goods Tester Water Device Identifier Shelf Expiration Date Model / Serial / Lot Cement Bone Surg Simplex Radiopq Stry-How 6819-3-150-114 092 - [id number] Implanted:Qty: 1 on 02/19/2024 by Jason Jurado MD at [facility] Left: Knee [employer] [id number] 08/23/2025 6191-1-010 / / [id number] Cement Bone Surg Simplex Radiopq Stry-How 4821-7-509-114 092 - [id number] Implanted:Qty: 1 on 02/19/2024 by Jason Jurado MD at [facility] Left: Knee [employer] [id number] 08/23/2025 6191-1-010 / / [id number] Plug Bone Med Stry-How 3003-6-591-143 872 - [id number] Implanted:Qty: 1 on 02/19/2024 by Jason Jurado MD at [facility] Left: Knee [employer] [id number] 11/28/2028 6215-5-011 / / [id number] Knee Pat Asymmetric X3 X21p74bo Stry-How 9088-Z-123-E-2 49746 - [id number] Implanted:Qty: 1 on 02/19/2024 by Jason Jurado MD at [facility] Left: Knee [employer] [id number] 04/05/2028 5551-G-320 -E / / [id number] Knee Fem Triathlon Cr 5-Lt Stry-How 4578-H-868-542 196 - [id number] Implanted:Qty: 1 on 02/19/2024 by Jason Jurado MD at [facility] Left: Knee [employer] [id number] 06/24/2027 5515-F-501 / / [id number] Knee Tib Insrt Ps-X3 3v5l31sk Stry-How 2724-H-234-534 751 - [id number] Implanted:Qty: 1 on 02/19/2024 by Jason Jurado MD at [facility] Left: Knee [employer] [id number] 08/09/2025 5532-G-513 / / [id number] Knee Insrt Tib Baseplate Sz 5 Stry-How 1609-Q-076-548 480 - [id number] Implanted:Qty: 1 on 02/19/2024 by Jason Jurado MD at [facility] Left: Knee [employer] [id number] 02/26/2028 5521-B-500 / / [id number] Knee Stem Cmnt Triathlon 12x50 Stry-How 3542-V-663-200 907 - [id number] Implanted:Qty: 1 on 02/19/2024 by Jason Jurado MD at [facility] Left: Knee [employer] [id number] 11/09/2028 5560-S-112 / / [id number] Explanted Type Area Rubber Goods Tester Water Device Identifier Shelf Expiration Date Model / Serial / Lot Left Knee Acl Screw Explanted:Qty: 1 on 02/19/2024 by Jason Jurado MD at [facility] Left: Knee Advance Directives For more information, please contact: [phone] Latest Code Status on File Code Status [...]
--- OUTSIDE RECORDS SUMMARY | 2024-08-30 12:32 | XMS_ITS | Patient Health Record ---
Author Organization [facility] Address [address] [place] [address] Care Team Providers Care School Photograph Editor Name Role Phone SUDHA FULTON Primary Care Provider Simran Reaves Unavailable [phone] Allergies Allergen (clinical drug ingredient) Drug/Non Drug [...] UROBILINOGEN Neg BILIRUBIN Trace BLOOD Trace Urinalysis, Complete-[id number] Reviewed date:01/07/2024 08:03:22 AM Interpretation: Performing Lab:[facility], [address] [place] [address], [place], Phone - [phone], Director - Akbar Notes/Report: Specific Pep 1.020 1.005-1.030 pH 5.5 5.0-7.5 Urine-Color Yellow [...] Bacteria None seen None seen/Few Urine Culture, Routine-[id number] 7 Reviewed date:01/07/2024 08:02:58 AM Interpretation: Performing Lab:[facility] [place], [address] [facility], Phone - [phone], Director - Akbar Notes/Report: Urine Culture, Routine Final report Result 1 No growth [id number] IGP No Culture 30 Plus Reviewed date:01/09/2024 08:30:10 AM Interpretation: Performing Lab:[facility] [place], [address], [address], [place], Phone - [phone], [facility] Notes/Report: Clinical Information:Vaginal/Cervical, LMP: Men o [id number] Dates / Results....12/02/18 NIL, Neg HPV Other..............Post Menopausal No. of containers..01 ThinPrep Vial DIAGNOSIS: NEGATIVE FOR INTRAEPITHELIAL LESION OR MALIGNANCY. CELLULAR CHANGES ASSOCIATED WITH ATROPHY ARE PRESENT. Specimen adequacy: Satisfactory for evaluation. Endocervical component may not be distinguished in cases of atrophy. Clinician provided ICD10: Z0 1.419 Performed by: Nico laguerre, Milanese Knitting Machine Operator (ASCP) . . Note: The Pap smear [...] Reviewed date:01/07/2024 08:02:47 AM Interpretation: Performing Lab:[facility] [place], [address] [facility], Phone - [phone], Director - Akbar Notes/Report: PDF Report Reviewed date:01/09/2024 08:31:05 AM Interpretation: Performing Lab:[facility] [place], [address], [address], [place], Phone - [phone], Director - [facility] Notes/Report: Clinical Information:Vaginal/Cervical, LMP: Men o [id number] Dates / Results....12/02/18 NIL, Neg HPV Other..............Post [...] Status Risk Notes Problem Postmenopausal atrophic vaginitis (54669154) Postmenopausal atrophic vaginitis (N95.2) Active confirmed Problem Incomplete uterovaginal prolapse (495872656) Incomplete uterovaginal prolapse (N81.2) Active confirmed Problem Herniation of rectum into vagina (181904849) Rectocele (N81.6) Active confirmed Problem Postmenopausal bleeding (59442159) Postmenopausal bleeding (N95.0) Active confirmed Problem Urinary incontinence (132754789) Unspecified urinary incontinence (R32) Active confirmed Problem Disorder of breast (51289686) Disorder of breast, unspecified (N64.9) Active confirmed Problem Cystocele (736566279) Cystocele, unspecified (N81.10) Active confirmed Problem Irregular menstruation (59019047) Irregular menstruation, unspecified (N92.6) Active confirmed Problem Unspecified menopausal and perimenopausal disorder (N95.9) Active confirmed Problem 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1) Active confirmed Diag Problem Asthma (disorder) (844515878) Asthma, unspecified, unspecified status (493.90) Active confirmed Major Problem Menopausal symptom (74252090) Symptomatic menopausal or female climacteric states (627.2) Active confirmed Major Problem Osteoarthritis (242454092) Osteoarthrosis, unspecified whether generalized or localized, unspecified site (715.90) Active confirmed Major Problem Muscle pain (32075322) Unspecified myalgia and myositis (729.1) Active confirmed Major Problem Gynecological examination normal (261165745617663) Routine gynecological examination (V72.31) Active confirmed Major Problem Screening for malignant neoplasm of colon (931382420) Special screening for malignant neoplasms, colon (V76.51) Active confirmed Major Vital Signs Temperature 98.1 degrees Fahrenheit 01/05/2024 Blood pressure diastolic 78 mm Hg 01/05/2024 Height 71.5 in 01/05/2024 Blood pressure systolic 112 mm Hg 01/05/2024 Weight 168 lbs 01/05/2024 BMI 23.1 kg/m2 01/05/2024 Encounters Encounter Location Date Provider Diagnosis [facility] [address] [place] [address] 01/05/2024 Simran Barifeld Encounter for gynecological examination (general) (routine) without [...] Name:Simran Tom duncandawsontana, 01/05/2025 11:00:00 AM, [address], [address], [place], [address], Insurance Providers Payer Name Payer Address Payer Phone Subscriber Number Group Number Insured Name Patient Relationship to Insured Coverage Start Date Coverage End Date R [address] [address] [place], [place] [id number] [phone] [id number] ARASH RODRIGUEZ Spouse - patient is [...]
--- OUTSIDE RECORDS SUMMARY | 2024-08-30 12:32 | XMS_ITS | Clinical Summary ---
Author Organization [facility] Address [address] [place] [address] Care Team Providers Care Radio Artist Name Role Phone Tanika Garcia MD Primary [...] Vaccines (1 of 2) 2010 RSV Immunization Adult Patie nts (1 - Risk 60-74 years 1-dose series) 2020 COVID-19 Vaccine (2023-2 5 season) 2024 Cholesterol Screening (Lipid Panel) 03/04/2024 Colorectal Cancer Screening: Colonoscopy 03/04/2024 Depression Screening 03/04/2024 HIV Screening 03/04/2024 Hepatitis C Screening 03/04/2024 Social Influencers of Health Screening 03/04/2024 Influenza Vaccine (Season Ended) 2025 HIB Vaccines Aged Out No longer eligi [...] this topic Medical Devices Implanted Type Area Unix System Administrator Device Identifier Shelf Expiration Date Model / Serial / Lot Cement Bone Surg Simplex Radiopq [facility] 3770-3-275-114 092 Implanted:Qty: 1 on 02/19/2024 by Jason Jurado MD Left: Knee [employer] [id number] 08/23/2025 6191-1-010 / / [id number] Cement Bone Surg Simplex Radiopq Stry-Howm 5326-5-725-114 092 Implanted:Qty: 1 on 02/19/2024 by Jason Jurado MD Left: Knee [employer] [id number] 08/23/2025 6191-1-010 / / [id number] Plug Bone Med Stry-Howm 5357-7-116-143 872 Implanted:Qty: 1 on 02/19/2024 by Jason Jurado MD Left: Knee [employer] [id number] 11/28/2028 6215-5-011 / / [id number] Knee Pat Asymmetric X3 R05x18sc Stry-How 7055-V-885-E-2 [id number] Implanted:Qty: 1 on 02/19/2024 by Jason Jurado MD Left: Knee [employer] [id number] 04/05/2028 5551-G-320 -E / / [id number] Knee Fem Triathlon Cr 5-Lt Stry-How 6328-A-572-542 196 Implanted:Qty: 1 on 02/19/2024 by Jason Jurado MD Left: Knee [employer] [id number] 06/24/2027 5515-F-501 / / [id number] Knee Tib Insrt Ps-X3 3m4o66sy Stry-How 9541-Z-305-534 751 Implanted:Qty: 1 on 02/19/2024 by Jason Jurado MD Left: Knee [employer] [id number] 08/09/2025 5532-G-513 / / [id number] Knee Insrt Tib Baseplate Sz 5 Stry-Howm 3120-L-981-548 480 Implanted:Qty: 1 on 02/19/2024 by Jason Jurado MD Left: Knee [employer] [id number] 02/26/2028 5521-B-500 / / [id number] Knee Stem Cmnt Triathlon 12x50 [facility] 0944-J-111-200 907 Implanted:Qty: 1 on 02/19/2024 by Jason Jurado MD Left: Knee [employer] [id number] 11/09/2028 5560-S-112 / / [id number] Care Teams Radio Artist Relationship Specialty Start Date End Date Tanika Garcia MD [address] [address] PCP - General 12/17/23
--- OUTSIDE RECORDS SUMMARY | 2024-08-30 12:32 | XMS_ITS | Data Portability ---
Author Organization [place] [facility], Allergy Address [address] [address] Care Team Providers Care Test Conductor Name Role Phone SUDHA STUBBS Primary Care Provider Assessment No assessment recorded. Plan of Treatment Reminders Order Date Submit Date Provider Last Modified By Organization Details Last Modified Time Details Appointments Hearing Test 2024 03:30P M Hearing Test Not available Not available Not available Establish ed 30 2024 04:00P M CLAUDIA Man MD Not available Not available Not available Lab None recorded. Referral speech therapy referral - Please evaluate chronic hoarsenes s and decreased vocal range. She is a ford. She also has some laryngeal spasm and chronic cough. She did not tolerate omeprazol e in the past. 2024 025 [email or web address] Saba Chanel, [address] [place], [address], 08/20/2024 08:51:42 speech therapy referral - having trouble projectin g voice. please perform voice therapy. 2023 024 RENATE Evans [facility]-CLINICAL THERAPIST, [address] , [place], [address], 02/03/2024 12:09:31 Procedures None recorded. Surgeries None recorded. Imaging None recorded. Medication Orders omeprazol e 20 mg capsule,d elayed release 2023 024 [facility]/Pharmacy #[id number], [address] [place], [address], 05/21/2024 09:27:29 omeprazol e 20 mg capsule,d elayed release 2023 024 [facility]/Pharmacy #[id number], [address] [facility], [place], [address], 01/30/2024 14:46:56 Patient TargetsNo targets recorded. Patient InstructionsNo instructions recorded. Reason for Referral having trouble projecting vo ice. please perform voice therapy. Referring Physician: Claudia Schaefer, Otolaryngology, Encounter Date: 01/30/2024 Please evaluate chronic hoar seness and decreased vocal range. She is a ford. She also has some laryngeal spasm and chronic cough. She did not tolerate omeprazole in the past. Referring Physician: Claudia Schaefer, Otolaryngology, Encounter Date: 08/20/2024 Results Created Date Observation Date Name Description [...] record ed. [email or web address] Not Available 15:37:24 05/25/20 24 audio gram No observ ation record ed. BARCODE Not Available 2023 08:53:06 Result Notes None recorded. Problems Name Problem SNOMED Code Status Onset Date Resolution Date Notes Provider Name and Address Organization Details Recorded Time Neck pain 36398562 Active 2020 Cervicalg ia; Note: Date Diagnosed : 01/19/2021 9:51 AM (M54.2) Not Available [facility] 02:42:26 Sensorine ural hearing loss of bilateral ears 232409660 Active 2021 Sensorine ural hearing loss, bilateral ; Note: Date Diagnosed : 08/29/2021 1:56 PM (H90.3) Not Available [facility] 4 02:42:25 Bilateral tinnitus 22964497327 02 Active 2020 Tinnitus, bilateral ; Note: Date Diagnosed : 01/19/2021 9:54 AM (H93.13) Not Available [facility] 4 02:42:24 Allergic rhinitis 08098161 Active 2021 Other allergic rhinitis; Note: Date Diagnosed : 08/29/2021 2:00 PM (J30.89) Not Available [facility] 4 02:42:17 Disorder of vocal cord 50951496 Active 2020 Other diseases of vocal cords; Note: Changed from J38 to J38.3 ( 10:47 AM) , Date Diagnosed : 01/19/2021 9:54 AM (J38) Not Available [facility] 4 02:42:23 Dysphonia 19681984 Active 2023 CLAUDIA SCHAEFER MD [address] [place] [address],[facility] [address], [place], [address] , [place] [facility] 4 14:27:32 Otalgia of left ear 8026064079 Active 2023 CLAUDIA SCHAEFER MD [address] [place] [address],[place] [address], [place], [address] , [place] [facility] 4 14:27:43 Gastroeso phageal reflux disease without esophagit is 374728157 Active 2023 CLAUDIA SCHAEFER MD [address] [place] [address],[facility] [address], [place], [address] , [place] [facility] 4 14:42:40 Dysphagia 90695133 Active 2023 CLAUDIA SCHAEFER MD [address] [place] [address],[place] [address], [place], [address] , [place] [facility] 4 14:46:04 Dizziness and giddiness 235845232 Active 2023 CLAUDIA SCHAEFER MD [address] [facility],[place] [address], [place], [address] , [place] [facility] 09:27:01 Chronic hoarsenes s 14227947709 05 Active 2024 CLAUDIA SCHAEFER MD [address] [facility],[place] [address], [place], [address] , [place] [facility] 08:22:13 Problem Notes None recorded. Procedures Surgical History Date Name Laterality Status Provider Name and Address Organization Details Recorded Time 08/20/2024 FFL_RE completed CLAUDIA SCHAEFER MD [address] [facility],[place] [address], [place], [address], [place] [facility] 08/20/2024 08:21:58 05/21/2024 FFL_RE completed CLAUDIA SCHAEFER MD [address] [facility],[address], [address], [place] [facility] 05/21/2024 08:28:21 05/21/2024 Air & Speech Audio with Tymps (82968, 97213 & 02570) completed Gerri JAIMES [address] [facility],[place] [address], [place], [address], [place] [facility] 05/21/2024 09:03:12 01/30/2024 FFL_RE completed CLAUDIA SCHAEFER MD [address] [facility],[address], [address], [place] [facility] 01/30/2024 14:42:07 Imaging Results Imaging Date [...] Name and Address Organization Details Recorded Time 602019 morphine hydrochlo ride Not available other Not available Not available 10/07/2023 93058 1 RxNorm React ion: other react ion, Unkno wn; Not Available [facility] 01:17:45 Medications Name Sig Start Date Stop Date Status Note LastModified by Organization Details LastModified Time alprazola m 1 mg tablet 5 mg at Noon 1.0mg at night 2020 active Medicati on ID: [id number] B rand Name: alprazol am Send Method: E-Prescr ibed Sub s Allowed: subs OK Speci al Instruct ion: TAKE 1 TABLET BY MOUTH EVERY DAY NEEDED M edicatio nGeneric Name: alprazol am Not Available Not Available Not Available benzonata te 200 mg capsule active Medicati on ID: 180564 B rand Name: benzonat ate Send Method: E-Prescr ibed Sub s Allowed: subs OK Speci al Instruct ion: TAKE 1 CAPSULE BY MOUTH TWICE DAILY X30 DAYS NEEDED FOR COUGH Me dication GenericN shahana: benzonat ate Not Available Not Available Not Available valacyclo vir 1 gram tablet 2020 active Medicati on ID: 529423 B rand Name: valacycl ovir Sen d Method: E-Prescr ibed Sub s Allowed: subs OK Speci al Instruct ion: TAKE 2 TABLETS BY MOUTH EVERY 12 HOURS NEEDED FOR 2 DOSES FOR COLD SORE. Me dication GenericN shahana: valacycl ovir Not Available Not Available Not Available meloxicam 15 mg tablet 2020 active Medicati on ID: 461272 B rand Name: meloxica m Send Method: E-Prescr ibed Sub s Allowed: subs OK Speci al Instruct ion: TAKE 1 TABLET BY MOUTH EVERY DAY WITH FOOD Med icationG enericNa me: meloxica m Not Available Not Available Not Available ondansetr on HCl 4 mg tablet 2020 active Medicati on ID: 392256 B rand Name: ondanset sanam HCl Send Method: E-Prescr ibed Sub s Allowed: subs OK Speci al Instruct ion: TAKE 2 TABLETS BY MOUTH 3 TIMES A DAY NEEDED FOR 5 DAYS. Me dication GenericN shahana: ondanset sanam HCl Not Available Not Available Not Available sulfameth oxazole 800 mg-trimet hoprim 160 mg tablet 05/21 completed Medicati on ID: 154530 B rand Name: sulfamet hoxazole -trimeth oprim Se nd Method: E-Prescr ibed Sub s Allowed: subs OK Speci al Instruct ion: TAKE 1 TABLET BY MOUTH EVERY 12 HOURS FOR 7 DAYS Med icationG enericNa me: sulfamet hoxazole -trimeth oprim Not Available Not Available Not Available meloxicam 7.5 mg tablet 05/21 completed Medicati on ID: 236927 B rand Name: meloxica m Send Method: E-Prescr ibed Sub s Allowed: subs OK Speci al Instruct ion: TAKE ONE TABLET BY MOUTH DAILY WITH FOOD Med icationG enericNa me: meloxica m Not Available Not Available Not Available meclizine 25 mg tablet active Medicati on ID: 457203 B rand Name: meclizin e Send Method: E-Prescr ibed Sub s Allowed: subs OK Speci al Instruct ion: TAKE 1 TABLET NEEDED BY ORAL ROUTE DIRECTED Medicat ionGener icName: meclizin e Not Available Not Available Not Available cephalexi n 500 mg capsule 05/21 completed Medicati on ID: 399840 B rand Name: cephalex in Send Method: E-Prescr ibed Sub s Allowed: subs OK Speci al Instruct ion: TAKE 1 CAPSULE BY MOUTH EVERY 8 HOURS FOR 2 DAYS Med icationG enericNa me: cephalex in Not Available Not Available Not Available triamcino lone acetonide 0.1 % topical ointment 05/21 completed Medicati on ID: 312660 B rand Name: triamcin olone acetonid e Send Method: E-Prescr ibed Sub s Allowed: subs OK Speci al Instruct ion: APPLY TO AFFECTED AREA ON THE LEFT FOREARM TWICE DAILY. Lois Shaw Name: triamcin olone acetonid e Not Available Not Available Not Available gabapenti n 300 mg capsule 2020 active Medicati on ID: 053411 B rand Name: gabapent in Send Method: [...] mg tablet 2020 active Medicati on ID: 528937 B rand Name: monteluk ast Send Method: E-Prescr ibed Sub s Allowed: subs OK Speci al Instruct ion: TAKE 1 TABLET BY MOUTH EVERY DAY DIRECTED Medicat ionGener icName: monteluk ast Not Available Not Available Not Available mupirocin 2 % topical ointment 2020 active Medicati on ID: 470532 B rand Name: mupiroci n Send Method: E-Prescr ibed Sub s Allowed: subs OK Speci al Instruct ion: APPLY A SMALL AMOUNT TO THE AFFECTED AREA TOPICALL Y 3 TIMES PER DAY X 7 DAYS Med icationG enericNa me: mupiroci n Not Available Not Available Not Available eszopiclo ne 3 mg tablet 2020 active Medicati on ID: 910025 B rand Name: eszopicl one Send Method: E-Prescr ibed Sub s Allowed: subs OK Speci al Instruct ion: TAKE 1 TABLET BY MOUTH EVERYDAY AT BEDTIME Medicati onGeneri cName: eszopicl one Not Available Not Available Not Available tizanidin e 4 mg capsule 2020 active Medicati on ID: 654558 B rand Name: tizanidi ne Send Method: E-Prescr ibed Sub s Allowed: subs OK Speci al Instruct ion: TAKE 1 CAPSULE BY MOUTH EVERY DAY NEEDED Lois Shaw Name: tizanidi ne Not Available Not Available Not Available Atrovent HFA 17 mcg/actua tion aerosol inhaler 2020 active Medicati on ID: 892740 B rand Name: Atrovent HFA Send Method: E-Prescr ibed Sub s Allowed: subs OK Speci al Instruct ion: INHALE 2 PUFFS BY MOUTH EVERY 6 HOURS NEEDED FOR SHORTNES S OF BREATH Lois Shaw Name: Atrovent HFA Not Available Not Available Not Available olopatadi ne 0.2 % eye drops 05/21 completed Medicati on ID: 595787 B rand Name: olopatad ine Send Method: E-Prescr ibed Sub s Allowed: subs OK Speci al Instruct ion: INSTILL 1 DROP INTO BOTH EYES EVERY DAY NEEDED Lois Shaw Name: olopatad ine Not Available Not Available Not Available OxyContin 10 mg tablet,cr ush resistant ,extended release 05/21 completed Medicati on ID: 347634 B rand Name: OxyConti n Send Method: E-Prescr ibed Sub s Allowed: subs OK Speci al Instruct ion: TAKE 1 TABLET BY MOUTH EVERY 12 HOURS Me dication GenericN shahana: OxyConti n Not Available Not Available Not Available Vitals Date Recorded Body height Body mass index (BMI) Body weight Provider Name and Address Organization Details Last Updated DateTime 08/20/2024 180.34 cm 23.7 kg/m2 68941.7 g Le Chester [place] [facility] 08/20/2024 07:58:38 Date Recorded Body height Body mass index (BMI) Body weight Provider Name and Address Organization Details Last Updated DateTime 01/30/2024 180.34 cm 23.7 kg/m2 76691.7 g Le [place] [facility] 01/30/2024 14:06:15 Date Recorded Body height Body mass index (BMI) Body weight Provider Name and Address Organization Details Last Updated DateTime 05/21/2024 180.34 cm 23.7 kg/m2 43754.7 g Bea Vega [place] [facility] 05/21/2024 08:03:18 Social History None recorded. Functional Status None recorded. Mental Status None recorded. Family History Nothing Reported. Medical History No medical history recorded. Gynecological HistoryNo gynecological history recorded. Obstetrics History GPAL:G 0 P 0 0 0 0 Past Encounters Encounter ID Performer Location Encounter Start Date Encounter Closed Date Diagnosis/Indication Diagnosis SNOMED-CT Code Diagnosis ICD10 Code Diagnosis Note [id number] CLAUDIA SCHAEFER MD [facility] on [address] [place] [address] 01/30/2024 13:47:09 01/30/2024 14:49:46 Dysphonia 07507757 R49.9 No obvious vocal cord lesions on laryngosco py. I recommend voice therapy. 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 May be related. Will assess improvemen t with voice therapy. Otalgia of left ear 1010 259230 H92.02 Exam was normal. Gave reassuranc e. Gastroesop hageal reflux disease without esophagitis 909074887 K21.9 Exam was benign. Laryngosco py showed cobbleston ing. I feel the symptoms are likely due to extra esophageal reflux disease. We will begin a six-week trial of omeprazole which was sent to their pharmacy. We will plan a follow up in 3-4 months to reassess. Dysphagia 63332174 R13.1 0 if doesn't improve on omeprazole will consider a swallow study [id number] CLAUDIA SCHAEFER MD [facility] on [address] [place] [address] 05/21/2024 08:00:29 05/21/2024 09:29:24 Otalgia of left ear 7909512533 H92.02 likely ETD. Audio today reassuring . Gastroesop hageal reflux disease without esophagitis 603365751 K21.9 stressed importance of 6 week trial. sent new RX. will see if some of throat symptoms improve. Sensorineu ral hearing loss of bilateral ears 447073227 H90.3 Audiologic al evaluation results:Ri ght ear:{{Norm al Normal through 2 kHz Mild M oderate* M oderately- severe Sev ere Profou nd}} {{hearing hearing. s loping to a mild slopi ng to a moderate s loping to moderately severe slo ping to severe slo ping to profound f lat high frequency* low frequency mid frequency cookie bite chanel curve}} {{with sen sorineural hearing loss with* [...] frequency* low frequency mid frequency cookie bite chanel curve}} {{with sen sorineural hearing loss with* [...] damage to the ear. Dizziness and giddiness 379560089 R42 not otologic. recommend neurology fu which she has planned. castro joneske negative [id number] CLAUDIA SCHAEFER MD [facility] on [address] [place] [address] 08/20/2024 07:53:57 08/20/2024 08:29:04 Gastroesophageal reflux disease without esophagitis 689481933 K21.9 She did not tolerate omeprazole . We will hold off on additional reflux medication at this time. Chronic hoarseness 65801 60008 105 R49.0 Laryngosco py was performed today and was normal. I will refer her to Saba Chanel in speech pathology for an assessment and treatment. Bilateral tinnitus 52116 11630 102 H93.13 We discussed masking we will repeat an audiogram at her next 6-month follow-up. Health Concerns Section Related Observation LastModified by Organization Detai ls LastModified Time None Recorded Concern Status LastModified by Organization Details LastModified Time None Recorded Advance Directives Directive None Recorded Payers Encounter Date Sequence Insurance Name Policy Number Policy Harrington Covered Member ID Harrington Member ID Guarantor Name 01/30/2024 1 [employer] (POS) [id number] Kimo Simmons [id number] Celeste Simmons 05/21/2024 1 [employer] (POS) [id number] Kimo Simmons [id number] Celeste Simmons 08/20/2024 1 [employer] (POS) [id number] Kimo Simmons [id number] Celeste Simmons Notes Date Note Type Note [...] tightness in her throat. CLAUDIA SCHAEFER MD [address] [place] [address], [place], [address], [facility] 01/30/2024 14:46:58 05/21/2024 text/html After wearing [...] 2 weeks then stopped. CLAUDIA SCHAEFER MD [address] [place] [address],[address], [address], [facility] 05/21/2024 09:27:29 08/20/2024 text/html She has a histor y of HF SNHL. 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 She reports some vocal cord dysfunction. She sees Dr. Ambriz in pulmonary for asthma. She has chronic cough. She was told she has microaspiration. We did a trial of omeprazole for 3 weeks but due to chest discomfort she stopped the medication which resolved after she stopped it. She does see GI. CLAUDIA SCHAEFER MD [address] [facility] [address], [place], [address], [facility] 08/20/2024 08:26:44 OBGyn Episode No OBEpisode recorded.
--- OUTSIDE RECORDS SUMMARY | 2024-08-30 12:32 | XMS_ITS ---
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 Name Role Phone SUDHA FULTON Primary Care Provider Simran Reaves Unavailable [phone] Allergies Allergen (clinical drug ingredient) Drug/Non Drug [...] UROBILINOGEN Neg BILIRUBIN Trace BLOOD Trace Urinalysis, Complete-[id number] Reviewed date:01/07/2024 08:03:22 AM Interpretation: Performing Lab:[facility], [address] [place] [address], Phone - [phone], Director - Akbar Notes/Report: Specific Redfox 1.020 1.005-1.030 pH 5.5 5.0-7.5 Urine-Color Yellow [...] Bacteria None seen None seen/Few Urine Culture, Routine-[id number] Reviewed date:01/07/2024 08:02:58 AM Interpretation: Performing Lab:[facility] [place], [address] [facility], [place], Phone - [phone], Director - Akbar Notes/Report: Urine Culture, Routine Final report Result 1 No growth [id number] IGP No Culture 30 Plus Reviewed date:01/09/2024 08:30:10 AM Interpretation: Performing Lab:[facility] [place], [address], [address], [place], Phone - [phone], Director - [facility] Notes/Report: Clinical Information:Vaginal/Cervical, LMP: Men o [id number] Dates / Results....12/02/18 NIL, Neg HPV Other..............Post Menopausal No. of containers..01 ThinPrep Vial DIAGNOSIS: NEGATIVE FOR INTRAEPITHELIAL LESION OR MALIGNANCY. CELLULAR CHANGES ASSOCIATED WITH ATROPHY ARE PRESENT. Specimen adequacy: Satisfactory for evaluation. Endocervical component may not be distinguished in cases of atrophy. Clinician provided ICD10: Z0 1.419 Performed by: Nico laguerre, Periodontal Assistant ([facility]) . . Note: The Pap smear is [...] Reviewed date:01/07/2024 08:02:47 AM Interpretation: Performing Lab:[facility] [place], [address] 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 60-85+ Medications Medication SIG (Take, Route, [...] 300 MG TAKE 1 CAPSULE BY MO [facility] 4 TIMES A DAY Oral for 30 [...] Status Risk Notes Problem Incomplete uterovaginal prolapse (979536628) Incomplete uterovaginal prolapse (N81.2) Active confirmed Problem Cystocele (325813820) Cystocele, unspecified (N81.10) Active confirmed Problem Herniation of rectum into vagina (349736223) Rectocele (N81.6) Active confirmed Problem Postmenopausal atrophic vaginitis (15771427) Postmenopausal atrophic vaginitis (N95.2) Active confirmed Problem Urinary incontinence (894952981) Unspecified urinary incontinence (R32) Active confirmed Vital Signs Temperature 98.1 degrees Fahrenheit 01/05/20 24 Blood pressure systolic 112 mm Hg 01/05/20 24 Blood pressure diastolic 78 mm Hg 024 Height 71.5 in 01/05/2024 Weight 168 lbs 01/05/2024 BMI 23.1 kg/m2 01/05/2024 Encounters Encounter Location Date Provider Diagnosis Total [address] [place] [address] 01/05/2024 Simran Barfield Encounter for gynecological examination [...] Reason: Provider Name:Simran griffith, 01/05/2025 11:00:00 AM, [address] [place] [address], [address], [place], [address], Progress Notes * Celeste RODRIGUEZRADOB: (63 yo F)Acc No.[id number]:01/05/2024 PROGRESS NOTES Patient:?Celeste RODRIGUEZ RA Appointment Provider:?Simran griffith M.D. 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 * Medical History:? 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 * ?Lab: Urinalysis ([facility] tion Date & Time - 01/05/2024) ? Value Reference Range ?NITRITE Neg * ?PH 5.0 * ?PROTEIN Trace * ?S.G 1.020 * ?WBC Small * ?GLUCOSE Neg * ?KETONES Neg * ?UROBILINOGEN Neg * ?BILIRUBIN Trace * ?BLOOD Trace * DCECY Oneal 01/05/2024 10:59:59 AM EDT > U/A and Urine C/S Sent ?Lab: Urinalysis, Complete-[id number]?Lab: Urine Culture, Routine-[id number] * Procedure Codes:? * Preventive Medicine:? ??YOUR PREVENTIVE WELLNESS PLAN:?Osteoporosis prevention?Calcium, D, strength training.?Breast Cancer Screening (Mammogram):?annually.?Cervical Cancer Screening (Pap Smear):?q 3 years with HPV screen.?Colorectal Cancer Screening:?q 10 years.? * Follow Up:?1 Year * Images: Billing Information: * Visit Code:? 63557 Preventive Care Est Pt. Age 65 and over. * Procedure Codes:? * Sign off status: Completed Addendum: * ? true * Appointment Provider:?Simran Barfield M.D. Date:?01/05/2024 Generated for Julian kumar/Miriam/eTransmitting on:?08/30/2024 11:17 AM EDT History and Physical Notes * HPI (History [...] ate calcium via diet and supplementation Significant AUTOMOBILE RENTAL CLERK problems:: n o significant wardrobe supervisor symptoms or problems Examination Category Sub-Category Detail Notes Category Not es General Exam CONSTITUTIONAL: General Appearan ce:: alert, in no acute distress, normal, well nourished NECK/THYROID: Thyroid:: normal size and shape Inspection/Palpation:: normal RESPIRATORY: Auscultation: clear to auscultation bilaterally, Respiratory Effort: normal CARDIOVASCULAR: Auscultation: regula r rate and rhythm GASTROINTESTINAL: Hernias:: no hernias present, no inguinal adenopathy Liver and Spleen:: normal Abdomen:: no masses, nontender, nondiste nded MUSCULOSKELETAL: Inspection/Palpation:: no clubb ing, cyanosis, or [...]
--- OUTSIDE RECORDS SUMMARY | 2024-08-30 12:33 | XMS_ITS | Data Portability ---
Author Organization [facility], Main Office Address [address] [place] [address] Care Team Providers Care Gasoline Engine Inspector Name Role Phone NEL MURRELL E Commerce Manager [facility] Ski Patrol Officer [phone] LAUREN RUIZ Orthopedic Surgeon [phone] PAMELA LUKE Referring Provider [phone] DELORIS MATIAS Body Shop Mechanic GAVIN GALAN Plastic/Reconstructive Surgeon CHARMAINE CAMPBELL Neurologist [phone] [facility] Vascular Surgeon REGINA AMBRIZ Body Shop Mechanic TANIKA GARCIA Primary Care Provider TRAVIS SOUZA Principal Database Developer Assessment Encounter Date Assessment Date Assessment LastModified [...] Go To The Location Of Their Choice, [id number] 4 08:06:54 CBC w/ auto diff 2023 024 RENATE [facility] (Centralized Electronic Ordering - All Locations), Patient Can Go To The Location Of Their Choice, [id number] 4 08:06:53 CBC w/ auto diff 2023 024 [email or web address] [facility] (Centralized Electronic Ordering - All Locations), Patient Can Go To The Location Of Their Choice, [address] 5 08:54:28 lipase , serum or plasma 2023 RENATE [facility], [address], [address], [place], [address], 4 18:48:55 amylas e, serum or plasma 2023 024 [facility], [address], [address], [place], [address], 4 18:48:52 hepati c functi on panel, serum 2023 024 [facility], [address], [address], [place], [address], 4 18:48:53 unlist ed lab - urinal ysis w/refl ex cultur e 2023 024 R[facility], [address], [address], [place], [address], 4 16:04:25 cytolo gy, non-gy necolo gical, unspec ified specim en - urine 2023 024 R[facility]ATE [facility], [address], [address], [place], [address], 4 15:57:58 CBC w/ auto diff 2023 024 [facility], [address] [facility], [address], [place], [address], 4 10:30:12 BMP, serum or plasma 2023 024 [facility], [address] [facility], [address], [place], [address], 4 10:29:08 Referral sleep medici ne referr al - snorin g 2023 024 [email or web address] [facility], [address] [place], [address], 4 08:55:02 psychi atrist referr al - not a formal diagno sis, needs testin g 2023 024 [email or web address] Not available 13:56:32 Procedures None record ed. Surgeries None record ed. Imaging electr ocardi ogram 2023 024 [email or web address] In-Office Order, Internal Use Only DO Not Attach Compendium DO Not Attach Compendium, Do Not Delete/merge, [id number] 11:35:04 XR, chest, 2 view - cough x1 month. 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 note of any indica tion of bacter ial origin hx of jesse -danlo s syndro me 2022 023 bsjm [facility], [address] [place], [address], 4 11:57:05 Medication Orders benzon atate 200 mg capsul e 2023 024 DRACUT [id number], [address], [place], [address], 4 11:31:49 hydroc ortiso ne 2.5 % topica l cream with perine al applic ator 2023 024 RENATE [id number], [address] [place], [address], 09:35:42 benzon atate 100 mg capsul e 2022 023 [email or web address] [id number], [address] [place], [address], 09:35:39 Patient TargetsNo targets recorded. Patient Instructions Encounter Date Encounter Id Patient Instructions Last Modified By Organization Details Last Modified Time 05/22/2023 [id number] cough: care instructions Not available 05/22/2023 15:27:58 07/31/2023 [id number] abdominal pain: care instructions Not available 07/31/2023 09:45:25 medical record request* [email or web address] Not available 07/31/2023 15:25:47 insomnia: care instructions Not available 07/31/2023 09:45:25 blood in the urine: care instructions Not available 07/31/2023 09:45:25 08/04/2023 [id number] At today's hospital follow up visit, all current and discharge medications (OTC, herbal therapies, supplements) reviewed and reconciled with patient and or caregiver, including potential side effects, drug interactions, instructions, and the consequences of not taking medication. Reviewed potential barriers to medication adherence, such as side effects from medication or cost of medication. [email or web address] Not available 08/04/2023 10:06:39 08/08/2023 [id number] hemorrhoids: care instructions Not available 08/08/2023 09:35:40 At [facility], all current and discharge medications (OTC, herbal therapies, supplements) reviewed and reconciled with patient and or caregiver, including potential side effects, drug interactions, instructions, and the consequences of not taking medication. Reviewed potential barriers to medication adherence, such as side effects from medication or cost of medication. [email or web address] Not available 08/08/2023 09:07:47 12/20/2023 [id number] cough: care instructions [email or web address] Not available 12/20/2023 11:31:47 shortness of breath: care instructions [email or web address] Not available 12/20/2023 11:06:48 Reason for Referral Psychiatrist Referral for Au tism spectrum disorder not a formal diagnosis, needs testing Referring Physician: Tanika Garcia, Family Medicine, Encounter Date: 07/31/2023 Sleep Medicine Referral for Sleep apnea snoring Referring Physician: Kayla Castorena, [facility], Encounter Date: 08/08/2023 Results Created [...] RE special requests NONE Reflex ed from [id number] Not Available [facility] (Centralized Electronic Ordering [...] rns (ICAP ). [facility], [address] [place] [address] Not Available [facility] (Centralized Electronic Ordering - All Locations) Patient Can Go To The Location Of Their Choice, [id number] 08/04/2023 16:10:20 07/31/19 24 07/31/2023 [facility] CYTOL [...] ssing and scree paige perfo rmed at [facility] , [address], [place]ya h[place] (CLIA #[id number]). Its perfo rmanc e mary cteri stics deter mined by [facility]. Clini mili Histo ry: Date of Last [...] logis t: Elicia ortiz M.D. Phone #: [phone], On-Ca ll Patho logis t: [id number] Not Available [facility] (Centralized Electronic Ordering - All Locations) Patient Can Go To The Location Of Their Choice, [id number] 08/06/2023 15:57:58 12/20/19 24 12/21/2023 CBC WITH DIFFE RENTI AL/PL ATELE T WBC 4.5 x10e3 /uL 3.4-10 .8 normal Not Available [facility] ([facility]) [address], [place], [address], 12/21/2023 08:06:53 12/20/19 24 12/21/2023 CBC WITH DIFFE RENTI AL/PL ATELE T RBC 4.48 x10e6 /uL 3.77-5 .28 normal Not Available [facility] ([facility]) [address], [place], [address], 12/21/2023 08:06:53 12/20/19 24 12/21/2023 CBC WITH DIFFE RENTI AL/PL ATELE T hemoglobin 13.1 g/dL 11.1-1 5.9 normal Not Available [facility] ([facility]) [address] [facility] [facility] [address], [place], [address], 12/21/2023 08:06:53 12/20/19 24 12/21/2023 CBC WITH DIFFE RENTI AL/PL ATELE T hematocrit 41.1 % 34.0-4 6.6 normal Not Available [facility] ([facility]) [address] [facility] [address], [place], [address], 12/21/2023 08:06:53 12/20/19 24 12/21/2023 CBC WITH DIFFE RENTI AL/PL ATELE T MCV 92 fL 79-97 normal Not Available [facility] ([facility]) [address], [place], [address], 12/21/2023 08:06:53 12/20/19 24 12/21/2023 CBC WITH DIFFE RENTI AL/PL ATELE T MCH 29.2 pg 26.6-3 3.0 normal Not Available [facility] ([facility]) [address] [place], [address], 12/21/2023 08:06:53 07/27/20 24 12/21/2023 CBC WITH DIFFE RENTI AL/PL ATELE T MCHC 31.9 g/dL 31.5-3 5.7 normal Not Available [facility] ([facility]) [address] [facility] [facility] [address], [place], [address], 12/21/2023 08:06:53 12/20/19 24 12/21/2023 CBC WITH DIFFE RENTI AL/PL ATELE T RDW 12.6 % 11.7-1 5.4 Not Available [facility] ([facility]) [address], [place], [address], 12/21/2023 08:06:53 12/20/19 24 12/21/2023 CBC WITH DIFFE RENTI AL/PL ATELE T platelets 171 x10e3 /uL 150-45 0 normal Not Available [facility] ([facility]) [address] [facility] [address], [place], [address], 12/21/2023 08:06:53 12/20/19 24 12/21/2023 CBC WITH DIFFE RENTI AL/PL ATELE T neutrophils 58 % not estab. normal Not Available [facility] ([facility]) [address] [facility] [address], [place], [address], 12/21/2023 08:06:53 12/20/19 24 12/21/2023 CBC WITH DIFFE RENTI AL/PL ATELE T lymphs 33 % not estab. normal Not Available [facility] ([facility]) [address] [facility] [address], [place], [address], 12/21/2023 08:06:53 12/20/19 24 12/21/2023 CBC WITH DIFFE RENTI AL/PL ATELE T monocytes 7 % not estab. normal Not Available [facility] ([facility]) [address] [facility] [address], [place], [address], 12/21/2023 08:06:53 12/20/19 24 12/21/2023 CBC WITH DIFFE RENTI AL/PL ATELE T eos 1 % not estab. normal Not Available [facility] ([facility]) [address] [place], [address], 12/21/2023 08:06:53 12/20/19 24 12/21/2023 CBC WITH DIFFE RENTI AL/PL ATELE T basos 1 % not estab. 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 0 normal Not Available [facility] ([facility]) [address] [place], [address], 12/21/2023 08:06:53 12/20/19 24 12/21/2023 CBC WITH DIFFE RENTI AL/PL ATELE T lymphs (absolute) 1.5 x10e3 /uL 0.7-3. 1 normal Not Available [facility] ([facility]) [address] [place], [address], 12/21/2023 08:06:53 12/20/19 24 12/21/2023 CBC WITH DIFFE RENTI AL/PL ATELE T monocytes(ab solute) 0.3 x10e3 /uL 0.1-0. 9 normal Not Available [facility] ([facility]) [address] [place], [address], 12/21/2023 08:06:53 12/20/19 24 12/21/2023 CBC WITH DIFFE RENTI AL/PL ATELE T eos (absolute) 0.0 x10e3 /uL 0.0-0. 4 normal Not Available [facility] ([facility]) [address] [facility], [place], [address], 12/21/2023 08:06:53 12/20/19 24 12/21/2023 CBC WITH DIFFE RENTI AL/PL ATELE T baso (absolute) 0.0 x10e3 /uL 0.0-0. 2 normal Not Available [facility] ([facility]) [address] [facility] [address], [place], [address], 12/21/2023 08:06:53 12/20/19 24 12/21/2023 CBC WITH DIFFE RENTI AL/PL ATELE T immature granulocytes 0 % not estab. Not Available [facility] ([facility]) [address] [facility], [place], [address], 12/21/2023 08:06:53 12/20/19 24 12/21/2023 CBC WITH DIFFE RENTI AL/PL ATELE T immature grans (abs) 0.0 x10e3 /uL 0.0-0. 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 [email or web address] In-Office Order Internal Use Only DO Not Attach Compendium DO Not Attach Compendium, Do Not Delete/merge, [id number] 12/23/2023 08:35:58 12/20/19 elect rocar diogr am No observ ation record ed. [email or web address] In-Office Order Internal Use Only DO Not Attach Compendium DO Not Attach Compendium, Do Not Delete/merge, [id number] 12/20/2023 11:43:49 06/23/19 25 04/30/2024 CT, chest , w/o contr ast No observ ation record ed. [facility] (Medical Records) [address], [place], [address], 06/23/2024 18:55:23 Result Notes None recorded. Problems Name Problem SNOMED Code Status Onset Date Resolution Date Notes Provider Name and Address Organization Details Recorded Time Patient status finding 109440438 Completed 201308/23/2015 RECORDED 11/10/19 14 11:22AM BY PATRICIA ROUSE, OFFICE VISIT Sunshine cain [facility] 6 13:46:45 Asthma [id number] Completed 201305/10/2021 Sunshine araya null, [facility] 1 13:17:34 Acute asthma 577750327 Completed 201112/07/2013 RECORDED 03/13/20 12 9:02AM BY BA FIGUEROAATI ON/ADDEN DUM Sunshine araya null, [facility] 6 13:46:44 Screenin g for malignan t neoplasm of breast Completed 201112/07/2013 RECORDED 03/13/20 12 9:02AM BY BA FIGUEROAATI ON/ADDEN DUM Sunshine araya null, [facility] 6 13:46:45 Chest pain 00349784 Completed 201112/07/2013 IMPRESSI ON: HX OF WORKUP YEARS AGO, PT TO GET ME RECORDS, NOW WITH NONSPECI FIC SHARP SHORT LIVED CHEST PAIN AT REST [facility]; RECORDED 03/13/20 12 9:01AM BY MARTY FIGUEROA ON/ADDEN DUM Sunshine araya null, [facility] 6 13:46:44 Herpes simplex 88710856 Completed 201308/23/2015 IMPRESSI ON: PT REQUESTE D DENAVIR; RECORDED 11/10/19 14 11:18AM BY PATRICIA ROUSE, OFFICE VISIT Sunshine araya null, [facility] 6 13:46:45 Screenin g for malignan t neoplasm of colon Completed 201112/07/2013 RECORDED 03/13/20 12 9:01AM BY MARTY FIGUEROA ON/ADDEN DUM Sunshine araya null, [facility] 6 13:46:45 Cough [id number] Completed 201112/07/2013 IMPRESSI ON: FOLLOWED BY DR MACHADO; RECORDED 03/13/20 12 9:01AM BY MARTY FIGUEROA ON/ADDEN DUM Sunshine Glading-D quiana null, [facility] 6 13:46:44 Depressi ve disorder 33516122 Completed 201212/07/2013 IMPRESSI ON: LOW MOOD DIRECTLY RELATED TO PHYSICAL DISCOMFO RT AND LIMITATI ONS, LONG TALK ABOUTY EAN PORRAS, MEDS, DOES NOT WANT TO START MED,W ILL CONSIDER EAN PORRAS, HAS SUPPORT AT HOME WITH ; RECORDED 05/20/20 13 12:38PM BY LEIA CUNNINGHAM MA, ANNOTATI ON/ADDEN DUM Sunshine Kelley-D quiana cain, [facility] 6 13:46:44 Dysphagi a [id number] Completed 201112/07/2013 IMPRESSI ON: SEE ABOVE, WILL RESCHECU LE WITH GI, PT KNOWS IT IS VERY IMPORTAN T TO KEEP APPT AND SHE STATES SHE WILL; RECORDED 03/13/20 12 9:01AM BY MARTY FIGUEROA ON/ADDEN DUM Sunshine Kelley-D carlanjessica null, [facility] 6 13:46:44 Respirat ory finding [id number] Completed 201112/07/2013 IMPRESSI ON: MUCH BETTER ON SINGULAR I CONTINUE ; RECORDED 03/13/20 12 9:01AM BY MARTY FIGUEROA ON/ADDEN DUM Sunshine Kelley-D carlanjessica null, [facility] 6 13:46:45 Family history of breast cancer 333564053 Completed 201112/07/2013 IMPRESSI ON: PT WAS TOLD NOT A CANDIDAT E FOR GENETIC TESTING; RECORDED 03/13/20 12 9:01AM BY MARTY FIGUEROA ON/ADDEN DUM Sunshine Glading-D carlanzo null, [facility] 6 13:46:45 Malaise and fatigue 853444684 Completed 201308/23/2015 IMPRESSI ON: PT INTEREST ED IN THYROID TESTING, ; RECORDED 11/10/19 14 11:18AM BY PATRICIA ROUSE, OFFICE VISIT Sunshine cain [facility] 6 13:46:45 Fibromyo sitis 20481935 Completed 201308/15/2022 CAROLINA Wolfe, [facility] 3 08:26:05 Adult health examinat ion Completed 201212/07/2013 IMPRESSI ON: PT WILL CALL TO SET HER PAP AND MAMMO UP [facility] 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, 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; RECORDED 05/20/20 13 12:38PM BY LEIA CUNNINGHAM MA, ANNOTATI ON/ADDEN DUM CAROLINA Wolfe, [facility] 7 13:16:20 Pure hypercho lesterol emia 951032149 Completed 201212/07/2013 RESOLVED DATE: 05/20/20 13; IMPRESSI ON: PT DOES NTO WANT TO TAKE MEDS FOR HIGH CHOLESTE ROL WHICH IS VERY HIGH, SHE UNDERSTA NDS THE RISK OF HEART DISEAE, TRIES TO WATCH DIET.; RECORDED 05/20/20 13 12:38PM BY LEIA CUNNINGHAM MA, ANNOTATI ON/ADD Sunshine cain [facility] 6 13:46:44 Insomnia 507493254 Completed 201308/15/2022 Sunshine cain, [facility] 3 16:34:27 Insomnia 331943132 Completed 201112/07/2013 IMPRESSI ON: LONG TALK, LONGSTAN KANDI AND THIS IS THE ONLY MED THAT HAS HELPED, IMPROVED QUALITY OF LIFE. CONTINUE , OK TO TAKE EACH NIGHT; RECORDED 03/13/20 12 9:01AM BY MARTY FIGUEROA ON/ADD Sunshine cain [facility] 3 16:34:27 Knee pain Completed 201212/07/2013 IMPRESSI ON: MULTIPLE SCOPES, VERY FRUSTRAT ED SHE CANNOT GET MORE COMFORTA BLE, KNEE PAIN AND SWELLING MAKE EXERCISE VERY UNCOMFOR TABLE, WILL OCNSIDER YOGA AND WEIGHT TRAINING ; RECORDED 05/20/20 13 12:38PM BY LEIA CUNNINGHAM MA, ANNOTATI ON/ADDEN DUM Sunshine cain [facility] 6 13:46:44 Laborato ry procedur e performe d [id number] Completed 201212/07/2013 RECORDED 12/29/19 13 1:44PM BY MARTY WOLFE ON/ADDEN DUM Sunshine cain [facility] 6 13:46:45 Pain in limb 43092681 Completed 201112/07/2013 IMPRESSI ON: MOST LIKELY FROM WALKING WITH LIMP FORM RIGHT ACL TEAR; RECORDED 03/13/20 12 9:01AM BY MARTY FIGUEROA ON/ADDEN DUM Sunshine cain [facility] 6 13:46:44 Low back pain 775229059 Completed 201310/15/2017 Sunshine cain [facility] 8 09:20:00 Cramp in limb 606779742 Completed 201112/07/2013 IMPRESSI ON: CHECK LYTES MAKE SURE NOT CAUSING PROBLEM; RECORDED 03/13/20 12 9:01AM BY MARTY FIGUEROA ON/ADDEN DUM Sunshine cain [facility] 6 13:46:44 Administ ration of bacteria l and viral vaccine Completed 201012/07/2013 RECORDED 10/20/19 11 2:23PM BY TEREZA DAMIAN, ISIDROIC AL SUMMARY Sunshine cain [facility] 6 13:46:45 Immuniza tion refused Completed 201212/07/2013 RECORDED 12/29/19 13 1:43PM BY MARTY WOLFE ON/ADDEN DUM Sunshine Glading-D ilorenzo null, [facility] 6 13:46:45 Eruption [id number] Completed 201212/07/2013 IMPRESSI ON: SEEMS LIKE A REACTION TO A NEW FACIAL PRODUCT, WILL TRY MOISTURI ZER DR HANEY. NO ROLE FOR SYSTEMIC SYMPOTMS .; RECORDED 12/29/19 13 1:43PM BY MARTY WOLFE ON/ADDEN DUM Sunshine Glading-D ilorenzo null, [facility] 6 13:46:44 Influenz a vaccine needed [id number] 06 Completed 201112/07/2013 RECORDED 03/13/20 12 9:11AM BY BETZY KNOX I, OFFICE VISIT Sunshinebruna Tobiasding-D ilorenzo null, [facility] 6 13:46:45 Shoulder joint pain 296178970 Completed 201112/07/2013 IMPRESSI ON: LIMITED MOTION AND IN ALOT OF APIN, PT TO SET UP APPT; RECORDED 03/13/20 12 9:01AM BY MARTY FIGUEROA ON/ADDEN DUM Sunshine Glading-D ilorenzo null, [facility] 6 13:46:44 Acute upper respirat ory infectio n 43309415 Completed 201112/07/2013 IMPRESSI ON: VIRAL INFECTIO N TRIGGERI NG HER ASTHMA; RECORDED 03/13/20 12 9:01AM BY MARTY FIGUEROA ON/ADDEN DUM Sunshine Glading-D ilorenzo null, [facility] 6 13:46:44 Urinary incontin ence 152187515 Completed 201112/07/2013 RECORDED 03/13/20 12 9:02AM BY BA FIGUEROAATI ON/ADDEN DUM Sunshine Glading-D ilorenzo null, [facility] 6 13:46:45 Vitamin D deficien cy 17611155 Completed 201308/23/2015 IMPRESSI ON: PT IS INTEREST ED IN A LEVEL, WILL CHECK; RECORDED 11/10/19 14 11:18AM BY PATRICIA ROUSE, OFFICE VISIT Sunshine araya null, [facility] 6 13:46:45 Acute asthma 902126649 Completed 201112/30/2013 RECORDED 03/13/20 12 9:02AM BY BA FIGUEROAATI ON/ADDEN DUM Sunshine Glading-D ilorenzo null, [facility] 6 13:46:44 Screenin g for malignan t neoplasm of breast Completed 201112/30/2013 RECORDED 03/13/20 12 9:02AM BY BA FIGUEROAATI ON/ADDEN DUM Sunshine Glading-D ilorenzo null, [facility] 6 13:46:45 Chest pain 09287970 Completed 201112/30/2013 IMPRESSI ON: HX OF WORKUP YEARS AGO, PT TO GET ME RECORDS, NOW WITH NONSPECI FIC SHARP SHORT LIVED CHEST PAIN AT REST [facility]; RECORDED 03/13/20 12 9:01AM BY MARTY FIGUEROA ON/ADDEN DUM Sunshine Glading-D ilorenzo null, [facility] 6 13:46:44 Screenin g for malignan t neoplasm of colon Completed 201112/30/2013 RECORDED 03/13/20 12 9:01AM BY BA FIGUEROAATI ON/ADDEN DUM Sunshine Glading-D ilorenzo null, [facility] 6 13:46:45 Cough 82969311 Completed 201112/30/2013 IMPRESSI ON: FOLLOWED BY DR MACHADO; RECORDED 03/13/20 12 9:01AM BY BA FIGUEROAATI ON/ADDEN DUM Sunshine Glading-D ilorenzo null, [facility] 6 13:46:44 Depressi ve disorder 05212620 Completed 201212/30/2013 IMPRESSI ON: LOW MOOD DIRECTLY RELATED TO PHYSICAL DISCOMFO RT AND LIMITATI ONS, LONG TALK ABOUTY EAN PORRAS, MEDS, DOES NOT WANT TO START MED,W ILL CONSIDER COUNSELDulce PORRAS, HAS SUPPORT AT HOME WITH ; RECORDED 05/20/20 13 12:38PM BY LEIA CUNNINGHAM MA, MARTY ON/ADDEN DUM Sunshine cain, [facility] 6 13:46:44 Dysphagi a [id number] Completed 201112/30/2013 IMPRESSI ON: SEE ABOVE, WILL RESCHECU LE WITH GI, PT KNOWS IT IS VERY IMPORTAN T TO KEEP APPT AND SHE STATES SHE WILL; RECORDED 03/13/20 12 9:01AM BY MARTY FIGUEROA ON/ADDEN DUM Sunshine cain, [facility] 6 13:46:44 Respirat ory finding [id number] Completed 201112/30/2013 IMPRESSI ON: MUCH BETTER ON SINGULAR I CONTINUE ; RECORDED 03/13/20 12 9:01AM BY MARTY FIGUEROA ON/ADDEN DUM Sunshine cain, [facility] 6 13:46:45 Family history of breast cancer 097794057 Completed 201112/30/2013 IMPRESSI ON: PT WAS TOLD NOT A CANDIDAT E FOR GENETIC TESTING; RECORDED 03/13/20 12 9:01AM BY MARTY FIGUEROA ON/ADDEN DUM Sunshine cain, [facility] 6 13:46:45 Adult health examinat ion Completed 201212/30/2013 IMPRESSI ON: PT WILL CALL TO SET HER PAP AND 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, 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; RECORDED 05/20/20 13 12:38PM BY LEIA CUNNINGHAM MA, MARTY ON/ADDEN DUM Patricia Rouse MA null, [facility] 7 13:16:20 Pure hypercho lesterol emia [id number] Completed 201212/30/2013 RESOLVED DATE: 05/20/20 13; IMPRESSI ON: PT DOES NTO WANT TO TAKE MEDS FOR HIGH CHOLESTE ROL WHICH IS VERY HIGH, SHE UNDERSTA NDS THE RISK OF HEART DISEAE, TRIES TO WATCH DIET.; RECORDED 05/20/20 13 12:38PM BY LEIA CUNNINGHAM MA, MARTY ON/ADDEN DUM Sunshine Glading-D quiana cain, [facility] 6 13:46:44 Knee pain Completed 201212/30/2013 IMPRESSI ON: MULTIPLE SCOPES, VERY FRUSTRAT ED SHE CANNOT GET MORE COMFORTA BLE, KNEE PAIN AND SWELLING MAKE EXERCISE VERY UNCOMFOR TABLE, WILL OCNSIDER YOGA AND WEIGHT TRAINING ; RECORDED 05/20/20 13 12:38PM BY LEIA CUNNINGHAM MA, MARTY ON/ADDEN DUM Sunshine Michelineding-D quiana cain, [facility] 6 13:46:44 Laborato ry procedur e performe d [id number] Completed 201212/30/2013 RECORDED 12/29/19 13 1:44PM BY MARTY WOLFE ON/ADDEN DUM Sunshine Kelley-D quiana cain [facility] 6 13:46:45 Pain in limb 89932674 Completed 201112/30/2013 IMPRESSI ON: MOST LIKELY FROM WALKING WITH LIMP FORM RIGHT ACL TEAR; RECORDED 03/13/20 12 9:01AM BY MARTY FIGUEROA ON/ADDEN DUM Sunshine Michelineding-D quiana cain, [facility] 6 13:46:44 Cramp in limb [id number] Completed 201112/30/2013 IMPRESSI ON: CHECK LYTES MAKE SURE NOT CAUSING PROBLEM; RECORDED 03/13/20 12 9:01AM BY MARTY FIGUEROA ON/ADDEN DUM Sunshine Glading-D quiana cain [facility] 6 13:46:44 Administ ration of bacteria l and viral vaccine Completed 201012/30/2013 RECORDED 10/20/19 11 2:23PM BY TEREZA DAMIAN, HISTORIC AL SUMMARY Sunshine cain, [facility] 6 13:46:45 Immuniza tion refused Completed 201212/30/2013 RECORDED 12/29/19 13 1:43PM BY MARTY WOLFE ON/ADDEN DUM Sunshine cain, [facility] 6 13:46:45 Eruption [id number] Completed 201212/30/2013 IMPRESSI ON: SEEMS LIKE A REACTION TO A NEW FACIAL PRODUCT, WILL TRY MOISTURI ZER DR HANEY. NO ROLE FOR SYSTEMIC SYMPOTMS .; RECORDED 12/29/19 13 1:43PM BY MARTY WOLFE ON/ADDEN DUM Sunshine araya [facility] [facility] 6 13:46:44 Influenz a vaccine needed [id number] 06 Completed 201112/30/2013 RECORDED 03/13/20 12 9:11AM BY BETZY KNOX I, [facility] 13:[facility] Shoulder joint pain 258213680 Completed 201112/30/2013 IMPRESSI ON: LIMITED MOTION AND IN ALOT OF APIN, PT TO SET UP APPT; RECORDED 03/13/20 12 9:01AM BY MARTY FIGUEROA ON/ADDEN DUM Sunshine Benson-Han cain, [facility] 6 13:46:44 Acute upper respirat ory infectio n [id number] Completed 201112/30/2013 IMPRESSI ON: VIRAL INFECTIO N TRIGGERI NG HER ASTHMA; RECORDED 03/13/20 12 9:01AM BY MARTY FIGUEROA ON/ADDEN DUM Sunshine Glading-D ilorenzo null, [facility] 6 13:46:44 Urinary incontin ence 719140610 Completed 201112/30/2013 RECORDED 03/13/20 12 9:02AM BY BETZY KNOX I ANNOTATI ON/ADDEN DUM Sunshine Glading-D ilorenzo null, [facility] 6 13:46:45 Acute asthma 918893520 Completed 201112/31/2013 RECORDED 03/13/20 12 9:02AM BY BETZY KNOX I ANNOTATI ON/ADDEN DUM Sunshine Glading-D ilorenzo null, [facility] 6 13:46:44 Screenin g for malignan t neoplasm of breast Completed 201112/31/2013 RECORDED 03/13/20 12 9:02AM BY BETZY KNOX I ANNOTATI ON/ADDEN DUM Sunshine Glading-D ilorenzo null, [facility] 6 13:46:45 Chest pain 21286409 Completed 201112/31/2013 IMPRESSI ON: HX OF WORKUP YEARS AGO, PT TO GET ME RECORDS, NOW WITH NONSPECI FIC SHARP SHORT LIVED CHEST PAIN AT REST RARELY; RECORDED 03/13/20 12 9:01AM BY BA FIGUEROAATI ON/ADDEN DUM Sunshine Glading-D ilorenzo null, [facility] 6 13:46:44 Screenin g for malignan t neoplasm of colon Completed 201112/31/2013 RECORDED 03/13/20 12 9:01AM BY BETZY KNOX I ANNOTATI ON/ADDEN DUM Sunshine Glading-D ilorenzo null, [facility] 6 13:46:45 Cough 85880932 Completed 201112/31/2013 IMPRESSI ON: FOLLOWED BY DR MACHADO; RECORDED 03/13/20 12 9:01AM BY BETZY KNOX I ANNOTATI ON/ADDEN DUM Sunshine Glading-D ilorenzo null, [facility] 6 13:46:44 Depressi ve disorder 72746758 Completed 201212/31/2013 IMPRESSI ON: LOW MOOD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 T81.89XA Appears to have normal healing but likely mildly delayed due to chronic issues. instructed to use antibiotic ointment and cover with a bandaid for a few days. If sx of fever, erythema swelling or drainage develop please call Dr. Ruiz's office. 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 0 cardiology is aware, she will get a fit bit and watch, pulse Early satiety 932741222 R68.81 pt with significan t diet change with much more vegetables , whole graines, cut out processed foods, could explain this but is getting a colonoscop y next week and pt to call over and let them know symptosm and consider upper endoscopy Intentiona l weight loss 962082489 R63.8 went vegan, losing weight, no concerns will discus with GI her early satiety and consider EGD next week [id number] Sunshine Julio C perez Main Office [address] [facility] [address] [place] [address] 04/21/2017 10:30:59 04/21/2017 11:42:38 Acute pharyngitis 978206442 J02.9 Upper resp iratory infection 75446447 J06.9 [id number] Sunshine TobiasLashay chris Main Office [address] [facility] [address] [place] [address] 10/15/2017 08:41:38 10/15/2017 09:52:06 Adult health examination 565397185 Z00.00 screening is utd, exercising more, eating vegan, feels so much better. Insomnia 962476550 G47.0 0 pt saw sleep medicine, had been on lunesta int he past but it lost efficacy. Pt had a negative sleep study. PT has been working with sleep medicine and they are trying different meds or combinatio ns of meds. Jesse-Jax los syndrome 592266326 Q79.6 much better on vegan diet Pain in pelvis 64711067 R10.2 right lower pelvic area ? hernia, will get Us of pelvis, if neg pt knows next stope is to see surgery for ? of hernia, recent colonoscop y was negative and report states scope was passed to the ileocecal valve Hypercholesterolemia 136 54782 E78.2 lower LDL on diet changes, is going vegan, will check fasting on vegan diet, not interested in a statin [id number] Sunshine Julio C chris Main Office [address] [facility] [address] [place] [address] 12/22/2017 13:51:38 12/22/2017 14:41:21 Generalized abdominal pain 545917393 R10.84 RUQ pain with intermitta nt RLQ [...] with GI for as soon as possible [id number] Sunshine Julio C chris Main Office [address] [facility] [address] [place] [address] 02/06/2018 08:37:21 02/06/2018 09:39:13 Insomnia 838463941 G47.00 chronic, continue meds Hyperlipidemia 58759862 E78.2 check fasting, elevated int he past., strong family hx of CAd, pt will review chola nd risk factors with cardiology Herpes labialis 3931780 B00.1 Immunization refused 275 365453 Z28.21 Headache 90449568 R51 2 weeks of headache, fatigue nausea, will check for tick born illnesses due to time of year, multiple vague symptoms Fatigue 48897915 R53.83 check labs, will also check lyme test Cardiomyopathy 26904106 I42.9 EF 40-45% and mild dilated aortic aorta, she had one episode of palpitatio ns, pt to see cardiology this week [id number] Sunshine perez Main Office [address] [place] [address] 06/05/2018 09:33:15 06/05/2018 10:20:13 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 working on keeping active, doing strengthen ing Jesse-Jax los syndrome 891822763 Q79.6 much better on vegan diet,s till with chronic pain, see hx about modalities to help with this including therapy Disorder o f gallbladder 39671848 K82.9 had had a HIDA scan and camera test, dx with biliary dyskinesia , followed now by Dr Calhoun Insomnia 673574803 G47.0 0 chronic, continue meds Spasm of back muscles 20 0267923 M62.830 [id number] Sunshine perez Main Office [address] [facility] [address] [place] [address] 09/11/2018 15:05:09 09/11/2018 15:50:50 Acute asthma 851048697 J45.901 saw pulmonary and she will start the xopenex. will hold on prednisone unless not improving, moving good air on lung exam today Cyst of kidney 410610526 N28.1 will order renal US to define [...] form 01/10, incidental finding on that too. [id number] Selene Sanchez Main Office [address] [place] [address] 10/08/2018 11:18:09 10/08/2018 12:08:52 Laceration of finger 438365171 S61.211A Laceration seems to be healing well [...] , will follow, has ov next week [id number] Aleyda Plata Main Office [address] [facility] [address] [place] [address] 10/14/2018 09:18:39 10/14/2018 10:01:29 Removal of suture 71283000 Z48.02 Sutures removed without any problem, would well healed, no infection. Steri strip applied, will avoid overuse of hand hiking this weekend. Has slight numbness of tip of finger, this may improve over the next few months but may be permanent, pt aware. Call if she has any concerns. Laceration of finger 274 925487 S61.219D Sutures removed without any problem, would well healed, no infection. Steri strip applied, will avoid overuse of hand hiking this weekend. Has slight numbness of tip of finger, this may improve over the next few months but may be permanent, pt aware. Call if she has any concerns. [id number] Sunshine perez Main Office [address] [facility] [address] [place] [address] 10/28/2018 13:05:24 10/28/2018 14:10:38 Pre-surgery evaluation 148875343 Z01.818 Pt is medically cleared for bilateral [...] surgery due to anxiety Jesse-Jax los syndrome 975657777 Q79.6 much better on vegan diet,s till with chronic pain, see hx about modalities to help with this including therapy Asthma 604145425 J45.90 9 stable now, sees pulmonary, had a flare a few months ago, continue singulair [id number] Sunshine BensonKaren chris Main Office [address] [facility] [address] [place] [address] 12/18/2018 12:51:04 12/18/2018 13:49:51 Adult health examination 547298410 Z00.00 pt is not interested in mammograms , we discussed this, I told her I recc mammograms annually, exercising more, eating vegan, feeling a bit tired. Jesse-Jax los syndrome 001167876 Q79.6 much better on vegan diet,s till with chronic pain, see hx about modalities to help with this including therapy Fibromyositis 04631831 M 79.7 working on keeping active, doing strengthen ing Hypercholesterolemia 136 42503 E78.2 LDL quite high in past, she had seen cardiology and discussed tx with them, will repeat level, Fatigue 19764400 R53.83 check labs, B12 due to eating vegan Incontinence of feces 72 962321 R15.9 see HPI, small amount of soiling, pt to see GI in a few weeks discuss with them, I gave a copy of MRI of LS spine, no evidence of a tethered cord, GI to evaluate [id number] Sunshine BensonKaren bauerchris Main Office [address] [facility] [address] [place] [address] 04/08/2019 08:46:52 04/08/2019 09:28:26 Herpes labialis 1801093 B00.1 refill med Jesse-Jax los syndrome 003461905 Q82.8 Vertigo 065276206 R42 med refilled Anxiety 66585619 F41.9 anxiety has really flared, she will use alprazolam as needed and will set up an appt with psychiatry for a med eval. pt states meds in past were not helpful, does not want to try zoloft, Insomnia 243792144 G47.0 0 chronic, continue meds [id number] Sunshine perez Main Office [address] [facility] [address] [place] [address] 05/15/2019 11:54:07 05/15/2019 12:30:25 Jesse-Danlos syndrome 281799737 Q82.8 Anxiety 82740544 F41.9 long talk, pt is seeing a counselor and I advised her she needs to see a psychiatri st to get on maintenanc e med for anxiety, has failed many in past, pt agrees,w ill talk with therapist about if she works with a psychiatri st, if not look at insurance [id number] Sunshine perez Main Office [address] [facility] [address] [place] [address] 06/18/2019 13:34:17 06/18/2019 14:14:55 Tendinitis of left wrist region 2438769108 8377727 M67.834 pt to ice, motrin and see hand ortho, she will make appt, limit use for now, brace is fine if feels comfortabl e Jesse-Jax los syndrome 118636703 Q82.8 [id number] Sunshine [facility] [address] [facility] [address] [place] [address] 12/04/2019 09:28:06 12/07/2019 09:14:39 Insomnia 683780321 G47.00 chronic, continue meds, she sleeps 3-4 hours some nights. Tremor 10703633 R25.1 notes in hand, head and shoulders at times. I advised pt to see neurology, last saw Charmaine Johnson in 05/2019. PT is reluctant to go into offices at this point, I recc she call and negotiate how to get evaluated Fatigue 49606703 R53.83 check labs, B12 due to eating vegan [id number] Sunshine BensonKaren singho [facility] [address] [facility] [address] [place] [address] 05/01/2020 12:57:59 05/05/2020 11:51:07 Spasm of back muscles 136352638 M62.830 refill med Insomnia 355594942 G47.0 0 chronic, continue meds, she sleeps 3-4 hours some nights. Asthma 024677208 J45.90 9 stable now, sees pulmonary, had a flare a few months ago, continue singulair Fatigue 44919462 R53.83 check labs, B12 due to eating vegan Pain in left knee 501650 9219 46010 M25.562 seeing ortho Hypercholesterolemia 136 25448 E78.2 LDL quite high in past, she had seen cardiology and discussed tx with them, will repeat level, [id number] Sunshine BensonTreyKaren perez [facility] [address] [facility] [address] [place] [address] 06/07/2020 10:17:04 06/09/2020 13:02:54 Anxiety 17737787 F41.9 pt with a flare of anxiety and PTSD, does not have a therapist but. I advised she get one, we will attempt to connect her with therapist from [facility] who works out of our office, Insomnia 847663297 G47.0 0 chronic, continue meds, she sleeps 3-4 hours some nights. continue med for insomnia Jesse-Jax los syndrome 037332116 Q82.8 treated by ortho Posttrauma tic stress disorder 53024684 F43.10 flared by recent political events, will get a counselor and short term use half lorazepam in am, 21 in afternoon, pt is aware of addictive potential, this is a short term plan to lower overall anxiety level [id number] Aleyda Boni [facility] [address] [facility] [address] [place] [address] 09/05/2020 12:59:45 09/05/2020 15:54:49 Counseling 448706024 Z71.9 Health advice, education or counseling done for COVID 19 Nausea 577092099 R11.0 rec flat gibran akosua prn - if no help, then prn zofran Headache 14603554 R51.9 likely SE of J&J vaccine, but has been without meloxicam x few days as per J&J rec's - if olsen persists into tomorrow, then advised her to resume meloxicam as her body will have had 2 full days to generate it's Ab response without tyl/nsaids in her system (as dir) [id number] Selene Sanchez Main Office [address] [facility] [address] [place] [address] 10/13/2020 13:03:54 10/13/2020 14:00:02 Neck pain 58902137 M54.2 has a small ? node Postural dizziness 74744 7008 R42 r/o stenosis [id number] Main Office [address] [facility] [address] [place] [address] 12/07/2020 11:26:43 12/07/2020 12:10:55 Right upper quadrant pain 683441436 R10.11 one day of pain, 3 days of nausea, check labs and US to look for cholecysti tis Cervical lymphadenopathy 923098495 R59.0 US with multiple small nodes, one palpable under left earlobe, will have ENT evaluate and review US Recurrent oral herpes simplex infection 635968222 B00.2 instructed pt to only take one [...] related to any of her RUQ pain [id number] Sunshine perez Main Office [address] [facility] [address] [place] [address] 02/28/2021 12:54:24 02/28/2021 14:00:09 Adult health examination 707606359 Z00.00 pt will get mammogram in a few months after most health providers are vaccinated , exercising more colonoscop y is utd Jesse-Jax los syndrome 013866482 Q82.8 treated by ortho for as needed injuries, walks when can, stairs in house. ASking about a strengthen ing program to help with overall strength, she will contact her doc at [facility] for a referral and plan Asthma 328056048 J45.90 9 persistent cough, see below Insomnia 726712194 G47.0 0 chronic, continue meds, she sleeps 3-4 hours some nights. continue med for insomnia Persistent cough 6394873 02 R05.3 pt thinks related to mold, coughing in office sats stable, refer to pulmonary and GI gets coughing when eating too, I will tx with prn robitussin with codeine for symptoms relief, pt needs CXR GI and pulm appt Lightheadedness 09188034 8 R42 got dizzy after coughing in office visit, BP nl, improved with fluids and rest was fine to drive when she left office [id number] Sunshine perez Main Office [address] [facility] [address] [facility] [place] [address] 05/10/2021 12:52:17 05/10/2021 13:31:43 Chronic cough 50875370 R05.[address] Ambriz, he ordered echo due to reduced diffusion capacity to look for pulmonary htn, and pt has asthma Moderate p ersistent asthma 910561393 J45.40 on inhalers and followed by Dr Ambriz Jesse-Jax los syndrome 287045142 Q82.8 Gastroesop hageal reflux disease 122451305 K21.9 Insomnia 131909320 G47.0 0 chronic, continue meds, she sleeps 3-4 hours some nights. continue med for insomnia Anxiety 69962040 F41.9 refill uses as needed Near syncope 989914882 R 55 pt iwll see cardiology , getting echo ordered by Dr Ambriz Spasm 36226583 R25.2 [id number] Sunshine perez [facility] [address] [facility] [place] [address] 06/29/2021 11:53:53 06/29/2021 16:03:31 Cough 67922176 R05.3 improving, combinatio n of mild exposure in asthma pt and esophageal issue, will see GI Lip swelling 180277208 K 13.0 blue area on lower lip, whens he bends over she notes it gets full and painful, when stands back up she notes it goes back to normal size, pt with Gertrudis Bays and sees vascular, she will set up an appt Jesse-Jxa los syndrome 338016843 Q82.8 pt is experienci ng multiple symptoms that she feels is related to dysautonom ia, is hoping to see Dr Kyle Sánchez in [place], I told pt they wanted me to order testing to autonomic dysregulat ion, I do not feel comfortabl e to knowledgab le and asked our assistant restaurant general manager Mary Abreu to call and ask if they can take it form here Moderate p ersistent asthma 638186078 J45.40 on inhalers and followed by Dr Ambriz [id number] Sunshine perez Main Office [address] [facility] [place] [address] 08/10/2021 11:27:41 08/10/2021 12:07:07 Recurrent oral herpes simplex infection 148863684 B00.2 instructed pt to only take one day (2 doses) of this if feeling a cold sore coming on Vertigo 705749398 R42 asked for refill, advised to use sparingly and discuss with ENT Jesse-Jax los syndrome 008683891 Q82.8 pt is experienci ng multiple symptoms that she feels is related to dysautonom ia, is hoping to see Dr Kyle Sánchez in [place], has autonomic testing for January but no visit with Dr Sánchez yet, I advised she call and ask for the appt even if before the testing. Fibromyositis 27465323 M 79.7 working on keeping active, doing strengthen ing Moderate p ersistent asthma 423256626 J45.40 on inhalers and followed by Dr Ambriz cough finally better [id number] Sunshine perez Main Office [address] [address] 09/14/2021 10:19:32 09/14/2021 11:27:43 Jesse-Danlos syndrome 051700482 Q82.8 plan is to see neurologalysha rahman in [place] at some point Fibromyositis 96829079 M 79.7 anxiety is very flared making symptoms worse Moderate p ersistent asthma 746036480 J45.40 on inhalers and followed by Dr Pb pappas Anxiety 25998358 F41.9 flared . pt is applying for a psychiatri c service dog which I fully endorse, letter written Posttrauma tic stress disorder 89518599 F43.10 pt to get a psychiatri c service animal. Panic attack 483091076 F 41.0 use benzo as needed [id number] Laxmi Oseguera PA-C [facility] [address] [address] 12/03/2021 08:55:50 12/03/2021 12:17:38 Exposure to SARS-CoV-2 068837557 Z20.822 Pt. is recommende d to have COVID PCR test today and as soon as tested positive , receive monoclonal ab treatment through Dr Ambriz, [place] [facility]. Jesse-Jax los syndrome 734997899 Q82.8 Moderate p ersistent asthma 423078220 J45.40 [id number] [facility] [address] [facility] [address] [place] [address] 12/26/2021 08:26:41 12/27/2021 08:16:36 Decrease in appetite 06606050 R63.0 losing weight, has seen GI and has nausea. will do a trial of prilosec and contact her GI again Jesse-Jax los syndrome 203768344 Q82.8 plan is to see neurologis t in [place] at some point Herpes labialis 5834001 B00.1 refill med Unintentio nal weight loss 209214683 R63.4 down 5lbs in 4 weeks and pt with a very poor appetitie, nausea, family hx of mom and cousin with pancreatic cancer. 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 low mood, no suicidal plans, pt wants a therapist and is open to a psychiatri st, is also interested in talking to them about a diagnosis of autism, my office will call her with possible leads, having trouble finding one on own [id number] Sunshine perez Main Office [address] [facility] [address] [place] [address] 03/14/2022 09:08:13 03/14/2022 09:57:34 Adult health examination 314209593 Z00.00 pt to get mammogram, she will arrange Jesse-Jax los syndrome 346913485 Q82.8 plan is to see neurologalysha rahman in [place] at some point Fibromyositis 62427570 M 79.7 anxiety is very flared making symptoms worse Moderate p ersistent asthma 172311841 J45.40 on inhalers and followed by Dr Pb pappas Insomnia 154019461 G47.0 0 chronic, continue meds, she sleeps 3-4 hours some nights. continue med for insomnia Anxiety 86436354 F41.9 pt is very anxious, she uses alprazolam half in am and then one for evening to help transition into sleep, she is in search of a psychiatri st but has not cricekt ble to find anyone on her plan. [id number] TANIKA GARCIA MD Main Office [address] [facility] [address] [place] [address] 08/15/2022 08:12:22 08/15/2022 08:56:09 Neuropathy 827110432 G62.9 - pt has been having bilateral [...] that time Pain of bi lateral hands 9365715241 4605069 M79.641 - ordered x-ray of the hands to ensure no underlying anomaly [id number] Sunshine perez Main Office [address] [facility] [address] [facility] [place] [address] 09/27/2022 15:58:34 09/27/2022 16:53:51 Jesse-Danlos syndrome 342506797 Q82.8 sees neurologalysha rahman in [place] at some point we discussed her talking to her neurologis t in [place] to get a provider to help with Jesse Danlos in [place], pt with a lot of musculoske letal complaints , fatigue, trying to work through cause andr elationshi p to Jesse Danlos Insomnia 864342195 G47.0 0 chronic, continue meds, she sleeps 3-4 hours some nights. continue med for insomnia Hypercholesterolemia 136 37010 E78.2 on meds by cardiology Disorder o f autonomic nervous system 52380147 G90.9 pt is followed by neurology for dysautonom ia Screening for malignant neoplasm of breast 007704591 Z12.39 pt to arrange Fatigue 02125572 R53.83 pt to esablish with a provider in [place] to help sort through symptoms. [id number] Aleyda Plata Main Office [address] [facility] [place] [address] 01/31/2023 08:55:20 01/31/2023 09:32:27 Jesse-Danlos syndrome 106061969 Q82.8 - pt follows with neurologalysha rahman in [place]- pt looking for a specific physical therapist to meet her current concerns Insomnia 243917490 G47.0 0 chronic, continue meds, she sleeps 3-4 hours some nights. continue med for insomnia Disorder o f autonomic nervous system [id number] G90.9 - pt is followed by neurology for dysautonom ia Nausea 659306409 R11.0 - worsened by most recent fall when patient hit her head Anxiety 93770183 F41.9 - refilled Accidental fall [id number] W19.XXXA - occurred on 01/29/23- pt [...] pt no longer having any symptoms Headache [id number] R51.9 [id number] TANIKA GARCIA MD Main Office [address] [facility] [address] [facility] [place] [address] 05/22/2023 14:32:51 05/22/2023 15:42:26 Cough 21254134 R05.9 x1 month of a persistent cough-has [...] e prn-discus sed conservati ve measuremen ts [id number] TANIKA GARCIA MD Main Office [address] [facility] [address] [facility] [place] [phone] 07/31/2023 09:20:14 07/31/2023 10:12:19 Blood in urine 43105182 R31.9 - ordered repeat UA and cytology> please note order for cytology was given to patient- ordered CBC to check on anemia and BMP to check on renal function- after cytology is reported will send patient for an ultrasound of bladder and kidney depending on results Jesse-Jax los syndrome [id number] Q82.8 - pt follows with regina rahman in [place]- pt looking for a specific physical therapist to meet her current concerns Insomnia [id number] G47.0 0 chronic, continue meds, she sleeps 3-4 hours some nights. continue med for insomnia Disorder o f autonomic nervous system 21602622 G90.9 - pt is followed by neurology for dysautonom ia Abdominal pain 83880434 R10.9 - pt has been having right [...] will request results Autism spe ctrum disorder 36371796 F84.9 - on patient request, believes she has autism, never diagnosed [id number] MARYJANE NUNEZ Main Office [address] [place] [address] 08/04/2023 07:47:12 08/07/2023 13:46:05 [id number] Aleyda Plata Main Office [address] [place] [address] 08/08/2023 09:03:27 08/08/2023 09:40:09 Transition of care [id number] 105 Z75.8 reviewed hospital documentat ion Sleep apnea 99795495 G47 .30 -was evaluated by sleep medicine in 2018 and advised to f/u on an prn basis-pt experienci ng difficulty with sleep maintenanc eper pt request will refer to sleep medicine Hemorrhoids 12188226 K64 .9 recent episodes of bright red blood on toilet paper- pt felt a bump around her anus-will provide hydorcorti sone topical cream and discussed conservati ve measuremen ts such as avoiding straining, minimize time spent sitting on toilet, diet adjustment s etc Right uppe r quadrant pain 682992111 R10.11 was evaluated at [facility] for RUQ pain; was advised to have elective cholecyste ctomy and f/u with outpatient -continues to have RUQ pain, less in severity-i s scheduled to have elective cholecyste ctomy on 09/01-on PE; tenderness to RUQ, no guarding, mass, or rebound tenderness appreciate d [id number] Zachariah Del Real MD Main Office [address] [place] [address] 12/20/2023 10:23:01 12/20/2023 11:35:03 Dyspnea 346751989 R06.00 This may be multifacto rial and related to her asthma, allergies and orthostati c hypotensio n. Cough 42287725 R05.9 She has an appointmen t with [...] Harrington Member ID Guarantor Name 05/22/2023 1 [facility] [id number] Kimo Simmons [id number] [facility] 07/31/2023 1 [facility] [id number] Kimo Simmons [id number] Kimo Simmons 08/04/2023 1 [facility] [id number] Kimo Simmons [id number] Kimo Simmons 08/08/2023 1 [facility] [id number] Kimo Simmons [id number] Kimo Simmons 12/20/2023 1 [facility] [id number] Kimo Simmons [id number] Kimo Simmons Notes Date Note Type Note Provider [...] chest pain, or SOB. TANIKA GARCIA MD [address] [address], [place], [address], [facility] 06/07/2023 17:28:16 07/31/2023 text/html Abdominal PainRe ported [...] 0Para: 0AB: 0Complications: TANIKA GARCIA MD [address] [address], [place], [address], [facility] 07/31/2023 12:38:43 08/04/2023 text/html Hospitalization Contact RecordReported bypatient.Follow UpHospital: [facility]; admit date: (Please enter in format 'MM/DD/YYYY') (08/02/2023); date of discharge: (Please enter in format 'MM/DD/YYYY') (08/03/2023); date of contact: (Please enter in format 'MM/DD/YYYY') (08/04/2023)Notes:[facility] care covered inpatient stay? noTOC with in 48 working hours? yes HCP on file? noMOLST on file? noDischarge Summary available? yesPt presented to [facility] ED with c/o abdominal pain. RUQ abdominal [...] own surgeon. MEDS RECONCILED MARYJANE NUNEZ [address] [facility] [address], [place], [address], [facility] 08/07/2023 13:46:04 08/08/2023 text/html Hospitalization Contact Record For follow up, patient reports hospital: [facility], admit date: (please enter in format 'mm/dd/yyyy') (08/02/2023), date of discharge: (08/03/2023), and date of contact: (08/04/2023). Medicare covered inpatient stay? noTOC with in 48 working hours? yesHCP on file? noMOLST on file? noDischarge Summary available? yes Pt presented to [facility] ED with c/o abdominal pain. RUQ abdominal [...] changes in bowel habits. Reports that Aleyda cain, [facility] [place] 08/13/2023 12:22:08 12/20/2023 text/html Having SOB which has been getting worse over the past few weeks. Also having a dry cough. Using xopenex which has not been helping. Negative for COVID this am. 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 In addition, she has orthostatic hypotension and is not on meds for this. She is followed by both cardiology and pulmonology and has an appointment with her roustabout crew pusher, Dr Ambriz on Friday (2 days from now). She denies f/c. Zachariah Del Real MD [address] [address], [place], [address], [facility] 12/21/2023 13:07:39 OBGyn Episode No OBEpisode recorded.
[2024-09-02 18:38] LABS: SARS COV2 IgG Negative (Negative)
[2024-09-03 14:42] LABS: SARS-COV-2 IgG Spike, Semi-Qnt >2500.0 H
== END 2024-08-30 10:35 | disposition home or self-care (01) ==
LOC: HO.LAB 10:34
PROVIDERS: PCP Student in an Organized Health Care Education/Training Program; Visit Provider Hospitalist
DX: U09.9 Post COVID-19 condition, unspecified (principal)
CPT/HCPCS: 36415; 86769

== ENCOUNTER 2024-09-02 10:57 | Outpatient (AMB) | payer OTHER, SELFPAY ==
--- NOTE | 2024-09-02 11:00 | A.OFFVIS_ITS ---
Vital Signs 09/02/24 11:02 Height 5 ft 11 in Weight 181 lb 14.102 oz BMI 25.4 BP 142/78 H Blood Pressure Location Lt brachial Position Sitting Pulse 79 Pulse Source Pulse Oximeter Pulse Oximetry (%) 99 Oxygen Delivery Method Room Air Intake Visit Reasons: Cough Allergies ciprofloxacin [From Cipro] Allergy (Severe, Verified 09/02/24 11:10) Anaphylaxis morphine Allergy (Severe, Verified 09/02/24 11:10) dizziness pyridostigmine Adverse Reaction (Intermediate, Verified 09/02/24 11:10) loss of bladder control HPI Comments Details: The patient is a 63-year-old woman with a known history of chronic cough. The patient has been evaluated by multiple practices for this chronic cough. Part of the workup included a methacholine challenge that demonstrated that she did have hyperreactive airways per report she was placed on asthma therapy without any significant improvement her. Subsequently after that she was diagnosed with Elisa Danlos Syndrome (EDS). she has significant GI issues significant reflux disease she follows closely with Gastroenterology. Sometimes a chronic cough can be severe with significant coughing spells resulting in rib fractures and also near syncope. The patient was provided with cough syrup with codeine that appears to be helpful for her control her cough. Her cough potentially has multiple triggers for 1 is when she breathes in. She also has known allergies including mold in addition to rec we had among other environmental allergens. She does follow closely with an miter sawyer for this. She has been on allergy medicine. She is currently not on any allergy shots. She was getting allergy shots prior to the pandemic and stopped during the pandemic and has not gone back to them. She is also concerned because she is in a heart is and is exposed to significant amount media. 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 I was able to review with her CT scan that she had of the chest from 2018 that demonstrated no evidence of any underlying interstitial lung disease to suggest pneumoconiosis. A at this point the patient is looking for to having a GI workup for her significant reflux disease. She understands the EDS ultimately results in significant risk for hiatal hernia as an reflux disease and potentially this could be contributing to to some degree to her underlying pulmonary symptoms. 01/16/2022 the patient is here for a pulmonary follow-up visit. Overall she is feeling about the same. She states that she has not been able to go to speech pathology because they had to reschedule. but, she will follow up. She continues to have daytime drowsiness. She does have episodes of choking up at nighttime. We did review home sleep study. He required more than 500 minutes. Her AHI was 3 therefore, the patient does not have any pathologic sleep apnea. She did have most of the apneic episodes when she was laying on her belly and also laying on her back. We did talk about positional therapy. The patient may also consider a oral mandibular device. She is concerned about the TMJ issue and she would like to hold off at this time. In addition to that we did review her CT scan of the chest. Patient does not have any evidence of any pneumonitis or any evidence of any pneumoconiosis specially silicosis with her exposure to glass art. No evidence of any calcifications of the lymph nodes either which can also be seen with silicosis. The patient does have some calcifications of the coronary arteries however. This is considered to be mild. She also has a very small pericardial effusion that she states that she has had in the past. She does have a edge baster. In addition to that it was noted that on limited upper abdominal cuts that she had multiple lesions on her liver that did not appear to be consistent with cyst. She does states that she has a history of hemangiomas of the liver. She did see a GI doctor in the past for. She needs to go back in readdress that issue. The patient does have small subcentimeter pulmonary nodules that will need follow-up in a year's time. 06/14/2022 the patient is here for a pulmonary follow-up visit. The patient had COVID back in April. She did end up taking Paxil a bit. She did tolerate the therapy. After she did have increased reactive airways with increased chest tightness and wheezing. She has been using his Xopenex inhaler more often with good response. But she is that he has been more of an issue. She has felt some chest tightness and some heaviness in the chest. She is reassured her oxygen levels are within normal limits. I 1 point she almost went to the ER because of the chest tightness. She did call a friend that advised her just to check her oxygen and then to just use her inhaler at that time. She also complains of some chest discomfort. It is reproducible in appears to be consistent with costochondritis. There is no need for an x-ray at this time. The patient now that she has more confidence with the fact that she tolerated COVID she has been trying to leave the house more often. She is very depressed just been quarantine at home for some many years. Now she feels comfortable leaving the house without a mask. I did reassure her that that is okay but just to use her judgment and specially in place that a crowded with poor ventilation that she should take additional precautions. We did review her last CT scan of the chest was back in December 2020 with multiple small 2-4 mm pulmonary nodules. She should be getting a CT scan a year after that that should be either late summer or early fall. The 09/05/2022 the patient is here for pulmonary follow-up visit. The patient overall is doing well. She appears to be more comfortable. She is still having the chest tightness sensation. Unfortunately, she did not want to use the Advair because she was short of the healthcare. Clinically the patient is doing well. Respiratory status seems to be better. Although I did explain to her that if she wants to try to improve the chest tightness and station she should at least try small dose of the Advair at least 1 puff daily. She can rinse. I did reassure her that the small amount of steroid was not affect her. Also, she can increase her antihistamine to twice a day at least for the month. She is also concerned about potential cognitive defects from the histamine therapy. I do believe that 1st generation antihistamines are more problematic with that. I do believe that is okay for her to double up on the Zyrtec just for a months that she would not result in any significant abnormalities. The patient does have an miter sawyer. However, due to the pandemic she will have to restart all her allergy shots since she has been off them for some time. 03/21/2023 the patient is here for a pulmonary follow-up visit. Overall the patient began doing fairly well from a respiratory status. She has been feeling a lot more stress. She is concerned about the health of her dog. She has been using her inhalers with good effect. She also did undergo a CT scan of the chest. We did personally viewed together. The pulmonary nodules have not changed which is reassuring. No additional CT scans for now. Six we did talk about a vaccine for the patient does need to get a flu shot. The patient also will consider the RSV vaccine in the future. She is up-to-date with the pneumonia vaccine. She does mention that when she was 30 she did developed varicella as [place] adult and she did have respiratory issues suggesting of a varicella pneumonia. She does have some calcifications within the lung parenchyma mentioned on the report likely related to the history of the viral pneumonia. 07/24/2023 the patient is here for a pulmonary follow-up visit. The patient overall has been doing better. She does complaint of some chest tightness and some difficulty with her singing voice. [id number] severity. She had stopped taking the Advair. I did explain to her the Advair be important specially going to her allergy season. She will go ahead and start the Advair this time. She also has a rescue inhaler that She does not typically use. She had been working with speech pathology. She states that while undergoing the evaluation she did not completed for particular reason the clear about. The refore I will make another referral for her to go back to speech therapy for her vocal cord dysfunction. 12/22/2023 the patient is here for a pulmonary follow-up visit. She has been having hard time with her breathing. Been the case for the last several days. She was exposed to cleaning agents. She is not sure that has something to do with it. she did have her adverse switched over to Symbicort because of insurance preference. However, not sure if she is going to do well on it because I do believe that the formoterol component will be difficult for her to tolerate. Is an unfortunate situation where her medications have to be adjusted specially when she is off sensitive to medication changes. She does have significant wheezing on examination. I did provide her with Xopenex nebulizer treatment in the office with some improvement in the cough and chest tightness. But, she still has significant tremulousness after the Xopenex even. Therefore she knows she can do less of the vial treatment if necessary. Heart rate silva went up to about 100 which is reassuring. The patient will start a prednisone course and will start her Xopenex nebs. In view that will hold off on starting the Symbicort specially with the tremulousness. Will go ahead and have her do a nursing visit in order for her to try the Symbicort in the office. If the patient has any difficulties with it will request a PA to go back on the Advair HFA. 01/29/2024 The patient is here for a pulmonary follow up visit. The patient is doing well overall respiratory status. She did start Symbicort. She tried in the office and she did tolerated. No significant tremulousness from it. She still has a cough at times. Some intermittent. We did to try to use the peak flow in order to try a delineated her symptoms are respiratory or non respiratory specially with her laryngeal issue. She did have evaluation with speech therapy. I am hopeful that she continues receiving speech therapy at this time. The patient is also having issues with her knees. She is going to need surgery. Therefore, she will continue with current respiratory therapy and she will follow-up after her knee surgery. The patient also has underlying pulmonary nodules. Her last CT scan was back in 02/12/2023 demonstrating subcentimeter pulmonary nodules unchanged from a year past. Will plan to repeat the CT scan sometime in the fall 2023 to make sure we follow up the nodules were couple years. If they do not show any significant changes then no additional serial imaging warranted. 05/04/2024 the patient is here for a pulmonary follow-up visit. Overall the patient has been doing well. She continues to have dyspnea on exertion though. Sometimes she has a hard time holding her breath as she works on her breathing technique. She is wondering if this has anything to do with the diffusion impairment. Her PFTs from previous demonstrated a moderate degree of pulmonary diffusion impairment of unclear etiology. She had a CT scan of the chest recently which I reviewed. Pulmonary nodules are stable. She has not minimal atelectasis and scarring in the left and right base but none not to warrant the degree of diffusion impairment. The patient also had an echocardiogram demonstrating normal RV function and pressures. And she also had a panel of blood work including hemoglobin demonstrating no evidence of any anemia. Therefore no clear explanation for the diffusing impairment except for the possibility of post COVID syndrome. COVID-19 has been shown to decrease the diffusion on a microscopic level. Therefore, will have her repeat the pulmonary function studies and see about getting her to pulmonary rehabilitation at this time specially since she has not recovered after having her knee surgery. The patient may also benefit from a cardiopulmonary exercise tolerance does if no clear explanation for the diffusion impairment occurs and if she does not get any significant relief from pulmonary rehabilitation. Exercise-induced pulmonary hypertension still differential. 09/02/2024 the patient is here for pulmonary follow-up visit. Overall the patient has been doing about the same. Still complains of dyspnea on exertion. She did undergo pulmonary function studies which we did review together and also compared to the 1 she had back in 2020. This PFT dense straight a reversible obstruction consistent with a diagnosis of asthma and also small airways disease. But, she also states that she has been evaluated for connective tissue disease and she is developing arthritic 80s. Multiple joints involvement. She does have a strong family history of connective tissue diseases. Therefore she is making a condition of the underlying possibility of connective tissue disease in her breathing. Explained to her that interstitial lung disease can manifest in the lungs in the form of follicular bronchiolitis. He has been very similar to asthma like symptoms. It will be difficult to differentiate between asthma and follicular bronchiolitis just because we need a biopsy. I do not believe a biopsy is warranted at this time specially since the treatment is the same for both. She should follow-up with Rheumatology regarding the potential diagnosis of the rheumatoid arthritis. In addition to that the patient will start nebulized therapy budesonide to help her with her small airways disease. The patient is also having significant daytime drowsiness. She does have the EDS and therefore redundant tissue that results in increased snoring. She feels like it is getting worse. She does have an elevated Lamont score of 11/24. The patient will benefit from an in-lab sleep study to assess her sleep apnea at this time. Will have her come back in 3-4 months to follow-up with the sleep study results and also we will request spirometry at that point after being budesonide therapy. 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 Liver lesion Coronary artery calcification Atelectasis Pericardial effusion Pulmonary nodules Diastolic dysfunction Abnormal PFTs (pulmonary function tests) Chronic cough Seasonal allergies Asthma EDS (Elisa-Danlos syndrome) Social History Patient Tobacco Use Status: Never used Tobacco Review of Systems Const Reports daytime sleepiness, Reports difficulty sleeping, Reports fatigue, Denies night sweats and Reports snoring ENT Denies change in voice, Reports vertigo, Reports dizziness, Reports hearing loss, Denies lip swelling, Denies mouth pain, Reports nasal congestion, Reports nasal discharge, Reports disequilibrium, Reports post nasal drip, Reports tinnitus and Denies tongue swelling Card Reports chest pain, Reports syncope, Reports lightheadedness and Reports dyspnea on exertion Resp Denies change in phlegm color, Denies chest congestion, Reports cough, Denies excessive phlegm production, Denies pain on inspiration, Denies pain with cough, Reports dyspnea on exertion, Reports snoring, Denies stridor and Reports wheezing GI Reports dyspepsia and Reports heartburn Musc Reports arthralgias, Reports joint swelling and Reports limited range of motion Neuro Denies Neuro-related abnormal movements, Reports vertigo, Reports dizziness, Reports syncope and Reports disequilibrium Psych Denies no additional complaints, Reports anxiety, Denies panic attacks, Denies homicidal ideation and Denies suicidal ideation Endo Reports fatigue Kaz/Lymph Denies easy bleeding and Denies lymphadenopathy Aller/Immun Denies lip swelling, Denies tongue swelling and Reports wheezing Physical Exam Vital Signs: Last Vital Signs Pulse 79 09/02/24 11:02 BP 142/78 H 09/02/24 11:02 Pulse Ox 99 09/02/24 11:02 Oxygen Delivery Method Room Air 09/02/24 11:02 BMI result Body Mass Index 25.4 Const General: in distress moderate and anxious HEENT Ears: TM's normal bilaterally and external ear abnormal Neck Neck: Yes normal visual inspection, Yes full ROM and Yes no lymphadenopathy Chest Chest palpation & inspection: normal inspection of the chest Resp Effort & Inspection: normal respiratory effort Auscultation: clear to auscultation bilaterally, no crackles, no rales, no rhonchi and no wheezes Cardio Rate: regular rate Rhythm: regular rhythm Heart sounds: S1 normal heart sound present and S2 normal heart sound present GI Palpation (GI): Soft to palpation and nontender Auscultation: normal bowel sounds Skin General skin exam: rashes and/or lesions noted Psych Affect: Anxious affect present Results Reviewed Results Reviewed: [address] [address] [address] Scan Report Signed Patient: Lisa Simmons MR#: [id number] : 1960 Acct:[id number] Age/Sex: 62 / F ADM Date: 02/11/23 Loc: HO.CT Attending Dr: Ramana Ambriz MD Ordering Physician: Ramana Ambriz MD Date of Service: 02/11/23 Procedure(s): CT chest wo IV con Accession Number(s): [id number] cc: Sunshine Vanegas; Ramana Ambriz MD~ EXAMINATION: CT CHEST WITHOUT CONTRAST CLINICAL INFORMATION: Pulmonary nodules COMPARISON: 01/07/2022 renal TECHNIQUE: Multidetector volumetric CT imaging of the chest was done. Axial MIP volume rendering provided. Sagittal and coronal reformatted images were obtained. This CT examination was performed using dose optimization techniques as appropriate, variously including the following: *Automated exposure control *Adjustment of mA and/or kV according to patient size (this includes techniques or standardized protocols for targeted exams where dose is matched to indication/reason for exam; i.e. extremities or head) *Use of iterative reconstruction technique DLP: 142 mGy-cm FINDINGS: TECHNICIAN INVENTORY SPECIALIST: Right humeral head bone anchor. Hyperinflated but clear lungs. No consolidations. LUNGS: Trachea and bronchi are patent. No consolidations. Scattered tiny calcifications. NODULES: RUL: No change 3 mm subpleural, 9:150, no change 3 mm, 9:201 MEDIASTINUM: Nonenlarged heterogeneous thyroid. No pathologic lymphadenopathy. Heart size within normal limits. Small pericardial effusion. Nonaneurysmal aorta with atherosclerotic calcifications. Nonenlarged pulmonary arteries. CORONARY ARTERY CALCIFICATION: Mild. PLEURA: There is no pleural effusion. No pleural mass or thickening. AXILLA: No lymphadenopathy. UPPER ABDOMEN: Unremarkable. OSSEOUS STRUCTURES: No suspicious osseous lesions. Right humeral head bone anchors. CT/CT chest wo IV con IMPRESSION: Stable pulmonary nodules at 1 year follow-up, none larger than 3 mm. No further follow-up recommended. Fleischner guidelines were followed. Dictated By: Xin Mcqueen MD Signed By: <Electronically signed by Xin Mcqueen MD in OV> 02/18/23 1117 DD/ 1415 TD/TT: Agronomy Manager: Assessment & Plan Assessment & Plan (1) Asthma: Code(s): J45.909 - Unspecified asthma, uncomplicated Category: Medical Qualifiers: Asthma complication type: uncomplicated Asthma persistence: persistent Asthma severity: moderate Qualified Code(s): J45.40 - Moderate persistent asthma, uncomplicated (2) Seasonal allergies: Code(s): J30.2 - Other seasonal allergic rhinitis Category: Medical (3) Chronic cough: Code(s): R05.3 - Chronic cough Category: Medical (4) Vocal cord dysfunction: Code(s): J38.3 - Other diseases of vocal cords Category: Medical (5) Dyspnea: Code(s): R06.00 - Dyspnea, unspecified Category: Medical Qualifiers: Dyspnea type: dyspnea on exertion Qualified Code(s): R06.09 - Other forms of dyspnea (6) Pulmonary nodules: Code(s): R91.8 - Other nonspecific abnormal finding of lung field Category: Medical (7) Atelectasis: Code(s): J98.11 - Atelectasis Category: Medical (8) EDS (Elisa-Danlos syndrome): Code(s): Q79.60 - Elisa-Danlos syndrome, unspecified Category: Medical (9) 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 If the patient continues to be symptomatic the will need an in-lab study Code(s): G47.33 - Obstructive sleep apnea (adult) (pediatric) Category: Medical Plan speech therapy to address her vocal cord dysfunction in view of her EDS stop Symbicort provided, start 1 puff q12 *ok to use as needed) Continue Xopex HFA as needed. start Budesonide via neb daily Continue gabapentin to 600 mg p.o. q.h.s. in lab PSG (home PSG not helpful, non diagnostic) Spirometry for the next visit Needs to get a covid vaccine, has no antibodies against the covid vaccine based on recent bloodwork F/U 3-4 months Medications: New budesonide 0.5 mg (2 mL) inhalation DAILY 60 mL 11RF 30 days COVID vac 24-25(12up)(Mod)(PF) 0.5 mL IM ONCE 1 ea 0RF 1 day I25.10 - Atherosclerotic heart disease of [place] coronary artery without angina pectoris, I25.84 - Coronary atherosclerosis due to calcified coronary lesion, J45.40 - Moderate persistent asthma, uncomplicated, K76.9 - Liver disease, unspecified Coding Level of Care Code Est Pt Level 5 (94391) Diagnoses Moderate persistent asthma without complication J45.40 Asthma complication type: uncomplicated Asthma persistence: persistent Asthma severity: moderate Seasonal allergies J30.2 Chronic cough R05.3 Vocal cord dysfunction J38.3 Dyspnea on exertion R06.09 Dyspnea type: dyspnea on exertion Pulmonary nodules R91.8 Atelectasis J98.11 EDS (Elisa-Danlos syndrome) Q79.60 [id number] syndrome U09.9 MARY (obstructive sleep apnea) G47.33 Time Spent (min) 45
[2024-09-02 11:02] VITALS: BP 142/78; PULSE 79; O2SAT 99; BMI 25.4
--- OUTSIDE RECORDS SUMMARY | 2024-09-02 13:10 | XMS_ITS ---
Author Organization [facility] Address [address] [place] [address] Care Team Providers Care Golf Club Facer Name Role Phone SUDHA FULTON Primary Care Provider Simran Reaves Unavailable [phone] Allergies Allergen (clinical drug ingredient) Drug/Non Drug [...] UROBILINOGEN Neg BILIRUBIN Trace BLOOD Trace Urinalysis, Complete-[id number] Reviewed date:01/07/2024 08:03:22 AM Interpretation: Performing Lab:[facility], [address] [place] [address], Phone - [phone], Director - Akbar Notes/Report: Specific [place] 1.020 1.005-1.030 pH 5.5 5.0-7.5 Urine-Color Yellow [...] Bacteria None seen None seen/Few Urine Culture, Routine-[id number] Reviewed date:01/07/2024 08:02:58 AM Interpretation: Performing Lab:[facility] [place], [address] [facility], [place], Phone - [phone], Director - Akbar Notes/Report: Urine Culture, Routine Final report Result 1 No growth [id number] IGP No Culture 30 Plus Reviewed date:01/09/2024 08:30:10 AM Interpretation: Performing Lab:[facility] [place], [address], [address], [place], Phone - [phone], Director - [facility] Notes/Report: Clinical Information:Vaginal/Cervical, LMP: Men o [id number] Dates / Results....12/02/18 NIL, Neg HPV Other..............Post Menopausal No. of containers..01 ThinPrep Vial DIAGNOSIS: NEGATIVE FOR INTRAEPITHELIAL LESION OR MALIGNANCY. CELLULAR CHANGES ASSOCIATED WITH ATROPHY ARE PRESENT. Specimen adequacy: Satisfactory for evaluation. Endocervical component may not be distinguished in cases of atrophy. Clinician provided ICD10: Z0 1.419 Performed by: Nico laguerre, Girls Swimming Coach ([facility]) . . Note: The Pap smear is [...] Reviewed date:01/07/2024 08:02:47 AM Interpretation: Performing Lab:[facility] [place], [address] [facility], [place], Phone - [phone], Director - Akbar Notes/Report: REASON FOR VISIT Annual PERSONAL BANKING REPRESENTATIVE Physical, Annual PERSONAL BANKING REPRESENTATIVE Physical 60-85+ Medications Medication SIG (Take, Route, [...] 300 MG TAKE 1 CAPSULE BY MO [facility] 4 TIMES A DAY Oral for [...] Status Risk Notes Problem Incomplete uterovaginal prolapse (594084129) Incomplete uterovaginal prolapse (N81.2) Active confirmed Problem Cystocele (403737710) Cystocele, unspecified (N81.10) Active confirmed Problem Herniation of rectum into vagina (011300908) Rectocele (N81.6) Active confirmed Problem Postmenopausal atrophic vaginitis (93306231) Postmenopausal atrophic vaginitis (N95.2) Active confirmed Problem Urinary incontinence (825834426) Unspecified urinary incontinence (R32) Active confirmed Vital Signs Temperature 98.1 degrees Fahrenheit 01/05/20 24 Blood pressure systolic 112 mm Hg 01/05/20 24 Blood pressure diastolic 78 mm Hg 024 Height 71.5 in 01/05/2024 Weight 168 lbs 01/05/2024 BMI 23.1 kg/m2 01/05/2024 Encounters Encounter Location Date Provider Diagnosis Total [address] [place] [address] 01/05/2024 Simran Barfield Encounter for gynecological examination [...] Reason: Provider Name:Simran griffith, 01/05/2025 11:00:00 AM, [address] [place] [address], [address], [place], [address], Progress Notes * Celeste RODRIGUEZRADOB: (63 yo F)Acc No.[id number]:01/05/2024 PROGRESS NOTES Patient:?Celeste RODRIGUEZ RA Appointment Provider:?Simran griffith M.D. :1960???Age:63 Y???Sex:Female D ate:01/05/2024 Address:[address] [place], [place] [id number] Subjective: * Chief Complaints: * ???Annual PERSONAL BANKING REPRESENTATIVE PhysicalAnnual PERSONAL BANKING REPRESENTATIVE Physical 60-85+ * HPI: ???New/Follow-up Patient Consult:? [...] adequate calcium via diet and supplementation ?Significant PERSONAL BANKING REPRESENTATIVE problems:?no significant systems support officer symptoms or problems * ROS:?general:?no?chest pain.?no?palpitations.?no?headache.?no?cough.?no?shortness of breath.?no?fever.?no?unexplained weight loss.?no?nausea/vomiting.?no?change in bowel movements.?no blood in stool.?no?genitourinary complaints.?no?skin complaints.? * Medical History:? 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 * ?Lab: Urinalysis ([facility] tion Date & Time - 01/05/2024) ? Value Reference Range ?NITRITE Neg * ?PH 5.0 * ?PROTEIN Trace * ?S.G 1.020 * ?WBC Small * ?GLUCOSE Neg * ?KETONES Neg * ?UROBILINOGEN Neg * ?BILIRUBIN Trace * ?BLOOD Trace * DCECY Oneal 01/05/2024 10:59:59 AM EDT > U/A and Urine C/S Sent ?Lab: Urinalysis, Complete-[id number]?Lab: Urine Culture, Routine-[id number] * Procedure Codes:? * Preventive Medicine:? ??YOUR PREVENTIVE WELLNESS PLAN:?Osteoporosis prevention?Calcium, D, strength training.?Breast Cancer Screening (Mammogram):?annually.?Cervical Cancer Screening (Pap Smear):?q 3 years with HPV screen.?Colorectal Cancer Screening:?q 10 years.? * Follow Up:?1 Year * Images: Billing Information: * Visit Code:? 81798 Preventive Care Est Pt. Age 65 and over. * Procedure Codes:? * Sign off status: Completed Addendum: * ? true * Appointment Provider:?Simran Barfield M.D. Date:?01/05/2024 Generated for Julian kumar/Miriam/eTransmluke on:?09/02/2024 01:09 PM EDT History and Physical Notes * HPI [...] ate calcium via diet and supplementation Significant PERSONAL BANKING REPRESENTATIVE problems:: n o significant systems support officer symptoms or problems Examination Category Sub-Category Detail [...]
--- OUTSIDE RECORDS SUMMARY | 2024-09-02 13:10 | XMS_ITS | Patient Health Record ---
Author Organization [facility] Address [address] [place] [address] Care Team Providers Care Switchboard Inspector Name Role Phone SUDHA FULTON Primary Care Provider Simran Reaves Unavailable [phone] Allergies Allergen (clinical drug ingredient) Drug/Non Drug [...] UROBILINOGEN Neg BILIRUBIN Trace BLOOD Trace Urinalysis, Complete-[id number] Reviewed date:01/07/2024 08:03:22 AM Interpretation: Performing Lab:[facility], [address] [place] [address], [place], Phone - [phone], Director - Akbar Notes/Report: Specific [place] 1.020 1.005-1.030 pH 5.5 5.0-7.5 Urine-Color Yellow [...] Bacteria None seen None seen/Few Urine Culture, Routine-[id number] Reviewed date:01/07/2024 08:02:58 AM Interpretation: Performing Lab:[facility] [place], [address] [facility], Phone - [phone], Director - Akbar Notes/Report: Urine Culture, Routine Final report Result 1 No growth [id number] IGP No Culture 30 Plus Reviewed date:01/09/2024 08:30:10 AM Interpretation: Performing Lab:[facility] [place], [address], [address], [place], Phone - [phone], Director - [facility] Notes/Report: Clinical Information:Vaginal/Cervical, LMP: Men o [id number] Dates / Results....12/02/18 NIL, Neg HPV Other..............Post Menopausal No. of containers..01 ThinPrep Vial DIAGNOSIS: NEGATIVE FOR INTRAEPITHELIAL LESION OR MALIGNANCY. CELLULAR CHANGES ASSOCIATED WITH ATROPHY ARE PRESENT. Specimen adequacy: Satisfactory for evaluation. Endocervical component may not be distinguished in cases of atrophy. Clinician provided ICD10: Z0 1.419 Performed by: Nico laguerre, Doctor Of Optometry (ASCP) . . Note: The Pap smear [...] Reviewed date:01/07/2024 08:02:47 AM Interpretation: Performing Lab:[facility] [place], [address] [facility], Phone - [phone], Director - Akbar Notes/Report: PDF Report Reviewed date:01/09/2024 08:31:05 AM Interpretation: Performing Lab:[facility] [place], [address], [address], [place], Phone - [phone], Director - [facility] Notes/Report: Clinical Information:Vaginal/Cervical, LMP: Men o [id number] Dates / Results....12/02/18 NIL, Neg HPV Other..............Post [...] Status Risk Notes Problem Postmenopausal atrophic vaginitis (82443531) Postmenopausal atrophic vaginitis (N95.2) Active confirmed Problem Incomplete uterovaginal prolapse (166166468) Incomplete uterovaginal prolapse (N81.2) Active confirmed Problem Herniation of rectum into vagina (175037429) Rectocele (N81.6) Active confirmed Problem Postmenopausal bleeding (58889550) Postmenopausal bleeding (N95.0) Active confirmed Problem Urinary incontinence (142660488) Unspecified urinary incontinence (R32) Active confirmed Problem Disorder of breast (46703072) Disorder of breast, unspecified (N64.9) Active confirmed Problem Cystocele (868499553) Cystocele, unspecified (N81.10) Active confirmed Problem Irregular menstruation (17961681) Irregular menstruation, unspecified (N92.6) Active confirmed Problem Unspecified menopausal and perimenopausal disorder (N95.9) Active confirmed Problem 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1) Active confirmed Diag Problem Asthma (disorder) (181059052) Asthma, unspecified, unspecified status (493.90) Active confirmed Major Problem Menopausal symptom (99447010) Symptomatic menopausal or female climacteric states (627.2) Active confirmed Major Problem Osteoarthritis (782382110) Osteoarthrosis, unspecified whether generalized or localized, unspecified site (715.90) Active confirmed Major Problem Muscle pain (58632514) Unspecified myalgia and myositis (729.1) Active confirmed Major Problem Gynecological examination normal (316608552900129) Routine gynecological examination (V72.31) Active confirmed Major Problem Screening for malignant neoplasm of colon (027851517) Special screening for malignant neoplasms, colon (V76.51) Active confirmed Major Vital Signs Temperature 98.1 degrees Fahrenheit 01/05/2024 Blood pressure diastolic 78 mm Hg 01/05/2024 Height 71.5 in 01/05/2024 Blood pressure systolic 112 mm Hg 01/05/2024 Weight 168 lbs 01/05/2024 BMI 23.1 kg/m2 01/05/2024 Encounters Encounter Location Date Provider Diagnosis Total [address] [place] [address] 01/05/2024 Simran Barfield Encounter for gynecological examination [...] duncandawsontana, 01/05/2025 11:00:00 AM, [address], [address], [place], [address], Insurance Providers Payer Name Payer Address Payer Phone Subscriber Number Group Number Insured Name Patient Relationship to Insured Coverage Start Date Coverage End Date R [address] [address] [place], [place] [id number] ARASH RODRIGUEZ Spouse - patient is [...]
--- OUTSIDE RECORDS SUMMARY | 2024-09-02 13:10 | XMS_ITS | Clinical Summary ---
Author Organization [facility] Address [address] [place] [address] Care Team Providers Care Load Tester Name Role Phone Tanika Garcia MD Primary [...] age to complete this topic Meningococcal B Vaccine Aged Out No l onger eligible based on patient's age to complete this topic RSV Immunization Patients Un genna 20 months Aged Out No longer eligible b ased on patient's age to complete this topic Varicella Vaccines Aged Out No longer eligible based on patient's age to complete this topic Medical Devices Implanted Type Area Yard Associate Device Identifier Shelf Expiration Date Model / Serial / Lot Cement Bone Surg Simplex Radiopq [facility] [id number] 092 Implanted:Qty: 1 on 02/19/2024 by Jason Jurado MD Left: Knee [employer] [id number] 08/23/2025 6191-1-010 / / [id number] Cement Bone Surg Simplex Radiopq Stry-How [id number] 092 Implanted:Qty: 1 on 02/19/2024 by Jason Jurado MD Left: Knee [employer] [id number] 08/23/2025 6191-1-010 / / [id number] Plug Bone Med Stry-How 1947-0-689-143 872 Implanted:Qty: 1 on 02/19/2024 by Jason Jurado MD Left: Knee [employer] [id number] 11/28/2028 6215-5-011 / / [id number] Knee Pat Asymmetric X3 [id number] Stry-How 4326-J-660-E-2 34050 Implanted:Qty: 1 on 02/19/2024 by Jason Jurado MD Left: Knee [employer] [id number] 04/05/2028 5551-G-320 -E / / [id number] Knee Fem Triathlon Cr 5-Lt Stry-How 2109-V-001-542 196 Implanted:Qty: 1 on 02/19/2024 by Jason Jurado MD Left: Knee [employer] [id number] 06/24/2027 5515-F-501 / / [id number] Knee Tib Insrt Ps-X3 2d9x86vv Stry-How 6305-J-618-534 751 Implanted:Qty: 1 on 02/19/2024 by Jason Jurado MD Left: Knee [employer] [id number] 08/09/2025 5532-G-513 / / [id number] Knee Insrt Tib Baseplate Sz 5 Stry-How 8692-U-[id number] 480 Implanted:Qty: 1 on 02/19/2024 by Jason Jurado MD Left: Knee [employer] [id number] 02/26/2028 5521-B-500 / / [id number] Knee Stem Cmnt Triathlon 12x50 Stry-How 9918-I-881-200 907 Implanted:Qty: 1 on 02/19/2024 by Jason Jurado MD Left: Knee [employer] [id number] 11/09/2028 5560-S-112 / / [id number] Care Teams Load Tester Relationship Specialty Start Date End Date Tanika Garcia MD [address] [address] PCP - General 12/17/23
--- OUTSIDE RECORDS SUMMARY | 2024-09-02 13:10 | XMS_ITS | Clinical Summary ---
Author Organization [facility] Address [address] [place] [address] Care Team Providers Care Earth Science Teacher Name Role Phone Unavailable Primary Care Provider [...] needed. 0 04/08/2023 Active Cholecalciferol 250 MCG (01380 UT) TABS Take 2,000 Units by mouth [...] this topic Medical Devices Implanted Type Area Commodity Analyst Device Identifier Shelf Expiration Date Model / Serial / Lot Cement Bone Surg Simplex Radiopq Stry-How [id number] 092 - [id number] Implanted:Qty: 1 on 02/19/2024 by Jason Jurado MD at [facility] Left: Knee [employer] [id number] 08/23/2025 6191-1-010 / / [id number] Cement Bone Surg Simplex Radiopq Stry-How 7703-8-204-114 092 - [id number] Implanted:Qty: 1 on 02/19/2024 by Jason Jurado MD at [facility] Left: Knee [employer] [id number] 08/23/2025 6191-1-010 / / [id number] Plug Bone Med Stry-How 1167-2-390-143 872 - [id number] Implanted:Qty: 1 on 02/19/2024 by Jason Jurado MD at [facility] Left: Knee [employer] [id number] 11/28/2028 6215-5-011 / / [id number] Knee Pat Asymmetric X3 Q85a92pk Stry-How 7806-R-427-E-2 49335 - [id number] Implanted:Qty: 1 on 02/19/2024 by Jason Jurado MD at [facility] Left: Knee [employer] [id number] 04/05/2028 5551-G-320 -E / / [id number] Knee Fem Triathlon Cr 5-Lt Stry-How 9467-I-721-542 196 - [id number] Implanted:Qty: 1 on 02/19/2024 by Jason Jurado MD at [facility] Left: Knee [employer] [id number] 06/24/2027 5515-F-501 / / [id number] Knee Tib Insrt Ps-X3 9f2w58bl Stry-How 4172-Z-531-534 751 - [id number] Implanted:Qty: 1 on 02/19/2024 by Jason Jurado MD at [facility] Left: Knee [employer] [id number] 08/09/2025 5532-G-513 / / [id number] Knee Insrt Tib Baseplate Sz 5 Stry-How 4583-U-824-548 480 - [id number] Implanted:Qty: 1 on 02/19/2024 by Jason Jurado MD at [facility] Left: Knee [employer] [id number] 02/26/2028 5521-B-500 / / [id number] Knee Stem Cmnt Triathlon 12x50 Stry-How 7430-Q-005-200 907 - [id number] Implanted:Qty: 1 on 02/19/2024 by Jason Jurado MD at [facility] Left: Knee [employer] [id number] 11/09/2028 5560-S-112 / / [id number] Explanted Type Area Commodity Analyst Device Identifier Shelf Expiration Date Model / Serial / Lot Left Knee Acl Screw Explanted:Qty: 1 on 02/19/2024 by Jason Jurado MD at [facility] Left: Knee Advance Directives For more information, please contact: [phone] Latest Code Status on File Code Status [...]
== END 2024-09-02 11:37 | disposition home or self-care (01) ==
LOC: HO.HPS 10:58
PROVIDERS: PCP Student in an Organized Health Care Education/Training Program; Visit Provider Hospitalist
DX: J45.40 Moderate persistent asthma, uncomplicated (principal); R05.3 Chronic cough; J38.3 Other diseases of vocal cords; R91.8 Other nonspecific abnormal finding of lung field; J98.11 Atelectasis; Q79.60 Ehlers-Danlos syndrome, unspecified; U09.9 Post COVID-19 condition, unspecified; G47.33 Obstructive sleep apnea (adult) (pediatric)
CPT/HCPCS: 99215

== ENCOUNTER → 2024-09-02 10:57 | Outpatient (BNVA) | payer OTHER, SELFPAY | PROVIDERS: PCP Student in an Organized Health Care Education/Training Program; Visit Provider Hospitalist ==

== ENCOUNTER 2024-12-01 11:06 | Outpatient (AMB) | payer OTHER, SELFPAY ==
[2024-12-01 11:09] VITALS: BP 100/70; PULSE 70; O2SAT 99
--- NOTE | 2024-12-01 11:09 | A.OFFVIS_ITS ---
Vital Signs 12/01/24 11:09 Height 5 ft 11 in BMI Reason not done Patient refused/unable BP 100/70 Blood Pressure Location Lt brachial Position Sitting Pulse 70 Pulse Source Pulse Oximeter Pulse Oximetry (%) 99 Oxygen Delivery Method Room Air Intake Visit Reasons: Cough Accompanied by: Self / Same As Patient Allergies ciprofloxacin (From Cipro) Allergy (Severe, Verified 12/01/24 11:13) Anaphylaxis morphine Allergy (Severe, Verified 12/01/24 11:13) dizziness pyridostigmine Adverse Reaction (Intermediate, Verified 12/01/24 11:13) loss of bladder control HPI Comments Details: The patient is a 64-year-old woman with a known history of chronic cough. The patient has been evaluated by multiple practices for this chronic cough. Part of the workup included a methacholine challenge that demonstrated that she did have hyperreactive airways per report she was placed on asthma therapy without any significant improvement her. Subsequently after that she was diagnosed with Elisa Danlos Syndrome (EDS). she has significant GI issues significant reflux disease she follows closely with Gastroenterology. Sometimes a chronic cough can be severe with significant coughing spells resulting in rib fractures and also near syncope. The patient was provided with cough syrup with codeine that appears to be helpful for her control her cough. Her cough potentially has multiple triggers for 1 is when she breathes in. She also has known allergies including mold in addition to rec we had among other environmental allergens. She does follow closely with an peoplesoft hr developer for this. She has been on allergy medicine. She is currently not on any allergy shots. She was getting allergy shots prior to the pandemic and stopped during the pandemic and has not gone back to them. She is also concerned because she is in a heart is and is exposed to significant amount media. 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 I was able to review with her CT scan that she had of the chest from 2018 that demonstrated no evidence of any underlying interstitial lung disease to suggest pneumoconiosis. A at this point the patient is looking for to having a GI workup for her significant reflux disease. She understands the EDS ultimately results in significant risk for hiatal hernia as an reflux disease and potentially this could be contributing to to some degree to her underlying pulmonary symptoms. 01/16/2022 the patient is here for a pulmonary follow-up visit. Overall she is feeling about the same. She states that she has not been able to go to speech pathology because they had to reschedule. but, she will follow up. She continues to have daytime drowsiness. She does have episodes of choking up at n ighttime. We did review home sleep study. He required more than 500 minutes. Her AHI was 3 therefore, the patient does not have any pathologic sleep apnea. She did have most of the apneic episodes when she was laying on her belly and also laying on her back. We did talk about positional therapy. The patient may also consider a oral mandibular device. She is concerned about the TMJ issue and she would like to hold off at this time. In addition to that we did review her CT scan of the chest. Patient does not have any evidence of any pneumonitis or any evidence of any pneumoconiosis specially silicosis with her exposure to glass art. No evidence of any calcifications of the lymph nodes either which can also be seen with silicosis. The patient does have some calcifications of the coronary arteries however. This is considered to be mild. She also has a very small pericardial effusion that she states that she has had in the past. 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 In addition to that it was noted that on limited upper abdominal cuts that she had multiple lesions on her liver that did not appear to be consistent with cyst. She does states that she has a history of hemangiomas of the liver. She did see a GI doctor in the past for. She needs to go back in readdress that issue. The patient does have small subcentimeter pulmonary nodules that will need follow-up in a year's time. 06/14/2022 the patient is here for a pulmonary follow-up visit. The patient had COVID back in April. She did end up taking Paxil a bit. She did tolerate the therapy. After she did have increased reactive airways with increased chest tightness and wheezing. She has been using his Xopenex inhaler more often with good response. But she is that he has been more of an issue. She has felt some chest tightness and some heaviness in the chest. She is reassured her oxygen levels are within normal limits. I 1 point she almost went to the ER because of the chest tightness. She did call a friend that advised her just to check her oxygen and then to just use her inhaler at that time. She also complains of some chest discomfort. It is reproducible in appears to be consistent with c ostochondritis. There is no need for an x-ray at this time. The patient now that she has more confidence with the fact that she tolerated COVID she has been trying to leave the house more often. She is very depressed just been quarantine at home for some many years. Now she feels comfortable leaving the house without a mask. I did reassure her that that is okay but just to use her judgment and specially in place that a crowded with poor ventilation that she should take additional precautions. We did review her last CT scan of the chest was back in December 2020 with multiple small 2-4 mm pulmonary nodules. She should be getting a CT scan a year after that that should be either late summer or early fall. The 09/05/2022 the patient is here for pulmonary follow-up visit. The patient oral tavarez is doing well. She appears to be more comfortable. She is still having the chest tightness sensation. Unfortunately, she did not want to use the Advair because she was short of the healthcare. Clinically the patient is doing well. Respiratory status seems to be better. Although I did explain to her that if she wants to try to improve the chest tightness and station she should at least try small dose of the Advair at least 1 puff daily. She can rinse. I did reassure her that the small amount of steroid was not affect her. Also, she can increase her antihistamine to twice a day at least for the month. She is also concerned about potential cognitive defects from the histamine therapy. I do believe that 1st generation antihistamines are more problematic with that. I do believe that is okay for her to double up on the Zyrtec just for a months that she would not result in any significant abnormalities. The patient does have an peoplesoft hr developer. However, due to the pandemic she will have to restart all her allergy shots since she has been off them for some time. 03/21/2023 the patient is here for a pulmonary follow-up visit. Overall the patient began doing fairly well from a respiratory status. She has been feeling a lot more stress. She is concerned about the health of her dog. She has been using her inhalers with good effect. She also did undergo a CT scan of the chest. We did personally viewed together. The pulmonary nodules have not changed which is reassuring. No additional CT scans for now. Six we did talk about a vaccine for the patient does need to get a flu shot. The patient also will consider the RSV vaccine in the future. She is up-to-date with the pneumonia vaccine. She does mention that when she was 30 she did developed varicella as Magalys adult and she did have respiratory issues suggesting of a varicella pneumonia. She does have some calcifications within the lung parenchyma mentioned on the report likely related to the history of the viral pneumonia. 07/24/2023 the patient is here for a pulmonary follow-up visit. The patient overall has been doing better. She does complaint of some chest tightness and some difficulty with her singing voice. [id number] severity. She had stopped taking the Advair. I did explain to her the Advair be important specially going to her allergy season. She will go ahead and start the Advair this time. She also has a rescue inhaler that She does not typically use. She had been working with speech pathology. She states that while undergoing the evaluation she did not completed for particular reason the clear about. Therefore I will make another referral for her to go back to speech therapy for her vocal cord dysfunction. 12/22/2023 the patient is here for a pulmonary follow-up visit. She has been having hard time with her breathing. Been the case for the last several days. She was exposed to cleaning agents. She is not sure that has something to do with it. she did have her adverse switched over to Symbicort because of insurance preference. However, not sure if she is going to do well on it because I do believe that the formoterol component will be difficult for her to tolerate. Is an unfortunate situation where her medications have to be adjusted specially when she is off sensitive to medication changes. She does have significant wheezing on examination. I did provide her with Xopenex nebulizer treatment in the office with some improvement in the cough and chest tightness. But, she still has significant tremulousness after the Xopenex even. Therefore she knows she can do less of the vial treatment if necessary. Heart rate silva went up to about 100 which is reassuring. The patient will start a prednisone course and will start her Xopenex nebs. In view that will hold off on starting the Symbicort specially with the tremulousness. Will go ahead and have her do a nursing visit in order for her to try the Symbicort in the office. If the patient has any difficulties with it will request a PA to go back on the Advair HFA. 01/29/2024 The patient is here for a pulmonary follow up visit. The patient is doing well overall respiratory status. She did start Symbicort. She tried in the office and she did tolerated. No significant tremulousness from it. She still has a cough at times. Some intermittent. We did to try to use the peak flow in order to try a delineated her symptoms are respiratory or non respiratory specially with her laryngeal issue. She did have evaluation with speech therapy. I am hopeful that she continues receiving speech therapy at this time. The patient is also having issues with her knees. She is going to need surgery. Therefore, she will continue with current respiratory therapy and she will follow-up after her knee surgery. The patient also has underlying pulmonary nodules. Her last CT scan was back in 02/12/2023 demonstrating subcentimeter pulmonary nodules unchanged from a year past. Will plan to repeat the CT scan sometime in the fall 2023 to make sure we follow up the nodules were couple years. If they do not show any significant changes then no additional serial imaging warranted. 05/04/2024 the patient is here for a pulmonary follow-up visit. Overall the patient has been doing well. She continues to have dyspnea on exertion though. Sometimes she has a hard time holding her breath as she works on her breathing technique. She is wondering if this has anything to do with the diffusion impairment. Her PFTs from previous demonstrated a moderate degree of pulmonary diffusion impairment of unclear etiology. She had a CT scan of the chest recently which I reviewed. Pulmonary nodules are stable. She has not minimal atelectasis and scarring in the left and right base but none not to warrant the degree of diffusion impairment. The patient also had an echocardiogram demonstrating normal RV function and pressures. And she also had a panel of blood work including hemoglobin demonstrating no evidence of any anemia. Therefore no clear explanation for the diffusing impairment except for the possibility of post COVID syndrome. COVID-19 has been shown to decrease the diffusion on a microscopic level. Therefore, will have her repeat the pulmonary function studies and see about getting her to pulmonary rehabilitation at this time specially since she has not recovered after having her knee surgery. The patient may also benefit from a cardiopulmonary exercise tolerance does if no clear explanation for the diffusion impairment occurs and if she does not get any significant relief from pulmonary rehabilitation. Exercise-induced pulmonary hypertension still differential. 09/02/2024 the patient is here for pulmonary follow-up visit. Overall the patient has been doing about the same. Still complains of dyspnea on exertion. She did undergo pulmonary function studies which we did review together and also compared to the 1 she had back in 2020. This PFT dense straight a reversible obstruction consistent with a diagnosis of asthma and also small airways disease. But, she also states that she has been evaluated for connective tissue disease and she is developing arthritic 80s. Multiple joints involvement. She does have a strong family history of connective tissue diseases. Therefore she is making a condition of the underlying possibility of connective tissue disease in her breathing. Explained to her that interstitial lung disease can manifest in the lungs in the form of follicular bronchiolitis. He has been very similar to asthma like symptoms. It will be difficult to differentiate between asthma and follicular bronchiolitis just because we need a biopsy. I do not believe a biopsy is warranted at this time specially since the treatment is the same for both. She should follow-up with Rheumatology regarding the potential diagnosis of the rheumatoid arthritis. In addition to that the patient will start nebulized therapy budesonide to help her with her small airways disease. The patient is also having significant daytime drowsiness. She does have the EDS and therefore redundant tissue that results in increased snoring. She feels like it is getting worse. She does have an elevated [place] score of 11/24. The patient will benefit from an in-lab sleep study to assess her sleep apnea at this time. Will have her come back in 3-4 months to follow-up with the sleep study results and also we will request spirometry at that point after being budesonide therapy. 12/01/2024 the patient is here for a pulmonary follow-up visit. Overall she is doing okay. She is following closely with her dysautonomia doctor in [place]. They do have a good overall plan with the trying to control her hypotensive episodes with more holistic approaches. In addition to that the patient has been noticing some episodes of bradycardia. Although not often if anything seldom. She will follow-up with the certified detention deputy soon. She has already had Holter monitors. She feels in attributes it to her this had an Ommaya issues. As far as her breathing she does have asthma she does have a rescue inhaler she can use as needed and also her nebulizer therapy that she can use. But for now she seems to be doing okay. There is a seasonal component to his specially with the allergies in the springtime and also late in the summer with ragweed. She also has allergies to mold but she tries to minimize mold exposure. Therefore, will try to deescalate some of her therapies to the months although seasons that she has more difficulties around. I we will send her additional prescriptions right now. We did review her sleep study. The patient did have some episodes of sleep apnea but this study was probably nondiagnostic. At some point if she continues after daytime drowsiness we can consider an in-lab sleep study. We did review her pulmonary function studies demonstrating a reversible obstruction consistent with her asthma. At this point will follow-up in late winter or early spring just before her asthma worsens. 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 Liver lesion Coronary artery calcification Atelectasis Pericardial effusion Pulmonary nodules Diastolic dysfunction Abnormal PFTs (pulmonary function tests) Chronic cough Seasonal allergies Asthma EDS (Elisa-Danlos syndrome) Social History Patient Tobacco Use Status: Never used Tobacco Review of Systems Const Reports daytime sleepiness, Reports difficulty sleeping, Reports fatigue, Denies night sweats and Reports snoring ENT Denies change in voice, Reports vertigo, Reports dizziness, Reports hearing loss, Denies lip swelling, Denies mouth pain, Reports nasal congestion, Reports nasal discharge, Reports disequilibrium, Reports post nasal drip, Reports tinnitus and Denies tongue swelling Card Reports chest pain, Reports syncope, Reports lightheadedness and Reports dyspnea on exertion Resp Denies change in phlegm color, Denies chest congestion, Reports cough, Denies excessive phlegm production, Denies pain on inspiration, Denies pain with cough, Reports dyspnea on exertion, Reports snoring, Denies stridor and Reports wheezing GI Reports dyspepsia and Reports heartburn Musc Reports arthralgias, Reports joint swelling and Reports limited range of motion Neuro Denies Neuro-related abnormal movements, Reports vertigo, Reports dizziness, Reports syncope and Reports disequilibrium Psych Denies no additional complaints, Reports anxiety, Denies panic attacks, Denies homicidal ideation and Denies suicidal ideation Endo Reports fatigue Kaz/Lymph Denies easy bleeding and Denies lymphadenopathy Aller/Immun Denies lip swelling, Denies tongue swelling and Reports wheezing Physical Exam Vital Signs: Last Vital Signs Pulse 70 12/01/24 11:09 BP 100/70 12/01/24 11:09 Pulse Ox 99 12/01/24 11:09 Oxygen Delivery Method Room Air 12/01/24 11:09 Const General: in distress moderate and anxious HEENT Ears: TM's normal bilaterally and external ear abnormal Neck Neck: Yes normal visual inspection, Yes full ROM and Yes no lymphadenopathy Chest Chest palpation & inspection: normal inspection of the chest Resp Effort & Inspection: normal respiratory effort Auscultation: clear to auscultation bilaterally, no crackles, no rales, no rhonchi and no wheezes Cardio Rate: regular rate Rhythm: regular rhythm Heart sounds: S1 normal heart sound present and S2 normal heart sound present GI Palpation (GI): Soft to palpation and nontender Auscultation: normal bowel sounds Skin General skin exam: rashes and/or lesions noted Psych Affect: Anxious affect present Assessment & Plan Assessment & Plan (1) Asthma: Code(s): J45.909 - Unspecified asthma, uncomplicated Category: Medical Qualifiers: Asthma complication type: uncomplicated Asthma persistence: persistent Asthma severity: moderate Qualified Code(s): J45.40 - Moderate persistent asthma, uncomplicated (2) Seasonal allergies: Code(s): J30.2 - Other seasonal allergic rhinitis Category: Medical (3) Chronic cough: Code(s): R05.3 - Chronic cough Category: Medical (4) Vocal cord dysfunction: Code(s): J38.3 - Other diseases of vocal cords Category: Medical (5) Dyspnea: Code(s): R06.00 - Dyspnea, unspecified Category: Medical Qualifiers: Dyspnea type: dyspnea on exertion Qualified Code(s): R06.09 - Other forms of dyspnea (6) Pulmonary nodules: Code(s): R91.8 - Other nonspecific abnormal finding of lung field Category: Medical (7) Atelectasis: Code(s): J98.11 - Atelectasis Category: Medical (8) EDS (Elisa-Danlos syndrome): Code(s): Q79.60 - Elisa-Danlos syndrome, unspecified Category: Medical (9) 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 If the patient continues to be symptomatic the will need an in-lab study Code(s): G47.33 - Obstructive sleep apnea (adult) (pediatric) Category: Medical Plan speech therapy to address her vocal cord dysfunction in view of her EDS Continue Xopex HFA as needed. Budesonide via neb daily if symptoms worsen consider in lab PSG (home PSG not helpful, non diagnostic) Zyrtec as needed ok to use the singulair seasonally F/U 8 months Medications: New levalbuterol tartrate 45 mcg/actuation (Xopenex HFA) 2 puffs inhalation Q6H PRN 15 grams 11RF shortness of breath or wheezing 30 days J45.909 - Unspecified asthma, uncomplicated Refilled levalbuterol HCl 1.25 mg (3 mL) inhalation BID 180 mL 5RF 30 days J44.9 - Chronic obstructive pulmonary disease, unspecified Coding Level of Care Code Est Pt Level 4 (82555) Complex EM visit Add On G2211 Diagnoses Moderate persistent asthma without complication J45.40 Asthma complication type: uncomplicated Asthma persistence: persistent Asthma severity: moderate Seasonal allergies J30.2 Chronic cough R05.3 Vocal cord dysfunction J38.3 Dyspnea on exertion R06.09 Dyspnea type: dyspnea on exertion Pulmonary nodules R91.8 Atelectasis J98.11 EDS (Elisa-Danlos syndrome) Q79.60 [id number] syndrome U09.9 MARY (obstructive sleep apnea) G47.33 Time Spent (min) 18
--- OUTSIDE RECORDS SUMMARY | 2024-12-01 12:20 | XMS_ITS | Clinical Summary ---
Author Organization [facility] Address [address] [place] [address] Care Team Providers Care Criminal Justice Faculty Name Role Phone Unavailable Primary Care Provider [...] needed. 0 04/08/2023 Active Cholecalciferol 250 MCG (60579 UT) TABS Take 2,000 Units by mouth [...] 70 02/20/2024 8:28 AM EDT Temperature 36.2 C (97.2 F) 02/20/2024 8:28 AM EDT Respiratory Rate 16 02/20/2024 8:28 AM EDT [...] years 1-dose series) 2020 Influenza Vaccine (#1) 2025 Pneumococcal Vaccine Completed 12/25/2023 Pneumococcal Vaccine Completed 12/25/2023 Hepatitis C Screening Completed 12/30/2023 Hepatitis B Vaccines Aged Out No long er eligible based on patient's age to complete this topic RSV Ped < 20 months Aged Out No longe r eligible based on patient's age to complete this topic Medical Devices Implanted Type Area Flight Communications Specialist Device Identifier Shelf Expiration Date Model / Serial / Lot Cement Bone Surg Simplex Radiopq Stry-How 3310-9-281-114 092 - [id number] Implanted:Qty: 1 on 02/19/2024 by Jason Jurado MD at [facility] [facility] Left: Knee [employer] [id number] 08/23/2025 6191-1-010 / / [id number] Cement Bone Surg Simplex Radiopq Stry-How 4656-8-562-114 092 - [id number] Implanted:Qty: 1 on 02/19/2024 by Jason Jurado MD at [facility] [place] Left: Knee [employer] [id number] 08/23/2025 6191-1-010 / / [id number] Plug Bone Med Stry-How 0229-9-874-143 872 - [id number] Implanted:Qty: 1 on 02/19/2024 by Jason Jurado MD at [facility] Left: Knee [employer] [id number] 11/28/2028 6215-5-011 / / [id number] Knee Pat Asymmetric X3 [id number] Stry-How 6154-N-865-E-2 59607 - [id number] Implanted:Qty: 1 on 02/19/2024 by Jason Jurado MD at [facility] Left: Knee [employer] [id number] 04/05/2028 5551-G-320 -E / / [id number] Knee Fem Triathlon Cr 5-Lt Stry-How 9231-J-426-542 196 - [id number] Implanted:Qty: 1 on 02/19/2024 by Jason Jurado MD at [facility] Left: Knee [employer] [id number] 06/24/2027 5515-F-501 / / [id number] Knee Tib Insrt Ps-X3 3m1s27ig Stry-[facility] 1484-E-861-534 751 - [id number] Implanted:Qty: 1 on 02/19/2024 by Jason Jurado MD at [facility] Left: Knee [employer] [id number] 08/09/2025 5532-G-513 / / [id number] Knee Insrt Tib Baseplate Sz 5 Stry-How 6051-V-070-548 480 - [id number] Implanted:Qty: 1 on 02/19/2024 by Jason Jurado MD at [facility] Left: Knee [employer] [id number] 02/26/2028 5521-B-500 / / [id number] Knee Stem Cmnt Triathlon 12x50 Stry-How 6868-G-024-200 907 - [id number] Implanted:Qty: 1 on 02/19/2024 by Jason Jurado MD at [facility] Left: Knee [employer] [id number] 11/09/2028 5560-S-112 / / [id number] Explanted Type Area [employer] Specialist Device Identifier Shelf Expiration Date Model / Serial / Lot Left Knee Acl Screw Explanted:Qty: 1 on 02/19/2024 by Jason Jurado MD at [facility] Left: Knee Advance Directives For more information, please contact: [phone] Latest Code Status on File Code Status [...]
--- OUTSIDE RECORDS SUMMARY | 2024-12-01 12:20 | XMS_ITS | Patient Health Record ---
Author Organization [facility] Address [address] [place] [address] Care Team Providers Care Psychiatric Assistant Name Role Phone SUDHA FULTON Primary Care Provider Simran Reaves Unavailable [phone] Allergies Allergen (clinical drug ingredient) Drug/Non Drug [...] UROBILINOGEN Neg BILIRUBIN Trace BLOOD Trace Urinalysis, Complete-[id number] Reviewed date:01/07/2024 08:03:22 AM Interpretation: Performing Lab:[facility], [address] [place] [address], [place], Phone - [phone], Director - Akbar Notes/Report: Specific [place] 1.020 1.005-1.030 pH 5.5 5.0-7.5 Urine-Color Yellow [...] Bacteria None seen None seen/Few Urine Culture, Routine-[id number] Reviewed date:01/07/2024 08:02:58 AM Interpretation: Performing Lab:[facility] [place], [address], Phone - [phone], Director - Akbar Notes/Report: Urine Culture, Routine Final report Result 1 No growth [id number] IGP No Culture 30 Plus Reviewed date:01/09/2024 08:30:10 AM Interpretation: Performing Lab:[facility], [address], [address], [place], Phone - [phone], [facility] Notes/Report: Clinical Information:Vaginal/Cervical, LMP: Men o [id number] Dates / Results....12/02/18 NIL, Neg HPV Other..............Post Menopausal No. of containers..01 ThinPrep Vial DIAGNOSIS: NEGATIVE FOR INTRAEPITHELIAL LESION OR MALIGNANCY. CELLULAR CHANGES ASSOCIATED WITH ATROPHY ARE PRESENT. Specimen adequacy: Satisfactory for evaluation. Endocervical component may not be distinguished in cases of atrophy. Clinician provided ICD10: Z0 1.419 Performed by: Nico laguerre, Public Works Inspector (ASCP) . . Note: The Pap smear [...] Reviewed date:01/07/2024 08:02:47 AM Interpretation: Performing Lab:[facility] [place], [address] [facility], Phone - [phone], Director - Akbar Notes/Report: PDF Report Reviewed date:01/09/2024 08:31:05 AM Interpretation: Performing Lab:[facility] [place], [address], [address], [place], Phone - [phone], Director - [facility] Notes/Report: Clinical Information:Vaginal/Cervical, LMP: Men o [id number] Dates / Results....12/02/18 NIL, Neg HPV Other..............Post Menopausal No. of containers..01 ThinPrep Vial Reason For Referral No Information Medications Medication SIG (Take, Route, Frequency, Duration) Notes Start Date End Date Status valACYclovir HCl 1 GM TAKE 1 TABLET BY M OUTH TWICE A DAY Oral; Duration: 30 Days Active tiZANidine HCl 4 MG TAKE 1 TABLET BY SAMANTHA TH EVERY 6 HOURS NEEDED MUSCLE SPASMS Oral; Duration: 7 Days Active Gabapentin 300 MG TAKE 1 CAPSULE BY MO UTH 4 TIMES A DAY Oral; Duration: 30 Days Active Meloxicam 15 MG TAKE 1 TABLET BY SAMANTHA TH EVERY DAY Oral; Duration: 30 Days Active Eszopiclone 3 MG TAKE 1 TABLET BY SAMANTHA TH DAILY Oral; Duration: 30 Days Active ALPRAZolam 1 MG TAKE 1 AND 1/2 TABLE TS (1.5 MG TOTAL) BY MOUTH DAILY. TAKE 1/2 TAB AT LUNCH AND 1 TAB AT BEDTIME Oral; Duration: 30 Days Active Montelukast Sodium 10 MG 1 tablet in the evening Orally Once a day Active Xopenex Active Acyclovir 5 % APPLY TOPICALLY 1 APPLICATION 5 TIMES DAILY FOR 4 DAYS External; Duration: 6 Days Active Social History Tobacco Use: [...] Status Risk Notes Problem Postmenopausal atrophic vaginitis (07786944) Postmenopausal atrophic vaginitis (N95.2) Active confirmed Problem Incomplete uterovaginal prolapse (587719608) Incomplete uterovaginal prolapse (N81.2) Active confirmed Problem Herniation of rectum into vagina (037602786) Rectocele (N81.6) Active confirmed Problem Postmenopausal bleeding (53749409) Postmenopausal bleeding (N95.0) Active confirmed Problem Urinary incontinence (114624472) Unspecified urinary incontinence (R32) Active confirmed Problem Disorder of breast (11357911) Disorder of breast, unspecified (N64.9) Active confirmed Problem Cystocele (012574964) Cystocele, unspecified (N81.10) Active confirmed Problem Irregular menstruation (03600663) Irregular menstruation, unspecified (N92.6) Active confirmed Problem Unspecified menopausal and perimenopausal disorder (N95.9) Active confirmed Problem 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1) Active confirmed Diag Problem Asthma (disorder) (943364586) Asthma, unspecified, unspecified status (493.90) Active confirmed Major Problem Menopausal symptom (76410379) Symptomatic menopausal or female climacteric states (627.2) Active confirmed Major Problem Osteoarthritis (525683330) Osteoarthrosis, unspecified whether generalized or localized, unspecified site (715.90) Active confirmed Major Problem Muscle pain (59117166) Unspecified myalgia and myositis (729.1) Active confirmed Major Problem Gynecological examination normal (857537481669834) Routine gynecological examination (V72.31) Active confirmed Major Problem Screening for malignant neoplasm of colon (241161261) Special screening for malignant neoplasms, colon (V76.51) Active confirmed Major Vital Signs Temperature 98.1 degrees Fahrenheit 01/05/2024 Blood pressure diastolic 78 mm Hg 01/05/2024 Height 71.5 in 01/05/2024 Blood pressure systolic 112 mm Hg 01/05/2024 Weight 168 lbs 01/05/2024 BMI 23.1 kg/m2 01/05/2024 Encounters Encounter Location Date Provider Diagnosis [address] [place] [address] 01/05/2024 Simran Barfield Encounter for gynecological examination [...] 02/14/2016 Next Appt Details Provider Name:Simran Tom gladis, 01/05/2025 11:00:00 AM, [address], [address], [place], [address], Insurance Providers Payer Name Payer Address Payer Phone Subscriber Number Group Number Insured Name Patient Relationship to Insured Coverage Start Date Coverage End Date [facility] [address] [address] [place], [place] [id number] [phone] [id number] ARASH RODRIGUEZ Spouse - patient is [...]
--- OUTSIDE RECORDS SUMMARY | 2024-12-01 12:20 | XMS_ITS | Clinical Summary ---
Author Organization [facility] Address [address] [place] [address] Care Team Providers Care Shipyard Painter Apprentice Name Role Phone Tanika Garcia MD Primary [...] ars (1 of 2 - PCV) 11/07/1979 Cervical Cancer Screening: P ap Smear 1981 Zoster Vaccines (1 of 2) 2010 RSV Immunization Adult Patie nts (1 - Risk 60-74 years 1-dose series) 2020 COVID-19 Vaccine (1 - 2023-2 5 season) 2024 Cholesterol Screening (Lipid Panel) 03/04/2024 Colorectal Cancer Screening: Colonoscopy 03/04/2024 Depression Screening 03/04/2024 HIV Screening 03/04/2024 Hepatitis C Screening 03/04/2024 Social Influencers of Health Screening 03/04/2024 Influenza Vaccine (#1) 2025 HIB Vaccines Aged Out No longer [...] this topic Medical Devices Implanted Type Area Guide Foreign Tour Device Identifier Shelf Expiration Date Model / Serial / Lot Cement Bone Surg Simplex Radiopq Stry-How 7360-2-136-114 092 Implanted:Qty: 1 on 02/19/2024 by Jason Jurado MD Left: Knee [employer] [id number] 08/23/2025 6191-1-010 / / [id number] Cement Bone Surg Simplex Radiopq Stry-Howm 8514-5-841-114 092 Implanted:Qty: 1 on 02/19/2024 by Jason Jurado MD Left: Knee [employer] [id number] 08/23/2025 6191-1-010 / / [id number] Plug Bone Med Stry-Howm 2917-3-690-143 872 Implanted:Qty: 1 on 02/19/2024 by Jason Jurado MD Left: Knee [employer] [id number] 11/28/2028 6215-5-011 / / [id number] Knee Pat Asymmetric X3 [id number] Stry-Howm 4864-G-196-E-2 [id number] Implanted:Qty: 1 on 02/19/2024 by Jason Jurado MD Left: Knee [employer] [id number] 04/05/2028 5551-G-320 -E / / [id number] Knee Fem Triathlon Cr 5-Lt Stry-Howm 3887-H-205-542 196 Implanted:Qty: 1 on 02/19/2024 by Jason Jurado MD Left: Knee [employer] [id number] 06/24/2027 5515-F-501 / / [id number] Knee Tib Insrt Ps-X3 [id number] Stry-Howm 0242-U-572-534 751 Implanted:Qty: 1 on 02/19/2024 by Jason Jurado MD Left: Knee [employer] [id number] 08/09/2025 5532-G-513 / / [id number] Knee Insrt Tib Baseplate Sz 5 Stry-Howm 9036-G-309-548 480 Implanted:Qty: 1 on 02/19/2024 by Jason Jurado MD Left: Knee [employer] [id number] 02/26/2028 5521-B-500 / / [id number] Knee Stem Cmnt Triathlon 12x50 Stry-Howm 0002-S-312-200 907 Implanted:Qty: 1 on 02/19/2024 by Jason Jurado MD Left: Knee [employer] [id number] 11/09/2028 5560-S-112 / / [id number] Care Teams Shipyard Painter Apprentice Relationship Specialty Start Date End Date Tanika Garcia MD [address] [address] PCP - General 12/17/23
--- OUTSIDE RECORDS SUMMARY | 2024-12-01 12:20 | XMS_ITS | Data Portability ---
Author Organization [place] [facility], Allergy Address [address] [address] Care Team Providers Care Early Childhood Associate Name Role Phone SUDHA STUBBS Primary Care [...] past. 2024 025 [email or web address] Saba Chanel, [address] [facility], [place], [address], 08/20/2024 08:51:42 speech therapy referral - having trouble projectin g voice. please perform voice therapy. 2023 024 RENATE Evans [facility], [address] [facility], [place], [address], 02/03/2024 12:09:31 Procedures None recorded. Surgeries None recorded. Imaging None recorded. Medication Orders omeprazol e 20 mg capsule,d elayed release 2023 024 [facility]Pharmacy #[id number], [address] [place], [address], 05/21/2024 09:27:29 omeprazol e 20 mg capsule,d elayed release 2023 024 [facility]/Pharmacy #[id number], [address] [facility], [place], [address], 01/30/2024 14:46:56 Patient TargetsNo targets recorded. Patient [...] Address Organization Details Recorded Time Neck pain 26492335 Active 2020 Cervicalg ia; Note: Date Diagnosed : 01/19/2021 9:51 AM (M54.2) Not Available [facility] 02:42:26 Sensorine ural hearing loss of bilateral ears 302874045 Active 2021 Sensorine ural hearing loss, bilateral ; Note: Date Diagnosed : 08/29/2021 1:56 PM (H90.3) Not Available [facility] 4 02:42:25 Bilateral tinnitus 60390436962 02 Active 2020 Tinnitus, bilateral ; Note: Date Diagnosed : 01/19/2021 9:54 AM (H93.13) Not Available [facility] 4 02:42:24 Allergic rhinitis 71938684 Active 2021 Other allergic rhinitis; Note: Date Diagnosed : 08/29/2021 2:00 PM (J30.89) Not Available [facility] 4 02:42:17 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 Other diseases of vocal cords; Note: Changed from J38 to J38.3 ( 10:47 AM) , Date Diagnosed : 01/19/2021 9:54 AM (J38) Not Available [facility] 4 02:42:23 Dysphonia 03526084 Active 2023 LCAUDIA SCHAEFER MD [address] [facility],[place] [address], [place], [address] , [place] - [facility] 4 14:27:32 Otalgia of left ear 2440157200 Active 2023 CLAUDIA SCHAEFER MD [address] [facility],[place] [address], [place], [address] , [place] - [facility] 4 14:27:43 Gastroeso phageal reflux disease without esophagit is 359578371 Active 2023 CLAUDIA SCHAEFER MD [address] [facility] [address], [place], [address] , [place] - [facility] 4 14:42:40 Dysphagia 22502611 Active 2023 CLAUDIA SCHAEFER MD [address] [facility] [address], [place], [address] , [place] - [facility] 4 14:46:04 Dizziness and giddiness 709732937 Active 2023 CLAUDIA SCHAEFER MD [address] [facility] [address], [place], [address] , [place] [facility] 09:27:01 Chronic hoarsenes s 23692743078 05 Active 2024 CLAUDIA SCHAEFER MD [address] [facility] [address], [facility] [place], [address] , [place] [facility] 08:22:13 Problem Notes None recorded. Procedures Surgical History Date Name Laterality Status Provider Name and Address Organization Details Recorded Time 08/20/2024 FFL_RE completed CLAUDIA SCHAEFER MD [address] [facility],[place] [address], [place], [address], [place] - [facility] 08/20/2024 08:21:58 05/21/2024 FFL_RE completed CLAUDIA SCHAEFER MD [address] [facility],[address], [address], [place] - [facility] 05/21/2024 08:28:21 05/21/2024 Air & Speech Audio with Tymps - [id number], 72780 & 43832 completed Gerri JAIMES [address] [facility],[place] [address], [place], [address], [place] [facility] 05/21/2024 09:03:12 01/30/2024 FFL_RE completed CLAUDIA SCHAEFER MD [address] [facility],[address], [address], [place] [facility] 01/30/2024 14:42:07 Imaging Results None recorded. Procedure Notes None recorded. Medical Equipment None Reported. Allergies Allergen ID Allergen Name Allergen Category Reaction Reaction Severity Criticality Documentation Date Start Date Code Code System Note Provider Name and Address Organization Details Recorded Time 663403 morphine hydrochlo ride Not available other Not available Not available 10/07/2023 63074 1 RxNorm React ion: other react ion, Unkno wn; Not Available [facility] Medications Name Sig Start Date Stop Date Status Note LastModified by Organization Details LastModified Time alprazola m 1 mg tablet 5 mg at Noon 1.0mg at night 08/27/ 2021 active Medicati on ID: [id number] B rand Name: alprazol am Send Method: E-Prescr ibed Sub s Allowed: subs OK Speci al Instruct ion: TAKE 1 TABLET BY MOUTH EVERY DAY NEEDED M thelma nGeneric Name: alprazol am Not Available Not Available Not Available benzonata te 200 mg capsule active Medicati on ID: 166127 B rand Name: benzonat ate Send Method: E-Prescr ibed Sub s Allowed: subs OK Speci al Instruct ion: TAKE 1 CAPSULE BY MOUTH TWICE DAILY X30 DAYS NEEDED FOR COUGH Me dication GenericN shahana: benzonat ate Not Available Not Available Not Available valacyclo vir 1 gram tablet 2020 active Medicati on ID: 937385 B rand Name: valacycl ovir Sen d Method: E-Prescr ibed Sub s Allowed: subs OK Speci al Instruct ion: TAKE 2 TABLETS BY MOUTH EVERY 12 HOURS NEEDED FOR 2 DOSES FOR COLD SORE. Me dication GenericN shahana: valacycl ovir Not Available Not Available Not Available meloxicam 15 mg tablet 2020 active Medicati on ID: 770430 B rand Name: meloxica m Send Method: E-Prescr ibed Sub s Allowed: subs OK Speci al Instruct ion: TAKE 1 TABLET BY MOUTH EVERY DAY WITH FOOD Med icationG enericNa me: meloxica m Not Available Not Available Not Available ondansetr on HCl 4 mg tablet 2020 active Medicati on ID: 944212 B rand Name: ondanset sanam HCl Send Method: E-Prescr ibed Sub s Allowed: subs OK Speci al Instruct ion: TAKE 2 TABLETS BY MOUTH 3 TIMES A DAY NEEDED FOR 5 DAYS. Me dication GenericN shahana: ondanset sanam HCl Not Available Not Available Not Available sulfameth oxazole 800 mg-trimet hoprim 160 mg tablet 05/21 completed Medicati on ID: [id number] B rand Name: sulfamet hoxazole -trimeth oprim Se nd Method: E-Prescr ibed Sub s Allowed: subs OK Speci al Instruct ion: TAKE 1 TABLET BY MOUTH EVERY 12 HOURS FOR 7 DAYS Med icationG enericNa me: sulfamet hoxazole -trimeth oprim Not Available Not Available Not Available meloxicam 7.5 mg tablet 05/21 completed Medicati on ID: [id number] B rand Name: meloxica m Send Method: E-Prescr ibed Sub s Allowed: subs OK Speci al Instruct ion: TAKE ONE TABLET BY MOUTH DAILY WITH FOOD Med icationG enericNa me: meloxica m Not Available Not Available Not Available meclizine 25 mg tablet active Medicati on ID: 176696 B rand Name: meclizin e Send Method: E-Prescr ibed Sub s Allowed: subs OK Speci al Instruct ion: TAKE 1 TABLET NEEDED BY ORAL ROUTE DIRECTED Medicat ionGener icName: meclizin e Not Available Not Available Not Available cephalexi n 500 mg capsule 05/21 completed Medicati on ID: 653335 B rand Name: cephalex in Send Method: E-Prescr ibed Sub s Allowed: subs OK Speci al Instruct ion: TAKE 1 CAPSULE BY MOUTH EVERY 8 HOURS FOR 2 DAYS Med [facility] in Not Available Not Available Not Available triamcino lone acetonide 0.1 % topical ointment 05/21 completed Medicati on ID: 712293 B rand Name: triamcin olone acetonid e Send Method: E-Prescr ibed Sub s Allowed: subs OK Speci al Instruct ion: APPLY TO AFFECTED AREA ON THE LEFT FOREARM TWICE DAILY. Lois Shaw Name: triamcin olone acetonid e Not Available Not Available Not Available gabapenti n 300 mg capsule 2020 active Medicati on ID: 175338 B rand Name: gabapent in Send Method: [...] mg tablet 2020 active Medicati on ID: 150832 B rand Name: monteluk ast Send Method: E-Prescr ibed Sub s Allowed: subs OK Speci al Instruct ion: TAKE 1 TABLET BY MOUTH EVERY DAY DIRECTED Medicat ionGener icName: monteluk ast Not Available Not Available Not Available mupirocin 2 % topical ointment 2020 active Medicati on ID: 821213 B rand Name: mupiroci n Send Method: E-Prescr ibed Sub s Allowed: subs OK Speci al Instruct ion: APPLY A SMALL AMOUNT TO THE AFFECTED AREA TOPICALL Y 3 TIMES PER DAY X 7 DAYS Med icationG enericNa me: mupiroci n Not Available Not Available Not Available eszopiclo ne 3 mg tablet 2020 active Medicati on ID: 543812 B rand Name: eszopicl one Send Method: E-Prescr ibed Sub s Allowed: subs OK Speci al Instruct ion: TAKE 1 TABLET BY MOUTH EVERYDAY AT BEDTIME Medicati onGeneri cName: eszopicl one Not Available Not Available Not Available tizanidin e 4 mg capsule 2020 active Medicati on ID: 239020 B rand Name: tizanidi ne Send Method: E-Prescr ibed Sub s Allowed: subs OK Speci al Instruct ion: TAKE 1 CAPSULE BY MOUTH EVERY DAY NEEDED M edicatio nGeneric Name: tizanidi ne Not Available Not Available Not Available Atrovent HFA 17 mcg/actua tion aerosol inhaler 2020 active Medicati on ID: 526895 B rand Name: Atrovent HFA Send Method: E-Prescr ibed Sub s Allowed: subs OK Speci al Instruct ion: INHALE 2 PUFFS BY MOUTH EVERY 6 HOURS NEEDED FOR SHORTNES S OF BREATH M edicatio nGeneric Name: Atrovent HFA Not Available Not Available Not Available olopatadi ne 0.2 % eye drops 05/21 completed Medicati on ID: 037119 B rand Name: olopatad ine Send Method: E-Prescr ibed Sub s Allowed: subs OK Speci al Instruct ion: INSTILL 1 DROP INTO BOTH EYES EVERY DAY NEEDED M edicatio nGeneric Name: olopatad ine Not Available Not Available Not Available OxyContin 10 mg tablet,cr ush resistant ,extended release 05/21 completed Medicati on ID: 159822 B rand Name: OxyConti n Send Method: E-Prescr ibed Sub s Allowed: subs OK Speci al Instruct ion: TAKE 1 TABLET BY MOUTH EVERY 12 HOURS Me dication GenericN shahana: OxyConti n Not Available Not Available Not Available Vitals Date Recorded Body height Body mass index (BMI) Body weight Provider Name and Address Organization Details Last Updated DateTime 08/20/2024 180.34 cm 23.7 kg/m2 55565.7 g [place] [facility] 08/20/2024 07:58:38 Date Recorded Body height Body mass index (BMI) Body weight Provider Name and Address Organization Details Last Updated DateTime 01/30/2024 180.34 cm 23.7 kg/m2 10776.7 g Le [place] [facility] 01/30/2024 14:06:15 Date Recorded Body height Body mass index (BMI) Body weight Provider Name and Address Organization Details Last Updated DateTime 05/21/2024 180.34 cm 23.7 kg/m2 90436.7 g Bea Vega [facility] 05/21/2024 08:03:18 Social History None recorded. Functional Status None recorded. Mental Status None recorded. Family History Nothing Reported. Medical History No medical history recorded. Gynecological HistoryNo gynecological history recorded. Obstetrics History GPAL:G 0 P 0 0 0 0 Past Encounters Encounter ID Performer Location Encounter Start Date Encounter Closed Date Diagnosis/Indication Diagnosis SNOMED-CT Code Diagnosis ICD10 Code Diagnosis Note [id number] CLAUDIA SCHAEFER MD [facility] on [address] [place] [address] 01/30/2024 13:47:09 01/30/2024 14:49:46 Dysphonia 14103430 R49.9 No obvious vocal cord lesions on laryngosco py. I recommend voice therapy. 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 May be related. Will assess improvemen t with voice therapy. Otalgia of left ear 1010 288577 H92.02 Exam was normal. Gave reassuranc e. Gastroesop hageal reflux disease without esophagitis 615241067 K21.9 Exam was benign. Laryngosco py showed [place] ing. I feel the symptoms are likely due to extra esophageal reflux disease. We will begin a six-week trial of omeprazole which was sent to their pharmacy. We will plan a follow up in 3-4 months to reassess. Dysphagia 64521999 R13.1 0 if doesn't improve on omeprazole will consider a swallow study [id number] CLAUDIA SCHAEFER MD [facility] on [address] [place] [address], [place] [address] 05/21/2024 08:00:29 05/21/2024 09:29:24 Otalgia of left ear 3752998764 H92.02 likely ETD. Audio today reassuring . Gastroesop hageal reflux disease without esophagitis 606073940 K21.9 stressed importance of 6 week trial. sent new RX. will see if some of throat symptoms improve. Sensorineu ral hearing loss of bilateral ears 355788060 H90.3 Audiologic al evaluation results:Ri ght ear:Modera te high frequency sensorineu ral hearing loss with excellent word recognitio n.Left ear:Modera te high frequency sensorineu ral hearing loss with excellent word recognitio n. Tympanomet ry:Right Ear:Type ALeft Ear:Type A Likely has ETD. Discussed auto insufflati on. Gave reassuranc e audio and ear exam don't suggest and pressure problem or damage to the ear. Dizziness and giddiness 617190961 R42 not otologic. recommend neurology fu which she has planned. castro padron negative [id number] CLAUDIA SCHAEFER MD [facility] on [address] [place] [address], [place] [address] 08/20/2024 07:53:57 08/20/2024 08:29:04 Gastroesophageal reflux disease without esophagitis 674589744 K21.9 She did not tolerate omeprazole . We will hold off on additional reflux medication at this time. Chronic hoarseness 71933 38402 105 R49.0 Laryngosco py was performed today and was normal. I will refer her to Saba Chanel in speech pathology for an assessment and treatment. Bilateral tinnitus 63048 29629 102 H93.13 We discussed masking we will repeat an audiogram at her next 6-month follow-up. Health Concerns Section Related Observation LastModified by Organization Detai ls LastModified Time None Recorded Concern Status LastModified by Organization Details LastModified Time None Recorded Advance Directives Directive None Recorded Payers Insurance Date Sequence Insurance Name Policy Number Policy Harrington Covered Member ID Harrington Member ID Guarantor Name 05/27/2024 2 [facility] Kimo Simmons [id number] Celeste Simmons 08/23/2024 1 [employer] (POS) [id number] Kimo Simmons [id number] Celeste Simmons Notes Date Note Type Note [...] tightness in her throat. CLAUDIA SCHAEFER MD [address] [place] [address], [place], [address], [facility] 01/30/2024 14:46:58 05/21/2024 text/html After wearing ea [...] 2 weeks then stopped. CLAUDIA SCHAEFER MD [address] [facility],[place] [address], [place], [address], [place] - [facility] 05/21/2024 09:27:29 08/20/2024 text/html She has a [...] does see GI. CLAUDIA SCHAEFER MD [address] [facility] [address], [place], [address], [place] - [facility] 08/20/2024 08:26:44 OBGyn Episode No OBEpisode recorded.
--- OUTSIDE RECORDS SUMMARY | 2024-12-01 12:20 | XMS_ITS ---
Author Name [facility] Organization Unknown Results Test Name/Text Value Interpretation Date Range Source ALT SERPL CCNC 9.0 U/L Normal 02/11/2024 7 - 52 [facility] GLUCOSE P FAST SERPL MCNC 77.0 mg/dL Normal 02/11/2024 70 - 99 [facility] Glomerular filtration rate/1.73 sq M. predicted 97.0 Normal 02/11/2024 60 - [facility] ALBUMIN SERPL BCG MCNC 4.5 g/dL Normal 02/11/2024 3.5 - 5 [facility] ANION GAP SERPL SCNC 9.0 mmol/L Normal 02/11/2024 5 - 14 [facility] POTASSIUM SERPL [facility] 3.9 mmol/L Normal 02/11/2024 3.5 - 5 .1 [facility] ALP SERPL-CCNC 88.0 U/L Normal 02/11/2024 34 - 104 [facility] HCO3 SER SCNC 26.0 mmol/L Normal 02/11/2024 24 - 32 [facility] AST SERPL CCNC 16.0 U/L Normal 02/11/2024 5 - 40 [facility] BILIRUB SERPL MCNC 0.8 mg/dL Normal 02/11/2024 0.3 - 1 [facility] PROT SERPL [facility] 6.8 g/dL Normal 02/11/2024 6.4 - 8.5 [facility] CALCIUM SERPL MCNC 9.7 mg/dL Normal 02/11/2024 8.4 - 10.2 [facility] CHLORIDE SERPL SCNC 105.0 mmol/L Normal 02/11/2024 98 - 1 07 [facility] SODIUM SERPL SCNC 140.0 mmol/L Normal 02/11/2024 135 - 14 5 [facility] CREAT SERPL MCNC 0.7 mg/dL Normal 02/11/2024 0.5 - 1 [facility] BUN SERPL [facility] 12.0 mg/dL Normal 02/11/2024 7 - 17 [facility] PREALB SERPL NEPH MCNC 19.7 mg/dL Normal 02/11/2024 17 - 34 [facility] HCT VFR BLD AUTO 39.2 % Normal 02/11/2024 37 - 47 [facility] EOSINOPHIL NO. BLD AUTO 0.0 K/uL Normal 02/11/2024 0 - 0 .5 [facility] LYMPHOCYTES NFR BLD AUTO 33.0 % Normal 02/11/2024 20 - 48 [facility] RDW RBC AUTO RTO 13.5 % Normal 02/11/2024 12.1 - 16.2 [facility] MCV RBC AUTO 90.3 fL Normal 02/11/2024 78 - 100 [facility] MG MCHC RBC AUTO MCNC 33.5 g/dL Normal 02/11/2024 32 - 36 [facility] MONOCYTES NFR BLD AUTO 7.6 % Normal 02/11/2024 2 - 12 [facility] RBC NO. BLD AUTO 4.35 M/uL Normal 02/11/2024 4.2 - 5.4 [facility] NEUTROPHILS NFR BLD AUTO 57.3 % Normal 02/11/2024 44 - 74 [facility] BASOPHILS IN BLOOD BY AUTOMATED COUNT 0.1 K/uL Normal 02/11/2024 0 - 0.2 [facility] LYMPHOCYTES NO. BLD AUTO 1.4 K/uL Normal 02/11/2024 1 - 3.2 [facility] PLATELET NO. BLD AUTO 150.0 K/uL Normal 02/11/2024 150 - 450 [facility] BASOPHILS NFR BLD AUTO 1.3 % Normal 02/11/2024 0 - 2 [facility] MCH RBC QN AUTO 30.2 pg Normal 02/11/2024 25 - 33 [facility] NEUTROPHILS NO. BLD AUTO 2.4 K/uL Normal 02/11/2024 1.8 - 7.8 [facility] PMV BLD AUTO 10.3 fL Normal 02/11/2024 7.4 - 11.4 [facility] EMG WBC NO. BLD AUTO 4.2 K/uL Normal 02/11/2024 4 - 10.5 [facility] EOSINOPHIL NFR BLD AUTO 0.8 % Normal 02/11/2024 0 - 6 [facility] DIFFERENTIAL TYPE AUTOMATED Normal 02/11/2024 C [facility] HGB BLD MCNC 13.1 g/dL Normal 02/11/2024 12.5 - 16 [facility] MG MONOCYTES NO. BLD AUTO 0.3 K/uL Normal 02/11/2024 0 - 0. 8 [facility] History of Medication Use Medication Directions Dispensed Refills Start Date End Date Stat us tranexamic acid (LYSTEDA) 650 MG tablet Take 3 tablets (1,950 mg total) by mouth daily. 02/20/2024 active dexamethasone (DECADRON) tablet 8 mg 8 mg, Oral, Once, On Fri02/20/24 at 0800, For 1 dosePOD #1 in the morning. Hold for patients with the following procedures: I&D w/ or w/o poly exchange, resection arthroplasty, removal of prosthesis 02/20/2024 completed ALPRAZolam (XANAX) tablet 1 mg 1 mg, Oral, Every Night at Bedtime, First dose on Fri02/19/24 at 2200 02/20/2024 active ondansetron (Zofran) 4 MG tablet Take 1 tablet (4 mg total) by mouth daily as needed. 02/20/2024 active aspirin EC 81 MG EC tablet Take 1 tablet (81 mg total) by mouth 2 (two) times a day after meals. 02/19/2024 4 active ceFAZolin (ANCEF) injection 2 g 2 g, Intravenous, Every 8 hours, First dose on Fri02/19/24 at 1600, For 1 dose, PACU/FloorGive 8 hours after the intra-op cefazolin dose. For Adults, if ordered IV then reconstitute each 1GM vial with 10mL sterile water or normal saline and administer IV Push over 3-5 minutes. 02/19/2024 4 completed ALPRAZolam (XANAX) tablet 0.5 mg 0.5 mg, Oral, Daily with lunch, First dose on Fri02/19/24 at 1200 02/19/2024 active calcium carbonate (TUMS) chewable tablet 500 mg 500 mg, Chew, Every 4 hours PRN, indigestion, heartburn, Starting on Fri02/19/24 at 1114 02/19/2024 active gabapentin (NEURONTIN) capsule 300 mg 300 mg, Oral, 3 times daily, First dose on Fri02/19/24 at 1600 02/19/2024 active metoclopramide (REGLAN) injection 10 mg 10 mg, Intravenous, Every 6 hours PRN, nausea, vomiting, Starting on Fri02/19/24 at 1114, PACU/FloorTo be given if zofran is ineffective. 02/19/2024 active montelukast (SINGULAIR) tablet 10 mg 10 mg, Oral, Every Evening, First dose on Fri02/19/24 at 1800 02/19/2024 active oxyCODONE (ROXICODONE) 5 MG immediate release tablet Take 1 tablet (5 mg total) by mouth every 4 (four) hours as needed. 02/19/2024 active oxyCODONE (ROXICODONE) 5 MG immediate release tablet 10 mg 10 mg, Oral, Every 4 hours PRN, moderate pain (4-6), Starting on Fri02/19/24 at 1114, PACU/Floor 02/19/2024 active tiZANidine (ZANAFLEX) 4 MG tablet Take 1 tablet (4 mg total) by mouth every 6 (six) hours as needed. 12/24/2023 active MAGNESIUM MALATE PO Take 250 mg by mouth daily as needed. 05/16/2023 active meclizine (ANTIVERT) 25 MG tablet Take 1 tablet (25 mg total) by mouth daily as needed. 04/08/2023 active meclizine (ANTIVERT) 25 MG tablet Take 1 tablet (25 mg total) by mouth daily as needed. 04/08/2023 active meloxicam (MOBIC) tablet 15 mg 15 mg, Oral, Daily, First dose on Fri02/20/24 at 0900, PACU/Floor 06/04/2021 active eszopiclone 5mg QD active montelukast 10 mg tablet Take 1 tablet every day by oral route. active Acetaminophen-Caffei ne (Excedrin Tension Headache) 500-65 MG TABS Take 2 tablets by mouth daily as needed. active budesonide-formotero l (SYMBICORT) 80-4.5 MCG/ACT inhaler Inhale 2 puffs into the lungs 2 (two) times a day as needed. active Cetirizine HCl 10 MG CAPS Take 1 capsule (10 mg total) by mouth every evening. active Cyanocobalamin [address] 2,500 mcg under the tongue daily. active gabapentin (NEURONTIN) 300 MG capsule Take 1-2 capsules (300-600 mg total) by mouth 3 (three) times a day. 300 mg lunch and dinner and 600 mg at HS active Allergies Allergen Reaction Severity Comment Documented Date Source Status QUINOLONES 02/04/2024 [facility] active OTHER Quinolone Antibiotics 12/22/2023 [facility] active MAPLE FLAVOR Maple trees 12/02/2023 [facility] ac tive MOLDS & SMUTS 11/20/2021 [facility] activ e MORPHINE SHORTNESS OF BREATH Other reaction(s): Dizziness 11/09/2013 [facility] active CIPROFLOXACIN ELISA-DANLOS syndrome can not take one of the side effects is ligament rupture [facility] DUST [facility] HOUSE DUST [facility] MOLD [facility] Problems Problem Status Onset Date Problem Type Date of Resolution Source 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 active 2024-08-03 ProblemAct [facility] Osteoarthritis of left knee joint active 2024-01-22 ProblemAct [facility] Surgical follow-up active 2024-04-13 ProblemAct [facility] Arthritis of knee active 2024-01-22 ProblemAct [facility] Asthma active ProblemAct [facility] Anxiety and depression active EncounterDiagnosisAct [facility] Autistic disorder active ProblemAct [facility] PTSD (post-traumatic stress disorder) active EncounterDiagnosisAct [facility] Moderate persistent asthma, unspecified whether complicated active EncounterDiagnosisAct [facility] At risk for impaired communication active ProblemAct [facility] Primary osteoarthritis of left knee active EncounterDiagnosisAct [facility] Hyperlipidemia, unspecified hyperlipidemia type active EncounterDiagnosisAct [facility] Elisa-Danlos syndrome active ProblemAct [facility] GERD (gastroesophageal reflux disease) active ProblemAct [facility] Inadequate oral intake active EncounterDiagnosisAct [facility] MG Anemia active EncounterDiagnosisAct [facility] Encounters Encounter Type Encounter Reason Primary Diagnosis Location Date Ambulatory [facility] [place] 10/13/2024 Ambulatory [facility] [place] 10/06/2024 Ambulatory [facility] [place] 09/02/2024 Ambulatory [facility] [place] 07/27/2024 Ambulatory Encounter for other preprocedural examination Encounter for other preprocedural examination [facility] [place] 02/19/2024 Ambulatory [facility] [place] 02/04/2024 Ambulatory [facility] [place] 01/23/2024 Ambulatory [facility] [place] 01/23/2024 Ambulatory [facility] [place] 01/22/2024 Ambulatory [facility] [place] 01/22/2024 Ambulatory [facility] [place] 01/22/2024 Ambulatory [facility] [place] 01/22/2024 Ambulatory [facility] [place] 12/25/2023 Ambulatory [facility] [place] 12/25/2023 Ambulatory [facility] [place] 12/25/2023 Ambulatory [facility] [place] 12/25/2023 Ambulatory [facility] [place] 12/25/2023 Care Team Organization Name Specialty Phone Email Start Date End Da te [facility] [place] [facility] [place]
== END 2024-12-01 11:48 | disposition home or self-care (01) ==
LOC: HO.HPS 11:07
PROVIDERS: PCP Student in an Organized Health Care Education/Training Program; Visit Provider Hospitalist
DX: J45.40 Moderate persistent asthma, uncomplicated (principal); J30.2 Other seasonal allergic rhinitis; R05.3 Chronic cough; J38.3 Other diseases of vocal cords; R06.09 Other forms of dyspnea; R91.8 Other nonspecific abnormal finding of lung field; J98.11 Atelectasis; Q79.60 Ehlers-Danlos syndrome, unspecified; U09.9 Post COVID-19 condition, unspecified; G47.33 Obstructive sleep apnea (adult) (pediatric)
CPT/HCPCS: 99214; G2211